=== PATIENT | female | born 1955 | race Caucasian/White ===

== ENCOUNTER 2017-12-06 11:08 | Emergency (ER) | payer MEDICARE, SELFPAY ==
[2017-12-06 11:08] VITALS: BP 138/78; PULSE 85; RESP 16; TEMP 36.6; O2SAT 99; BMI 25.0
--- NOTE | 2017-12-06 11:59 | CT_ITS ---
STUDY: CT ABDOMEN AND PELVIS WITH CONTRAST REASON FOR EXAM: Female, 62 years old. Abdominal pain RADIATION DOSAGE (If Supplied By Facility): CTDIvol = ( 15.60 ) mGy, DLP = ( 667.71 ) mGycm TECHNIQUE: Transaxial images were obtained from the dome of the diaphragm to the symphysis pubis without oral contrast. 100 ml of Isovue 300 contrast was administered. Sagittal and coronal images were reconstructed. Individualized dose optimization techniques were used for this CT. COMPARISON: None. FINDINGS: Body wall soft tissues: No acute process. Osseous structures: No acute process. Inferior chest: No acute process. Hepatobiliary: Cholecystectomy. Minimally ectatic intrahepatic biliary tree and common bile duct most consistent with chronic physiologic adaptation postcholecystectomy. Liver parenchyma normal. Pancreas: No acute process. Spleen: Normal. Adrenal glands: Normal. Urogenital: Normal kidneys, symmetric nephrograms. Normal collecting systems, ureters, urinary bladder. Uterus absent. No adnexal mass or cyst. Pelvic floor and sidewalls and retroperitoneum: No mass or adenopathy. Vasculature: No acute process. Stomach: No acute process. Small bowel and mesentery: There is small bowel stool within the distal ileum suggesting a component of mild stasis/dysmotility. Large bowel: The appendix is not visible. There are no acute inflammatory features in the region of the cecum. There is a moderately prominent distributed stool burden of large bowel from the cecum to the transverse colon. There is mild chronic-appearing circumferential thickening of the wall of the splenic flexure and descending colon with low-density fatty infiltration the wall suggesting sequela of prior colitis without evidence of acute colitis. There is minimal diverticulosis of the sigmoid without diverticulitis. Anastomotic sutures of the distal sigmoid. Normal rectum. Free fluid or free air: None. CT/Abdomen/Pelvis W IV Cont ONLY IMPRESSION: There is evidence of mild dysmotility in the distal ileum, small bowel stool present, with no evidence of small bowel obstruction or inflammation. No acute other malady of the large bowel or rectum. No other acute intra-abdominal process. Electronically Signed: Latrell Paez, at 13:41 EDT Tel , Service support ,
--- NOTE | 2017-12-06 11:59 | EKG12_ITS ---
Test Reason : SOB/CHEST TIGHTNESS Blood Pressure : / mmHG Vent. Rate : 071 BPM Atrial Rate : 071 BPM P-R Int : 162 ms QRS Dur : 072 ms QT Int : 416 ms P-R-T Axes : 003 041 051 degrees QTc Int : 452 ms Normal sinus rhythm Normal ECG Confirmed by CHRISTY CARDOZO, JENNY ([id number]), writer editor CHRISTIANO TITUS ([id number]) on 12/08/2017 1:30:30 PM Referred By: ANNIE Confirmed By:JENNY HARRISON MD
[2017-12-06 12:16] LABS: Bacteria 0 SEEN /hpf (None Seen); Mucous, Urine 0 SEEN /hpf (<or=2+); White Blood Cells 0 SEEN /hpf (0-5)
[2017-12-06 12:18] LABS: Absolute Neutrophil Count 3.5 X10^3/uL (2.0-7.7); Basophil# 0.04 X10^3/uL; Basophil% 0.6 % (0-1); Eosinophil# 0.05 X10^3/uL; Eosinophils% 0.8 % (0-5); Hematocrit 41.3 % (37-47); Hemoglobin 13.5 g/dl (12.0-15.0); Lymphocyte % 36.5 % (19-41); Mean Corp Hgb Conc 32.7 g/gl (32-36); Mean Corpuscular Hgb 29.8 pg (27.0-32.0); Mean Corpuscular Volume 91.2 fL (81-99); Mean Platelet Vol. 9.4 fl (6.2-12.0); Monocyte# 0.41 X10^3/uL; Monocyte% 6.5 % (0-10); Neutrophil # 3.49 X10^3/uL (2.7-7.7); Neutrophil % 55.4 % (47-70); POSITIVE COUNT NO; POSITIVE DIFFERENTIAL NO; POSITIVE MORPHOLOGY NO; Platelet Count 262 K/mm3 (150-450); RBC Distribution Width CV 13.2 % (11.6-14.6); RBC Distribution Width SD 43.6 fl (35.1-43.9); Red Blood Count 4.53 M/mm3 (4.2-5.4); White Blood Count 6.3 K/mm3 (4.4-11.0)
[2017-12-06 12:18] LABS: Color, Urine Yellow (Yellow); Glucose, Dipstick Normal (Normal); Ketone-Dipstick Negative (Negative); Leukocyte Esterase-Dipstick 25 /ul (Negative); Nitrite-Dipstick Negative (Negative); Occult Blood-Urine 150 /ul (Negative); Protein-Dipstick Negative (Negative); Specific Gravity, Urine 1.015 (1.002-1.030); Urine Bilirubin Dipstick Negative (Negative); Urine Clarity Clear (Clear); Urine Urobilinogen Normal (Normal)
[2017-12-06] MEDS: 0.9% Normal Saline 1,000 ML 1000 ML IV (12:18)
[2017-12-06] MEDS: Morphine 4 MG/ML Syringe IV (12:19)
[2017-12-06] MEDS: Ondansetron 4 MG/2 ML Vial IV (12:19)
[2017-12-06 12:23] LABS: Squamous Epithelial Cells - UA 0-5 SEEN /hpf (5-10)
[2017-12-06 12:24] LABS: Red Blood Cells-Urine 0-5 SEEN /hpf (0-5)
[2017-12-06 12:38] LABS: ALB/GLOB Ratio 0.9 RATIO (0.9-2.4); AST(SGOT) 28 U/L (15-37); Alanine Aminotransfer ALT/SGPT 29 U/L (13-56); Albumin, Serum 3.4 g/dL (3.2-5.0); Alkaline Phosphatase 105 U/L (45-117); Anion Gap 9 (5-15); BUN 12 mg/dL (7-18); BUN/Creat Ratio 18.6 RATIO (10-20); Calcium,Total 8.5 mg/dL (8.5-10.1); Chloride 107 mmol/L (98-107); Creatinine, Serum 0.65 mg/dL (0.55-1.02); EST Glomerular Filtration Rate 98 mL/min (>60); Est Glom Filt Rate - Afr Amer 119 mL/min (>60); Estimated Creatinine Clearance 73.28 ml/min; Globulin 3.7 g/dL (2.2-4.2); Glucose 93 mg/dL (74-106); Lipase 290 U/L (73-393); Potassium 3.4 mmol/L (3.5-5.1); Protein, Total 7.1 g/dL (6.4-8.2); Sodium Level 143 mmol/L (136-145)
[2017-12-06 13:12] VITALS: BP 137/87; PULSE 74; RESP 16; O2SAT 96
[2017-12-06 15:08] VITALS: BP 118/90; PULSE 65; RESP 16; O2SAT 97
--- NOTE | 2017-12-06 15:33 | ED.DCSUM_ITS ---
- ER Visit Summary Date of Service: 12/06/17 Chief Complaint: Abdominal pain History of Present Illness: The patient is a 62 F with a migratory abdominal pain over the past week and a half. Currently it is in her right upper quadrant and left lower quadrant. She also reports constipation, but she does pass gas. She is nauseated but denies vomiting. No fevers. No other related symptoms. She has a family history of colon cancer. She has a history of gastric ulcers, fibromyalgia, and a prior sigmoid operation. Physical Examination: Afebrile and vital signs unremarkable. Patient appears in no acute distress. Heart regular rate and rhythm. Lungs clear. Abdomen tender to palpation in the right upper quadrant and left lower quadrant. No guarding or rebound. Normal bowel sounds. Skin appears normal. Test Results: EKG shows sinus rhythm at a rate of 71. CBC normal. Potassium 3.4. Hepatic panel and lipase normal. Urinalysis unremarkable, shows contamination. Troponin normal. CT showed mild dysmotility at the distal ileum. Emergency Department Course and Treatment: Patient treated with morphine and Zofran while awaiting results. Labs are all fairly unremarkable. EKG and troponin normal. CT showed mild dysmotility. I discussed this with the radiologist. This is not an ileus or obstruction pattern. He said this is most likely seen with enteritis, constipation, or in elderly patients. Patient has no other findings to suggest enteritis or constipation. He said that her dysmotility pattern might cause constipation symptoms. Patient is appropriate for an outpatient workup. I discussed with the patient. She will follow-up with her PCP. Call tomorrow. I advised her that if her symptoms worsen, she should return for evaluation. She could become dehydrated or septic. This might require hospitalization. She will return for any new or worsening issues. She will use [id number] remedies for pain. Zofran as needed for nausea. Treatment Plan: As above Disposition: Discharged Impression: 1. Abdominal pain This note was generated with [employer] dictation software. It may contain incorrect words, spelling, and punctuation that were not noted in review of the chart prior to signing ED Disposition - Plan for ED Patient: Chief Complaint: Abd Pain Referrals: Margarito Spain DO [Primary Care Provider] -
--- NOTE | 2017-12-06 15:33 | ED.DEP ---
ED Disposition - Plan for ED Patient: Chief Complaint: Abd Pain Instructions: Abdominal Pain Prescriptions: Ondansetron [Zofran Odt] 4 mg PO Q8H PRN PRN #10 tab PRN Reason: Nausea Referrals: Margarito Spain DO [Primary Care Provider] -
[2017-12-06 15:50] VITALS: BP 118/90; PULSE 65; RESP 16; O2SAT 96
== END 2017-12-06 15:56 | disposition home or self-care (01) ==
PROVIDERS: Emergency Provider Emergency Medicine; Family Provider Student in an Organized Health Care Education/Training Program; PCP Student in an Organized Health Care Education/Training Program
DX: R10.11 Right upper quadrant pain (principal); R10.32 Left lower quadrant pain; K59.00 Constipation, unspecified; R11.0 Nausea; M79.7 Fibromyalgia; Z80.0 Family history of malignant neoplasm of digestive organs; Z87.19 Personal history of other diseases of the digestive system; Z79.899 Other long term (current) drug therapy
CPT/HCPCS: 74177; 80053; 81001; 83690; 84484; 85025; 93005; 96361; 96374; 96375; 99283; J7030; Q9967; A4216; J2405

== ENCOUNTER 2018-03-16 09:46 | Day surgery (SDC) | payer MEDICARE, SELFPAY ==
[2018-03-15 14:01] LABS: Hematocrit 43.5 % (37-47); Hemoglobin 14.3 g/dl (12.0-15.0); Mean Corp Hgb Conc 32.9 g/gl (32-36); Mean Corpuscular Hgb 30.6 pg (27.0-32.0); Mean Corpuscular Volume 92.9 fL (81-99); RBC Distribution Width CV 12.8 % (11.6-14.6); Red Blood Count 4.68 M/mm3 (4.2-5.4); White Blood Count 7.4 K/mm3 (4.4-11.0)
[2018-03-15 14:02] LABS: BUN 6 mg/dL (7-18); Glucose 97 mg/dL (74-106); International Normalized Ratio 0.9; Mean Platelet Vol. 9.9 fl (6.2-12.0); Partial Thromboplast Time 27.5 Seconds (24.1-36.2); Platelet Count 292 K/mm3 (150-450); Prothrombin Time (Protime)PT. 12.5 SECONDS (11.7-14.9); RBC Distribution Width SD 43.1 fl (35.1-43.9); Scan Indicated on CBC? Y/N NO
[2018-03-15 14:03] LABS: AST(SGOT) 28 U/L (15-37); Alanine Aminotransfer ALT/SGPT 52 U/L (13-56); Albumin, Serum 3.8 g/dL (3.2-5.0); Alkaline Phosphatase 139 U/L (45-117); Anion Gap 7 (5-15); BUN/Creat Ratio 8.8 RATIO (10-20); Bilirubin, Direct 0.13 mg/dL (0.00-0.30); Calcium,Total 8.9 mg/dL (8.5-10.1); Chloride 105 mmol/L (98-107); Creatinine, Serum 0.68 mg/dL (0.55-1.02); EST Glomerular Filtration Rate 92 mL/min (>60); Est Glom Filt Rate - Afr Amer 112 mL/min (>60); Globulin 4.2 g/dL (2.2-4.2); Potassium 3.5 mmol/L (3.5-5.1); Sodium Level 140 mmol/L (136-145)
[2018-03-16 10:18] VITALS: BP 133/94; PULSE 105; RESP 16; TEMP 36.9; O2SAT 98; BMI 24.8
--- NOTE | 2018-03-16 11:36 | DCINST_ITS ---
Discharge Diet: No Restrictions Discharge Activity: May not drive while taking narcotic pain medications., May Shower Allergies/Adverse Reactions: Allergies tramadol Allergy (Verified 03/09/18 09:59) Other SEIZURE Medications to take at Discharge Hydrochlorothiazide [Hctz] 12.5 mg PO DAILY 09/05/16 Simvastatin [Zocor] 40 mg PO QHS 09/05/16 Acetaminophen with Codeine [Acetaminophen-Cod #3 Tablet] 1 each PO PRN PRN 12/06/17 Cholecalciferol (VIT D3) [Vitamin D] 4,000 unit PO DAILY 12/06/17 Cyclobenzaprine [Flexeril] 10 mg PO TID PRN PRN 12/06/17 Ondansetron [Zofran Odt] 4 mg PO Q8H PRN PRN #10 tab 12/06/17 Ascorbic Acid [Vitamin C] 250 mg PO MOWEFRSA 03/09/18 B Infantis/B Ani/B Francois/B Bifid [Probiotic 4X Caplet] 1 each PO DAILY 03/09/18 Co Q10 200 [Co Q-10] 100 mg PO DAILY 03/09/18 Magnesium 250 mg PO MOWEFRSA 03/09/18 Omeprazole [Prilosec] 20 mg PO DAILY 03/09/18 Polyethylene Glycol 3350 [Miralax] 17 gm PO DAILY 03/09/18 Potassium Chloride [Klor-Con M20] 20 meq PO MOWE 03/09/18 Vitamin E 400 units PO MOWEFRSA 03/09/18 Primary Care Physician: Margarito Spain DO [Primary Care Provider] - Test Results: Test results from this visit will be discussed in further detail at your follow- up appointment, if applicable. Please Follow Up With: Tete Moctezuma MD When: in 2 weeks, call for appt. Proposed Discharge Date: 03/16/18
[2018-03-16] MEDS: Cefazolin 2 GM in 0.9% Normal Saline 100 ML IV (11:42)
--- NOTE | 2018-03-16 11:45 | BLA_PTH ---
PATIENT: SHRUTHI HILLS LOC: [facility] – [place] U#:[id number] AGE/SX: 63/F ROOM: RE03/16/[address]: Dr. Tete Moctezuma MD : [id number] BED: DIS: 03/16/2018 SPEC #: [id number] RECD: 03/16/18 15:05 STATUS: VELMA REQ #: [id number] FAVIO: 03/16/18 11:[address]: Tete Moctezuma DEPT: SURGICAL PATHOLOGY RECD BY: Mitchell Burnette ENTERED: 03/17/18 10:14 SP TYPE: BLADDER BX OTHR DR: MD Dr. Margarito Perez DO Tissues: Urinary bladder, NOS Procedures: Surgery Specimen Level IV HEADER OPERATION: Cysto, bladder biopsy, fulguration PRE-OP DIAGNOSIS: Bladder mucosal lesion unspecified TISSUE SUBMITTED: Posterior bladder wall biopsy MICROSCOPIC DIAGNOSIS Posterior bladder wall, biopsy: Fragments of urothelial mucosa with mild chronic inflammation and congestion. Negative for malignancy. See comment. MAYANK:christin 03/18/18 COMMENT Detrusor muscle is also present in the submitted specimen. MICROSCOPIC DESCRIPTION Slides are reviewed. GROSS DESCRIPTION Received in fixative is one container labeled with the patient's name and designated posterior bladder wall biopsy. The specimen consists of two irregular fragments of light white soft tissue that in aggregate measure 0.1 x 0.1 x <0.1 cm. The specimen is totally submitted in one cassette. / AM:christin 03/17/18 TC:3 CPT: 63977
--- NOTE | 2018-03-16 12:01 | PCM.OPRPT ---
Problem List (1) Erythematous bladder mucosa Status: Acute (2) Urgency of urination Status: Acute (3) Frequency of urination Status: Acute Report of Operation Date of Procedure: 03/16/18 Pre-Operative Diagnosis: bladder mucosal lesion unspecified Post-Operative Diagnosis: same Surgery/Procedure Performed:: cystoscopy, bladder biopsy posterior bladder wall. Description of Surgical Findings:: diffusely injected bladder mucosa with 1cm erythematous lesion posterior bladder wall. Likely small capacity as well, but not measured. Type of Anesthesia:: General Specimen's removed: posterior bladder wall biopsy, 2 pieces. Estimated Blood Loss (mL): 2cc Description of Procedure: The patient is a 63-year-old female who saw me in the office for help with urinary urgency and frequency. After performing a cystoscopy in the office, a posterior bladder wall erythematous site approximately 1 cm in diameter was identified. The risk benefits and alternatives were discussed and she agreed to proceed with biopsy under anesthesia. Patient was taken to the operating room and placed on the operating room table. Anesthesia monitored the head, neck, airway, IV access, vital signs throughout the case. Once anesthesia was appropriately administered the patient was placed into dorsal lithotomy and Trendelenburg. She was appropriately prepped and draped in usual sterile fashion. A cystourethroscopy was once again performed. The same lesion was identified in the posterior bladder wall. The bladder mucosa at this time was diffusely injected. There were no other mucosal abnormalities identified. This site was biopsied x2 with biopsy forceps. The area was cauterized for hemostatic control and tissue treatment. The patient's bladder was then emptied and the case was terminated. She was awakened and taken to the recovery room in good condition. There were no complications during this procedure. Grafts/Implants Used: none - Complications none - Admit VTE Documentation VTE Present on Admission: Yes VTE Mechan Device Prophylaxis: SCD's VTE Pharm Prophylaxis ordered?: No Reason prophylaxis not ordered:: Treatment Not Indicated
[2018-03-16 12:10] VITALS: BP 133/94; BP 142/75; PULSE 85; RESP 16; TEMP 36.3; O2SAT 94
[2018-03-16 12:15] VITALS: BP 133/94; BP 134/92; PULSE 76; RESP 18; O2SAT 99
[2018-03-16 12:31] VITALS: BP 132/90; BP 133/94; PULSE 81; RESP 16; TEMP 36.3; O2SAT 99
[2018-03-16 13:49] VITALS: BP 133/94; BP 143/77; PULSE 71; RESP 18; TEMP 36.7; O2SAT 99
--- OUTSIDE RECORDS SUMMARY | 2018-06-17 16:52 | XMS RPT_ITS ---
:1955 Author Organization OHIP Care Team Providers Name Role Phone MARGARITO SPAIN Attending Unavailable SPAIN, MARGARITO L Referring Unavailable SPAIN, MARGARITO L Referring Unavailable SPAIN, MARGARITO L Referring Unavailable SPAIN, MARGARITO L Attending Unavailable SPAIN, MARGARITO L Referring Unavailable SPAIN, MARGARITO L Attending Unavailable LYNETTE POLO (STICK WELDER) Attending Unavailable THORPENANNETTE (VP TRANSPORTATION) Attending Unavailable RUTLYNETTE MABRY (STICK WELDER) Referring Unavailable THORPENANNETTE (VP TRANSPORTATION) Referring Unavailable SPAIN, MARGARITO L Referring Unavailable SPAIN, MARGARITO L Attending Unavailable SPAIN, MARGARITO L Referring Unavailable SPAIN, MARGARITO L Referring Unavailable MARY BETH, NAIMA T Admitting Unavailable MARY BETH NAIMA T Attending Unavailable SPAIN, MARGARITO L Referring Unavailable THORPENANNETTE (VP TRANSPORTATION) Attending Unavailable NANNETTE BRADLEY (VP TRANSPORTATION) Referring Unavailable THORTRISTAN NANNETTE (VP TRANSPORTATION) Referring Unavailable CORNIELMARIE VAZQUEZ (STICK WELDER) Attending Unavailable CORNIELGEORGE, MARIE L (STICK WELDER) Referring Unavailable KAY JOHNSON (STICK WELDER) Attending Unavailable MARIE HSU (STICK WELDER) Referring Unavailable DOUG PRESCOTT Attending Unavailable KAY JOHNSON (STICK WELDER) Referring Unavailable KAY JOHNSON (STICK WELDER) Attending Unavailable SPAIN, MARGARITO L Attending Unavailable MARGARITO SPAIN Referring Unavailable MARGARITO SPAIN Attending Unavailable Leeanne Doss Attending Unavailable Margarito Spain Referring Unavailable Margarito Spain Primary Care Unavailable Kit Dewitt Attending Unavailable Tete Moctezuma Attending Unavailable Tete Moctezuma Referring Unavailable Margarito Spain Primary Care Unavailable Cristi Cole Consulting Unavailable PROBLEMS PROBLEMS DATE TYPE CONDITION / CODE ATTENDING STATUS SOURCE 03/31/2018 Active Unknown / SPAIN, Active [facility] UNK(Unknown) M[facility] 01/30/2017 Active Deficiency of other NA Active [facility] vitamins / [facility] E53.8(ICD-10) Repository 03/09/2013 Active Vitamin D deficiency, NA Active [place] unspecified / [facility] E55.9(ICD-10) [facility] 02/09/2015 Active Left lower quadrant NA Active [place] pain / R10.32(ICD-10) [facility] 01/04/2018 Active Pain in left hip / NA Active [place] M25.552(ICD-10) [facility] 01/04/2018 Active Other chronic pain / NA Active [place] G89.29(ICD-10) [facility] 12/25/2017 Active Noninfective MARY BETH, Active [place] gastroenteritis and NAIMA T [facility] Main colitis, unspecified [facility] / K52.9(ICD-10) Repository 12/25/2017 Active Functional intestinal MARY BETH, 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, unspecified [facility] / K59.9(ICD-10) [facility] 12/21/2017 Active Other general NA Active [place] symptoms and signs / [facility] R68.89(ICD-10) [facility] 12/21/2017 Active Other skin changes / NA Active [facility] R23.8(ICD-10) [facility] 12/21/2017 Active Pain in unspecified NA Active [place] joint / [facility] M25.50(ICD-10) [facility] 12/21/2017 Active Other iron deficiency NA Active [place] anemias / [facility] D50.8(ICD-10) [facility] 12/19/2017 Active Other hyperlipidemia NA Active [facility] / E78.4(ICD-10) [facility] 12/07/2017 Active Epigastric pain / NA Active [facility] R10.13(ICD-10) [facility] 12/07/2017 Active Nausea / NA Active [place] R11.0(ICD-10) [facility] 06/17/2017 Active Abnormal weight loss NA Active [place] / R63.4(ICD-10) [facility] Repository PROCEDURES PROCEDURES No Procedure Records FoundRESULTS RESULTS PROGRESS Observed: 03/31/2018 Status: COMPLETED Source: [place] 8:23 PM [facility] REPOSITORY HNO ID: [id number] Author: Margarito Spain Service: (none) Author Type: Physician Type: Progress Notes Filed: 04/03/2018 8:11 AM Note Text: CC: Brenden Giraldo is a 63 year old female who presents to the office for follow up HPI: Seen in office 3.5 months ago, at that time: She continues to feel that she is losing some of her short term memory, ?Memory eval was performed 11/[address] Parry and was found to be 27/30 on MMSE. ?Not getting lost, not forgetting how to use anything. Just loss of names or forgetting where set something in her home etc. 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 ??She is concerned due to a sister she thinks that has some type of undiagnosed dementia. ? She is also fearful of developing an autoimmune disease - has cold fingers and toes and nose often, even in the summer, turn a white color when cold. ?Also complains of diffuse joint pains especially in shoulders and fingers/hands. ? At last appt 2 months ago ? She has been having intermittent, varying in intensity, left lower abdominal pain that radiates to pelvic and groin region and lower back, varying consistencies to her stool, still bowel movement every other day but it varies from thin and stiff to loose. She is using prune juice warmed to help with bowel movements to be regular. She is also using IBS Levsin medication up to 2-3 times a day to help. Sometimes feeling better after bowel movement, feels better if able to keep stools consistent and not constipated. No new blood in stool ? Also symptoms of urethra discomfort and pain with urinating, found to have Vaginitis recently with BV per [facility] [facility] [employer], treated with Metronidazole, has changed her vaginal washing routine soaps to Dove sensitive, still struggles with burning/discomfort in urethral area. 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 Incidentally found small amount of blood without UTI on urine studies. Hasn't seen urologist in the past, symptoms x many weeks, no history of interstitial cystitis in the past Currently She has seen Urologist/uroGyn specialist Dr. Moctezuma at [facility]. She has performed bladder and urine testing and believes her symptoms to possibly be secondary to interstitial cystitis, she has given her Santura and uribel like medications. She is still concerned with the left lower abdominal discomfort which radiates to left upper abdomen, ? If related to scar tissue or IBS or other cause. Hasn't seen Gastroenterology physician yet but is now interested in this. Still struggling with recurrent nausea with eating many types of foods. Trying to now follow an IC diet a little to see if it helps the bladder symptoms as well. Getting very frustrated with these physical struggles at this time. PAST MEDICAL HISTORY Diagnosis Date - Abnormality of colon 2001 abnormal movment of colon, removed 9 in from sigmoid colon - Allergic rhinitis, cause unspecified - Arthritis of right shoulder region corticosteroid injection last 12/18/15 - Atherosclerosis of right carotid artery 07/2016 - DDD (degenerative disc disease), cervical - Depression - Fibromyalgia - Hypertension - Memory change MMSE 30/30 on 12/21/17 - Meniere's disease - Mild atherosclerosis of left carotid artery 07/2016 - Mixed hyperlipidemia - Osteoarthritis - Rotator cuff tear right sided - Seizures (HCC) with Tramadol only - TMJ disease chiropracter PAST SURGICAL HISTORY Procedure Laterality Date - ABDOMINOPLASTY 2006 - COLONOSCOP W/ OR W/O [facility] SPEC 12/25/2017 Colonoscopy - COLONOSCOPY 2008 - CYSTOSCOPY 03/16/2018 Dr. Moctezuma; W/ bladder bx posterior bladder wall - EGD W/O OR W/BRUSH/WASH 12/25/2017 EGD - PART REMOVAL COLON W ANASTOMOSIS 08/04/01 Laparotomy,Hemicolectomy, left ovarian cyst - PAST SURGICAL HISTORY OF 1987 Hemorrhoidectomy - PAST SURGICAL HISTORY OF 2014 right hand surgery, fingers - REDUCTION OF LARGE BREAST 2004 - VAGINAL HYSTERECTOMY 1996 Hysterectomy, vaginal- partial Current Outpatient Prescriptions: acetaminophen with codeine (TYLENOL-CODEINE #3 ORAL) Take 1 tablet by mouth as needed. Cholecalciferol, Vitamin D3, 1,000 unit cap Take 1 capsule by mouth once daily for 30 days. COMPOUNDED PRESCRIPTION Pt may use pool prn for muscle/joint pain Dx: M79.7 COMPOUNDED PRESCRIPTION Massage therapy eval and treat Dx: M79.7 cyclobenzaprine (FLEXERIL) 10 mg tablet Take 1 tablet by mouth three times daily as needed for Muscle Spasm. estrogens conjugated (PREMARIN) 0.625 mg tablet Take 0.625 mg by mouth once daily. Hydrochlorothiazide 12.5 mg capsule Take 1 capsule by mouth once daily. hyoscyamine (LEVSIN) 0.125 mg tablet Take 1 tablet by mouth every 4 hours as needed. IBS symptoms Max 12 per day. hyoscyamine sublingual (LEVSIN SL) 0.125 mg subl dissolve 1 to 2 tablets under the tongue every 4 hours if needed for IBS SYMPTOMS - MAX 12 PER DAY KLOR-CON M10 10 mEq tablet TAKE 1 TABLET BY MOUTH DAILY WITH BREAKFAST. lansoprazole (PREVACID 24HR ORAL) Take 1 tablet by mouth once daily. methen-sod phos-meth blue-hyos (UROGESIC-BLUE) 81.6-40.8-0.12 mg tab Take by mouth. MULTI-VITAMIN ORAL Take by mouth. [place]-3 Fatty Acids-Vitamin E (FISH OIL) 1,000 mg cap Take 1 capsule by mouth. ondansetron orally disintegrating (ZOFRAN ODT) 4 mg disintegrating tablet simvastatin (ZOCOR) 40 mg tablet TAKE 1 TABLET EVERY DAY AT BEDTIME Trospium (SANCTURA SR) 60 mg cp24 Take by mouth. UBIDECARENONE (CO Q-10 ORAL) Take by mouth. VITAMIN D-3 2,000 unit cap take 1 capsule by mouth once daily promethazine (PHENERGAN) 12.5 mg tablet Take 1 tablet by mouth every 8 hours as needed for Nausea/Vomiting. No current facility-administered medications for this visit. ALLERGIES Allergen Reactions - Tramadol Other: See Comments Seizure disorder. 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 Uvula midline. Neck: No LAD, no thyromegaly, no meningismus. CV: RRR, no murmur Lungs: CTA b/l, no wheezing Skin: No rashes, lesions, or wounds on exposed skin. Abd: soft, mildly distended, left sided discomfort, no organomegaly No edema ASSESSMENT/PLAN: 1. Abdominal pain, generalized - ICD9: 789.07, ICD10: R10.84 (primary diagnosis) - referral to [facility] for opinion, rx for levsin to use instead of bentyl, unsure the cause - CONSULT TO GASTROENTEROLOGY - HYOSCYAMINE SULFATE 0.125 MG TABLET - PROMETHAZINE 12.5 MG TABLET 2. Bloating - ICD9: 787.3, ICD10: R14.0 - see above - CONSULT TO GASTROENTEROLOGY - HYOSCYAMINE SULFATE 0.125 MG TABLET - PROMETHAZINE 12.5 MG TABLET 3. Bowel habit changes - ICD9: 787.99, ICD10: R19.4 - see above - CONSULT TO GASTROENTEROLOGY - HYOSCYAMINE SULFATE 0.125 MG TABLET - PROMETHAZINE 12.5 MG TABLET 4. Interstitial cystitis - ICD9: 595.1, ICD10: N30.10 chronic - Follow up with Urologist 5. Multiple joint pain - ICD9: 719.49, ICD10: M25.50 - okay for avoidance of NSAIDs at this time due to abdominal pain, okay for tylenol#3 instead Margarito Spain DO Return if no improvement. Follow up with Margarito Spain DO. Discussed risks, benefits, alternatives, and potential side effects of medications. Patient/Guardian expressed understanding and agreed with the plan. See patient instructions. Margarito Spain DO [address] [place] [address] CNOV Observed: 03/31/2018 Status: COMPLETED Source: [place] 2:40 PM [facility] REPOSITORY Office Visit (FAMPWS) REDSELENAHUNTERBRENDEN Page ([id number]) 1955 F Date Time Provider Department 03/31/18 2:40 PM [facility]O [facility] During your visit today, we recorded the following information about you: Temperature Pulse Respiration Blood pressure 98.4 degrees 80/minute 16/minute 138/80 Weight 61.2 kg Margarito Spain DO 04/03/2018 8:11 AM Signed CC: Brenden Giraldo is a 63 year old female who presents to the office for follow up HPI: Seen in office 3.5 months ago, at that time: She continues to feel that she is losing some of her short term memory, ?Memory eval was performed 11/[address] Parry and was found to be 27/30 on MMSE. ?Not getting lost, not forgetting how to use anything. Just loss of names or forgetting where set something in her home etc. 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 ??She is concerned due to a sister she thinks that has some type of undiagnosed dementia. ? She is also fearful of developing an autoimmune disease - has cold fingers and toes and nose often, even in the summer, turn a white color when cold. ?Also complains of diffuse joint pains especially in shoulders and fingers/hands. ? At last appt 2 months ago ? She has been having intermittent, varying in intensity, left lower abdominal pain that radiates to pelvic and groin region and lower back, varying consistencies to her stool, still bowel movement every other day but it varies from thin and stiff to loose. She is using prune juice warmed to help with bowel movements to be regular. She is also using IBS Levsin medication up to 2-3 times a day to help. Sometimes feeling better after bowel movement, feels better if able to keep stools consistent and not constipated. No new blood in stool ? Also symptoms of urethra discomfort and pain with urinating, found to have Vaginitis recently with BV per [facility], treated with Metronidazole, has changed her vaginal washing routine soaps to Dove sensitive, still struggles with burning/discomfort in urethral area. 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 Incidentally found small amount of blood without UTI on urine studies. Hasn't seen urologist in the past, symptoms x many weeks, no history of interstitial cystitis in the past Currently She has seen Urologist/uroGyn specialist Dr. Moctezuma at [facility]. She has performed bladder and urine testing and believes her symptoms to possibly be secondary to interstitial cystitis, she has given her Santura and uribel like medications. She is still concerned with the left lower abdominal discomfort which radiates to left upper abdomen, ? If related to scar tissue or IBS or other cause. Hasn't seen Gastroenterology physician yet but is now interested in this. Still struggling with recurrent nausea with eating many types of foods. Trying to now follow an IC diet a little to see if it helps the bladder symptoms as well. Getting very frustrated with these physical struggles at this time. PAST MEDICAL HISTORY Diagnosis Date - Abnormality of colon 2001 abnormal movment of colon, removed 9 in from sigmoid colon - Allergic rhinitis, cause unspecified - Arthritis of right shoulder region corticosteroid injection last 12/18/15 - Atherosclerosis of right carotid artery 07/2016 - DDD (degenerative disc disease), cervical - Depression - Fibromyalgia - Hypertension - Memory change MMSE 30/30 on 12/21/17 - Meniere's disease - Mild atherosclerosis of left carotid artery 07/2016 - Mixed hyperlipidemia - Osteoarthritis - Rotator cuff tear right sided - Seizures (HCC) with Tramadol only - TMJ disease chiropracter PAST SURGICAL HISTORY Procedure Laterality Date - ABDOMINOPLASTY 2006 - COLONOSCOP W/ OR W/O [facility] SPEC 12/25/2017 Colonoscopy - COLONOSCOPY 2008 - CYSTOSCOPY 03/16/2018 Dr. Moctezuma; W/ bladder bx posterior bladder wall - EGD W/O OR W/BRUSH/WASH 12/25/2017 EGD - PART REMOVAL COLON W ANASTOMOSIS 08/04/01 Laparotomy,Hemicolectomy, left ovarian cyst - PAST SURGICAL HISTORY OF 1987 Hemorrhoidectomy - PAST SURGICAL HISTORY OF 2014 right hand surgery, fingers - REDUCTION OF LARGE BREAST 2004 - VAGINAL HYSTERECTOMY 1996 Hysterectomy, vaginal- partial Current Outpatient Prescriptions: acetaminophen with codeine (TYLENOL-CODEINE #3 ORAL) Take 1 tablet by mouth as needed. Cholecalciferol, Vitamin D3, 1,000 unit cap Take 1 capsule by mouth once daily for 30 days. COMPOUNDED PRESCRIPTION Pt may use pool prn for muscle/joint pain Dx: M79.7 COMPOUNDED PRESCRIPTION Massage therapy eval and treat Dx: M79.7 cyclobenzaprine (FLEXERIL) 10 mg tablet Take 1 tablet by mouth three times daily as needed for Muscle Spasm. estrogens conjugated (PREMARIN) 0.625 mg tablet Take 0.625 mg by mouth once daily. Hydrochlorothiazide 12.5 mg capsule Take 1 capsule by mouth once daily. hyoscyamine (LEVSIN) 0.125 mg tablet Take 1 tablet by mouth every 4 hours as needed. IBS symptoms Max 12 per day. hyoscyamine sublingual (LEVSIN SL) 0.125 mg subl dissolve 1 to 2 tablets under the tongue every 4 hours if needed for IBS SYMPTOMS - MAX 12 PER DAY KLOR-CON M10 10 mEq tablet TAKE 1 TABLET BY MOUTH DAILY WITH BREAKFAST. lansoprazole (PREVACID 24HR ORAL) Take 1 tablet by mouth once daily. methen-sod phos-meth blue-hyos (UROGESIC-BLUE) 81.6-40.8-0.12 mg tab Take by mouth. MULTI-VITAMIN ORAL Take by mouth. [place]-3 Fatty Acids-Vitamin E (FISH OIL) 1,000 mg cap Take 1 capsule by mouth. ondansetron orally disintegrating (ZOFRAN ODT) 4 mg disintegrating tablet simvastatin (ZOCOR) 40 mg tablet TAKE 1 TABLET EVERY DAY AT BEDTIME Trospium (SANCTURA SR) 60 mg cp24 Take by mouth. UBIDECARENONE (CO Q-10 ORAL) Take by mouth. VITAMIN D-3 2,000 unit cap take 1 capsule by mouth once daily promethazine (PHENERGAN) 12.5 mg tablet Take 1 tablet by mouth every 8 hours as needed for Nausea/Vomiting. No current facility-administered medications for this visit. ALLERGIES Allergen Reactions - Tramadol Other: See Comments Seizure disorder. 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 Uvula midline. Neck: No LAD, no thyromegaly, no meningismus. CV: RRR, no murmur Lungs: CTA b/l, no wheezing Skin: No rashes, lesions, or wounds on exposed skin. Abd: soft, mildly distended, left sided discomfort, no organomegaly No edema ASSESSMENT/PLAN: 1. Abdominal pain, generalized - ICD9: 789.07, ICD10: R10.84 (primary diagnosis) - referral to [facility] for opinion, rx for levsin to use instead of bentyl, unsure the cause - CONSULT TO GASTROENTEROLOGY - HYOSCYAMINE SULFATE 0.125 MG TABLET - PROMETHAZINE 12.5 MG TABLET 2. Bloating - ICD9: 787.3, ICD10: R14.0 - see above - CONSULT TO GASTROENTEROLOGY - HYOSCYAMINE SULFATE 0.125 MG TABLET - PROMETHAZINE 12.5 MG TABLET 3. Bowel habit changes - ICD9: 787.99, ICD10: R19.4 - see above - CONSULT TO GASTROENTEROLOGY - HYOSCYAMINE SULFATE 0.125 MG TABLET - PROMETHAZINE 12.5 MG TABLET 4. Interstitial cystitis - ICD9: 595.1, ICD10: N30.10 chronic - Follow up with Urologist 5. Multiple joint pain - ICD9: 719.49, ICD10: M25.50 - okay for avoidance of NSAIDs at this time due to abdominal pain, okay for tylenol#3 instead Margarito Spain DO Return if no improvement. Follow up with Margarito Spain DO. Discussed risks, benefits, alternatives, and potential side effects of medications. Patient/Guardian expressed understanding and agreed with the plan. See patient instructions. Margarito Spain DO [address] [facility] [place] [address] Referring Provider: SELF [[id number]] Allergies As of Date: 03/31/2018 Noted Allergy Reaction TRAMADOL 12/16/2011 14 - Other: See Comments Comments: Seizure disorder. RAGWEED 10/16/2010 14 - Other: See Comments Comments: itchy watery eyes, sneezing, runny nose Date Reviewed: 03/31/2018 Reviewed by: Lilian Valenzuela LPN - Fully Assessed Reason for Visit: Follow Up [171] Primary Visit Diagnosis:Abdominal pain, generalized [R10.84] Other Visit Diagnoses:Bloating [R14.0] Bowel habit changes [R19.4] Interstitial cystitis [N30.10] Multiple joint pain [M25.50] Order(s):CONSULT TO GASTROENTEROLOGY [9083] Order #: [id number]: 1 hyoscyamine (LEVSIN) 0.125 mg tabletTake 1 tablet by mouth every 4 hours as needed. IBS symptoms Max 12 per day.Disp: 60 tabletRfl: 5 promethazine (PHENERGAN) 12.5 mg tabletTake 1 tablet by mouth every 8 hours as needed for Nausea/Vomiting.Disp: 30 tabletRfl: 1 Prescriptions as of 03/31/2018 Sig: TROSPIUM ER 60 MG CAPSULE,EXT* Take by mouth. METHENAMINE 81.6 MG-SOD PHOS * Take by mouth. CONJUGATED ESTROGENS 0.625 MG* Take 0.625 mg by mouth once d* HYOSCYAMINE SULFATE 0.125 MG * Take 1 tablet by mouth every * HYOSCYAMINE 0.125 MG SUBLINGU* dissolve 1 to 2 tablets under* VITAMIN D3 2,000 UNIT CAPSULE take 1 capsule by mouth once * TYLENOL-CODEINE #3 ORAL Take 1 tablet by mouth as nee* ONDANSETRON 4 MG DISINTEGRATI* PREVACID 24HR ORAL Take 1 tablet by mouth once d* CYCLOBENZAPRINE 10 MG TABLET Take 1 tablet by mouth three * SIMVASTATIN 40 MG TABLET TAKE 1 TABLET EVERY DAY AT BE* KLOR-CON M10 MEQ TABLET,EXTEN* TAKE 1 TABLET BY MOUTH DAILY * HYDROCHLOROTHIAZIDE 12.5 MG C* Take 1 capsule by mouth once * COMPOUNDED PRESCRIPTION Pt may use pool prn for muscl* COMPOUNDED PRESCRIPTION Massage therapy eval and rosanne* CO Q-10 ORAL Take by mouth. [place]ME[place]-3 FATTY ACIDS-VITAMIN E* Take 1 capsule by mouth. MULTI-VITAMIN ORAL Take by mouth. CHOLECALCIFEROL (VITAMIN D3) * Take 1 capsule by mouth once * PROMETHAZINE 12.5 MG TABLET Take 1 tablet by mouth every * Problem List As Of Date 03/31/2018 Noted Resolved Hyperlipidemia [E78.5] INVALID FOR* Fibromyalgia [M79.7] INVALID FOR* Hypertension [I10] INVALID FOR* Rectocele [N81.6] INVALID FOR* Hemorrhoids [K64.9] INVALID FOR* Abdominal pain [R10.9] INVALID FOR* LGI bleed [K92.2] INVALID FOR* Pancreatitis [K85.90] INVALID FOR* Leukocytosis [D72.829] INVALID FOR* Vitamin B12 deficiency [E53.8] INVALID FOR* Temporomandibular joint disorders, unspecified *INVALID FOR* Cervicalgia [M54.2] INVALID FOR* Depression [F32.9] INVALID FOR* Vitamin D deficiency [E55.9] INVALID FOR* DDD (degenerative disc disease), lumbar [M51.36]INVALID FOR* Lumbar spondylosis [M47.816] INVALID FOR* Arthritis of right shoulder region [M19.011] INVALID FOR* Cervical strain [S16.1XXA] INVALID FOR* Myofascial pain [M79.18] INVALID FOR* Thoracic myofascial strain [S29.019A] INVALID FOR* Family history of colon cancer [Z80.0] INVALID FOR* Unspecified gastritis and gastroduodenitis with*INVALID FOR* Spondylosis of lumbar region without myelopathy*INVALID FOR* Left groin pain [R10.32] INVALID FOR* Atherosclerosis of right carotid artery [I65.21]INVALID FOR* Mild atherosclerosis of left carotid artery [I6*INVALID FOR* Mixed hyperlipidemia [E78.2] Osteoarthritis [M19.90] 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 Rotator cuff tear [M75.100] More... Meniere's disease [H81.09] DDD (degenerative disc disease), cervical [M50.* Allergic rhinitis [J30.9] Abnormality of colon [K63.9] INVALID FOR* More... Tenosynovitis, de Quervain [M65.4] INVALID FOR* DJD (degenerative joint disease), cervical [M47*INVALID FOR* Unintentional weight loss [R63.4] INVALID FOR* Elevated blood pressure reading without diagnos*INVALID FOR* Memory deficit [R41.3] INVALID FOR* Memory change [R41.3] INVALID FOR* Absolute anemia [D64.9] INVALID FOR* Multiple joint pain [M25.50] INVALID FOR* Abnormal foot color [R23.8] INVALID FOR* Cold intolerance of hand [R68.89] INVALID FOR* Prescriptions ordered this encounter Disp Refills Start End HYOSCYAMINE SULFATE 0.125 MG TABLET 60 t* 5 03/31/2018 Route: ORAL Sig: Take 1 tablet by mouth every 4 hours as needed. IBS symptoms Max 12 per day. PROMETHAZINE 12.5 MG TABLET 30 t* 1 03/31/2018 Route: ORAL Sig: Take 1 tablet by mouth every 8 hours as needed for Nausea/Vomiting. Medications Discontinued During This Encounter hyoscyamine (LEVSIN) 0.125 mg tablet 60 t* 1 12/16/2017 03/31/2018 Route: ORAL Sig: Take 1 tablet by mouth every 4 hours as needed. IBS symptoms Max 12 per day. Disc: Reason for discontinue is not on file. Encounter Status:Closed by MARGARITO SPAIN DO on 04/03/18 OPERATIVE REPORT Observed: 03/16/2018 Status: F Source: [place] 12:06 PM [facility] REPOSITORY [facility] Medical Records Department [address] [place] [address] Operative Report 03/16/18 1201 MR#: [id number] Acct: [id number] Name: BRENDEN GIRALDO Rep #: [id number] : 1955 63 From: Tete Moctezuma MD PCP: Margarito Bay DO Status: REG SDC Y Location: [place] [address]-1 Problem List (1) Erythematous bladder mucosa Status: Acute (2) Urgency of urination Status: Acute (3) Frequency of urination Status: Acute Report of Operation Date of Procedure: 03/16/18 Pre-Operative Diagnosis: bladder mucosal lesion unspecified Post-Operative Diagnosis: same Surgery/Procedure Performed:: cystoscopy, bladder biopsy posterior bladder wall. Description of Surgical Findings:: diffusely injected bladder mucosa with 1cm erythematous lesion posterior bladder wall. Likely small capacity as well, but not measured. Type of Anesthesia:: General Specimen's removed: posterior bladder wall biopsy, 2 pieces. Estimated Blood Loss (mL): 2cc Description of Procedure: The patient is a 63-year-old female who saw me in the office for help with urinary urgency and frequency. After performing a cystoscopy in the office, a posterior bladder wall erythematous site approximately 1 cm in diameter was identified. The risk benefits and alternatives were discussed and she agreed to proceed with biopsy under anesthesia. Patient was taken to the operating room and placed on the operating room table. Anesthesia monitored the head, neck, airway, IV access, vital signs throughout the case. Once anesthesia was appropriately administered the patient was placed into dorsal lithotomy and Trendelenburg. She was appropriately prepped and draped in usual sterile fashion. A cystourethroscopy was once again performed. The same lesion was identified in the posterior bladder wall. The bladder mucosa at this time was diffusely injected. There were no other mucosal abnormalities identified. This site was biopsied x2 with biopsy forceps. The area was cauterized for hemostatic control and tissue treatment. The patient's bladder was then emptied and the case was terminated. She was awakened and taken to the recovery room in good condition. There were no complications during this procedure. Grafts/Implants Used: none - Complications none - Admit VTE Documentation VTE Present on Admission: Yes VTE Mechan Device Prophylaxis: SCD's VTE Pharm Prophylaxis ordered?: No Reason prophylaxis not ordered:: Treatment Not Indicated 03/16/18 1206 <Electronically signed by Tete Moctezuma MD> Date Tete Moctezuma MD CC: Cristi Cole MD; Tete Moctezuma MD; Margarito Bay DO Signed BLADDER BX/FULGURATION Observed: 03/16/2018 Status: F Source: [place] 11:45 AM [facility] REPOSITORY Patient: BRENDEN GIRALDO : 1955 (63/F) Acct Num: [id number] Phys: Tete Moctezuma MD Unit Num: [id number] Loc: [facility] Specimen: [id number] Received: 03/16/18 - 1505 Spec Type: BLADDER BX TISSUES 1 TISSUES: Urinary bladder, NOS COMMENT Detrusor muscle is also present in the submitted specimen. GROSS DESCRIPTION Received in fixative is one container labeled with the patient's name and designated posterior bladder wall biopsy. The specimen consists of two irregular fragments of light white soft tissue that in aggregate measure 0.1 x 0.1 x <0.1 cm. The specimen is totally submitted in one cassette. / AM:christin TC:3 CPT: 77519 HEADER OPERATION: Cysto, bladder biopsy, fulguration PRE-OP DIAGNOSIS: Bladder mucosal lesion unspecified TISSUE SUBMITTED: Posterior bladder wall biopsy MICROSCOPIC DESCRIPTION Slides are reviewed. MICROSCOPIC DIAGNOSIS Posterior bladder wall, biopsy: Fragments of urothelial mucosa with mild chronic inflammation and congestion. Negative for malignancy. See comment. SJ:christin 03/18/[address] Jose MD 03/18/18 <signature on file> Performed By: #### PBLA #### [facility] [address] [place], [address] DISCHARGE INSTRUCTION Observed: 03/16/2018 Status: F Source: [place] 11:36 AM [facility] REPOSITORY [facility] Medical Records Department [address] [place] [address] Instructions for Home/Discharge Instructions 03/16/18 1135 MR#: [id number] Acct: [id number] Name: BRENDEN GIRALDO Rep #: [id number] : 1955 63 From: Tete Moctezuma MD PCP: Margarito Bay DO Status: REG [facility] Discharge Diet: No Restrictions Discharge Activity: May not drive while taking narcotic pain medications., May Shower Allergies/Adverse Reactions: Allergies tramadol Allergy (Verified 03/09/18 09:59) Other SEIZURE Medications to take at Discharge Hydrochlorothiazide [Hctz] 12.5 mg PO DAILY 09/05/16 Simvastatin [Zocor] 40 mg PO QHS 09/05/16 Acetaminophen with Codeine [Acetaminophen-Cod #3 Tablet] 1 each PO PRN PRN 12/06/17 Cholecalciferol (VIT D3) [Vitamin D] 4,000 unit PO DAILY 12/06/17 Cyclobenzaprine [Flexeril] 10 mg PO TID PRN PRN 12/06/17 Ondansetron [Zofran Odt] 4 mg PO Q8H PRN PRN #10 tab 12/06/17 Ascorbic Acid [Vitamin C] 250 mg PO MOWEFRSA 03/09/18 B Infantis/B Ani/B Francois/B Bifid [Probiotic 4X Caplet] 1 each PO DAILY 03/09/18 Co Q10 200 [Co Q-10] 100 mg PO DAILY 03/09/18 Magnesium 250 mg PO MOWEFRSA 03/09/18 Omeprazole [Prilosec] 20 mg PO DAILY 03/09/18 Polyethylene Glycol 3350 [Miralax] 17 gm PO DAILY 03/09/18 Potassium Chloride [Klor-Con M20] 20 meq PO MOWE 03/09/18 Vitamin E 400 units PO MOWEFRSA 03/09/18 Primary Care Physician: Margarito Spain DO [Primary Care Provider] - Test Results: Test results from this visit will be discussed in further detail at your follow-up appointment, if applicable. Please Follow Up With: Tete Moctezuma MD When: in 2 weeks, call for appt. Proposed Discharge Date: 03/16/18 03/16/18 1136 <Electronically signed by Tete Moctezuma MD> Date Tete Moctezuma MD CC: Cristi Cole MD; Margarito Bay DO CBC-COMPLETE BLOOD CNT Collected: 03/16/2018 Status: F Source: [place] NO DIFF 11:35 AM [facility] REPOSITORY Order Comment: Reason for Laboratory Test PREOP TYPE CODE TESTS RESULT OUT OF RANGE REFERENCE UNITS LAB L100.1000 4.4-11.0 K/mm3 Normal WBC 7.4 LAB L100.1200 4.2-5.4 M/mm3 Normal RBC 4.68 LAB L100.1300 12.0-15.0 g/dl Normal HGB 14.3 LAB L100.1400 37-47 % Normal HCT 43.5 LAB L100.1500 81-99 fL Normal MCV 92.9 LAB L100.1600 27.0-32.0 pg Normal MCH 30.6 LAB L100.1700 32-36 g/gl Normal MCHC 32.9 LAB L100.1810 11.6-14.6 % Normal RDW CV 12.8 LAB L100.1820 35.1-43.9 fl Normal RDW SD 43.1 LAB L100.1900 150-450 K/mm3 Normal PLT 292 LAB L100.2000 6.2-12.0 fl Normal MPV 9.9 Performed By: #### L100.0500 #### [facility] [address] [facility] [id number] PROTHROMBIN TIME W/INR Collected: 03/16/2018 Status: F Source: [place] 11:35 AM [facility] REPOSITORY Order Comment: Reason for Laboratory Test PREOP TYPE CODE TESTS RESULT OUT OF RANGE REFERENCE UNITS LAB L300.4150 11.7-14.9 SECONDS Normal PROTIME 12.5 LAB L300.4200 Normal INR 0.9 Performed By: #### L300.3900, L300.4310 #### [facility] [address] [facility] [id number] PARTIAL THROMBOPLAST Collected: 03/16/2018 Status: F Source: [place] TIME 11:35 AM [facility] REPOSITORY Order Comment: Reason for Laboratory Test PREOP TYPE CODE TESTS RESULT OUT OF RANGE REFERENCE UNITS LAB L300.4310 24.1-36.2 Seconds Normal PTT 27.5 Performed By: #### L300.3900, L300.4310 #### [facility] [address] [facility] [id number] BASIC METABOLIC Collected: 03/16/2018 Status: F Source: [place] PROFILE (BMP) 11:35 AM [facility] REPOSITORY Order Comment: Reason for Laboratory Test PREOP TYPE CODE TESTS RESULT OUT OF RANGE REFERENCE UNITS LAB L501.0100 74-106 mg/dL Normal GLU 97 Result Comment: Please note revised GLUCOSE reference range effective 2017. LAB L501.1000 7-18 mg/dL Low BUN 6 LAB L501.1100 0.55-1.02 mg/dL Normal CREAT,SERUM 0.68 Result Comment: The validity of the calculated GFR AND GFRAA in patients over 70 years has not been determined. Clinical correlation is essential. LAB L501.1110 >60 mL/min Normal EST GFR 92 Result Comment: Non- GFR Calc LAB L501.1115 >60 mL/min Normal EST GFR - AA 112 Result Comment: GFR Calc LAB L501.1300 10-20 RATIO Low BUN/CRE 8.8 LAB L501.2200 8.5-10.1 mg/dL Normal CA 8.9 LAB L501.5300 136-145 mmol/L Normal NA 140 LAB L501.5600 3.5-5.1 mmol/L Normal K 3.5 LAB L501.5900 98-107 mmol/L Normal CL 105 LAB L501.6100 21.0-32.0 mmol/L Normal CO2 28.0 LAB L501.6200 5-15 Normal GAP 7 Performed By: #### L500.2500, L500.3400 #### [facility] [address] [place], [address] LIVER PROFILE Collected: 03/16/2018 Status: F Source: [place] 11:35 AM [facility] REPOSITORY Order Comment: Reason for Laboratory Test PREOP TYPE CODE TESTS RESULT OUT OF RANGE REFERENCE UNITS LAB L501.1500 6.4-8.2 g/dL Normal T PROT 8.0 LAB L501.1800 3.2-5.0 g/dL Normal ALB 3.8 LAB L501.1950 2.2-4.2 g/dL Normal GLOB 4.2 LAB L501.4100 15-37 U/L Normal AST 28 LAB L501.4305 45-117 U/L High ALK P 139 LAB L501.4405 13-56 U/L Normal ALT 52 LAB L501.4600 0.20-1.00 mg/dL Normal T BILI 0.60 LAB L501.4700 0.00-0.30 mg/dL Normal D BILI 0.13 Performed By: #### L500.2500, L500.3400 #### [facility] [address] [place], [place], [id number] CBC-COMPLETE BLOOD CNT Collected: 03/15/2018 Status: F Source: [place] NO DIFF 9:53 AM [facility] REPOSITORY TYPE CODE TESTS RESULT OUT OF RANGE REFERENCE UNITS LAB L100.1000 4.4-11.0 K/mm3 Normal WBC 7.4 LAB L100.1200 4.2-5.4 M/mm3 Normal RBC 4.68 LAB L100.1300 12.0-15.0 g/dl Normal HGB 14.3 LAB L100.1400 37-47 % Normal HCT 43.5 LAB L100.1500 81-99 fL Normal MCV 92.9 LAB L100.1600 27.0-32.0 pg Normal MCH 30.6 LAB L100.1700 32-36 g/gl Normal MCHC 32.9 LAB L100.1810 11.6-14.6 % Normal RDW CV 12.8 LAB L100.1820 35.1-43.9 fl Normal RDW SD 43.1 LAB L100.1900 150-450 K/mm3 Normal PLT 292 LAB L100.2000 6.2-12.0 fl Normal MPV 9.9 Performed By: #### L100.0500 #### [facility] [address] [place], [place], [id number] PROTHROMBIN TIME W/INR Collected: 03/15/2018 Status: F Source: [place] 9:53 AM [facility] REPOSITORY TYPE CODE TESTS RESULT OUT OF RANGE REFERENCE UNITS LAB L300.4150 11.7-14.9 SECONDS Normal PROTIME 12.5 LAB L300.4200 Normal INR 0.9 Performed By: #### L300.3900, L300.4310 #### [facility] [address] [place], [address] PARTIAL THROMBOPLAST Collected: 03/15/2018 Status: F Source: [place] TIME 9:53 AM [facility] REPOSITORY TYPE CODE TESTS RESULT OUT OF RANGE REFERENCE UNITS LAB L300.4310 24.1-36.2 Seconds Normal PTT 27.5 Performed By: #### L300.3900, L300.4310 #### [facility] [address] [place], [address] BASIC METABOLIC Collected: 03/15/2018 Status: F Source: [place] PROFILE (BMP) 9:53 AM [facility] REPOSITORY TYPE CODE TESTS RESULT OUT OF RANGE REFERENCE UNITS LAB L501.0100 74-106 mg/dL Normal GLU 97 Result Comment: Please note revised GLUCOSE reference range effective 2017. LAB L501.1000 7-18 mg/dL Low BUN 6 LAB L501.1100 0.55-1.02 mg/dL Normal CREAT,SERUM 0.68 Result Comment: The validity of the calculated GFR AND GFRAA in patients over 70 years has not been determined. Clinical correlation is essential. LAB L501.1110 >60 mL/min Normal EST GFR 92 LAB L501.1115 >60 mL/min Normal EST GFR - AA 112 LAB L501.1300 10-20 RATIO Low BUN/CRE 8.8 LAB L501.2200 8.5-10.1 mg/dL Normal CA 8.9 LAB L501.5300 136-145 mmol/L Normal NA 140 LAB L501.5600 3.5-5.1 mmol/L Normal K 3.5 LAB L501.5900 98-107 mmol/L Normal CL 105 LAB L501.6100 21.0-32.0 mmol/L Normal CO2 28.0 LAB L501.6200 5-15 Normal GAP 7 Performed By: #### L500.2500, L500.3400 #### [facility] [address] [place], [address] LIVER PROFILE Collected: 03/15/2018 Status: F Source: [place] 9:53 AM [facility] REPOSITORY TYPE CODE TESTS RESULT OUT OF RANGE REFERENCE UNITS LAB L501.1500 6.4-8.2 g/dL Normal T PROT 8.0 LAB L501.1800 3.2-5.0 g/dL Normal ALB 3.8 LAB L501.1950 2.2-4.2 g/dL Normal GLOB 4.2 LAB L501.4100 15-37 U/L Normal AST 28 LAB L501.4305 45-117 U/L High ALK P 139 LAB L501.4405 13-56 U/L Normal ALT 52 LAB L501.4600 0.20-1.00 mg/dL Normal T BILI 0.60 LAB L501.4700 0.00-0.30 mg/dL Normal D BILI 0.13 Performed By: #### L500.2500, L500.3400 #### [facility] [address] [place], [place], [id number] PROGRESS Observed: 02/03/2018 Status: COMPLETED Source: [place] 7:12 AM [facility] REPOSITORY HNO ID: [id number] Author: Margarito Spain Service: (none) Author Type: Physician Type: Progress Notes Filed: 02/03/2018 7:20 AM Note Text: CC Brenden Giraldo is a 62 year old female who presents to the office for follow up HPI: Seen in office 6 weeks ago, at that time: She continues to feel that she is losing some of her short term memory, ?Memory eval was performed 11/[address] Parry and was found to be 27/30 on MMSE. ?Not getting lost, not forgetting how to use anything. Just loss of names or forgetting where set something in her home etc. 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 She is concerned due to a sister she thinks that has some type of undiagnosed dementia. ? She is also fearful of developing an autoimmune disease - has cold fingers and toes and nose often, even in the summer, turn a white color when cold. Also complains of diffuse joint pains especially in shoulders and fingers/hands. Currently She has been having intermittent, varying in intensity, left lower abdominal pain that radiates to pelvic and groin region and lower back, varying consistencies to her stool, still bowel movement every other day but it varies from thin and stiff to loose. She is using prune juice warmed to help with bowel movements to be regular. She is also using IBS Levsin medication up to 2-3 times a day to help. Sometimes feeling better after bowel movement, feels better if able to keep stools consistent and not constipated. No new blood in stool Also symptoms of urethra discomfort and pain with urinating, found to have Vaginitis recently with BV per INTERNATIONAL EDITORIAL [employer]ODUCER, treated with Metronidazole, has changed her vaginal washing routine soaps to Dove sensitive, still struggles with burning/discomfort in urethral area. 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 Incidentally found small amount of blood without UTI on urine studies. Hasn't seen urologist in the past, symptoms x many weeks, no history of interstitial cystitis in the past PAST MEDICAL HISTORY Diagnosis Date - Abnormality of colon 2001 abnormal movment of colon, removed 9 in from sigmoid colon - Allergic rhinitis, cause unspecified - Arthritis of right shoulder region corticosteroid injection last 12/18/15 - Atherosclerosis of right carotid artery 07/2016 - DDD (degenerative disc disease), cervical - Depression - Fibromyalgia - Hypertension - Memory change MMSE 30/30 on 12/21/17 - Meniere's disease - Mild atherosclerosis of left carotid artery 07/2016 - Mixed hyperlipidemia - Osteoarthritis - Rotator cuff tear right sided - Seizures (HCC) with Tramadol only - TMJ disease chiropracter PAST SURGICAL HISTORY Procedure Laterality Date - ABDOMINOPLASTY 2006 - COLONOSCOP W/ OR W/O BRSH SPEC 12/25/2017 Colonoscopy - COLONOSCOPY 2008 - EGD W/O OR W/BRUSH/WASH 12/25/2017 EGD - PART REMOVAL COLON W ANASTOMOSIS 08/04/01 Laparotomy,Hemicolectomy, left ovarian cyst - PAST SURGICAL HISTORY OF 1987 Hemorrhoidectomy - PAST SURGICAL HISTORY OF 2014 right hand surgery, fingers - REDUCTION OF LARGE BREAST 2004 - VAGINAL HYSTERECTOMY 1996 Hysterectomy, vaginal- partial Current Outpatient Prescriptions: VITAMIN D-3 2,000 unit cap take 1 capsule by mouth once daily hyoscyamine sublingual (LEVSIN SL) 0.125 mg subl DISSOLVE 1-2 TABLETS UNDER THE TONGUE EVERY 4 HOURS NEEDED FOR IBS SYMPTOMS, MAX 12 PER DAY hyoscyamine (LEVSIN) 0.125 mg tablet Take 1 tablet by mouth every 4 hours as needed. IBS symptoms Max 12 per day. ondansetron orally disintegrating (ZOFRAN ODT) 4 mg disintegrating tablet lansoprazole (PREVACID 24HR ORAL) Take 1 tablet by mouth once daily. cyclobenzaprine (FLEXERIL) 10 mg tablet Take 1 tablet by mouth three times daily as needed for Muscle Spasm. Hydrochlorothiazide 12.5 mg capsule Take 1 capsule by mouth once daily. COMPOUNDED PRESCRIPTION Pt may use pool prn for muscle/joint pain Dx: M79.7 COMPOUNDED PRESCRIPTION Massage therapy eval and treat Dx: M79.7 UBIDECARENONE (CO Q-10 ORAL) Take by mouth. [place]-3 Fatty Acids-Vitamin E (FISH OIL) 1,000 mg cap Take 1 capsule by mouth. MULTI-VITAMIN ORAL Take by mouth. Cholecalciferol, Vitamin D3, 1,000 unit cap Take 1 capsule by mouth once daily for 30 days. acetaminophen with codeine (TYLENOL-CODEINE #3 ORAL) Take 1 tablet by mouth as needed. simvastatin (ZOCOR) 40 mg tablet TAKE 1 TABLET EVERY DAY AT BEDTIME KLOR-CON M10 10 mEq tablet TAKE 1 TABLET BY MOUTH DAILY WITH BREAKFAST. No current facility-administered medications for this visit. ALLERGIES Allergen Reactions - Tramadol Other: See Comments Seizure disorder. 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 Uvula midline. Neck: No LAD, no thyromegaly, no meningismus. CV: RRR, no murmur Lungs: CTA b/l, no wheezing Skin: No rashes, lesions, or wounds on exposed skin. No edema, normal pulses ASSESSMENT/PLAN: 1. Dysuria - ICD9: 788.1, ICD10: R30.0 (primary diagnosis) chronic Unsure of cause, irritant vs. Interstitial cystitis vs. Other cause, f/u with Urologist - CONSULT TO UROLOGY 2. Urinary frequency - ICD9: 788.41, ICD10: R35.0 UA/culture negative for UTI, Unsure of cause, irritant vs. Interstitial cystitis vs. Other cause, f/u with Urologist - CONSULT TO UROLOGY 3. Need for pneumococcal vaccination - ICD9: V03.82, ICD10: Z23 - PNEUMOCOCCAL-13 VACCINE PCV-13 4. Vitamin B12 deficiency - ICD9: 266.2, ICD10: E53.8 - recheck labs as ordered. - VITAMIN B12 BLOOD - CBC - COMP METABOLIC PANEL 5. Vitamin D deficiency - ICD9: 268.9, ICD10: E55.9 - recheck labs as ordered - VITAMIN D 25 HYDROXY Margarito Spain DO Return if no improvement. Follow up with Margarito Spain DO. Discussed risks, benefits, alternatives, and potential side effects of medications. Patient/Guardian expressed understanding and agreed with the plan. See patient instructions. Margarito Spain DO [address] [place] [address] CBC Collected: 02/02/2018 Status: F Source: [place] 2:50 PM [facility] TYPE CODE TESTS RESULT OUT OF REFERENCE UNITS RANGE LAB WBC 3.70-11.00 k/uL WBC 8.73 LAB RBC 3.90-5.20 m/uL RBC 4.77 LAB HGB 11.5-15.5 g/dL Hemoglobin 15.0 LAB HCT 36.0-46.0 % Hematocrit 44.4 LAB MCV 80.0-100.0 fL MCV 93.1 LAB MCH 26.0-34.0 pG MCH 31.4 LAB MCHC 30.5-36.0 g/dL MCHC 33.8 LAB RDWCV 11.5-15.0 % RDW-CV 12.7 LAB PLTCT 150-400 k/uL Platelet Count 312 LAB MPV 9.0-12.7 fL MPV 10.9 LAB ABSNUC <0.01 k/uL Absolute nRBC <0.01 Performed By: #### CBC, CMP, B12, VITD #### [facility] [address] [place], [place] [address] COMP METABOLIC PANEL Collected: 02/02/2018 Status: F Source: [place] 2:50 PM [facility] REPOSITORY TYPE CODE TESTS RESULT OUT OF REFERENCE UNITS RANGE LAB TP 6.3-8.0 g/dL Protein, Total 7.6 LAB ALB 3.9-4.9 g/dL Albumin 4.5 LAB CA 8.5-10.2 mg/dL Calcium, Total 9.8 LAB TBIL 0.2-1.3 mg/dL Bilirubin, Total 0.3 LAB ALKP 34-123 U/L Alkaline Phosphatase 105 LAB AST 13-35 U/L AST 28 LAB GLU 74-99 mg/dL Glucose 77 Result Comment: The [place] [employer] (ADA) provides guidance for cutoff values for fasting glucose and random glucose. The ADA defines fasting as no caloric intake for at least 8 hours. Fas ting plasma glucose results between 100 to 125 mg/dL indicate increased risk for diabetes (prediabetes). Fasting plasma glucose results greater than or equal to 126 mg/dL meet the criteria for diagnosis of diabetes. In the absence of unequivocal hyperglycemia, results should be confirmed by repeat testing. In a patient with classic symptoms of hyperglycemia or hyperglycemic crisis, random plasma glucose results greater than or equal to 200 mg/dL meet the criteria for diagnosis of diabetes. Reference: Standards of Medical Care in Diabetes 2016, [place] [employer]. Diabetes Care. 2016.39(Suppl 1). LAB BUN 7-21 mg/dL BUN 9 LAB CRET 0.58-0.96 mg/dL Creatinine 0.86 LAB NA 136-144 mmol/L Sodium 139 LAB K 3.7-5.1 mmol/L Potassium Low 3.5 LAB CL 97-105 mmol/L Chloride 100 LAB CO2 22-30 mmol/L CO2 26 LAB AGAP 9-18 mmol/L Anion Gap 13 LAB ALT 7-38 U/L ALT 21 LAB GFRAA eGFR- Amer. >60 LAB GFRNAA . eGFR-All Other Races >60 Result Comment: eGFR (Estimated GFR) Units of measure: mL/min/1.73 meters squared eGFR is derived from the reexpressed MDRD Study equation using the following parameters: serum creatinine, age, gender and race. The creatinine assay has been calibrated to be traceable to IDMS. An eGFR <60 mL/min/1.73m2 for >3 months is consistent with chronic kidney disease. Refer to KDOQI guidelines for clinical interpretation. In patients with unstable renal function, e.g. those with acute kidney injury, the eGFR may not accurately reflect actual GFR. Performed By: #### CBC, CMP, B12, VITD #### [facility] [address] [place], [place] [address] VITAMIN B12 Collected: 02/02/2018 Status: F Source: [place] 2:50 PM [facility] REPOSITORY TYPE CODE TESTS RESULT OUT OF REFERENCE UNITS RANGE LAB B12 232-1245 pg/mL Vitamin B12 440 Performed By: #### CBC, CMP, B12, VITD #### [facility] [address] [place], [place] [address] VITAMIN D 25 HYDROXY Collected: 02/02/2018 Status: F Source: [place] 2:50 PM [facility] REPOSITORY TYPE CODE TESTS RESULT OUT OF REFERENCE UNITS RANGE LAB VITD 31.0-80.0 ng/mL Vitamin D 25 36.0 Hydroxy Result Comment: Classification of 25 [place] Vitamin D status: Insufficiency/Moderate Deficiency: < or = 30 ng/mL Sufficiency/Optimal Levels: 31 to 80 ng/mL Toxicity: > 100 ng/mL Test performed by chemiluminescent immunoassay. Performed By: #### CBC, CMP, B12, VITD #### [facility] [address] [place], [place] [address] CNOV Observed: 02/02/2018 Status: COMPLETED Source: [place] 1:40 PM [facility] REPOSITORY Office Visit (FAMPWS) BRENDEN GIRALDO ([id number]) 1955 F Date Time Provider Department 02/02/18 1:40 PM MARGARITO SPAIN FAMPWS During your visit today, we recorded the following information about you: Temperature Pulse Respiration Blood pressure 97.4 degrees 80/minute 16/minute 110/80 Weight 60.8 kg Margarito Spain, DO 02/02/2018 2:10 PM Signed Basis or Cerave or Cetaphil soaps [facility] Pharmacist Interstitial cystitis? Risk for this? Margarito Spain, DO 02/03/2018 7:20 AM Signed CC Brenden Giraldo is a 62 year old female who presents to the office for follow up HPI: Seen in office 6 weeks ago, at that time: She continues to feel that she is losing some of her short term memory, ?Memory eval was performed 11/[address] Parry and was found to be 27/30 on MMSE. ?Not getting lost, not forgetting how to use anything. Just loss of names or forgetting where set something in her home etc. 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 She is concerned due to a sister she thinks that has some type of undiagnosed dementia. ? She is also fearful of developing an autoimmune disease - has cold fingers and toes and nose often, even in the summer, turn a white color when cold. Also complains of diffuse joint pains especially in shoulders and fingers/hands. Currently She has been having intermittent, varying in intensity, left lower abdominal pain that radiates to pelvic and groin region and lower back, varying consistencies to her stool, still bowel movement every other day but it varies from thin and stiff to loose. She is using prune juice warmed to help with bowel movements to be regular. She is also using IBS Levsin medication up to 2-3 times a day to help. Sometimes feeling better after bowel movement, feels better if able to keep stools consistent and not constipated. No new blood in stool Also symptoms of urethra discomfort and pain with urinating, found to have Vaginitis recently with BV per INTERNATIONAL EDITORIAL PRODUCER, treated with Metronidazole, has changed her vaginal washing routine soaps to Dove sensitive, still struggles with burning/discomfort in urethral area. 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 Incidentally found small amount of blood without UTI on urine studies. Hasn't seen urologist in the past, symptoms x many weeks, no history of interstitial cystitis in the past PAST MEDICAL HISTORY Diagnosis Date - Abnormality of colon 2001 abnormal movment of colon, removed 9 in from sigmoid colon - Allergic rhinitis, cause unspecified - Arthritis of right shoulder region corticosteroid injection last 12/18/15 - Atherosclerosis of right carotid artery 07/2016 - DDD (degenerative disc disease), cervical - Depression - Fibromyalgia - Hypertension - Memory change MMSE 30/30 on 12/21/17 - Meniere's disease - Mild atherosclerosis of left carotid artery 07/2016 - Mixed hyperlipidemia - Osteoarthritis - Rotator cuff tear right sided - Seizures (HCC) with Tramadol only - TMJ disease chiropracter PAST SURGICAL HISTORY Procedure Laterality Date - ABDOMINOPLASTY 2006 - COLONOSCOP W/ OR W/O BRSH SPEC 12/25/2017 Colonoscopy - COLONOSCOPY 2008 - EGD W/O OR W/BRUSH/WASH 12/25/2017 EGD - PART REMOVAL COLON W ANASTOMOSIS 08/04/01 Laparotomy,Hemicolectomy, left ovarian cyst - PAST SURGICAL HISTORY OF 1987 Hemorrhoidectomy - PAST SURGICAL HISTORY OF 2014 right hand surgery, fingers - REDUCTION OF LARGE BREAST 2004 - VAGINAL HYSTERECTOMY 1996 Hysterectomy, vaginal- partial Current Outpatient Prescriptions: VITAMIN D-3 2,000 unit cap take 1 capsule by mouth once daily hyoscyamine sublingual (LEVSIN SL) 0.125 mg subl DISSOLVE 1-2 TABLETS UNDER THE TONGUE EVERY 4 HOURS NEEDED FOR IBS SYMPTOMS, MAX 12 PER DAY hyoscyamine (LEVSIN) 0.125 mg tablet Take 1 tablet by mouth every 4 hours as needed. IBS symptoms Max 12 per day. ondansetron orally disintegrating (ZOFRAN ODT) 4 mg disintegrating tablet lansoprazole (PREVACID 24HR ORAL) Take 1 tablet by mouth once daily. cyclobenzaprine (FLEXERIL) 10 mg tablet Take 1 tablet by mouth three times daily as needed for Muscle Spasm. Hydrochlorothiazide 12.5 mg capsule Take 1 capsule by mouth once daily. COMPOUNDED PRESCRIPTION Pt may use pool prn for muscle/joint pain Dx: M79.7 COMPOUNDED PRESCRIPTION Massage therapy eval and treat Dx: M79.7 UBIDECARENONE (CO Q-10 ORAL) Take by mouth. [place]-3 Fatty Acids-Vitamin E (FISH OIL) 1,000 mg cap Take 1 capsule by mouth. MULTI-VITAMIN ORAL Take by mouth. Cholecalciferol, Vitamin D3, 1,000 unit cap Take 1 capsule by mouth once daily for 30 days. acetaminophen with codeine (TYLENOL-CODEINE #3 ORAL) Take 1 tablet by mouth as needed. simvastatin (ZOCOR) 40 mg tablet TAKE 1 TABLET EVERY DAY AT BEDTIME KLOR-CON M10 10 mEq tablet TAKE 1 TABLET BY MOUTH DAILY WITH BREAKFAST. No current facility-administered medications for this visit. ALLERGIES Allergen Reactions - Tramadol Other: See Comments Seizure disorder. 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 Uvula midline. Neck: No LAD, no thyromegaly, no meningismus. CV: RRR, no murmur Lungs: CTA b/l, no wheezing Skin: No rashes, lesions, or wounds on exposed skin. No edema, normal pulses ASSESSMENT/PLAN: 1. Dysuria - ICD9: 788.1, ICD10: R30.0 (primary diagnosis) chronic Unsure of cause, irritant vs. Interstitial cystitis vs. Other cause, f/u with Urologist - CONSULT TO UROLOGY 2. Urinary frequency - ICD9: 788.41, ICD10: R35.0 UA/culture negative for UTI, Unsure of cause, irritant vs. Interstitial cystitis vs. Other cause, f/u with Urologist - CONSULT TO UROLOGY 3. Need for pneumococcal vaccination - ICD9: V03.82, ICD10: Z23 - PNEUMOCOCCAL-13 VACCINE PCV-13 4. Vitamin B12 deficiency - ICD9: 266.2, ICD10: E53.8 - recheck labs as ordered. - VITAMIN B12 BLOOD - CBC - COMP METABOLIC PANEL 5. Vitamin D deficiency - ICD9: 268.9, ICD10: E55.9 - recheck labs as ordered - VITAMIN D 25 HYDROXY Margarito Spain DO Return if no improvement. Follow up with Margarito Spain DO. Discussed risks, benefits, alternatives, and potential side effects of medications. Patient/Guardian expressed understanding and agreed with the plan. See patient instructions. Margarito Spain DO [address] [place] [address] Referring Provider: SELF [[id number]] Allergies As of Date: 02/02/2018 Noted Allergy Reaction TRAMADOL 12/16/2011 14 - Other: See Comments Comments: Seizure disorder. RAGWEED 10/16/2010 14 - Other: See Comments Comments: itchy watery eyes, sneezing, runny nose Date Reviewed: 02/02/2018 Reviewed by: Lilian Valenzuela LPN - Fully Assessed Reason for Visit: Follow Up [171] Cmt: right wrist pain Primary Visit Diagnosis:Dysuria [R30.0] Other Visit Diagnoses:Urinary frequency [R35.0] Need for pneumococcal vaccination [Z23] Vitamin B12 deficiency [E53.8] Vitamin D deficiency [E55.9] Order(s):CONSULT TO UROLOGY [9041] Order #: [id number]: 1 PNEUMOCOCCAL-13 VACCINE PCV-13 [[id number]] Order #: [id number] VITAMIN B12 BLOOD [SQB12] Order #: [id number] FUTURE CBC [SQCBC] Order #: [id number] FUTURE VITAMIN D 25 HYDROXY [SQVITD] Order #: [id number] FUTURE COMP METABOLIC PANEL [SQCMP] Order #: [id number] FUTURE Prescriptions as of 02/02/2018 Sig: VITAMIN D3 2,000 UNIT CAPSULE take 1 capsule by mouth once * HYOSCYAMINE 0.125 MG SUBLINGU* DISSOLVE 1-2 TABLETS UNDER TH* HYOSCYAMINE SULFATE 0.125 MG * Take 1 tablet by mouth every * ONDANSETRON 4 MG DISINTEGRATI* PREVACID 24HR ORAL Take 1 tablet by mouth once d* CYCLOBENZAPRINE 10 MG TABLET Take 1 tablet by mouth three * HYDROCHLOROTHIAZIDE 12.5 MG C* Take 1 capsule by mouth once * COMPOUNDED PRESCRIPTION Pt may use pool prn for muscl* COMPOUNDED PRESCRIPTION Massage therapy eval and rosanne* CO Q-10 ORAL Take by mouth. OMEGA-3 FATTY ACIDS-VITAMIN E* Take 1 capsule by mouth. MULTI-VITAMIN ORAL Take by mouth. CHOLECALCIFEROL (VITAMIN D3) * Take 1 capsule by mouth once * TYLENOL-CODEINE #3 ORAL Take 1 tablet by mouth as nee* SIMVASTATIN 40 MG TABLET TAKE 1 TABLET EVERY DAY AT BE* KLOR-CON M10 MEQ TABLET,EXTEN* TAKE 1 TABLET BY MOUTH DAILY * Problem List As Of Date 02/02/2018 Noted Resolved Hyperlipidemia [E78.5] INVALID FOR* Fibromyalgia [M79.7] INVALID FOR* Hypertension [I10] INVALID FOR* Rectocele [N81.6] INVALID FOR* Hemorrhoids [K64.9] INVALID FOR* Abdominal pain [R10.9] INVALID FOR* LGI bleed [K92.2] INVALID FOR* Pancreatitis [K85.90] INVALID FOR* Leukocytosis [D72.829] INVALID FOR* Vitamin B12 deficiency [E53.8] INVALID FOR* Temporomandibular joint disorders, unspecified *INVALID FOR* Cervicalgia [M54.2] INVALID FOR* Depression [F32.9] INVALID FOR* Vitamin D deficiency [E55.9] INVALID FOR* DDD (degenerative disc disease), lumbar [M51.36]INVALID FOR* Lumbar spondylosis [M47.816] INVALID FOR* Arthritis of right shoulder region [M19.011] INVALID FOR* Cervical strain [S16.1XXA] INVALID FOR* Myofascial pain [M79.18] INVALID FOR* Thoracic myofascial strain [S29.019A] INVALID FOR* Family history of colon cancer [Z80.0] INVALID FOR* Unspecified gastritis and gastroduodenitis with*INVALID FOR* Spondylosis of lumbar region without myelopathy*INVALID FOR* Left groin pain [R10.32] INVALID FOR* Atherosclerosis of right carotid artery [I65.21]INVALID FOR* Mild atherosclerosis of left carotid artery [I6*INVALID FOR* Mixed hyperlipidemia [E78.2] Osteoarthritis [M19.90] 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 Rotator cuff tear [M75.100] More... Meniere's disease [H81.09] DDD (degenerative disc disease), cervical [M50.* Allergic rhinitis [J30.9] Abnormality of colon [K63.9] INVALID FOR* More... Tenosynovitis, de Quervain [M65.4] INVALID FOR* DJD (degenerative joint disease), cervical [M47*INVALID FOR* Unintentional weight loss [R63.4] INVALID FOR* Elevated blood pressure reading without diagnos*INVALID FOR* Memory deficit [R41.3] INVALID FOR* Memory change [R41.3] INVALID FOR* Absolute anemia [D64.9] INVALID FOR* Multiple joint pain [M25.50] INVALID FOR* Abnormal foot color [R23.8] INVALID FOR* Cold intolerance of hand [R68.89] INVALID FOR* Other instructions from your clinician: Basis or Cerave or Cetaphil soaps [facility] Pharmacist Interstitial cystitis? Risk for this? Encounter Status:Closed by MARGARITO SPAIN DO on 02/03/18 PROGRESS Observed: 01/22/2018 Status: COMPLETED Source: [place] 10:41 AM [facility] REPOSITORY HNO ID: [id number] Author: Mica Hernandez Ma Service: (none) Author Type: (none) Type: Progress Notes Filed: 01/22/2018 11:38 AM Note Text: patient declined completions manager Mica Hernandez Ma PROGRESS Observed: 01/22/2018 Status: COMPLETED Source: [place] 10:32 AM [facility] REPOSITORY HNO ID: [id number] Author: Kay Johnson Service: (none) Author Type: Nurse Practitioner Type: Progress Notes Filed: 01/22/2018 11:38 AM Note Text: Brenden Giraldo is a 62 year old female who presents for problem visit Vaginal irritation which is improving and dysuria. HPI: Treated for BV with metronidazole beginning 01/08/18. Aching in LLQ improved since being treated with antibiotic but is still present. Continues to have diagnostic testing with PCP. A couple of weeks ago noticed urine bubbling and would like urine checked. Burning more when urine strikes the skin. Is drinking large amount of fluid so she is voiding frequently. PAST MEDICAL HISTORY Diagnosis Date - Abnormality of colon 2001 abnormal movment of colon, removed 9 in from sigmoid colon - Allergic rhinitis, cause unspecified - Arthritis of right shoulder region corticosteroid injection last 12/18/15 - Atherosclerosis of right carotid artery 07/2016 - DDD (degenerative disc disease), cervical - Depression - Fibromyalgia - Hypertension - Memory change MMSE 30/30 on 12/21/17 - Meniere's disease - Mild atherosclerosis of left carotid artery 07/2016 - Mixed hyperlipidemia - Osteoarthritis - Rotator cuff tear right sided - Seizures (HCC) with Tramadol only - TMJ disease chiropracter PAST SURGICAL HISTORY Procedure Laterality Date - ABDOMINOPLASTY 2006 - COLONOSCOP W/ OR W/O BRSH SPEC 12/25/2017 Colonoscopy - COLONOSCOPY 2008 - EGD W/O OR W/BRUSH/WASH 12/25/2017 EGD - PART REMOVAL COLON W ANASTOMOSIS 08/04/01 Laparotomy,Hemicolectomy, left ovarian cyst - PAST SURGICAL HISTORY OF 1987 Hemorrhoidectomy - PAST SURGICAL HISTORY OF 2014 right hand surgery, fingers - REDUCTION OF LARGE BREAST 2004 - VAGINAL HYSTERECTOMY 1996 Hysterectomy, vaginal- partial FAMILY HISTORY Problem Relation Age of Onset - Coronary Artery Disease Father - other (CHF) Father - Colon Cancer Mother - Hypertension Sister - other (heart disease) Brother with pacemaker - Hypertension Brother Social History Marital status: Single Spouse name: Years of education: Number of children: 2 Occupational History 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 hyoscyamine (LEVSIN) 0.125 mg tablet Take 1 tablet by mouth every 4 hours as needed. IBS symptoms Max 12 per day. (Patient not taking: Reported on 01/06/2018 ) ondansetron orally disintegrating (ZOFRAN ODT) 4 mg disintegrating tablet lansoprazole (PREVACID 24HR ORAL) Take 1 tablet by mouth once daily. cyclobenzaprine (FLEXERIL) 10 mg tablet Take 1 tablet by mouth three times daily as needed for Muscle Spasm. simvastatin (ZOCOR) 40 mg tablet TAKE 1 TABLET EVERY DAY AT BEDTIME KLOR-CON M10 10 mEq tablet TAKE 1 TABLET BY MOUTH DAILY WITH BREAKFAST. Hydrochlorothiazide 12.5 mg capsule Take 1 capsule by mouth once daily. COMPOUNDED PRESCRIPTION Pt may use pool prn for muscle/joint pain Dx: M79.7 COMPOUNDED PRESCRIPTION Massage therapy eval and treat Dx: M79.7 UBIDECARENONE (CO Q-10 ORAL) Take by mouth. [place]-3 Fatty Acids-Vitamin E (FISH OIL) 1,000 mg cap Take 1 capsule by mouth. MULTI-VITAMIN ORAL Take by mouth. Cholecalciferol, Vitamin D3, 1,000 unit cap Take 1 capsule by mouth once daily for 30 days. No current facility-administered medications for this visit. Allergies As of Date: 01/22/2018 Allergen Noted Reaction TRAMADOL 12/16/2011 Other: See Comments RAGWEED 10/16/2010 Other: See Comments Fully Assessed 01/07/2018 REVIEW OF SYSTEMS Abdomen: No bloating, early satiety, indigestion, or increased flatulence. No abdominal pain, nausea, vomiting, diarrhea, or constipation. Bladder: see HPI. Allergies and current medication updated:Yes EXAM: BP 100/62 Wt 136 lb (61.7kg) GENERAL: pleasant, female in no apparent distress CHEST: Normal inspiratory effort ABDOMEN: soft, no masses and Mild tenderness in LLQ PELVIC: external genitalia normal, normal Bartholin's glands, urethra, [place]'s glands, no vulvar lesions, physiologic discharge present, normal appearing perineal body and perianal region, cervix surgically absent BIMANUAL: uterus normal size, shape and consistency, no adnexal masses and Mild tenderness LLQ ASSESSMENT/PLAN: 1. Vaginal irritation - ICD9: 623.9, ICD10: N89.8 (primary diagnosis) - negative pelvic exam, normal discharge - Improving symptoms, reassured - Normal pelvic US 01/11/18 2. Dysuria - ICD9: 788.1, ICD10: R30.0 - UA DIP, URINE (POC) - small blood only. Pt would like to discuss it with PCP at scheduled appointment. Follow-up as needed. Kay Johnson APRN.STICK WELDER CNOV Observed: 01/22/2018 Status: COMPLETED Source: [place] 10:30 AM [facility] Office Visit (WOOB) REDBRENDEN BECERRA ([id number]) 1955 F Date Time Provider Department 01/22/18 10:30 AM KAY JOHNSON (STICK WELDER) WOOB During your visit today, we recorded the following information about you: Blood pressure Weight 100/62 61.7 kg Kay Johnson APRN.STICK WELDER 01/22/2018 11:38 AM Signed Brenden Giraldo is a 62 year old female who presents for problem visit Vaginal irritation which is improving and dysuria. HPI: Treated for BV with metronidazole beginning 01/08/18. Aching in LLQ improved since being treated with antibiotic but is still present. Continues to have diagnostic testing with PCP. A couple of weeks ago noticed urine bubbling and would like urine checked. Burning more when urine strikes the skin. Is drinking large amount of fluid so she is voiding frequently. PAST MEDICAL HISTORY Diagnosis Date - Abnormality of colon 2001 abnormal movment of colon, removed 9 in from sigmoid colon - Allergic rhinitis, cause unspecified - Arthritis of right shoulder region corticosteroid injection last 12/18/15 - Atherosclerosis of right carotid artery 07/2016 - DDD (degenerative disc disease), cervical - Depression - Fibromyalgia - Hypertension - Memory change MMSE 30/30 on 12/21/17 - Meniere's disease - Mild atherosclerosis of left carotid artery 07/2016 - Mixed hyperlipidemia - Osteoarthritis - Rotator cuff tear right sided - Seizures (HCC) with Tramadol only - TMJ disease chiropracter PAST SURGICAL HISTORY Procedure Laterality Date - ABDOMINOPLASTY 2006 - COLONOSCOP W/ OR W/O BRSH SPEC 12/25/2017 Colonoscopy - COLONOSCOPY 2008 - EGD W/O OR W/BRUSH/WASH 12/25/2017 EGD - PART REMOVAL COLON W ANASTOMOSIS 08/04/01 Laparotomy,Hemicolectomy, left ovarian cyst - PAST SURGICAL HISTORY OF 1987 Hemorrhoidectomy - PAST SURGICAL HISTORY OF 2014 right hand surgery, fingers - REDUCTION OF LARGE BREAST 2004 - VAGINAL HYSTERECTOMY 1996 Hysterectomy, vaginal- partial FAMILY HISTORY Problem Relation Age of Onset - Coronary Artery Disease Father - other (CHF) Father - Colon Cancer Mother - Hypertension Sister - other (heart disease) Brother with pacemaker - Hypertension Brother Social History Marital status: Single Spouse name: Years of education: Number of children: 2 Occupational History 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 hyoscyamine (LEVSIN) 0.125 mg tablet Take 1 tablet by mouth every 4 hours as needed. IBS symptoms Max 12 per day. (Patient not taking: Reported on 01/06/2018 ) ondansetron orally disintegrating (ZOFRAN ODT) 4 mg disintegrating tablet lansoprazole (PREVACID 24HR ORAL) Take 1 tablet by mouth once daily. cyclobenzaprine (FLEXERIL) 10 mg tablet Take 1 tablet by mouth three times daily as needed for Muscle Spasm. simvastatin (ZOCOR) 40 mg tablet TAKE 1 TABLET EVERY DAY AT BEDTIME KLOR-CON M10 10 mEq tablet TAKE 1 TABLET BY MOUTH DAILY WITH BREAKFAST. Hydrochlorothiazide 12.5 mg capsule Take 1 capsule by mouth once daily. COMPOUNDED PRESCRIPTION Pt may use pool prn for muscle/joint pain Dx: M79.7 COMPOUNDED PRESCRIPTION Massage therapy eval and treat Dx: M79.7 UBIDECARENONE (CO Q-10 ORAL) Take by mouth. [place]-3 Fatty Acids-Vitamin E (FISH OIL) 1,000 mg cap Take 1 capsule by mouth. MULTI-VITAMIN ORAL Take by mouth. Cholecalciferol, Vitamin D3, 1,000 unit cap Take 1 capsule by mouth once daily for 30 days. No current facility-administered medications for this visit. Allergies As of Date: 01/22/2018 Allergen Noted Reaction TRAMADOL 12/16/2011 Other: See Comments RAGWEED 10/16/2010 Other: See Comments Fully Assessed 01/07/2018 REVIEW OF SYSTEMS Abdomen: No bloating, early satiety, indigestion, or increased flatulence. No abdominal pain, nausea, vomiting, diarrhea, or constipation. Bladder: see HPI. Allergies and current medication updated:Yes EXAM: BP 100/62 Wt 136 lb (61.7kg) GENERAL: pleasant, female in no apparent distress CHEST: Normal inspiratory effort ABDOMEN: soft, no masses and Mild tenderness in LLQ PELVIC: external genitalia normal, normal Bartholin's glands, urethra, [place]'s glands, no vulvar lesions, physiologic discharge present, normal appearing perineal body and perianal region, cervix surgically absent BIMANUAL: uterus normal size, shape and consistency, no adnexal masses and Mild tenderness LLQ ASSESSMENT/PLAN: 1. Vaginal irritation - ICD9: 623.9, ICD10: N89.8 (primary diagnosis) - negative pelvic exam, normal discharge - Improving symptoms, reassured - Normal pelvic US 01/11/18 2. Dysuria - ICD9: 788.1, ICD10: R30.0 - UA DIP, URINE (POC) - small blood only. Pt would like to discuss it with PCP at scheduled appointment. Follow-up as needed. Kay Johnson APRN.MATTY Hernandez Ma 01/22/2018 11:38 AM Signed patient declined completions manager Mica Hernandez Ma Referring Provider: SELF [[id number]] Allergies As of Date: 01/22/2018 Noted Allergy Reaction TRAMADOL 12/16/2011 14 - Other: See Comments Comments: Seizure disorder. RAGWEED 10/16/2010 14 - Other: See Comments Comments: itchy watery eyes, sneezing, runny nose Date Reviewed: 01/22/2018 Reviewed by: Kay Johnson - Fully Assessed Primary Visit Diagnosis:Vaginal irritation [N89.8] Other Visit Diagnosis:Dysuria [R30.0] Order(s):UA DIP, URINE (POC) [[id number]] Order #: [id number]. #:[id number] Prescriptions as of 01/22/2018 Sig: VITAMIN D3 2,000 UNIT CAPSULE take 1 capsule by mouth once * HYOSCYAMINE 0.125 MG SUBLINGU* DISSOLVE 1-2 TABLETS UNDER TH* TYLENOL-CODEINE #3 ORAL Take 1 tablet by mouth as nee* ONDANSETRON 4 MG DISINTEGRATI* CYCLOBENZAPRINE 10 MG TABLET Take 1 tablet by mouth three * SIMVASTATIN 40 MG TABLET TAKE 1 TABLET EVERY DAY AT BE* HYDROCHLOROTHIAZIDE 12.5 MG C* Take 1 capsule by mouth once * COMPOUNDED PRESCRIPTION Pt may use pool prn for muscl* COMPOUNDED PRESCRIPTION Massage therapy eval and rosanne* CO Q-10 ORAL Take by mouth. OMEGA-3 FATTY ACIDS-VITAMIN E* Take 1 capsule by mouth. MULTI-VITAMIN ORAL Take by mouth. CHOLECALCIFEROL (VITAMIN D3) * Take 1 capsule by mouth once * HYOSCYAMINE SULFATE 0.125 MG * Take 1 tablet by mouth every * Patient not taking: Reported on 01/06/2018 PREVACID 24HR ORAL Take 1 tablet by mouth once d* KLOR-CON M10 MEQ TABLET,EXTEN* TAKE 1 TABLET BY MOUTH DAILY * Problem List As Of Date 01/22/2018 Noted Resolved Hyperlipidemia [E78.5] INVALID FOR* Fibromyalgia [M79.7] INVALID FOR* Hypertension [I10] INVALID FOR* Rectocele [N81.6] INVALID FOR* Hemorrhoids [K64.9] INVALID FOR* Abdominal pain [R10.9] INVALID FOR* LGI bleed [K92.2] INVALID FOR* Pancreatitis [K85.90] INVALID FOR* Leukocytosis [D72.829] INVALID FOR* Vitamin B12 deficiency [E53.8] INVALID FOR* Temporomandibular joint disorders, unspecified *INVALID FOR* Cervicalgia [M54.2] INVALID FOR* Depression [F32.9] INVALID FOR* Vitamin D deficiency [E55.9] INVALID FOR* DDD (degenerative disc disease), lumbar [M51.36]INVALID FOR* Lumbar spondylosis [M47.816] INVALID FOR* Arthritis of right shoulder region [M19.011] INVALID FOR* Cervical strain [S16.1XXA] INVALID FOR* Myofascial pain [M79.18] INVALID FOR* Thoracic myofascial strain [S29.019A] INVALID FOR* Family history of colon cancer [Z80.0] INVALID FOR* Unspecified gastritis and gastroduodenitis with*INVALID FOR* Spondylosis of lumbar region without myelopathy*INVALID FOR* Left groin pain [R10.32] INVALID FOR* Atherosclerosis of right carotid artery [I65.21]INVALID FOR* Mild atherosclerosis of left carotid artery [I6*INVALID FOR* Mixed hyperlipidemia [E78.2] Osteoarthritis [M19.90] 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 Rotator cuff tear [M75.100] More... Meniere's disease [H81.09] DDD (degenerative disc disease), cervical [M50.* Allergic rhinitis [J30.9] Abnormality of colon [K63.9] INVALID FOR* More... Tenosynovitis, de Quervain [M65.4] INVALID FOR* DJD (degenerative joint disease), cervical [M47*INVALID FOR* Unintentional weight loss [R63.4] INVALID FOR* Elevated blood pressure reading without diagnos*INVALID FOR* Memory deficit [R41.3] INVALID FOR* Memory change [R41.3] INVALID FOR* Absolute anemia [D64.9] INVALID FOR* Multiple joint pain [M25.50] INVALID FOR* Abnormal foot color [R23.8] INVALID FOR* Cold intolerance of hand [R68.89] INVALID FOR* Encounter Status:Closed by KAY JOHNSON on 01/22/18 Observed: 01/07/2018 Status: F Source: [place] BACT/CAND VAG GRM [facility] 11:00 AM [facility] REPOSITORY Sp. Request/Comment: - Swab Smear Result - BACTERIAL VAGINOSIS RESULT: Stain results consistent with bacterial vaginosis. --> ABNORMAL ALERT No Yeast observed Moderate Polymorphonuclear leukocytes Moderate Epithelial cells Performed By: #### BVCNSM #### [facility] [address] [place], [place] [address] PROGRESS Observed: 01/07/2018 Status: COMPLETED Source: [place] 10:50 AM [facility] REPOSITORY HNO ID: [id number] Author: Kay Johnson Service: (none) Author Type: Nurse Practitioner Type: Progress Notes Filed: 01/07/2018 11:51 AM Note Text: Would you like a completions manager present for your visit today? No Brenden Giraldo is a 62 year old who presents for her annual gynecologic exam - concerned with LLQ and flank pain x 1 month. Pain to soft tissue and bone in hip/pelvis but has history of fibromyalgia and arthritis so admits to having pain any place that she is touched. Pain increased after emptying bladder in the morning, laying flat and when she needs to have a bowel movement. Pain less after passing BM. Had 9 inches of sigmoid colon removed due to abnormal colon contraction in 2001. Pain improved with rest and heat. Has had to take Tylenol #3 for pain. Has been evaluated by family practice, GI for pain and constipation - negative colonoscopy. UA and culture and hip x-ray done in PCP office yesterday - awaiting results. Has lost 10 pounds in past 2 months and has no appetite. Is concerned about cancer because her ovaries remain intact and father had colon cancer. Postmenopausal: TVH 1996 for fibroids, ovaries remain HRT use: No. History of abnormal pap: No Last mammogram: 2017 normal History of abnormal mammogram: Yes has needed additional imaging. Breast reduction with implants 2004 Sexually active: No Exercise: active with work Diet: drinks Boost and chicken broth to increase nutrition. Obstetric History T0 L2 SAB0 TAB0 Ectopic0 Multiple0 Live Births0 PAST MEDICAL HISTORY Diagnosis Date - Abnormality of colon 2001 abnormal movment of colon, removed 9 in from sigmoid colon - Allergic rhinitis, cause unspecified - Arthritis of right shoulder region corticosteroid injection last 12/18/15 - Atherosclerosis of right carotid artery 07/2016 - DDD (degenerative disc disease), cervical - Depression - Fibromyalgia - Hypertension - Memory change MMSE 30/30 on 12/21/17 - Meniere's disease - Mild atherosclerosis of left carotid artery 07/2016 - Mixed hyperlipidemia - Osteoarthritis - Rotator cuff tear right sided - Seizures (HCC) with Tramadol only - TMJ disease chiropracter PAST SURGICAL HISTORY Procedure Laterality Date - ABDOMINOPLASTY 2006 - COLONOSCOP W/ OR W/O BRSH SPEC 12/25/2017 Colonoscopy - COLONOSCOPY 2008 - EGD W/O OR W/BRUSH/WASH 12/25/2017 EGD - PART REMOVAL COLON W ANASTOMOSIS 08/04/01 Laparotomy,Hemicolectomy, left ovarian cyst - PAST SURGICAL HISTORY OF 1987 Hemorrhoidectomy - PAST SURGICAL HISTORY OF 2014 right hand surgery, fingers - REDUCTION OF LARGE BREAST 2004 - VAGINAL HYSTERECTOMY 1996 Hysterectomy, vaginal- partial FAMILY HISTORY Problem Relation Age of Onset - Coronary Artery Disease Father - other (CHF) Father - Colon Cancer Mother - Hypertension Sister - other (heart disease) Brother with pacemaker - Hypertension Brother SOCIAL HISTORY Social History Substance Use Topics - Smoking status: Former Smoker Packs/day: 0.50 Types: Cigarettes Quit date: 11/16/1992 - Smokeless tobacco: Never Used Comment: quit in late - Alcohol use Yes Comment: rare REVIEW OF SYSTEMS Abdomen: See HPI. Bladder: See HPI. Urine culture pending with PCP. Breast: No breast lumps, nipple d/c, overlying skin changes, redness or skin retraction. Allergies and current medication updated:Yes EXAM: BP 112/64 Ht 5' 1.811 (1.57m) Wt 137 lb (62.1kg) BMI 25.21 kg/(m2). GENERAL: pleasant, female in no apparent distress HEENT: Normocephalic, atraumatic, mucus membranes moist and no lesions NECK: Supple, full range of motion, no adenopathy and thyroid normal DERMATOLOGY: Normal, without lesions, non-icteric and non-hirsute BREAST: soft, symmetric, no dominant mass, normal nipple-areolar complex, no lymphadenopathy and no nipple discharge, mild tenderness bilaterally CHEST: Normal inspiratory effort ABDOMEN: soft, and no masses. Positive generalized and epigastric tenderness. PELVIC: external genitalia normal, normal Bartholin's glands, urethra, [place]'s glands, no vulvar lesions, good vaginal support, normal appearing perineal body and perianal region, cervix surgically absent, discharge dark yellow BIMANUAL: no adnexal masses, uterus surgically absent and generalized tenderness RECTOVAGINAL: deferred. NEURO: alert and oriented x3,exam grossly non-focal EXTREMITIES: normal ASSESSMENT/PLAN: 1) Health maintenance: Pap/HPV screening no longer needed Mammogram up to date Nutrition, exercise and routine health maintenance exams reviewed. Colon cancer screening: up to date with screening 2. Pelvic pain in female - ICD9: 625.9, ICD10: R10.2 - Hx TVH ovary sparing, multiple abdominal surgeries - PELVIC US WHI 3. Vaginal discharge - ICD9: 623.5, ICD10: N89.8 - BACT/ARTURO VAG GRAM STAIN 4) Follow up one year or sooner as needed. Will notify of results. Kay Johnson APRN.[facility] CNOV Observed: 01/07/2018 Status: COMPLETED Source: [place] 10:45 AM [facility] REPOSITORY Office Visit (WOOB) BRENDEN GIRALDO ([id number]) 1955 F Date Time Provider Department 01/07/18 10:45 AM KAY JOHNSON (STICK WELDER) WOOB During your visit today, we recorded the following information about you: Blood pressure Weight Height 112/64 62.1 kg 1.57 m Kay Johnson APRN.CNP 01/07/2018 11:51 AM Signed Would you like a completions manager present for your visit today? No Brendenguerrero Giraldo is a 62 year old who presents for her annual gynecologic exam - concerned with LLQ and flank pain x 1 month. Pain to soft tissue and bone in hip/pelvis but has history of fibromyalgia and arthritis so admits to having pain any place that she is touched. Pain increased after emptying bladder in the morning, laying flat and when she needs to have a bowel movement. Pain less after passing BM. Had 9 inches of sigmoid colon removed due to abnormal colon contraction in 2001. Pain improved with rest and heat. Has had to take Tylenol #3 for pain. Has been evaluated by family practice, GI for pain and constipation - negative colonoscopy. UA and culture and hip x-ray done in PCP office yesterday - awaiting results. Has lost 10 pounds in past 2 months and has no appetite. Is concerned about cancer because her ovaries remain intact and father had colon cancer. Postmenopausal: TVH 1996 for fibroids, ovaries remain HRT use: No. History of abnormal pap: No Last mammogram: 2018 normal History of abnormal mammogram: Yes has needed additional imaging. Breast reduction with implants 2004 Sexually active: No Exercise: active with work Diet: drinks Boost and chicken broth to increase nutrition. Obstetric History T0 L2 SAB0 TAB0 Ectopic0 Multiple0 Live Births0 PAST MEDICAL HISTORY Diagnosis Date - Abnormality of colon 2001 abnormal movment of colon, removed 9 in from sigmoid colon - Allergic rhinitis, cause unspecified - Arthritis of right shoulder region corticosteroid injection last 12/18/15 - Atherosclerosis of right carotid artery 07/2016 - DDD (degenerative disc disease), cervical - Depression - Fibromyalgia - Hypertension - Memory change MMSE 30/30 on 12/21/17 - Meniere's disease - Mild atherosclerosis of left carotid artery 07/2016 - Mixed hyperlipidemia - Osteoarthritis - Rotator cuff tear right sided - Seizures (HCC) with Tramadol only - TMJ disease chiropracter PAST SURGICAL HISTORY Procedure Laterality Date - ABDOMINOPLASTY 2006 - COLONOSCOP W/ OR W/O BRSH SPEC 12/25/2017 Colonoscopy - COLONOSCOPY 2008 - EGD W/O OR W/BRUSH/WASH 12/25/2017 EGD - PART REMOVAL COLON W ANASTOMOSIS 08/04/01 Laparotomy,Hemicolectomy, left ovarian cyst - PAST SURGICAL HISTORY OF 1987 Hemorrhoidectomy - PAST SURGICAL HISTORY OF 2014 right hand surgery, fingers - REDUCTION OF LARGE BREAST 2004 - VAGINAL HYSTERECTOMY 1996 Hysterectomy, vaginal- partial FAMILY HISTORY Problem Relation Age of Onset - Coronary Artery Disease Father - other (CHF) Father - Colon Cancer Mother - Hypertension Sister - other (heart disease) Brother with pacemaker - Hypertension Brother SOCIAL HISTORY Social History Substance Use Topics - Smoking status: Former Smoker Packs/day: 0.50 Types: Cigarettes Quit date: 11/16/1992 - Smokeless tobacco: Never Used Comment: quit in late - Alcohol use Yes Comment: rare REVIEW OF SYSTEMS Abdomen: See HPI. Bladder: See HPI. Urine culture pending with PCP. Breast: No breast lumps, nipple d/c, overlying skin changes, redness or skin retraction. Allergies and current medication updated:Yes EXAM: BP 112/64 Ht 5' 1.811 (1.57m) Wt 137 lb (62.1kg) BMI 25.21 kg/(m2). GENERAL: pleasant, female in no apparent distress HEENT: Normocephalic, atraumatic, mucus membranes moist and no lesions NECK: Supple, full range of motion, no adenopathy and thyroid normal DERMATOLOGY: Normal, without lesions, non-icteric and non-hirsute BREAST: soft, symmetric, no dominant mass, normal nipple-areolar complex, no lymphadenopathy and no nipple discharge, mild tenderness bilaterally CHEST: Normal inspiratory effort ABDOMEN: soft, and no masses. Positive generalized and epigastric tenderness. PELVIC: external genitalia normal, normal Bartholin's glands, urethra, [place]'s glands, no vulvar lesions, good vaginal support, normal appearing perineal body and perianal region, cervix surgically absent, discharge dark yellow BIMANUAL: no adnexal masses, uterus surgically absent and generalized tenderness RECTOVAGINAL: deferred. NEURO: alert and oriented x3,exam grossly non-focal EXTREMITIES: normal ASSESSMENT/PLAN: 1) Health maintenance: Pap/HPV screening no longer needed Mammogram up to date Nutrition, exercise and routine health maintenance exams reviewed. Colon cancer screening: up to date with screening 2. Pelvic pain in female - ICD9: 625.9, ICD10: R10.2 - Hx TVH ovary sparing, multiple abdominal surgeries - PELVIC US WHI 3. Vaginal discharge - ICD9: 623.5, ICD10: N89.8 - BACT/ARTURO VAG GRAM STAIN 4) Follow up one year or sooner as needed. Will notify of results. Kay Johnson APRN.[facility] Referring Provider: MARIE HSU ([facility]) [[id number]] Allergies As of Date: 01/07/2018 Noted Allergy Reaction TRAMADOL 12/16/2011 14 - Other: See Comments Comments: Seizure disorder. RAGWEED 10/16/2010 14 - Other: See Comments Comments: itchy watery eyes, sneezing, runny nose Date Reviewed: 01/07/2018 Reviewed by: Kay ([facility]) Tutu - Fully Assessed Primary Visit Diagnosis:Encounter for gynecological examination (general) (routine) without abnormal findings [Z01.419] Other Visit Diagnoses:Encounter for screening mammogram for breast cancer [Z12.31] Pelvic pain in female [R10.2] Vaginal discharge [N89.8] Order(s):YAMILKA SCREENING [[id number]] Order #: [id number] FUTURE PELVIC US WHI [[id number]] Order #: [id number]: 1 BACT/ARTURO VAG GRAM STAIN [SQBVCNSM] Order #: [id number] FUTURE Prescriptions as of 01/07/2018 Sig: TYLENOL-CODEINE #3 ORAL Take 1 tablet by mouth as nee* HYOSCYAMINE 0.125 MG SUBLINGU* DISSOLVE 1-2 TABLETS UNDER TH* ONDANSETRON 4 MG DISINTEGRATI* PREVACID 24HR ORAL Take 1 tablet by mouth once d* CYCLOBENZAPRINE 10 MG TABLET Take 1 tablet by mouth three * SIMVASTATIN 40 MG TABLET TAKE 1 TABLET EVERY DAY AT BE* CHOLECALCIFEROL (VITAMIN D3) * Take 1 tablet by mouth once d* HYDROCHLOROTHIAZIDE 12.5 MG C* Take 1 capsule by mouth once * COMPOUNDED PRESCRIPTION Pt may use pool prn for muscl* COMPOUNDED PRESCRIPTION Massage therapy eval and rosanne* CO Q-10 ORAL Take by mouth. OMEGA-3 FATTY ACIDS-VITAMIN E* Take 1 capsule by mouth. MULTI-VITAMIN ORAL Take by mouth. HYOSCYAMINE SULFATE 0.125 MG * Take 1 tablet by mouth every * Patient not taking: Reported on 01/06/2018 KLOR-CON M10 MEQ TABLET,EXTEN* TAKE 1 TABLET BY MOUTH DAILY * Problem List As Of Date 01/07/2018 Noted Resolved Hyperlipidemia [E78.5] INVALID FOR* Fibromyalgia [M79.7] INVALID FOR* Hypertension [I10] INVALID FOR* Rectocele [N81.6] INVALID FOR* Hemorrhoids [K64.9] INVALID FOR* Abdominal pain [R10.9] INVALID FOR* LGI bleed [K92.2] INVALID FOR* Pancreatitis [K85.90] INVALID FOR* Leukocytosis [D72.829] INVALID FOR* Vitamin B12 deficiency [E53.8] INVALID FOR* Temporomandibular joint disorders, unspecified *INVALID FOR* Cervicalgia [M54.2] INVALID FOR* Depression [F32.9] INVALID FOR* Vitamin D deficiency [E55.9] INVALID FOR* DDD (degenerative disc disease), lumbar [M51.36]INVALID FOR* Lumbar spondylosis [M47.816] INVALID FOR* Arthritis of right shoulder region [M19.011] INVALID FOR* Cervical strain [S16.1XXA] INVALID FOR* Myofascial pain [M79.18] INVALID FOR* Thoracic myofascial strain [S29.019A] INVALID FOR* Family history of colon cancer [Z80.0] INVALID FOR* Unspecified gastritis and gastroduodenitis with*INVALID FOR* Spondylosis of lumbar region without myelopathy*INVALID FOR* Left groin pain [R10.32] INVALID FOR* Atherosclerosis of right carotid artery [I65.21]INVALID FOR* Mild atherosclerosis of left carotid artery [I6*INVALID FOR* Mixed hyperlipidemia [E78.2] Osteoarthritis [M19.90] 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 Rotator cuff tear [M75.100] More... Meniere's disease [H81.09] DDD (degenerative disc disease), cervical [M50.* Allergic rhinitis [J30.9] Abnormality of colon [K63.9] INVALID FOR* More... Tenosynovitis, de Quervain [M65.4] INVALID FOR* DJD (degenerative joint disease), cervical [M47*INVALID FOR* Unintentional weight loss [R63.4] INVALID FOR* Elevated blood pressure reading without diagnos*INVALID FOR* Memory deficit [R41.3] INVALID FOR* Memory change [R41.3] INVALID FOR* Absolute anemia [D64.9] INVALID FOR* Multiple joint pain [M25.50] INVALID FOR* Abnormal foot color [R23.8] INVALID FOR* Cold intolerance of hand [R68.89] INVALID FOR* Disposition: Return in 1 year (on 01/07/2019) for Annual Exam. Follow-up and Disposition History Recorded Encounter Status:Closed by KAY JOHNSON on 01/07/18 Observed: 01/06/2018 Status: F Source: [place] URINE CULTURE 3:51 PM [facility] REPOSITORY Sp. Request/Comment: - Best Practice Alert: To ensure optimal transport conditions and accurate culture results transfer urine specimens to prieto top C and S preservative tube. Culture Result - <10,000 CFU/ml Normal urogenital mode Performed By: #### URCUL #### [facility] [address] [place], [place] [address] XR HIP 3V PELV+ Observed: 01/06/2018 Status: F Source: [place] AP/LAT LT 3:25 PM [facility] REPOSITORY * * *Final Report* * * DATE OF EXAM: Jan 06 2018 3:25PM WOX [id number] - XR HIP 3V PELV+ AP/LAT LT / PROCEDURE REASON: Pain of left hip joint * * * * Physician Interpretation * * * * Pelvis and left hip HISTORY: Indication: Pain of left hip joint TECHNIQUE: Images: XR HIP 3V PELV+ AP/LAT LT Comparison: 02/09/2015. RESULT: Findings: Pelvis: No fractures or dislocations are seen. There is again noted be mild narrowing of the hip joints bilaterally. Left hip: No fractures or dislocations are seen. IMPRESSION: Degenerative changes. Fur Trapper: RAJ Transcribe Date/Time: Jan 06 2018 4:38P Dictated by : TRANG HARDY DO This examination was interpreted and the report reviewed and electronically signed by: TRANG HARDY DO on Jan 06 2018 4:39PM EST [id number] Observed: 01/06/2018 Status: COMPLETED Source: [place] 3:12 PM [facility] REPOSITORY HNO ID: [id number] Author: Richar Ji (Rt) Service: (none) Author Type: Tank Processor Type: Progress Notes Filed: 01/06/2018 3:25 PM Note Text: Radiology Service Progress Note PATIENT NAME: Brenden Giraldo DATE OF SERVICE: January 06, 2018 TIME: 3:12 PM PATIENT IDENTITY VERIFICATION COMPLETED USING TWO (2) METHODS: Patient confirmed name verbally and Date of . PATIENT GENDER DATA: Female. status: : No status: NO. PATIENT RELEVANT IMPLANT DATA REVIEWED: Not Applicable RADIOLOGY DEPARTMENT: General X-ray: Exam(s) Completed: Pelvis X-Ray: Pelvis with Hip Left PERIPHERAL IV DATA: Not applicable SIGNED BY: RT Margy January 06, 2018 3:12 PM PROGRESS Observed: 01/06/2018 Status: COMPLETED Source: [place] 2:36 PM [facility] REPOSITORY HNO ID: [id number] Author: Marie Hsu Service: (none) Author Type: Nurse Practitioner Type: Progress Notes Filed: 01/06/2018 3:29 PM Note Text: HPI/CC: Brenden Giraldo is a 62 year old female who presents for Left Hip Pain x 2 months. Worsening. Has seen GI for work up. Recent colonoscopy reviewed. Recent CT of abd/pelvis from [facility] reviewed. Left groin/hip and back pain is worse with laying flat. Patient is sharp and constant. Also reports + dysuria. ROS as above, otherwise non-contributory. Reviewed PMHx, PSHx, social Hx, medications and allergies. PHYSICAL EXAMINATION: BP 124/78 (BP Site: Right Arm, BP Position: Sitting, BP Cuff Size: Regular Adult) Pulse 60 Temp 37 ?C (98.6 ?F) (Temporal Artery) Resp 16 Wt 61.7 kg (136 lb) BMI 24.09 kg/m? General appearance: Well appearing, alert, in no acute distress, well-hydrated, well nourished. Skin: Skin color, texture, turgor normal, no suspicious rashes or lesions Lungs: Lungs clear to auscultation. No wheezing, rhonchi, rales Heart: RRR without murmur, gallop, or rubs. No ectopy Abdomen: Normal abdominal exam, Abdomen soft. Bowel sounds normal. No masses, organomegaly, Positive findings: tenderness moderate LLQ and suprapubic LE: FROM with pain ROS as above, otherwise non-contributory. Reviewed PMHx, PSHx, social Hx, medications and allergies. ASSESSMENT/PLAN: 1. Pain of left hip joint - ICD9: 719.45, ICD10: M25.552 - UA DIP B/O, - XR HIP GENERAL 3V PELV/AP/LAT LT - CONSULT TO GYNECOLOGY - URINE CULTURE MING SerraOV Observed: 01/06/2018 Status: COMPLETED Source: [place] 2:20 PM [facility] REPOSITORY Office Visit (FAMPWS) BRENDEN GIRALDO ([id number]) 1955 F Date Time Provider Department 01/06/18 2:20 PM MARIE HSU (MATTY) FAMPWS During your visit today, we recorded the following information about you: Temperature Pulse Respiration Blood pressure 98.6 degrees 60/minute 16/minute 124/78 Weight 61.7 kg Marie Hsu APRN.CNP 01/06/2018 3:29 PM Signed HPI/CC: Brenden Giraldo is a 62 year old female who presents for Left Hip Pain x 2 months. Worsening. Has seen GI for work up. Recent colonoscopy reviewed. Recent CT of abd/pelvis from [facility] reviewed. Left groin/hip and back pain is worse with laying flat. Patient is sharp and constant. Also reports + dysuria. ROS as above, otherwise non-contributory. Reviewed PMHx, PSHx, social Hx, medications and allergies. PHYSICAL EXAMINATION: BP 124/78 (BP Site: Right Arm, BP Position: Sitting, BP Cuff Size: Regular Adult) Pulse 60 Temp 37 ?C (98.6 ?F) (Temporal Artery) Resp 16 Wt 61.7 kg (136 lb) BMI 24.09 kg/m? General appearance: Well appearing, alert, in no acute distress, well-hydrated, well nourished. Skin: Skin color, texture, turgor normal, no suspicious rashes or lesions Lungs: Lungs clear to auscultation. No wheezing, rhonchi, rales Heart: RRR without murmur, gallop, or rubs. No ectopy Abdomen: Normal abdominal exam, Abdomen soft. Bowel sounds normal. No masses, organomegaly, Positive findings: tenderness moderate LLQ and suprapubic LE: FROM with pain ROS as above, otherwise non-contributory. Reviewed PMHx, PSHx, social Hx, medications and allergies. ASSESSMENT/PLAN: 1. Pain of left hip joint - ICD9: 719.45, ICD10: M25.552 - UA DIP B/O, - XR HIP GENERAL 3V PELV/AP/LAT LT - CONSULT TO GYNECOLOGY - URINE CULTURE Marie Hsu APRN.[facility] Referring Provider: SELF [[id number]] Allergies As of Date: 01/06/2018 Noted Allergy Reaction TRAMADOL 12/16/2011 14 - Other: See Comments Comments: Seizure disorder. RAGWEED 10/16/2010 14 - Other: See Comments Comments: itchy watery eyes, sneezing, runny nose Date Reviewed: 01/06/2018 Reviewed by: Tamera Greenfield LPN - Fully Assessed Reason for Visit: Left Hip Pain [1555] Primary Visit Diagnosis:Pain of left hip joint [M25.552] Order(s):XR HIP GENERAL 3V PELV/AP/LAT LT [[id number]] Order #: [id number] FUTURE CONSULT TO GYNECOLOGY [4771] Order #: [id number]: 1 URINE CULTURE [SQURCUL] Order #: [id number] UA DIP OB, URINE (POC) [[id number]] Order #: [id number] Prescriptions as of 01/06/2018 Sig: TYLENOL-CODEINE #3 ORAL Take 1 tablet by mouth as nee* HYOSCYAMINE 0.125 MG SUBLINGU* DISSOLVE 1-2 TABLETS UNDER TH* ONDANSETRON 4 MG DISINTEGRATI* PREVACID 24HR ORAL Take 1 tablet by mouth once d* CYCLOBENZAPRINE 10 MG TABLET Take 1 tablet by mouth three * SIMVASTATIN 40 MG TABLET TAKE 1 TABLET EVERY DAY AT BE* KLOR-CON M10 MEQ TABLET,EXTEN* TAKE 1 TABLET BY MOUTH DAILY * CHOLECALCIFEROL (VITAMIN D3) * Take 1 tablet by mouth once d* HYDROCHLOROTHIAZIDE 12.5 MG C* Take 1 capsule by mouth once * COMPOUNDED PRESCRIPTION Pt may use pool prn for muscl* COMPOUNDED PRESCRIPTION Massage therapy eval and rosanne* HYOSCYAMINE SULFATE 0.125 MG * Take 1 tablet by mouth every * Patient not taking: Reported on 01/06/2018 CO Q-10 ORAL Take by mouth. OMEGA-3 FATTY ACIDS-VITAMIN E* Take 1 capsule by mouth. MULTI-VITAMIN ORAL Take by mouth. Medication notes this encounter KLOR-CON M10 MEQ TABLET,EXTENDED RELEASE >> Tamera Greenfield LPN 01/06/2018 2:27 PM >> TAMERA GREENFIELD LPN ThuJan 06, 2018 2:27 PM Patient taking PRN Problem List As Of Date 01/06/2018 Noted Resolved Hyperlipidemia [E78.5] INVALID FOR* Fibromyalgia [M79.7] INVALID FOR* Hypertension [I10] INVALID FOR* Rectocele [N81.6] INVALID FOR* Hemorrhoids [K64.9] INVALID FOR* Abdominal pain [R10.9] INVALID FOR* LGI bleed [K92.2] INVALID FOR* Pancreatitis [K85.90] INVALID FOR* Leukocytosis [D72.829] INVALID FOR* Vitamin B12 deficiency [E53.8] INVALID FOR* Temporomandibular joint disorders, unspecified *INVALID FOR* Cervicalgia [M54.2] INVALID FOR* Depression [F32.9] INVALID FOR* Vitamin D deficiency [E55.9] INVALID FOR* DDD (degenerative disc disease), lumbar [M51.36]INVALID FOR* Lumbar spondylosis [M47.816] INVALID FOR* Arthritis of right shoulder region [M19.011] INVALID FOR* Cervical strain [S16.1XXA] INVALID FOR* Myofascial pain [M79.18] INVALID FOR* Thoracic myofascial strain [S29.019A] INVALID FOR* Family history of colon cancer [Z80.0] INVALID FOR* Unspecified gastritis and gastroduodenitis with*INVALID FOR* Spondylosis of lumbar region without myelopathy*INVALID FOR* Left groin pain [R10.32] INVALID FOR* Atherosclerosis of right carotid artery [I65.21]INVALID FOR* Mild atherosclerosis of left carotid artery [I6*INVALID FOR* Mixed hyperlipidemia [E78.2] Osteoarthritis [M19.90] 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 Rotator cuff tear [M75.100] More... Meniere's disease [H81.09] DDD (degenerative disc disease), cervical [M50.* Allergic rhinitis [J30.9] Abnormality of colon [K63.9] INVALID FOR* More... Tenosynovitis, de Quervain [M65.4] INVALID FOR* DJD (degenerative joint disease), cervical [M47*INVALID FOR* Unintentional weight loss [R63.4] INVALID FOR* Elevated blood pressure reading without diagnos*INVALID FOR* Memory deficit [R41.3] INVALID FOR* Memory change [R41.3] INVALID FOR* Absolute anemia [D64.9] INVALID FOR* Multiple joint pain [M25.50] INVALID FOR* Abnormal foot color [R23.8] INVALID FOR* Cold intolerance of hand [R68.89] INVALID FOR* Encounter Status:Closed by MARIE HSU CNP on 01/06/18 PROGRESS Observed: 01/04/2018 Status: COMPLETED Source: [place] 3:54 PM [facility] [place] REPOSITORY HNO ID: [id number] Author: Nannette Bradley Service: (none) Author Type: Nurse Practitioner Type: Progress Notes Filed: 01/04/2018 9:21 PM Note Text: Brenden Giraldo a 62 year old female who is returning for follow up regarding abdominal pain and nausea. I saw the patient in consultation on 12/07/17. That note has been reviewed. The patient was seen by Dr. Arevalo for upper endoscopy and colonoscopy 12/25/17. The procedure report has been reviewed and findings as follows: EGD Impression: - Normal examined jejunum. Biopsied. ? - Normal examined duodenum. ? - Gastritis. Biopsied. ? - Small hiatal hernia. ? - Normal esophagus. ? - A single gastric polyp. Biopsied. Colonoscopy Impression: - The examined portion of the ileum was normal. ? Biopsied. ? - Diverticulosis in the sigmoid colon. ? - The entire examined colon is normal. Biopsied. ? - The distal rectum and anal verge are normal on ? retroflexion view. FINAL DIAGNOSIS 1. Jejunum, biopsy (A) - Small intestinal mucosa with no significant pathologic change. 2. Stomach, antrum, biopsy (B) - Chronic inactive gastritis, see comment. - Detached strips of benign intestinal-type epithelium, most likely representing a tissue contaminant from the patient's jejunal biopsy (part A). - Negative for Helicobacter pylori organisms. 3. Stomach, fundus polyp, biopsy (C) - Fundic gland polyp. 4. Terminal ileum, biopsy (D) - Superficial fragment of small intestinal mucosa with no significant pathologic change. 5. Colon, random, biopsy (E) - Colonic mucosa with no significant pathologic change. I have reviewed the procedure and pathology reports, as well as the images, with the patient. Presenting complaint: The patient presents today reporting that her stools are hard to move. Stool varies from hard little stools, like tootsie rolls to start with , but can end up as diarrhea. Color varies, but no blood or black stool. The patient tells me that the LLQ pain is present continuously, from the moment she wakes, but increases after she empties her bladder. She tells me I also have the pain in the hip bone, into the pelvis and into my back. She goes on to say it's ten times worse than it has been in the past. The patient admits that she never tried the Levsin since she read it might cause constipation. I have explained that she needs to try it, as it might decrease her discomfort and that the dose is quite small. We have reviewed the procedure and images. We have discussed the possibility of the anastomosis area not stretching well when gas or firm stool pass that area. I have recommended that she continue with the fiber supplement, to assist with perhaps getting a happy medium with the bowel routine. We also discussed prune juice instead of prunes. Consider a little miralax, if need be. However, it is interesting that the sensation feels worse after she empties her bladder in the morning. I have recommended that I send her chart to Dr. Spain, to see how she would like to the patient to proceed. I have suggested an x-ray of her hips. She agrees. Will have Dr. Spain take over from there. REVIEW OF SYSTEMS: GENERAL: Weight loss - she tells me that she isn't eating much since it will might make her feel sick and might cause her to have to have a bowel movement and that could be uncomfortable. Last 10 Encounter Wt Readings: Date: Wt: 01/04/2018 61.2 kg (135 lb) 12/21/2017 61.7 kg (136 lb) 12/07/2017 65.8 kg (145 lb) 12/07/2017 65.3 kg (144 lb) 10/28/2017 64.9 kg (143 lb) 09/18/2017 64.4 kg (142 lb) 06/17/2017 64 kg (141 lb) 03/12/2017 68.1 kg (150 lb 3.2 oz) 01/30/2017 67.1 kg (148 lb) 12/08/2016 67.5 kg (148 lb 12.8 oz) GI: The patient states that her appetite has been adequate. She does get hungry. There has been no nausea, no vomiting. She denies dysphagia and denies odynophagia. There has been indigestion or heartburn. There has not been regurgitation. Bowel habits have been regular. There has partially been diarrhea. There has partially been constipation. The patient denies rectal bleeding. There has not been melena. Daily abdominal pain that is located in the left lower quadrant. All other reviewed and negative other than HPI. PAST MEDICAL HISTORY Diagnosis Date - Abnormality of colon 2001 abnormal movment of colon, removed 9 in from sigmoid colon - Allergic rhinitis, cause unspecified - Arthritis of right shoulder region corticosteroid injection last 12/18/15 - Atherosclerosis of right carotid artery 07/2016 - DDD (degenerative disc disease), cervical - Depression - Fibromyalgia - Hypertension - Memory change MMSE 30/30 on 12/21/17 - Meniere's disease - Mild atherosclerosis of left carotid artery 07/2016 - Mixed hyperlipidemia - Osteoarthritis - Rotator cuff tear right sided - Seizures (HCC) with Tramadol only - TMJ disease chiropracter PAST SURGICAL HISTORY Procedure Laterality Date - ABDOMINOPLASTY 2006 - COLONOSCOP W/ OR W/O BRSH SPEC 12/25/2017 Colonoscopy - COLONOSCOPY 2008 - EGD W/O OR W/BRUSH/WASH 12/25/2017 EGD - PART REMOVAL COLON W ANASTOMOSIS 08/04/01 Laparotomy,Hemicolectomy, left ovarian cyst - PAST SURGICAL HISTORY OF 1987 Hemorrhoidectomy - PAST SURGICAL HISTORY OF 2014 right hand surgery, fingers - REDUCTION OF LARGE BREAST 2004 - VAGINAL HYSTERECTOMY 1996 Hysterectomy, vaginal- partial FAMILY HISTORY Problem Relation Age of Onset - Coronary Artery Disease Father - other (CHF) Father - Colon Cancer Mother - Hypertension Sister - other (heart disease) Brother with pacemaker - Hypertension Brother Current Outpatient Prescriptions: acetaminophen with codeine (TYLENOL-CODEINE #3 ORAL) Take 1 tablet by mouth as needed. Disp: Rfl: hyoscyamine (LEVSIN) 0.125 mg tablet Take 1 tablet by mouth every 4 hours as needed. IBS symptoms Max 12 per day. Disp: 60 tablet Rfl: 1 hyoscyamine sublingual (LEVSIN SL) 0.125 mg subl DISSOLVE 1-2 TABLETS UNDER THE TONGUE EVERY 4 HOURS NEEDED FOR IBS SYMPTOMS, MAX 12 PER DAY Disp: 30 tablet Rfl: 0 ondansetron orally disintegrating (ZOFRAN ODT) 4 mg disintegrating tablet Disp: Rfl: lansoprazole (PREVACID 24HR ORAL) Take by mouth. Disp: Rfl: cyclobenzaprine (FLEXERIL) 10 mg tablet Take 1 tablet by mouth three times daily as needed for Muscle Spasm. Disp: 90 tablet Rfl: 3 simvastatin (ZOCOR) 40 mg tablet TAKE 1 TABLET EVERY DAY AT BEDTIME Disp: 90 tablet Rfl: 3 KLOR-CON M10 10 mEq tablet TAKE 1 TABLET BY MOUTH DAILY WITH BREAKFAST. Disp: 90 tablet Rfl: 1 Cholecalciferol, Vitamin D3, 2,000 unit cap Take 1 tablet by mouth once daily. Disp: 90 capsule Rfl: 3 Hydrochlorothiazide 12.5 mg capsule Take 1 capsule by mouth once daily. Disp: 90 capsule Rfl: 3 COMPOUNDED PRESCRIPTION Pt may use pool prn for muscle/joint pain Dx: M79.7 Disp: 1 Each Rfl: 12 COMPOUNDED PRESCRIPTION Massage therapy eval and treat Dx: M79.7 Disp: 1 Each Rfl: 12 UBIDECARENONE (CO Q-10 ORAL) Take by mouth. Disp: Rfl: [place]-3 Fatty Acids-Vitamin E (FISH OIL) 1,000 mg cap Take 1 capsule by mouth. Disp: Rfl: MULTI-VITAMIN ORAL Take by mouth. Disp: Rfl: No current facility-administered medications for this visit. SOCIAL HISTORY: Reviewed and unchanged. PHYSICAL EXAMINATION: Blood pressure 125/86, pulse 89, height 160 cm (5' 3), weight 61.2 kg (135 lb). General Appearance: Well appearing, alert, in no acute distress, well-hydrated, well nourished. Skin: Skin color, texture, turgor normal, no suspicious rashes or lesions. Neck: Supple, no adenopathy; thyroid symmetric, normal size. Lungs: Lungs clear to auscultation. No wheezing, rhonchi, rales. Heart: RRR without murmur. Abdomen: Abdomen soft, minimal tenderness LLQ, non-tender otherwise. Bowel sounds normal. No masses, organomegaly. Extremities: No deformities, edema, skin discoloration, clubbing or cyanosis. Lower extremity ROM appears intact. Impression: gastritis on EGD 2)the patient points to a spot she can localize with 1 finger in the low abdomen- actually close to pubic crest. Plan: The patient is to continue PPI. I have recommended continuing fiber and slight increase. Also recommended a small glass of prune juice before bed, as needed. Ordered hip films - but was reported to be a pediatric order, so radiology didn't do- I had already left the building. I instructed radiology to let the patient go home and I would forward the chart to Dr. Spain for her input on further testing of the right hip/pelvis. I have personally interviewed and examined this patient. I have reviewed the information that the MA entered for this encounter. I spent 30 minutes in the visit, with greater than 50% of the total qska-ws-rxwt time of the visit in counseling and coordination of care. Nannette Bradley RN APRN.STICK WELDER CNOV Observed: 01/04/2018 Status: COMPLETED Source: [place] 3:30 PM [facility] REPOSITORY [facility] BRENDEN GIRALDO ([id number]) 1955 F Date Time Provider Department 01/04/18 3:30 PM NANNETTE BRADLEY (VP TRANSPORTATION) [facility] During your visit today, we recorded the following information about you: Pulse Blood pressure Weight Height 89/minute 125/86 61.2 kg 1.6 m Nannette Bradley RN APRN.STICK WELDER 01/04/2018 9:21 PM Signed Brenden Giraldo a 62 year old female who is returning for follow up regarding abdominal pain and nausea. I saw the patient in consultation on 12/07/17. That note has been reviewed. The patient was seen by Dr. Arevalo for upper endoscopy and colonoscopy 12/25/17. The procedure report has been reviewed and findings as follows: EGD Impression: - Normal examined jejunum. Biopsied. ? - Normal examined duodenum. ? - Gastritis. Biopsied. ? - Small hiatal hernia. ? - Normal esophagus. ? - A single gastric polyp. Biopsied. Colonoscopy Impression: - The examined portion of the ileum was normal. ? Biopsied. ? - Diverticulosis in the sigmoid colon. ? - The entire examined colon is normal. Biopsied. ? - The distal rectum and anal verge are normal on ? retroflexion view. FINAL DIAGNOSIS 1. Jejunum, biopsy (A) - Small intestinal mucosa with no significant pathologic change. 2. Stomach, antrum, biopsy (B) - Chronic inactive gastritis, see comment. - Detached strips of benign intestinal-type epithelium, most likely representing a tissue contaminant from the patient's jejunal biopsy (part A). - Negative for Helicobacter pylori organisms. 3. Stomach, fundus polyp, biopsy (C) - Fundic gland polyp. 4. Terminal ileum, biopsy (D) - Superficial fragment of small intestinal mucosa with no significant pathologic change. 5. Colon, random, biopsy (E) - Colonic mucosa with no significant pathologic change. I have reviewed the procedure and pathology reports, as well as the images, with the patient. Presenting complaint: The patient presents today reporting that her stools are hard to move. Stool varies from hard little stools, like tootsie rolls to start with , but can end up as diarrhea. Color varies, but no blood or black stool. The patient tells me that the LLQ pain is present continuously, from the moment she wakes, but increases after she empties her bladder. She tells me I also have the pain in the hip bone, into the pelvis and into my back. She goes on to say it's ten times worse than it has been in the past. The patient admits that she never tried the Levsin since she read it might cause constipation. I have explained that she needs to try it, as it might decrease her discomfort and that the dose is quite small. We have reviewed the procedure and images. We have discussed the possibility of the anastomosis area not stretching well when gas or firm stool pass that area. I have recommended that she continue with the fiber supplement, to assist with perhaps getting a happy medium with the bowel routine. We also discussed prune juice instead of prunes. Consider a little miralax, if need be. However, it is interesting that the sensation feels worse after she empties her bladder in the morning. I have recommended that I send her chart to Dr. Spain, to see how she would like to the patient to proceed. I have suggested an x-ray of her hips. She agrees. Will have Dr. Spain take over from there. REVIEW OF SYSTEMS: GENERAL: Weight loss - she tells me that she isn't eating much since it will might make her feel sick and might cause her to have to have a bowel movement and that could be uncomfortable. Last 10 Encounter Wt Readings: Date: Wt: 01/04/2018 61.2 kg (135 lb) 12/21/2017 61.7 kg (136 lb) 12/07/2017 65.8 kg (145 lb) 12/07/2017 65.3 kg (144 lb) 10/28/2017 64.9 kg (143 lb) 09/18/2017 64.4 kg (142 lb) 06/17/2017 64 kg (141 lb) 03/12/2017 68.1 kg (150 lb 3.2 oz) 01/30/2017 67.1 kg (148 lb) 12/08/2016 67.5 kg (148 lb 12.8 oz) GI: The patient states that her appetite has been adequate. She does get hungry. There has been no nausea, no vomiting. She denies dysphagia and denies odynophagia. There has been indigestion or heartburn. There has not been regurgitation. Bowel habits have been regular. There has partially been diarrhea. There has partially been constipation. The patient denies rectal bleeding. There has not been melena. Daily abdominal pain that is located in the left lower quadrant. All other reviewed and negative other than HPI. PAST MEDICAL HISTORY Diagnosis Date - Abnormality of colon 2001 abnormal movment of colon, removed 9 in from sigmoid colon - Allergic rhinitis, cause unspecified - Arthritis of right shoulder region corticosteroid injection last 12/18/15 - Atherosclerosis of right carotid artery 07/2016 - DDD (degenerative disc disease), cervical - Depression - Fibromyalgia - Hypertension - Memory change MMSE 30/30 on 12/21/17 - Meniere's disease - Mild atherosclerosis of left carotid artery 07/2016 - Mixed hyperlipidemia - Osteoarthritis - Rotator cuff tear right sided - Seizures (HCC) with Tramadol only - TMJ disease chiropracter PAST SURGICAL HISTORY Procedure Laterality Date - ABDOMINOPLASTY 2006 - COLONOSCOP W/ OR W/O BRSH SPEC 12/25/2017 Colonoscopy - COLONOSCOPY 2008 - EGD W/O OR W/BRUSH/WASH 12/25/2017 EGD - PART REMOVAL COLON W ANASTOMOSIS 08/04/01 Laparotomy,Hemicolectomy, left ovarian cyst - PAST SURGICAL HISTORY OF 1987 Hemorrhoidectomy - PAST SURGICAL HISTORY OF 2014 right hand surgery, fingers - REDUCTION OF LARGE BREAST 2004 - VAGINAL HYSTERECTOMY 1996 Hysterectomy, vaginal- partial FAMILY HISTORY Problem Relation Age of Onset - Coronary Artery Disease Father - other (CHF) Father - Colon Cancer Mother - Hypertension Sister - other (heart disease) Brother with pacemaker - Hypertension Brother Current Outpatient Prescriptions: acetaminophen with codeine (TYLENOL-CODEINE #3 ORAL) Take 1 tablet by mouth as needed. Disp: Rfl: hyoscyamine (LEVSIN) 0.125 mg tablet Take 1 tablet by mouth every 4 hours as needed. IBS symptoms Max 12 per day. Disp: 60 tablet Rfl: 1 hyoscyamine sublingual (LEVSIN SL) 0.125 mg subl DISSOLVE 1-2 TABLETS UNDER THE TONGUE EVERY 4 HOURS NEEDED FOR IBS SYMPTOMS, MAX 12 PER DAY Disp: 30 tablet Rfl: 0 ondansetron orally disintegrating (ZOFRAN ODT) 4 mg disintegrating tablet Disp: Rfl: lansoprazole (PREVACID 24HR ORAL) Take by mouth. Disp: Rfl: cyclobenzaprine (FLEXERIL) 10 mg tablet Take 1 tablet by mouth three times daily as needed for Muscle Spasm. Disp: 90 tablet Rfl: 3 simvastatin (ZOCOR) 40 mg tablet TAKE 1 TABLET EVERY DAY AT BEDTIME Disp: 90 tablet Rfl: 3 KLOR-CON M10 10 mEq tablet TAKE 1 TABLET BY MOUTH DAILY WITH BREAKFAST. Disp: 90 tablet Rfl: 1 Cholecalciferol, Vitamin D3, 2,000 unit cap Take 1 tablet by mouth once daily. Disp: 90 capsule Rfl: 3 Hydrochlorothiazide 12.5 mg capsule Take 1 capsule by mouth once daily. Disp: 90 capsule Rfl: 3 COMPOUNDED PRESCRIPTION Pt may use pool prn for muscle/joint pain Dx: M79.7 Disp: 1 Each Rfl: 12 COMPOUNDED PRESCRIPTION Massage therapy eval and treat Dx: M79.7 Disp: 1 Each Rfl: 12 UBIDECARENONE (CO Q-10 ORAL) Take by mouth. Disp: Rfl: [place]-3 Fatty Acids-Vitamin E (FISH OIL) 1,000 mg cap Take 1 capsule by mouth. Disp: Rfl: MULTI-VITAMIN ORAL Take by mouth. Disp: Rfl: No current facility-administered medications for this visit. SOCIAL HISTORY: Reviewed and unchanged. PHYSICAL EXAMINATION: Blood pressure 125/86, pulse 89, height 160 cm (5' 3), weight 61.2 kg (135 lb). General Appearance: Well appearing, alert, in no acute distress, well-hydrated, well nourished. Skin: Skin color, texture, turgor normal, no suspicious rashes or lesions. Neck: Supple, no adenopathy; thyroid symmetric, normal size. Lungs: Lungs clear to auscultation. No wheezing, rhonchi, rales. Heart: RRR without murmur. Abdomen: Abdomen soft, minimal tenderness LLQ, non-tender otherwise. Bowel sounds normal. No masses, organomegaly. Extremities: No deformities, edema, skin discoloration, clubbing or cyanosis. Lower extremity ROM appears intact. Impression: gastritis on EGD 2)the patient points to a spot she can localize with 1 finger in the low abdomen- actually close to pubic crest. Plan: The patient is to continue PPI. I have recommended continuing fiber and slight increase. Also recommended a small glass of prune juice before bed, as needed. Ordered hip films - but was reported to be a pediatric order, so radiology didn't do- I had already left the building. I instructed radiology to let the patient go home and I would forward the chart to Dr. Spain for her input on further testing of the right hip/pelvis. I have personally interviewed and examined this patient. I have reviewed the information that the MA entered for this encounter. I spent 30 minutes in the visit, with greater than 50% of the total nake-km-jned time of the visit in counseling and coordination of care. Nannette Bradley RN DERMATOLOGY SPECIALIST.MATTY Bradley RN DERMATOLOGY SPECIALIST.MATTY 01/04/2018 4:28 PM Signed Prune juice instead of prunes - drink about 4 oz or less, before bed. Continue the Prilosec. Increase fiber to a tablespoon. Try the Levsin while I touch base with Dr. Spain. Referring Provider: NANNETTE BRADLEY (VP TRANSPORTATION) [[id number]] Allergies As of Date: 01/04/2018 Noted Allergy Reaction TRAMADOL 12/16/2011 14 - Other: See Comments Comments: Seizure disorder. RAGWEED 10/16/2010 14 - Other: See Comments Comments: itchy watery eyes, sneezing, runny nose Date Reviewed: 01/04/2018 Reviewed by: Margarita Alexis Ma - Fully Assessed Reason for Visit: Surgical Followup [104] Primary Visit Diagnosis:Chronic left hip pain [M25.552, G89.29] Other Visit Diagnoses:Left groin pain [R10.32] Functional bowel disorder [K59.9] Prescriptions as of 01/04/2018 Sig: TYLENOL-CODEINE #3 ORAL Take 1 tablet by mouth as nee* HYOSCYAMINE SULFATE 0.125 MG * Take 1 tablet by mouth every * HYOSCYAMINE 0.125 MG SUBLINGU* DISSOLVE 1-2 TABLETS UNDER TH* ONDANSETRON 4 MG DISINTEGRATI* PREVACID 24HR ORAL Take by mouth. CYCLOBENZAPRINE 10 MG TABLET Take 1 tablet by mouth three * SIMVASTATIN 40 MG TABLET TAKE 1 TABLET EVERY DAY AT BE* KLOR-CON M10 MEQ TABLET,EXTEN* TAKE 1 TABLET BY MOUTH DAILY * CHOLECALCIFEROL (VITAMIN D3) * Take 1 tablet by mouth once d* HYDROCHLOROTHIAZIDE 12.5 MG C* Take 1 capsule by mouth once * COMPOUNDED PRESCRIPTION Pt may use pool prn for muscl* COMPOUNDED PRESCRIPTION Massage therapy eval and rosanne* CO Q-10 ORAL Take by mouth. [place]-3 FATTY ACIDS-VITAMIN E* Take 1 capsule by mouth. MULTI-VITAMIN ORAL Take by mouth. Problem List As Of Date 01/04/2018 Noted Resolved Hyperlipidemia [E78.5] INVALID FOR* Fibromyalgia [M79.7] INVALID FOR* Hypertension [I10] INVALID FOR* Rectocele [N81.6] INVALID FOR* Hemorrhoids [K64.9] INVALID FOR* Abdominal pain [R10.9] INVALID FOR* LGI bleed [K92.2] INVALID FOR* Pancreatitis [K85.90] INVALID FOR* Leukocytosis [D72.829] INVALID FOR* Vitamin B12 deficiency [E53.8] INVALID FOR* Temporomandibular joint disorders, unspecified *INVALID FOR* Cervicalgia [M54.2] INVALID FOR* Depression [F32.9] INVALID FOR* Vitamin D deficiency [E55.9] INVALID FOR* DDD (degenerative disc disease), lumbar [M51.36]INVALID FOR* Lumbar spondylosis [M47.816] INVALID FOR* Arthritis of right shoulder region [M19.011] INVALID FOR* Cervical strain [S16.1XXA] INVALID FOR* Myofascial pain [M79.18] INVALID FOR* Thoracic myofascial strain [S29.019A] INVALID FOR* Family history of colon cancer [Z80.0] INVALID FOR* Unspecified gastritis and gastroduodenitis with*INVALID FOR* Spondylosis of lumbar region without myelopathy*INVALID FOR* Left groin pain [R10.32] INVALID FOR* Atherosclerosis of right carotid artery [I65.21]INVALID FOR* Mild atherosclerosis of left carotid artery [I6*INVALID FOR* Mixed hyperlipidemia [E78.2] Osteoarthritis [M19.90] 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 Rotator cuff tear [M75.100] More... Meniere's disease [H81.09] DDD (degenerative disc disease), cervical [M50.* Allergic rhinitis [J30.9] Abnormality of colon [K63.9] INVALID FOR* More... Tenosynovitis, de Quervain [M65.4] INVALID FOR* DJD (degenerative joint disease), cervical [M47*INVALID FOR* Unintentional weight loss [R63.4] INVALID FOR* Elevated blood pressure reading without diagnos*INVALID FOR* Memory deficit [R41.3] INVALID FOR* Memory change [R41.3] INVALID FOR* Absolute anemia [D64.9] INVALID FOR* Multiple joint pain [M25.50] INVALID FOR* Abnormal foot color [R23.8] INVALID FOR* Cold intolerance of hand [R68.89] INVALID FOR* Other instructions from your clinician: Prune juice instead of prunes - drink about 4 oz or less, before bed. Continue the Prilosec. Increase fiber to a tablespoon. Try the Levsin while I touch base with Dr. Spain. Follow-up and Disposition History Recorded Encounter Status:Closed by NANNETTE BRADLEY CNP on 01/04/18 NURSING PROG Observed: 12/25/2017 Status: COMPLETED Source: [place] 10:00 AM [facility] [place] REPOSITORY HNO ID: [id number] Author: Ana (Rn) SOPHIA Carpio Service: Nursing Author Type: Registered Nurse Type: Nursing Progress Note Filed: 12/25/2017 10:05 AM Note Text: Patient did not experience a fall prior to discharge. Patient did not experience a burn prior to discharge. Ana Carpio RN NURSING PROG Observed: 12/25/2017 Status: COMPLETED Source: [place] 9:57 AM [facility] REPOSITORY HNO ID: [id number] Author: Ana CollinsRn) SOPHIA Carpio Service: Nursing Author Type: Registered Nurse Type: Nursing Progress Note Filed: 12/25/2017 9:57 AM Note Text: Dressing to go home, via wheelchair in the care of her cousin, Byran. NURSING PROG Observed: 12/25/2017 Status: COMPLETED Source: [place] 9:33 AM [facility] REPOSITORY HNO ID: [id number] Author: Ana CollinsRn) SOPHIA Carpio Service: Nursing Author Type: Registered Nurse Type: Nursing Progress Note Filed: 12/25/2017 9:33 AM Note Text: Awakening to tolerated snack, cousin at her side, no complaints, all safety maintained. PT ED Observed: 12/25/2017 Status: COMPLETED Source: [place] 9:32 AM [facility] REPOSITORY HNO ID: [id number] Author: Ana CollinsRn) SOPHIA Carpio Service: Nursing Author Type: Registered Nurse Type: Patient Education Filed: 12/25/2017 9:32 AM Note Text: POST OP LEARNING RESPONSE INSTRUCTION PROVIDED TO: Patient and family member METHOD OF INSTRUCTION: Individual instruction Written instruction - handouts Verbal instruction PATIENT / FAMILY RESPONSE: Information received as demonstrated by interest and questions FOLLOW-UP PLAN: Follow-up with Primary Care SUPPLEMENTAL MATERIAL: None REFERRAL (RECOMMENDATION): None Electronically Signed By: Ana Carpio RN In Department: AMBULATORY SURGERY NURSING PROG Observed: 12/25/2017 Status: COMPLETED Source: [place] 9:23 AM [facility] REPOSITORY HNO ID: [id number] Author: Ana CollinsRn) SOPHIA Carpio Service: Nursing Author Type: Registered Nurse Type: Nursing Progress Note Filed: 12/25/2017 9:24 AM Note Text: Cousin to her side, Dr Arevalo to talk to patient and cousin. NURSING PROG Observed: 12/25/2017 Status: COMPLETED Source: [place] 9:11 AM [facility] REPOSITORY HNO ID: [id number] Author: Patti Durham RN Service: Nursing Author Type: Registered Nurse Type: Nursing Progress Note Filed: 12/25/2017 9:11 AM Note Text: Patient did not experience a fall within the Intraoperative area. Patient did not experience a burn within the Intraoperative area. Patti Durham RN NURSING PROG Observed: 12/25/2017 Status: COMPLETED Source: [place] 8:36 AM [facility] REPOSITORY HNO ID: [id number] Author: Prema Oconnor RN Service: (none) Author Type: Registered Nurse Type: Nursing Progress Note Filed: 12/25/2017 8:47 AM Note Text: [facility] PRE-OP NURSING HAND OFF NOTE SBAR Hand off given to Patti Durham RN. Hand off was communicated verbally and at the patient's bedside and all questions were answered. FALLS/NOBLE Patient did not experience a fall within the Preoperative area. Patient did not experience a burn within the Preoperative area. Prema Oconnor RN PT ED Observed: 12/25/2017 Status: COMPLETED Source: [place] 8:19 AM [facility] REPOSITORY HNO ID: [id number] Author: Prema Oconnor RN Service: (none) Author Type: Registered Nurse Type: Patient Education Filed: 12/25/2017 8:20 AM Note Text: PRE OP LEARNING ASSESSMENT PROCEDURE/SURGERY: GI PROCEDURES: Colonoscopy and EGD READINESS TO LEARN COGNITIVE ABILITY: Alert and oriented MOTIVATION TO LEARN: Eager FAMILY SUPPORT: High - Very involved in pt care PATIENT LEARNS BEST BY: Multiple Methods FACTORS AFFECTING LEARNING: None PHYSICAL LIMITATIONS AFFECTING LEARNING: None Electronically Signed By: Prema Oconnor RN In Department: AMBULATORY SURGERY NURSING PROG Observed: 12/25/2017 Status: COMPLETED Source: [place] 7:53 AM [facility] REPOSITORY HNO ID: [id number] Author: Prema Oconnor RN Service: (none) Author Type: Registered Nurse Type: Nursing Progress Note Filed: 12/25/2017 8:19 AM Note Text: Dr. Arevalo at bedside and spoke with patient. Discussed anesthesia vs. moderate sedation with pt. Gave pt some options. Pt agreeable to proceed here with moderate sedation. Prema Oconnor RN NURSING PROG Observed: 12/25/2017 Status: COMPLETED Source: [place] 7:45 AM [facility] REPOSITORY HNO ID: [id number] Author: Prema (Rn) SOPHIA Oconnor Service: (none) Author Type: Registered Nurse Type: Nursing Progress Note Filed: 12/25/2017 7:53 AM Note Text: Dr. Arevalo notified that pt was expecting MAC anesthesia today and is very concerned about having moderate sedation. Prema Oconnor RN SURGICAL PATHOLOGY Observed: 12/25/2017 Status: F Source: [place] 12:00 AM [facility] REPOSITORY Specimen originated from [facility] Specimen #: [id number] Submitting Physician: NAIMA AREVALO ([id number]) FINAL DIAGNOSIS 1. Jejunum, biopsy (A) - Small intestinal mucosa with no significant pathologic change. 2. Stomach, antrum, biopsy (B) - Chronic inactive gastritis, see comment. - Detached strips of benign intestinal-type epithelium, most likely representing a tissue contaminant from the patient's jejunal biopsy (part A). - Negative for Helicobacter pylori organisms. 3. Stomach, fundus polyp, biopsy (C) - Fundic gland polyp. 4. Terminal ileum, biopsy (D) - Superficial fragment of small intestinal mucosa with no significant pathologic change. 5. Colon, random, biopsy (E) - Colonic mucosa with no significant pathologic change. ES/plj 12/29/2017 COMMENT 2. Given the presence of chronic inactive gastritis, a Helicobacter pylori immunohistochemical stain was performed on block B1 and is negative for Helicobacter pylori organisms. Laboratory Developed Test (LDT) Disclaimer: Positive and negative controls stain appropriately. Performance characteristics of immunohistochemical, immunofluorescent and chromogenic in-situ hybridization tests have been determined by [facility]'s [facility] Pathology and Laboratory Medicine [place] ([facility]) in a manner consistent with CLIA requirements. One or more of these tests have not been cleared or approved by the FDA. [facility] is regulated under CLIA as qualified to perform high-complexity testing.These tests are used for clinical purposes. They should not be regarded as investigational or for research. Eri Garner M.D. (Electronic Signature) SPECIMEN SUBMITTED A: JEJUNUM, BIOPSY B: ANTRUM, BIOPSY C: FUNDIC GLAND POLYP, BIOPSY D: TERMINAL ILEUM, BIOPSY E: RANDOM COLON, BIOPSIES CLINICAL DATA K52.9, K59.9 GROSS DESCRIPTION A. Received in formalin is one piece of white, soft tissue measuring 0.8 x 0.2 x 0.2 cm. Totally submitted in one cassette. B. Received in formalin is one piece of white, soft tissue measuring 0.3 x 0.2 x 0.1 cm. Totally submitted in one cassette. C. Received in formalin are two pieces of white, soft tissue aggregating to 0.9 x 0.2 x 0.1 cm. Totally submitted in one cassette. D. Received in formalin is one piece of white, soft tissue measuring 0.5 x 0.3 x 0.1 cm. Totally submitted in one cassette. E. Received in formalin are two pieces of white, soft tissue aggregating to 1.6 x 0.3 x 0.1 cm. Totally submitted in one cassette. Gross examination performed at [address] 12/25/2017 11:54:49 PM Date of Report: 12/29/2017 Date of Procedure: 12/25/2017 Date of Receipt: 12/25/2017 Submitted by: NAIMA AREVALO ([id number]) Location: W010 Diagnostic interpretation performed at [place] [address]. TPO ANTIBODY Collected: 12/21/2017 Status: F Source: [place] 3:27 PM [facility] REPOSITORY TYPE CODE TESTS RESULT OUT OF REFERENCE UNITS RANGE LAB MICRO <5.6 IU/mL TPO Antibody <1.0 Performed By: #### MICRO, CRP, IRON, FT4, T3, TSH, ANAIFS #### [place] [address] C-REACTIVE PROTEIN Collected: 12/21/2017 Status: F Source: [place] 3:27 PM [facility] REPOSITORY TYPE CODE TESTS RESULT OUT OF REFERENCE UNITS RANGE LAB CRP <0.9 mg/dL C-Reactive 0.1 Protein Performed By: #### MICRO, CRP, IRON, FT4, T3, TSH, ANAIFS #### [place] [phone] IRON AND TIBC Collected: 12/21/2017 Status: F Source: [place] 3:27 PM [facility] REPOSITORY TYPE CODE TESTS RESULT OUT OF REFERENCE UNITS RANGE LAB IRN 41-186 ug/dL Iron 68 LAB TIBC 232-386 ug/dL TIBC 323 LAB SAT 15-57 % Transferrin Saturatn 21 Performed By: #### MICRO, CRP, IRON, FT4, T3, TSH, ANAIFS #### [place] [phone] FREE T4 Collected: 12/21/2017 Status: F Source: [place] 3:27 PM [facility] REPOSITORY TYPE CODE TESTS RESULT OUT OF RANGE REFERENCE UNITS LAB FT4 0.9-1.7 ng/dL Free T4 1.4 Performed By: #### MICRO, CRP, IRON, FT4, T3, TSH, ANAIFS #### [place] [address] T3 Collected: 12/21/2017 Status: F Source: [facility] 3:27 PM [facility] REPOSITORY TYPE CODE TESTS RESULT OUT OF RANGE REFERENCE UNITS LAB T3 79-165 ng/dL T3 103 Performed By: #### MICRO, CRP, IRON, FT4, T3, TSH, ANAIFS #### [place] [address] TSH Collected: 12/21/2017 Status: F Source: [place] 3:27 PM [facility] REPOSITORY TYPE CODE TESTS RESULT OUT OF RANGE REFERENCE UNITS LAB TSH 0.400-5.500 uU/mL TSH 0.605 Performed By: #### MICRO, CRP, IRON, FT4, T3, TSH, ANAIFS #### [facility] [address] [place], [place] [address] SUSHMA BY IFA Collected: 12/21/2017 Status: F Source: [place] 3:27 PM [facility] REPOSITORY TYPE CODE TESTS RESULT OUT OF REFERENCE UNITS RANGE LAB ANASC Negative SUSHMA Negative Result Comment: Normal range : negative at <1:80 serum dilution. Approximately 6% of patients with connective tissue diseases with low positive EIA values are negative by IFA. Recommend follow-up with specific antinuclear antibodies if clinically indicated. LAB JOSEPH Negative Negative SUSHMA Titer Result Comment: Normal range : negative at <1:80 serum dilution. LAB ANAP SUSHMA Not applicable Pattern for negative result. Performed By: #### MICRO, CRP, IRON, FT4, T3, TSH, ANAIFS #### [facility] [address] [place], [place] [address] PROGRESS Observed: 12/21/2017 Status: COMPLETED Source: [place] 3:01 PM [facility] REPOSITORY HNO ID: [id number] Author: Margarito Spain Service: (none) Author Type: Physician Type: Progress Notes Filed: 12/22/2017 7:25 AM Note Text: CC: Brenden Giraldo is a 62 year old female who presents to the office for memory follow up HPI: She continues to feel that she is losing some of her short term memory, ?Memory eval was performed 11/[address] Parry and was found to be 27/30 on MMSE. ?Not getting lost, not forgetting how to use anything. Just loss of names or forgetting where set something in her home etc. 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 She is concerned due to a sister she thinks that has some type of undiagnosed dementia. She is also fearful of developing an autoimmune disease - has cold fingers and toes and nose often, even in the summer, turn a white color when cold. Also complains of diffuse joint pains especially in shoulders and fingers/hands. PAST MEDICAL HISTORY Diagnosis Date - Abnormality of colon 2001 abnormal movment of colon, removed 9 in from sigmoid colon - Allergic rhinitis, cause unspecified - Arthritis of right shoulder region corticosteroid injection last 12/18/15 - Atherosclerosis of right carotid artery 07/2016 - DDD (degenerative disc disease), cervical - Depression - Fibromyalgia - Hypertension - Memory change MMSE 30/30 on 12/21/17 - Meniere's disease - Mild atherosclerosis of left carotid artery 07/2016 - Mixed hyperlipidemia - Osteoarthritis - Rotator cuff tear right sided - TMJ disease chiropracter PAST SURGICAL HISTORY Procedure Laterality Date - ABDOMINOPLASTY 2006 - COLONOSCOPY 2008 - PART REMOVAL COLON W ANASTOMOSIS 08/04/01 Laparotomy,Hemicolectomy, left ovarian cyst - PAST SURGICAL HISTORY OF 1987 Hemorrhoidectomy - PAST SURGICAL HISTORY OF 2014 right hand surgery, fingers - REDUCTION OF LARGE BREAST 2004 - VAGINAL HYSTERECTOMY 1996 Hysterectomy, vaginal- partial Current Outpatient Prescriptions: hyoscyamine (LEVSIN) 0.125 mg tablet Take 1 tablet by mouth every 4 hours as needed. IBS symptoms Max 12 per day. hyoscyamine sublingual (LEVSIN SL) 0.125 mg subl DISSOLVE 1-2 TABLETS UNDER THE TONGUE EVERY 4 HOURS NEEDED FOR IBS SYMPTOMS, MAX 12 PER DAY ondansetron orally disintegrating (ZOFRAN ODT) 4 mg disintegrating tablet lansoprazole (PREVACID 24HR ORAL) Take by mouth. cyclobenzaprine (FLEXERIL) 10 mg tablet Take 1 tablet by mouth three times daily as needed for Muscle Spasm. simvastatin (ZOCOR) 40 mg tablet TAKE 1 TABLET EVERY DAY AT BEDTIME KLOR-CON M10 10 mEq tablet TAKE 1 TABLET BY MOUTH DAILY WITH BREAKFAST. Cholecalciferol, Vitamin D3, 2,000 unit cap Take 1 tablet by mouth once daily. Hydrochlorothiazide 12.5 mg capsule Take 1 capsule by mouth once daily. UBIDECARENONE (CO Q-10 ORAL) Take by mouth. [place]-3 Fatty Acids-Vitamin E (FISH OIL) 1,000 mg cap Take 1 capsule by mouth. COMPOUNDED PRESCRIPTION Pt may use pool prn for muscle/joint pain Dx: M79.7 COMPOUNDED PRESCRIPTION Massage therapy eval and treat Dx: M79.7 MULTI-VITAMIN ORAL Take by mouth. No current facility-administered medications for this visit. ALLERGIES Allergen Reactions - Tramadol Other: See Comments Seizure disorder. - Ragweed Other: See Comments itchy watery eyes, sneezing, runny nose Social History Marital status: Single Spouse name: Years of education: Number of children: 2 Social History Main Topics Smoking status: Former Smoker Packs/day: 0.50 Years: 0.00 Types: Cigarettes Quit date: 11/16/1992 Smokeless tobacco: Never Used Comment: quit in late Alcohol use: Yes Comment: rare Drug use: No ROS: See HPI PE: BP 117/80 Pulse 80 Temp (Src) 97.5 (Left Tympanic) Resp 16 Wt 136 lb (61.7kg) Gen: AANDOX3, NAD, non-toxic appearing HEENT: PERRLA, EOMs intact b/l, nares without drainage, pharynx without erythema, exudate, lesions, or drainage. Uvula midline. Neck: No LAD, no thyromegaly, no meningismus. CV: RRR, no murmur Lungs: CTA b/l, no wheezing Skin: No rashes, lesions, or wounds on exposed skin. Normal neuro exam MINI-MENTAL STATE EXAMINATION (MMSE) Make the patient comfortable and establish rapport. Ask questions in the order listed. Total possible score is 30. ORIENTATION 1. What is the (year) (season) (date) (day) (month)? Max score=5 Patient's score=5 2. Where are we? (state) (county) (town or city) (hospital) (floor)? Max score=5 Patient's score=5 REGISTRATION Ask the patient if you may test his/her memory. Then say the names of 3 unrelated objects, clearly and slowly, about one second for each (eg, apple, table, amena). After you have said all 3, ask him/her to repeat them. This first repetition determines the score(0-3), but keep saying them until he/she can repeat all 3, up to 6 trials. Max score=3 Patient's score=3 ATTENTION AND CALCULATION Ask the patient to begin with 100 and count backwards by 7. Stop after 5 subtractions (93, 86, 79, 72, 65). Score the total number of correct answers. If the patient cannot or will not perform the serial 7s task, ask him/her to spell the word WORLD backwards. The score is the number of letters in the correct order (eg, DLROW=5; DLRW=4; DLORW, DLW=3; OW=2; DRLWO=1). Max score=5 Patient's score=5 RECALL Ask the patient to recall the 3 items repeated above (eg, apple, table, amena). Max score=3 Patient's score=3 LANGUAGE Naming: Show the patient a wristwatch and ask him/her what it is. Repeat for pencil. Max score=2 Patient's score=2 Repetition: Ask the patient to repeat the phrase No ifs, ands, or buts: after you. Max score=1 Patient's score=1 3-Stage Command: Give the patient a piece of blank paper and ask him/her to take a piece of paper in your right hand, fold it in half, put it on the floor. Score 1 point for each part correctly executed. Max score=3 Patient's score=3 Reading: On a blank piece of paper, print the sentence CLOSE YOUR EYES in letters large enough for the patient to see clearly. Ask him/her to read it and do what it says. Score 1 point only if he/she actually closes his/her eyes. Max score=1 Patient's score=1 Writing: Give the patient a blank piece of paper and ask him/her to write a sentence. Do not dictate a sentence; it is to be written spontaneously. It must contain a subject and verb and be sensible. Correct grammar and punctuation are not necessary. Max score=1 Patient's score=1 Copying: Ask the patient to copy the figure of intersecting pentagons exactly as it is. All 10 angles must be present and 2 must intersect to form a 4-sided figure to score 1 point. Tremor and rotation are ignored. Max score=1 Patient's score=1 MAXIMUM TOTAL SCORE = 30 TOTAL SCORE = 30/30 Suggested guideline for determining the severity of cognitive impairment: Mild: MMSE>21 Moderate: MMSE 10-20 Severe: MMSE<9 Expected decline in MMSE scores in untreated mild to moderate Alzheimer's patient is 2 to 4 points per year. *Adapted from Folstein et al.1 and Salvador and Efrain2. (c) 1974, 1997 [employer] Used with permission. References: 1. Efrain VICTORIA, Efrain SE, Rupa MI. Mini- Mental State: a practical method for grading the cognitive state of patients for the clinician. J Psychiatr Res. 1975; 12:189-198. 2. JR Salvador, Folstein MF, Mini-Mental State Examination (MMSE). Psychopharm Bull. 1988;24:689-692. 3. Jaquan JT, Jimmy FJ, Liz RD, Erik A, Cathy F. Neuropsychological function in Alzheimer's disease: pattern of impairment and rates of progression. Arch Neurol. 1988;45:263-268. 4. Joe BAUM, Puma B, Bg PereaP, Harika CARDOZO. Predictors of cognitive and functional progression in patients with probable Alzheimer's disease. Neurology. 1992;42:7720-4770. ASSESSMENT/PLAN: 1. Memory change - ICD9: 780.93, ICD10: R41.3 (primary diagnosis) - normal MMSE today in office at 30, likely normal memory changes due to stressors. 2. Cold intolerance of hand - ICD9: 780.99, ICD10: R68.89 - recheck labs as ordered, unsure of cause - C-REACTIVE PROTEIN (CRP) - SUSHMA BY IFA SCREEN - TSH BLD - T4 FREE/FREE THYROX - T3 BLD - THYROID PEROXIDASE ANTIBODY BLOOD 3. Abnormal foot color - ICD9: 782.9, ICD10: R23.8 - see above - C-REACTIVE PROTEIN (CRP) - SUSHMA BY IFA SCREEN - TSH BLD - T4 FREE/FREE THYROX - T3 BLD - THYROID PEROXIDASE ANTIBODY BLOOD 4. Multiple joint pain - ICD9: 719.49, ICD10: M25.50 - see above - C-REACTIVE PROTEIN (CRP) - SUSHMA BY IFA SCREEN - TSH BLD - T4 FREE/FREE THYROX - T3 BLD - THYROID PEROXIDASE ANTIBODY BLOOD 5. Other iron deficiency anemia - ICD9: 280.8, ICD10: D50.8 - see above - IRON + TIBC Margarito Spain DO Return if no improvement. Follow up with Margarito Spain DO. Discussed risks, benefits, alternatives, and potential side effects of medications. Patient/Guardian expressed understanding and agreed with the plan. See patient instructions. Margarito Spain DO [address] [place] [address] CNOV Observed: 12/21/2017 Status: COMPLETED Source: [place] 2:40 PM [facility] REPOSITORY Office Visit (FAMPWS) BRENDEN GIRALDO ([id number]) 1955 F Date Time Provider Department 12/21/17 2:40 PM MARGARITO SPAIN During your visit today, we recorded the following information about you: Temperature Pulse Respiration Blood pressure 97.5 degrees 80/minute 16/minute 117/80 Weight 61.7 kg Margarito Spain DO 12/22/2017 7:25 AM Signed CC: Brenden Giraldo is a 62 year old female who presents to the office for memory follow up HPI: She continues to feel that she is losing some of her short term memory, ?Memory eval was performed 11/[address] Parry and was found to be 27/30 on MMSE. ?Not getting lost, not forgetting how to use anything. Just loss of names or forgetting where set something in her home etc. 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 She is concerned due to a sister she thinks that has some type of undiagnosed dementia. She is also fearful of developing an autoimmune disease - has cold fingers and toes and nose often, even in the summer, turn a white color when cold. Also complains of diffuse joint pains especially in shoulders and fingers/hands. PAST MEDICAL HISTORY Diagnosis Date - Abnormality of colon 2001 abnormal movment of colon, removed 9 in from sigmoid colon - Allergic rhinitis, cause unspecified - Arthritis of right shoulder region corticosteroid injection last 12/18/15 - Atherosclerosis of right carotid artery 07/2016 - DDD (degenerative disc disease), cervical - Depression - Fibromyalgia - Hypertension - Memory change MMSE 30/30 on 12/21/17 - Meniere's disease - Mild atherosclerosis of left carotid artery 07/2016 - Mixed hyperlipidemia - Osteoarthritis - Rotator cuff tear right sided - TMJ disease chiropracter PAST SURGICAL HISTORY Procedure Laterality Date - ABDOMINOPLASTY 2006 - COLONOSCOPY 2008 - PART REMOVAL COLON W ANASTOMOSIS 08/04/01 Laparotomy,Hemicolectomy, left ovarian cyst - PAST SURGICAL HISTORY OF 1987 Hemorrhoidectomy - PAST SURGICAL HISTORY OF 2014 right hand surgery, fingers - REDUCTION OF LARGE BREAST 2004 - VAGINAL HYSTERECTOMY 1996 Hysterectomy, vaginal- partial Current Outpatient Prescriptions: hyoscyamine (LEVSIN) 0.125 mg tablet Take 1 tablet by mouth every 4 hours as needed. IBS symptoms Max 12 per day. hyoscyamine sublingual (LEVSIN SL) 0.125 mg subl DISSOLVE 1-2 TABLETS UNDER THE TONGUE EVERY 4 HOURS NEEDED FOR IBS SYMPTOMS, MAX 12 PER DAY ondansetron orally disintegrating (ZOFRAN ODT) 4 mg disintegrating tablet lansoprazole (PREVACID 24HR ORAL) Take by mouth. cyclobenzaprine (FLEXERIL) 10 mg tablet Take 1 tablet by mouth three times daily as needed for Muscle Spasm. simvastatin (ZOCOR) 40 mg tablet TAKE 1 TABLET EVERY DAY AT BEDTIME KLOR-CON M10 10 mEq tablet TAKE 1 TABLET BY MOUTH DAILY WITH BREAKFAST. Cholecalciferol, Vitamin D3, 2,000 unit cap Take 1 tablet by mouth once daily. Hydrochlorothiazide 12.5 mg capsule Take 1 capsule by mouth once daily. UBIDECARENONE (CO Q-10 ORAL) Take by mouth. [place]-3 Fatty Acids-Vitamin E (FISH OIL) 1,000 mg cap Take 1 capsule by mouth. COMPOUNDED PRESCRIPTION Pt may use pool prn for muscle/joint pain Dx: M79.7 COMPOUNDED PRESCRIPTION Massage therapy eval and treat Dx: M79.7 MULTI-VITAMIN ORAL Take by mouth. No current facility-administered medications for this visit. ALLERGIES Allergen Reactions - Tramadol Other: See Comments Seizure disorder. - Ragweed Other: See Comments itchy watery eyes, sneezing, runny nose Social History Marital status: Single Spouse name: Years of education: Number of children: 2 Social History Main Topics Smoking status: Former Smoker Packs/day: 0.50 Years: 0.00 Types: Cigarettes Quit date: 11/16/1992 Smokeless tobacco: Never Used Comment: quit in late Alcohol use: Yes Comment: rare Drug use: No ROS: See HPI PE: BP 117/80 Pulse 80 Temp (Src) 97.5 (Left Tympanic) Resp 16 Wt 136 lb (61.7kg) Gen: AANDOX3, NAD, non-toxic appearing HEENT: PERRLA, EOMs intact b/l, nares without drainage, pharynx without erythema, exudate, lesions, or drainage. Uvula midline. Neck: No LAD, no thyromegaly, no meningismus. CV: RRR, no murmur Lungs: CTA b/l, no wheezing Skin: No rashes, lesions, or wounds on exposed skin. Normal neuro exam MINI-MENTAL STATE EXAMINATION (MMSE) Make the patient comfortable and establish rapport. Ask questions in the order listed. Total possible score is 30. ORIENTATION 1. What is the (year) (season) (date) (day) (month)? Max score=5 Patient's score=5 2. Where are we? (state) (county) (town or city) (hospital) (floor)? Max score=5 Patient's score=5 REGISTRATION Ask the patient if you may test his/her memory. Then say the names of 3 unrelated objects, clearly and slowly, about one second for each (eg, apple, table, amena). After you have said all 3, ask him/her to repeat them. This first repetition determines the score(0-3), but keep saying them until he/she can repeat all 3, up to 6 trials. Max score=3 Patient's score=3 ATTENTION AND CALCULATION Ask the patient to begin with 100 and count backwards by 7. Stop after 5 subtractions (93, 86, 79, 72, 65). Score the total number of correct answers. If the patient cannot or will not perform the serial 7s task, ask him/her to spell the word WORLD backwards. The score is the number of letters in the correct order (eg, DLROW=5; DLRW=4; DLORW, DLW=3; OW=2; DRLWO=1). Max score=5 Patient's score=5 RECALL Ask the patient to recall the 3 items repeated above (eg, apple, table, amena). Max score=3 Patient's score=3 LANGUAGE Naming: Show the patient a wristwatch and ask him/her what it is. Repeat for pencil. Max score=2 Patient's score=2 Repetition: Ask the patient to repeat the phrase No ifs, ands, or buts: after you. Max score=1 Patient's score=1 3-Stage Command: Give the patient a piece of blank paper and ask him/her to take a piece of paper in your right hand, fold it in half, put it on the floor. Score 1 point for each part correctly executed. Max score=3 Patient's score=3 Reading: On a blank piece of paper, print the sentence CLOSE YOUR EYES in letters large enough for the patient to see clearly. Ask him/her to read it and do what it says. Score 1 point only if he/she actually closes his/her eyes. Max score=1 Patient's score=1 Writing: Give the patient a blank piece of paper and ask him/her to write a sentence. Do not dictate a sentence; it is to be written spontaneously. It must contain a subject and verb and be sensible. Correct grammar and punctuation are not necessary. Max score=1 Patient's score=1 Copying: Ask the patient to copy the figure of intersecting pentagons exactly as it is. All 10 angles must be present and 2 must intersect to form a 4-sided figure to score 1 point. Tremor and rotation are ignored. Max score=1 Patient's score=1 MAXIMUM TOTAL SCORE = 30 TOTAL SCORE = 30/30 Suggested guideline for determining the severity of cognitive impairment: Mild: MMSE>21 Moderate: MMSE 10-20 Severe: MMSE<9 Expected decline in MMSE scores in untreated mild to moderate Alzheimer's patient is 2 to 4 points per year. *Adapted from Folstein et al.1 and Salvador and Folstein2. (c) 1974, 1997 [employer] Used with permission. References: 1. Folstein MF, Folstein SE, Rupa MI. Mini- Mental State: a practical method for grading the cognitive state of patients for the clinician. J Psychiatr Res. 1975; 12:189-198. 2. JR Salvador, Efrain MF, Mini-Mental State Examination (MMSE). Psychopharm Bull. 1988;24:689-692. 3. Jaquan HagerT, Jimmy FJ, Liz RD, Erik A, Cathy F. Neuropsychological function in Alzheimer's disease: pattern of impairment and rates of progression. Arch Neurol. 1988;45:263-268. 4. Joe JA, Puma B, Bg S- P, Harika CARDOZO. Predictors of cognitive and functional progression in patients with probable Alzheimer's disease. Neurology. 1992;42:2120-8783. ASSESSMENT/PLAN: 1. Memory change - ICD9: 780.93, ICD10: R41.3 (primary diagnosis) - normal MMSE today in office at 30/30, likely normal memory changes due to stressors. 2. Cold intolerance of hand - ICD9: 780.99, ICD10: R68.89 - recheck labs as ordered, unsure of cause - C-REACTIVE PROTEIN (CRP) - SUSHMA BY IFA SCREEN - TSH BLD - T4 FREE/FREE THYROX - T3 BLD - THYROID PEROXIDASE ANTIBODY BLOOD 3. Abnormal foot color - ICD9: 782.9, ICD10: R23.8 - see above - C-REACTIVE PROTEIN (CRP) - SUSHMA BY IFA SCREEN - TSH BLD - T4 FREE/FREE THYROX - T3 BLD - THYROID PEROXIDASE ANTIBODY BLOOD 4. Multiple joint pain - ICD9: 719.49, ICD10: M25.50 - see above - C-REACTIVE PROTEIN (CRP) - SUSHMA BY IFA SCREEN - TSH BLD - T4 FREE/FREE THYROX - T3 BLD - THYROID PEROXIDASE ANTIBODY BLOOD 5. Other iron deficiency anemia - ICD9: 280.8, ICD10: D50.8 - see above - IRON + TIBC Margarito Spain DO Return if no improvement. Follow up with Margarito Spain DO. Discussed risks, benefits, alternatives, and potential side effects of medications. Patient/Guardian expressed understanding and agreed with the plan. See patient instructions. Margarito Spain DO [address] [place] [address] Referring Provider: MARGARITO SPAIN [[id number]] Allergies As of Date: 12/21/2017 Noted Allergy Reaction TRAMADOL 12/16/2011 14 - Other: See Comments Comments: Seizure disorder. RAGWEED 10/16/2010 14 - Other: See Comments Comments: itchy watery eyes, sneezing, runny nose Date Reviewed: 12/07/2017 Reviewed by: Margarita Alexis Ma - Fully Assessed Reason for Visit: Follow Up [171] Cmt: 3 months Primary Visit Diagnosis:Memory change [R41.3] Other Visit Diagnoses:Cold intolerance of hand [R68.89] Abnormal foot color [R23.8] Multiple joint pain [M25.50] Other iron deficiency anemia [D50.8] Order(s):C-REACTIVE PROTEIN (CRP) [SQCRP] Order #: [id number] FUTURE SUSHMA BY IFA SCREEN [SQANAIFS] Order #: [id number] FUTURE TSH BLD [SQTSH] Order #: [id number] FUTURE T4 FREE/FREE THYROX [SQFT4] Order #: [id number] FUTURE T3 BLD [SQT3] Order #: [id number] FUTURE THYROID PEROXIDASE ANTIBODY BLOOD [SQMICRO] Order #: [id number] FUTURE IRON + TIBC [SQIRON] Order #: [id number] FUTURE Prescriptions as of 12/21/2017 Sig: HYOSCYAMINE SULFATE 0.125 MG * Take 1 tablet by mouth every * HYOSCYAMINE 0.125 MG SUBLINGU* DISSOLVE 1-2 TABLETS UNDER TH* ONDANSETRON 4 MG DISINTEGRATI* PREVACID 24HR ORAL Take by mouth. CYCLOBENZAPRINE 10 MG TABLET Take 1 tablet by mouth three * SIMVASTATIN 40 MG TABLET TAKE 1 TABLET EVERY DAY AT BE* KLOR-CON M10 MEQ TABLET,EXTEN* TAKE 1 TABLET BY MOUTH DAILY * CHOLECALCIFEROL (VITAMIN D3) * Take 1 tablet by mouth once d* HYDROCHLOROTHIAZIDE 12.5 MG C* Take 1 capsule by mouth once * CO Q-10 ORAL Take by mouth. OMEGA-3 FATTY ACIDS-VITAMIN E* Take 1 capsule by mouth. COMPOUNDED PRESCRIPTION Pt may use pool prn for muscl* COMPOUNDED PRESCRIPTION Massage therapy eval and rosanne* MULTI-VITAMIN ORAL Take by mouth. Problem List As Of Date 12/21/2017 Noted Resolved Hyperlipidemia [E78.5] INVALID FOR* Fibromyalgia [M79.7] INVALID FOR* Hypertension [I10] INVALID FOR* Rectocele [N81.6] INVALID FOR* Hemorrhoids [K64.9] INVALID FOR* Abdominal pain [R10.9] INVALID FOR* LGI bleed [K92.2] INVALID FOR* Pancreatitis [K85.90] INVALID FOR* Leukocytosis [D72.829] INVALID FOR* Vitamin B12 deficiency [E53.8] INVALID FOR* Temporomandibular joint disorders, unspecified *INVALID FOR* Cervicalgia [M54.2] INVALID FOR* Depression [F32.9] INVALID FOR* Vitamin D deficiency [E55.9] INVALID FOR* DDD (degenerative disc disease), lumbar [M51.36]INVALID FOR* Lumbar spondylosis [M47.816] INVALID FOR* Arthritis of right shoulder region [M19.011] INVALID FOR* Cervical strain [S16.1XXA] INVALID FOR* Myofascial pain [M79.1] INVALID FOR* Thoracic myofascial strain [S29.019A] INVALID FOR* Family history of colon cancer [Z80.0] INVALID FOR* Unspecified gastritis and gastroduodenitis with*INVALID FOR* Spondylosis of lumbar region without myelopathy*INVALID FOR* Left groin pain [R10.32] INVALID FOR* Atherosclerosis of right carotid artery [I65.21]INVALID FOR* Mild atherosclerosis of left carotid artery [I6*INVALID FOR* Mixed hyperlipidemia [E78.2] Osteoarthritis [M19.90] 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 Rotator cuff tear [M75.100] More... Meniere's disease [H81.09] DDD (degenerative disc disease), cervical [M50.* Allergic rhinitis [J30.9] Abnormality of colon [K63.9] INVALID FOR* More... Tenosynovitis, de Quervain [M65.4] INVALID FOR* DJD (degenerative joint disease), cervical [M47*INVALID FOR* Unintentional weight loss [R63.4] INVALID FOR* Elevated blood pressure reading without diagnos*INVALID FOR* Memory deficit [R41.3] INVALID FOR* Encounter Status:Closed by MARGARITO SPAIN DO on 12/22/17 NETO Observed: 12/21/2017 Status: COMPLETED Source: [place] 12:00 AM [facility] RE[facility]IT[facility] BRENDEN GIRALDO ([id number]) 1955 F Date Time Provider Department 12/21/17 KAIMARGARITO FAMPWS During your visit today, we recorded the following information about you: Margarito Spain DO 12/21/2017 9:17 AM Signed Please inform patient that her recent labs look great, no concerns. DO Rupal Maradiaga MA, MA 12/21/2017 11:04 AM Signed Left detailed message for patient and to call back if any questions. KELSIE Aguirre RN, RN 12/21/2017 11:08 AM Signed Patient notified of results and provider's instructions. Patient verbalizes understanding. Nohemy Gonzalez RN Allergies As of Date: 12/21/2017 Noted Allergy Reaction TRAMADOL 12/16/2011 14 - Other: See Comments Comments: Seizure disorder. RAGWEED 10/16/2010 14 - Other: See Comments Comments: itchy watery eyes, sneezing, runny nose Date Reviewed: 12/07/2017 Reviewed by: Margarita Alexis Ma - Fully Assessed Reason for Visit: Results [95] Prescriptions as of 12/21/2017 Sig: HYOSCYAMINE SULFATE 0.125 MG * Take 1 tablet by mouth every * HYOSCYAMINE 0.125 MG SUBLINGU* DISSOLVE 1-2 TABLETS UNDER TH* ONDANSETRON 4 MG DISINTEGRATI* PREVACID 24HR ORAL Take by mouth. CYCLOBENZAPRINE 10 MG TABLET Take 1 tablet by mouth three * SIMVASTATIN 40 MG TABLET TAKE 1 TABLET EVERY DAY AT BE* KLOR-CON M10 MEQ TABLET,EXTEN* TAKE 1 TABLET BY MOUTH DAILY * CHOLECALCIFEROL (VITAMIN D3) * Take 1 tablet by mouth once d* HYDROCHLOROTHIAZIDE 12.5 MG C* Take 1 capsule by mouth once * COMPOUNDED PRESCRIPTION Pt may use pool prn for muscl* COMPOUNDED PRESCRIPTION Massage therapy eval and rosanne* CO Q-10 ORAL Take by mouth. OMEGA-3 FATTY ACIDS-VITAMIN E* Take 1 capsule by mouth. MULTI-VITAMIN ORAL Take by mouth. Problem List As Of Date 12/21/2017 Noted Resolved Hyperlipidemia [E78.5] INVALID FOR* Fibromyalgia [M79.7] INVALID FOR* Hypertension [I10] INVALID FOR* Rectocele [N81.6] INVALID FOR* Hemorrhoids [K64.9] INVALID FOR* Abdominal pain [R10.9] INVALID FOR* LGI bleed [K92.2] INVALID FOR* Pancreatitis [K85.90] INVALID FOR* Leukocytosis [D72.829] INVALID FOR* Vitamin B12 deficiency [E53.8] INVALID FOR* Temporomandibular joint disorders, unspecified *INVALID FOR* Cervicalgia [M54.2] INVALID FOR* Depression [F32.9] INVALID FOR* Vitamin D deficiency [E55.9] INVALID FOR* DDD (degenerative disc disease), lumbar [M51.36]INVALID FOR* Lumbar spondylosis [M47.816] INVALID FOR* Arthritis of right shoulder region [M19.011] INVALID FOR* Cervical strain [S16.1XXA] INVALID FOR* Myofascial pain [M79.1] INVALID FOR* Thoracic myofascial strain [S29.019A] INVALID FOR* Family history of colon cancer [Z80.0] INVALID FOR* Unspecified gastritis and gastroduodenitis with*INVALID FOR* Spondylosis of lumbar region without myelopathy*INVALID FOR* Left groin pain [R10.32] INVALID FOR* Atherosclerosis of right carotid artery [I65.21]INVALID FOR* Mild atherosclerosis of left carotid artery [I6*INVALID FOR* Mixed hyperlipidemia [E78.2] Osteoarthritis [M19.90] 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 Rotator cuff tear [M75.100] More... Meniere's disease [H81.09] DDD (degenerative disc disease), cervical [M50.* Allergic rhinitis [J30.9] Abnormality of colon [K63.9] INVALID FOR* More... Tenosynovitis, de Quervain [M65.4] INVALID FOR* DJD (degenerative joint disease), cervical [M47*INVALID FOR* Unintentional weight loss [R63.4] INVALID FOR* Elevated blood pressure reading without diagnos*INVALID FOR* Memory deficit [R41.3] INVALID FOR* Encounter Status:Closed by RUPAL DEXTER on 12/21/17 COMP METABOLIC PANEL Collected: 12/19/2017 Status: F Source: [place] 10:52 AM [facility] RE[facility] TYPE CODE TESTS RESULT OUT OF REFERENCE UNITS RANGE LAB TP 6.3-8.0 g/dL Protein, Total 7.3 LAB ALB 3.9-4.9 g/dL Albumin 4.2 LAB CA 8.5-10.2 mg/dL Calcium, Total 9.5 LAB TBIL 0.2-1.3 mg/dL Bilirubin, Total 0.4 LAB ALKP 32-117 U/L Alkaline Phosphatase 101 LAB AST 13-35 U/L AST 27 LAB GLU 74-99 mg/dL Glucose 88 Result Comment: The [place] Diabetes [employer] (ADA) provides guidance for cutoff values for fasting glucose and random glucose. The ADA defines fasting as no caloric intake for at least 8 hours. Fas ting plasma glucose results between 100 to 125 mg/dL indicate increased risk for diabetes (prediabetes). Fasting plasma glucose results greater than or equal to 126 mg/dL meet the criteria for diagnosis of diabetes. In the absence of unequivocal hyperglycemia, results should be confirmed by repeat testing. In a patient with classic symptoms of hyperglycemia or hyperglycemic crisis, random plasma glucose results greater than or equal to 200 mg/dL meet the criteria for diagnosis of diabetes. Reference: Standards of Medical Care in Diabetes 2016, [place] [employer] Association. Diabetes Care. 2016.39(Suppl 1). LAB BUN 7-21 mg/dL BUN Low 6 LAB CRET 0.58-0.96 mg/dL Creatinine 0.64 LAB NA 136-144 mmol/L Sodium 144 LAB K 3.7-5.1 mmol/L Potassium 3.8 LAB CL 97-105 mmol/L Chloride 105 LAB CO2 22-30 mmol/L CO2 26 LAB AGAP 9-18 mmol/L Anion Gap 13 LAB ALT 7-38 U/L ALT 19 LAB GFRAA eGFR- Amer. >60 LAB GFRNAA . eGFR-All Other Races >60 Result Comment: eGFR (Estimated GFR) Units of measure: mL/min/1.73 meters squared eGFR is derived from the reexpressed MDRD Study equation using the following parameters: serum creatinine, age, gender and race. The creatinine assay has been calibrated to be traceable to IDMS. An eGFR <60 mL/min/1.73m2 for >3 months is consistent with chronic kidney disease. Refer to KDOQI guidelines for clinical interpretation. In patients with unstable renal function, e.g. those with acute kidney injury, the eGFR may not accurately reflect actual GFR. Performed By: #### CMP, LIPB #### [facility] [address] [phone] LIPID PANEL, BASIC Collected: 12/19/2017 Status: F Source: [place] 10:52 AM [facility] REPOSITORY TYPE CODE TESTS RESULT OUT OF REFERENCE UNITS RANGE LAB CHOL <200 mg/dL Cholesterol 196 Result Comment: <200 mg/dL, Desirable 200-239 mg/dL, Borderline high >239 mg/dL, High LAB TRIGLY <150 mg/dL Triglyceride 103 Result Comment: <150 mg/dL, Normal 150-199 mg/dL, Borderline high 200-499 mg/dL, High >499 mg/dL, Very high LAB HDL >39 mg/dL HDL-Cholesterol 78 Result Comment: 40-59 mg/dL, Acceptable >59 mg/dL, High: Negative risk factor for coronary heart disease <40 mg/dL, Low: Positive risk factor for coronary heart disease LAB LDL <100 mg/dL LDL-Cholesterol 97 Result Comment: <100 mg/dL, Optimal 100-129 mg/dL, Near optimal/above optimal 130-159 mg/dL, Borderline high 160-189 mg/dL, High >189 mg/dL, Very high Secondary prevention optimal LDL Cholesterol levels are recommended to be < 70 mg/dL LAB NONHDL <130 mg/dL Non HDL Cholesterol 118 Result Comment: <130 mg/dL, Optimal 130-159 mg/dL, Near optimal/above optimal 160-189 mg/dL, Borderline high 190-219 mg/dL, High >219 mg/dL, Very high Secondary prevention optimal non HDL Cholesterol levels are recommended to be < 100 mg/dL LAB FT hrs Fasting Time 12 LAB VLDL <30 mg/dL VLDL Cholesterol 21 LAB TCHDL <5.10 TC:HDL Ratio 2.51 LAB LDLHDL <2.54 LDL:HDL Ratio 1.24 Result Comment: Reference: 1. National Cholesterol Education Program ATP III Guideline At-A-Glance Quick Desk Reference: National Heart, Lung, and Blood [place]. National Institutes of Health. 2001: NIH Publication No. 01-3305. 2. An International Atherosclerosis Society position paper: global recommendations for the management of dyslipidemia: executive summary, Atherosclerosis. 2014: 232(2):410-413. Performed By: #### CMP, LIPB #### [facility] [address] [place] [id number] HISTORY PHYSICAL Observed: 12/11/2017 Status: COMPLETED Source: [place] 11:53 AM [facility] RE[facility] HNO ID: [id number] Author: Shun Titus Service: (none) Author Type: (none) Type: HANDP Filed: 12/11/2017 11:54 AM Note Text: 12-25-2017 [facility] Observed: 12/11/2017 Status: COMPLETED Source: [place] 12:00 AM [facility] REPOSITORY Patient:Brenden Giraldo MRN: <[id number]> Height:5' 3(1.6 m) Weight:136 lb (61.689 kg) Outpatient Medications as of 12/25/17: acetaminophen with codeine (TYLENOL-CODEINE #3 ORAL) hyoscyamine (LEVSIN) 0.125 mg tablet hyoscyamine sublingual (LEVSIN SL) 0.125 mg subl ondansetron orally disintegrating (ZOFRAN ODT) 4 mg disintegrating tablet lansoprazole (PREVACID 24HR ORAL) cyclobenzaprine (FLEXERIL) 10 mg tablet simvastatin (ZOCOR) 40 mg tablet KLOR-CON M10 10 mEq tablet Cholecalciferol, Vitamin D3, 2,000 unit cap Hydrochlorothiazide 12.5 mg capsule COMPOUNDED PRESCRIPTION COMPOUNDED PRESCRIPTION UBIDECARENONE (CO Q-10 ORAL) [place]-3 Fatty Acids-Vitamin E (FISH OIL) 1,000 mg cap MULTI-VITAMIN ORAL Admission/Clinic Administered Medications as of 12/25/17: lactated ringers infusion Problem List: Hyperlipidemia [E78.5] Fibromyalgia [M79.7] Hypertension [I10] Rectocele [N81.6] Hemorrhoids [K64.9] Abdominal pain [R10.9] LGI bleed [K92.2] Pancreatitis [K85.90] Leukocytosis [D72.829] Vitamin B12 deficiency [E53.8] Temporomandibular joint disorders, unspecified [M26.609] Cervicalgia [M54.2] Depression [F32.9] Vitamin D deficiency [E55.9] DDD (degenerative disc disease), lumbar [M51.36] Lumbar spondylosis [M47.816] Arthritis of right shoulder region [M19.011] Cervical strain [S16.1XXA] Myofascial pain [M79.1] Thoracic myofascial strain [S29.019A] Family history of colon cancer [Z80.0] Unspecified gastritis and gastroduodenitis without mention of hemorrhage [K29.70, K29.90] Spondylosis of lumbar region without myelopathy or radiculopathy [M47.816] Left groin pain [R10.32] Atherosclerosis of right carotid artery [I65.21] Mild atherosclerosis of left carotid artery [I65.22] Mixed hyperlipidemia [E78.2] Osteoarthritis [M19.90] TMJ disease [M26.609] Rotator cuff tear [M75.100] Meniere's disease [H81.09] DDD (degenerative disc disease), cervical [M50.30] Allergic rhinitis [J30.9] Abnormality of colon [K63.9] Tenosynovitis, de Quervain [M65.4] DJD (degenerative joint disease), cervical [M47.812] Unintentional weight loss [R63.4] Elevated blood pressure reading without diagnosis of hypertension [R03.0] Memory deficit [R41.3] Memory change [R41.3] Absolute anemia [D64.9] Multiple joint pain [M25.50] Abnormal foot color [R23.8] Cold intolerance of hand [R68.89] Allergies: Tramadol Ragweed Date Verified: 12/25/17 Lab Values Lab Value Units Date High Low POTA* 3.8 mmol/L 12/19/2017 5.1 3.7 Progress Notes ([facility]): Margarito Spain DO 12/23/2017 7:35 AM Signed Please inform patient that her labs are all normal, including her thyroid and autoimmune labs and inflammation markers DO Katheryn Maradiaga LPN 12/23/2017 9:16 AM Signed Pt notified. Progress Notes ([facility]): Margarito Spain DO 12/21/2017 9:17 AM Signed Please inform patient that her recent labs look great, no concerns. DO Rupal Maradiaga MA, MA 12/21/2017 11:04 AM Signed Left detailed message for patient and to call back if any questions. KELSIE Aguirre, RN, RN 12/21/2017 11:08 AM Signed Patient notified of results and provider's instructions. Patient verbalizes understanding. Nohemy Gonzalez RN 12 LEAD ELECTROCARDIOGRAM Observed: 12/08/2017 Status: F Source: [place] 1:30 PM [facility] REPOSITORY [facility] Cardiovascular Services [address] [place] [address] 12 Lead EKG 12/06/17 1216 MR#: [id number] Acct: [id number] Name: BRENDEN GIRALDO Rep #: [id number] : 1955 62 From: Ranjan Hernandez MD Attending Dr: Status: DEP ER Ordering Dr: Kit Dewitt MD Date: 12/06/17 Location: ED Sex: F C Admitted: Test Reason : SOB/CHEST TIGHTNESS Blood Pressure : / mmHG Vent. Rate : 071 BPM Atrial Rate : 071 BPM P-R Int : 162 ms QRS Dur : 072 ms QT Int : 416 ms P-R-T Axes : 003 041 051 degrees QTc Int : 452 ms Normal sinus rhythm Normal ECG Confirmed by RANJAN HERNANDEZ MD ([id number]), editorial clerk CHRISTIANO TITUS ([id number]) on 12/08/2017 1:30:30 PM Referred By: ANNIE Confirmed By:RANJAN HERNANDEZ MD 12/08/17 1330 Date Ranjan Hernandez MD CC: Kit Dewitt MD; Margarito Bay DO Signed AMYLASE Collected: 12/07/2017 Status: F Source: [place] 4:53 PM [facility] [place] REPOSITORY TYPE CODE TESTS RESULT OUT OF REFERENCE UNITS RANGE LAB AMYL 30-104 U/L High Amylase 106 Performed By: #### AMYL, LIPA #### [facility] [address] [place], [place] [address] LIPASE Collected: 12/07/2017 Status: F Source: [place] 4:53 PM [facility] REPOSITORY TYPE CODE TESTS RESULT OUT OF REFERENCE UNITS RANGE LAB LIPA 16-61 U/L Lipase 55 Performed By: #### AMYL, LIPA #### [facility] [address] [place], [place] [address] HISTORY PHYSICAL Observed: 12/07/2017 Status: COMPLETED Source: [place] 3:48 PM [facility] [place] REPOSITORY HNO ID: [id number] Author: Nannette Patten) Kirk Service: (none) Author Type: Nurse Practitioner Type: HANDP Filed: 12/07/2017 5:39 PM Note Text: Brenden Giraldo a 62 year old female who is a consultation requested by Lynette Polo NP, for an opinion regarding abdominal pain. My final recommendations will be communicated back to the requesting provider by way of a shared medical record. I haven't seen this patient before. Her PCP is Dr. Spain. The patient was seen by Dr. Arevalo for upper endoscopy 05/03/14. The procedure report has been reviewed and findings as follows: Findings: ?? ? The examined jejunum was normal. ?? ? The examined duodenum was normal. ?? ? Scattered moderate inflammation characterized by erosions, erythema, ?? ? granularity and shallow ulcerations was found in the gastric antrum. ?? ? Biopsies were taken with a cold forceps for histology. ?? ? Few non-bleeding superficial gastric ulcers with no stigmata of bleeding ?? ? were found in the gastric fundus. ?? ? The examined esophagus was normal. FINAL DIAGNOSIS Stomach, antrum, biopsy (A) - Antral mucosa with reactive gastropathy; no morphologic evidence of H. pylori infection. The patient was seen by Dr. Delacruz for colonoscopy the same day (05/03/14). The procedure report has been reviewed and findings as follows: Findings: ?? ? Many small and large-mouthed diverticula were found in the entire colon. ?? ? No additional abnormalities were found on retroflexion. The patient was seen by Lynette earlier this afternoon, leading to this consultation. That note has been reviewed, as well as the ED record from yesterday. ED report: History of Present Illness: The patient is a 62 F with a migratory abdominal pain over the past week and a half. Currently it is in her right upper quadrant and left lower quadrant. She also reports constipation, but she does pass gas. She is nauseated but denies vomiting. No fevers. No other related symptoms. She has a family history of colon cancer. She has a history of gastric ulcers, fibromyalgia, and a prior sigmoid operation. Physical Examination: Afebrile and vital signs unremarkable. Patient appears in no acute distress. Heart regular rate and rhythm. Lungs clear. Abdomen tender to palpation in the right upper quadrant and left lower quadrant. No guarding or rebound. Normal bowel sounds. Skin appears normal. Test Results: EKG shows sinus rhythm at a rate of 71. CBC normal. Potassium 3.4. Hepatic panel and lipase normal. Urinalysis unremarkable, shows contamination. Troponin normal. CT showed mild dysmotility at the distal ileum. Emergency Department Course and Treatment: Patient treated with morphine and Zofran while awaiting results. Labs are all fairly unremarkable. EKG and troponin normal. CT showed mild dysmotility. I discussed this with the radiologist. This is not an ileus or obstruction pattern. He said this is most likely seen with enteritis, constipation, or in elderly patients. Patient has no other findings to suggest enteritis or constipation. He said that her dysmotility pattern might cause constipation symptoms. Patient is appropriate for an outpatient workup. CT: CT/Abdomen/Pelvis W IV Cont ONLY FINDINGS: Body wall soft tissues: No acute process. Osseous structures: No acute process. Inferior chest: No acute process. Hepatobiliary: Cholecystectomy. Minimally ectatic intrahepatic biliary tree and common bile duct most consistent with chronic physiologic adaptation postcholecystectomy. Liver parenchyma normal. Pancreas: No acute process. Spleen: Normal. Adrenal glands: Normal. Urogenital: Normal kidneys, symmetric nephrograms. Normal collecting systems, ureters, urinary bladder. Uterus absent. No adnexal mass or cyst. Pelvic floor and sidewalls and retroperitoneum: No mass or adenopathy. Vasculature: No acute process. Stomach: No acute process. Small bowel and mesentery: There is small bowel stool within the distal ileum suggesting a component of mild stasis/dysmotility. Large bowel: The appendix is not visible. There are no acute inflammatory features in the region of the cecum. There is a moderately prominent distributed stool burden of large bowel from the cecum to the transverse colon. There is mild chronic-appearing circumferential thickening of the wall of the splenic flexure and descending colon with low- density fatty infiltration the wall suggesting sequela of prior colitis without evidence of acute colitis. There is minimal diverticulosis of the sigmoid without diverticulitis. Anastomotic sutures of the distal sigmoid. Normal rectum. Free fluid or free air: None. CT/Abdomen/Pelvis W IV Cont ONLY IMPRESSION: There is evidence of mild dysmotility in the distal ileum, small bowel stool present, with no evidence of small bowel obstruction or inflammation. No acute other malady of the large bowel or rectum. No other acute intra-abdominal process. ADDENDUM by Naima Paez MD on 12/06/17 at 1509 ADDENDUM ADDENDUM: Correction voice recognition municipal court magistrate error. The 2nd sentence of the impression should read, no other acute abnormality of the large bowel or rectum.) I discussed the case with the attending physician, Dr. Stevens who requested a consultation to discuss the patient's small bowel stool in the distal ileum. This can be a nonspecific sign. Sometimes seen with enteritis, constipation, colitis, or large bowel obstruction. In this case there is no convincing evidence of acute inflammatory colitis or enteritis. There is no constipation. It is possible that the patient may have chronic hypomotility of the ileum, or may have low-grade inflammation without clearly visible maya enteritis on the CT scan. In the segment of chronic-appearing large bowel wall thickening and fatty infiltration of the bowel wall, of the splenic flexure and descending colon, there are no convincing acute inflammatory features in the surrounding fat as stated in the original dictation. Consider the possibility of low-grade occult inflammation in that segment, given that the patient is experiencing symptoms of perceived constipation, gassiness. Presenting complaint: The patient presents today reporting I have fluctuated between diarrhea and constipation since I was 17. Had part of the colon removed in 2001 - Dr. Rodriguez at [facility]. She tells me that she has a history of a tortuous colon. She reports being under considerable stress lately. She recalls that a week ago she was ill. Back and forth to the bathroom with diarrhea. Nausea, but no vomiting. Cold, sweaty. [place] like she was going to pass out. Along with the diarrhea she passed two clots and some stringy mucus. She is concerned since her bowels weren't moving much since then, but she hasn't been eating much. She tells me that she started eating again on Monday 12/04. She had two small stools today - some mucus and a hint of pink tinge on the paper with wiping. The patient explains that her pain was greater than usual and stool was smaller in diameter. She took one Levsin and acknowledges that it did help with the pain, but she doesn's like to take medication if she doesn't have to. I have encouraged her to take the Levsin at least twice a day. The patient tells me that she started taking a fiber supplement. She has take two doses already today. I have stressed that she cut back to only one teaspoon - up to one tablespoon DAILY for the next 3-4 weeks. Slow gradual increase since hse has bowel issues, or she will be more uncomfortable and bloated. The patient is concerned about possible cancer. Her mother had colon cancer. The patient continues with LLQ pain and mild RUQ pain. Her last colonoscopy (and EGD) was three years ago. REVIEW OF SYSTEMS: GENERAL: No weight loss, malaise or fevers RESPIRATORY: Negative for cough, hemoptysis, wheezing, COPD, dyspnea or shortness of breath CARDIOVASCULAR:Positive for hypertension and atherosclerosis left carotid. GI: The patient states that her appetite has been adequate. She does get hungry. There has been some nausea, no vomiting. She denies dysphagia and denies odynophagia. There has partially been indigestion without heartburn. There has not been regurgitation. Bowel habits have been irregular. There has been diarrhea. There has been constipation. The patient admits to rectal bleeding. There has not been melena. Daily abdominal pain that is located in the left lower and right upper quadrant. INTERNATIONAL EDITORIAL PRODUCER: Negative for abnormal vaginal bleeding, abnormal vaginal discharge. MUSCULOSKELETAL: Positive for back pain, shoulder pain, arthritis and fibromyalgia. PSYCH: Positive for severe psychosocial stressors. HEMATOLOGY/LYMPHOLOGY Negative for prolonged bleeding, bruising easily or swollen nodes ENDOCRINE: Negative for cold or heat intolerance, polyuria, polydipsia and goiter NEURO: No history of headaches, syncope, paralysis, seizures or tremors All other reviewed and negative other than HPI. PAST MEDICAL HISTORY Diagnosis Date - Abnormality of colon 2001 abnormal movment of colon, removed 9 in from sigmoid colon - Allergic rhinitis, cause unspecified - Arthritis of right shoulder region corticosteroid injection last 12/18/15 - Atherosclerosis of right carotid artery 07/2016 - DDD (degenerative disc disease), cervical - Depression - Fibromyalgia - Hypertension - Meniere's disease - Mild atherosclerosis of left carotid artery 07/2016 - Mixed hyperlipidemia - Osteoarthritis - Rotator cuff tear right sided - TMJ disease chiropracter PAST SURGICAL HISTORY Procedure Laterality Date - ABDOMINOPLASTY 2006 - COLONOSCOPY 2008 - PART REMOVAL COLON W ANASTOMOSIS 08/04/01 Laparotomy,Hemicolectomy, left ovarian cyst - PAST SURGICAL HISTORY OF 1987 Hemorrhoidectomy - PAST SURGICAL HISTORY OF 2014 right hand surgery, fingers - REDUCTION OF LARGE BREAST 2004 - VAGINAL HYSTERECTOMY 1996 Hysterectomy, vaginal- partial FAMILY HISTORY Problem Relation Age of Onset - Coronary Artery Disease Father - other (CHF [Other]) Father - Colon Cancer Mother - Hypertension Sister - other (heart disease [Other]) Brother with pacemaker - Hypertension Brother Current Outpatient Prescriptions: ondansetron orally disintegrating (ZOFRAN ODT) 4 mg disintegrating tablet Disp: Rfl: hyoscyamine sublingual (LEVSIN SL) 0.125 mg subl For IBS symptoms, Take 1-2 tablets under tongue every 4hrs as needed. Max 12 tabs per day. Disp: 30 tablet Rfl: 1 cyclobenzaprine (FLEXERIL) 10 mg tablet Take 1 tablet by mouth three times daily as needed for Muscle Spasm. Disp: 90 tablet Rfl: 3 simvastatin (ZOCOR) 40 mg tablet TAKE 1 TABLET EVERY DAY AT BEDTIME Disp: 90 tablet Rfl: 3 KLOR-CON M10 10 mEq tablet TAKE 1 TABLET BY MOUTH DAILY WITH BREAKFAST. Disp: 90 tablet Rfl: 1 Cholecalciferol, Vitamin D3, 2,000 unit cap Take 1 tablet by mouth once daily. Disp: 90 capsule Rfl: 3 Hydrochlorothiazide 12.5 mg capsule Take 1 capsule by mouth once daily. Disp: 90 capsule Rfl: 3 COMPOUNDED PRESCRIPTION Pt may use pool prn for muscle/joint pain Dx: M79.7 Disp: 1 Each Rfl: 12 COMPOUNDED PRESCRIPTION Massage therapy eval and treat Dx: M79.7 Disp: 1 Each Rfl: 12 UBIDECARENONE (CO Q-10 ORAL) Take by mouth. Disp: Rfl: [place]-3 Fatty Acids-Vitamin E (FISH OIL) 1,000 mg cap Take 1 capsule by mouth. Disp: Rfl: MULTI-VITAMIN ORAL Take by mouth. Disp: Rfl: No current facility-administered medications for this visit. SOCIAL HISTORY: Patient is single. She quit smoking years ago and reports her alcohol use as occasionally. PHYSICAL EXAMINATION: Blood pressure 139/85, pulse 70, height 160 cm (5' 3), weight 65.8 kg (145 lb). General Appearance: Alert, in no acute distress, well-hydrated, well nourished. Skin: Skin color, texture, turgor normal, no suspicious rashes or lesions. Head: Normocephalic, no masses, lesions, tenderness or abnormalities. Eyes: Anicteric sclera. Pupils are equally round and reactive to light. Extraocular movements are intact. Oropharynx: Lips, mucosa, and tongue normal, teeth and gums normal, oropharynx normal. Neck: Supple, no adenopathy; thyroid symmetric. Lungs: Lungs clear to auscultation. No wheezing, rhonchi, rales. Heart: RRR without murmur. Abdomen: Bowel sounds normal. Abdomen soft, moderate tenderness to palpation LLQ. Slight generalized tenderness otherwise. No guarding or rebound. No masses, organomegaly. Extremities: No deformities, edema, skin discoloration, clubbing or cyanosis. Peripheral Pulses: Normal. Neurologic: Gait normal. Reflexes normal and symmetric. Sensation grossly intact. Impression: abnormal CT 2)recent possible enteritis 3)history of functional bowel disorder Plan: Take Levsin that was prescribed by Dr. Spain. Take Prevacid daily. Only one teaspoon to tablespoon of fiber daily - in the morning. Adequate fluids throughout the day. Advance diet. We discussed upper endoscopy as well as a colonoscopy. She had MAC sedation in the past. Preparation for the procedures, using GoLytely as the laxative, have been explained in detail. The risks, benefits, anticipated outcomes and possible complications were mentioned. I explained the procedure in understandable terms and the patient was given printed material concerning the planned procedure. The patient had the opportunity to ask questions concerning the planned procedure. The patient freely consents to the planned procedure. I will forward her chart to Dr. Arevalo regarding timing of the procedures and sedation. The patient is to call in with an update on 12/10. Sooner, with any questions. Backto the ED if sever pain or bleeding. She agrees. I have personally interviewed and examined this patient. I have read the information that the MA documented in this encounter. I spent 35 minutes in the visit, with more than 50% of the total [id number] time of the visit in counseling / coordination of care. Nannette Bradley RN APRN.MATTY CNOV Observed: 12/07/2017 Status: COMPLETED Source: [place] 3:20 PM [facility] REPOSITORY [facility] BRENDEN GIRALDO ([id number]) 1955 F Date Time Provider Department 12/07/17 3:20 PM NANNETTE BRADLEY (ARTI) [facility] During your visit today, we recorded the following information about you: Pulse Blood pressure Weight Height 70/minute 139/85 65.8 kg 1.6 m Nannette Bradley RN APRN.MATTY 12/07/2017 5:39 PM Signed Brenden Giraldo a 62 year old female who is a consultation requested by Lynette Polo NP, for an opinion regarding abdominal pain. My final recommendations will be communicated back to the requesting provider by way of a shared medical record. I haven't seen this patient before. Her PCP is Dr. Spain. The patient was seen by Dr. Arevalo for upper endoscopy 05/03/14. The procedure report has been reviewed and findings as follows: Findings: ?? ? The examined jejunum was normal. ?? ? The examined duodenum was normal. ?? ? Scattered moderate inflammation characterized by erosions, erythema, ?? ? granularity and shallow ulcerations was found in the gastric antrum. ?? ? Biopsies were taken with a cold forceps for histology. ?? ? Few non-bleeding superficial gastric ulcers with no stigmata of bleeding ?? ? were found in the gastric fundus. ?? ? The examined esophagus was normal. FINAL DIAGNOSIS Stomach, antrum, biopsy (A) - Antral mucosa with reactive gastropathy; no morphologic evidence of H. pylori infection. The patient was seen by Dr. Delacruz for colonoscopy the same day (05/03/14). The procedure report has been reviewed and findings as follows: Findings: ?? ? Many small and large-mouthed diverticula were found in the entire colon. ?? ? No additional abnormalities were found on retroflexion. The patient was seen by Lynette earlier this afternoon, leading to this consultation. That note has been reviewed, as well as the ED record from yesterday. ED report: History of Present Illness: The patient is a 62 F with a migratory abdominal pain over the past week and a half. Currently it is in her right upper quadrant and left lower quadrant. She also reports constipation, but she does pass gas. She is nauseated but denies vomiting. No fevers. No other related symptoms. She has a family history of colon cancer. She has a history of gastric ulcers, fibromyalgia, and a prior sigmoid operation. Physical Examination: Afebrile and vital signs unremarkable. Patient appears in no acute distress. Heart regular rate and rhythm. Lungs clear. Abdomen tender to palpation in the right upper quadrant and left lower quadrant. No guarding or rebound. Normal bowel sounds. Skin appears normal. Test Results: EKG shows sinus rhythm at a rate of 71. CBC normal. Potassium 3.4. Hepatic panel and lipase normal. Urinalysis unremarkable, shows contamination. Troponin normal. CT showed mild dysmotility at the distal ileum. Emergency Department Course and Treatment: Patient treated with morphine and Zofran while awaiting results. Labs are all fairly unremarkable. EKG and troponin normal. CT showed mild dysmotility. I discussed this with the radiologist. This is not an ileus or obstruction pattern. He said this is most likely seen with enteritis, constipation, or in elderly patients. Patient has no other findings to suggest enteritis or constipation. He said that her dysmotility pattern might cause constipation symptoms. Patient is appropriate for an outpatient workup. CT: CT/Abdomen/Pelvis W IV Cont ONLY FINDINGS: Body wall soft tissues: No acute process. Osseous structures: No acute process. Inferior chest: No acute process. Hepatobiliary: Cholecystectomy. Minimally ectatic intrahepatic biliary tree and common bile duct most consistent with chronic physiologic adaptation postcholecystectomy. Liver parenchyma normal. Pancreas: No acute process. Spleen: Normal. Adrenal glands: Normal. Urogenital: Normal kidneys, symmetric nephrograms. Normal collecting systems, ureters, urinary bladder. Uterus absent. No adnexal mass or cyst. Pelvic floor and sidewalls and retroperitoneum: No mass or adenopathy. Vasculature: No acute process. Stomach: No acute process. Small bowel and mesentery: There is small bowel stool within the distal ileum suggesting a component of mild stasis/dysmotility. Large bowel: The appendix is not visible. There are no acute inflammatory features in the region of the cecum. There is a moderately prominent distributed stool burden of large bowel from the cecum to the transverse colon. There is mild chronic-appearing circumferential thickening of the wall of the splenic flexure and descending colon with low- density fatty infiltration the wall suggesting sequela of prior colitis without evidence of acute colitis. There is minimal diverticulosis of the sigmoid without diverticulitis. Anastomotic sutures of the distal sigmoid. Normal rectum. Free fluid or free air: None. CT/Abdomen/Pelvis W IV Cont ONLY IMPRESSION: There is evidence of mild dysmotility in the distal ileum, small bowel stool present, with no evidence of small bowel obstruction or inflammation. No acute other malady of the large bowel or rectum. No other acute intra-abdominal process. ADDENDUM by Naima Paez MD on 12/06/17 at 1509 ADDENDUM ADDENDUM: Correction voice recognition municipal court magistrate error. The 2nd sentence of the impression should read, no other acute abnormality of the large bowel or rectum.) I discussed the case with the attending physician, Dr. Stevens who requested a consultation to discuss the patient's small bowel stool in the distal ileum. This can be a nonspecific sign. Sometimes seen with enteritis, constipation, colitis, or large bowel obstruction. In this case there is no convincing evidence of acute inflammatory colitis or enteritis. There is no constipation. It is possible that the patient may have chronic hypomotility of the ileum, or may have low-grade inflammation without clearly visible maya enteritis on the CT scan. In the segment of chronic-appearing large bowel wall thickening and fatty infiltration of the bowel wall, of the splenic flexure and descending colon, there are no convincing acute inflammatory features in the surrounding fat as stated in the original dictation. Consider the possibility of low-grade occult inflammation in that segment, given that the patient is experiencing symptoms of perceived constipation, gassiness. Presenting complaint: The patient presents today reporting I have fluctuated between diarrhea and constipation since I was 17. Had part of the colon removed in 2001 - Dr. Rodriguez at [facility]. She tells me that she has a history of a tortuous colon. She reports being under considerable stress lately. She recalls that a week ago she was ill. Back and forth to the bathroom with diarrhea. Nausea, but no vomiting. Cold, sweaty. [place] like she was going to pass out. Along with the diarrhea she passed two clots and some stringy mucus. She is concerned since her bowels weren't moving much since then, but she hasn't been eating much. She tells me that she started eating again on Monday 12/04. She had two small stools today - some mucus and a hint of pink tinge on the paper with wiping. The patient explains that her pain was greater than usual and stool was smaller in diameter. She took one Levsin and acknowledges that it did help with the pain, but she doesn's like to take medication if she doesn't have to. I have encouraged her to take the Levsin at least twice a day. The patient tells me that she started taking a fiber supplement. She has take two doses already today. I have stressed that she cut back to only one teaspoon - up to one tablespoon DAILY for the next 3-4 weeks. Slow gradual increase since hse has bowel issues, or she will be more uncomfortable and bloated. The patient is concerned about possible cancer. Her mother had colon cancer. The patient continues with LLQ pain and mild RUQ pain. Her last colonoscopy (and EGD) was three years ago. REVIEW OF SYSTEMS: GENERAL: No weight loss, malaise or fevers RESPIRATORY: Negative for cough, hemoptysis, wheezing, COPD, dyspnea or shortness of breath CARDIOVASCULAR:Positive for hypertension and atherosclerosis left carotid. GI: The patient states that her appetite has been adequate. She does get hungry. There has been some nausea, no vomiting. She denies dysphagia and denies odynophagia. There has partially been indigestion without heartburn. There has not been regurgitation. Bowel habits have been irregular. There has been diarrhea. There has been constipation. The patient admits to rectal bleeding. There has not been melena. Daily abdominal pain that is located in the left lower and right upper quadrant. INTERNATIONAL EDITORIAL PRODUCER: Negative for abnormal vaginal bleeding, abnormal vaginal discharge. MUSCULOSKELETAL: Positive for back pain, shoulder pain, arthritis and fibromyalgia. PSYCH: Positive for severe psychosocial stressors. HEMATOLOGY/LYMPHOLOGY Negative for prolonged bleeding, bruising easily or swollen nodes ENDOCRINE: Negative for cold or heat intolerance, polyuria, polydipsia and goiter NEURO: No history of headaches, syncope, paralysis, seizures or tremors All other reviewed and negative other than HPI. PAST MEDICAL HISTORY Diagnosis Date - Abnormality of colon 2001 abnormal movment of colon, removed 9 in from sigmoid colon - Allergic rhinitis, cause unspecified - Arthritis of right shoulder region corticosteroid injection last 12/18/15 - Atherosclerosis of right carotid artery 07/2016 - DDD (degenerative disc disease), cervical - Depression - Fibromyalgia - Hypertension - Meniere's disease - Mild atherosclerosis of left carotid artery 07/2016 - Mixed hyperlipidemia - Osteoarthritis - Rotator cuff tear right sided - TMJ disease chiropracter PAST SURGICAL HISTORY Procedure Laterality Date - ABDOMINOPLASTY 2006 - COLONOSCOPY 2008 - PART REMOVAL COLON W ANASTOMOSIS 08/04/01 Laparotomy,Hemicolectomy, left ovarian cyst - PAST SURGICAL HISTORY OF 1987 Hemorrhoidectomy - PAST SURGICAL HISTORY OF 2014 right hand surgery, fingers - REDUCTION OF LARGE BREAST 2004 - VAGINAL HYSTERECTOMY 1996 Hysterectomy, vaginal- partial FAMILY HISTORY Problem Relation Age of Onset - Coronary Artery Disease Father - other (CHF [Other]) Father - Colon Cancer Mother - Hypertension Sister - other (heart disease [Other]) Brother with pacemaker - Hypertension Brother Current Outpatient Prescriptions: ondansetron orally disintegrating (ZOFRAN ODT) 4 mg disintegrating tablet Disp: Rfl: hyoscyamine sublingual (LEVSIN SL) 0.125 mg subl For IBS symptoms, Take 1-2 tablets under tongue every 4hrs as needed. Max 12 tabs per day. Disp: 30 tablet Rfl: 1 cyclobenzaprine (FLEXERIL) 10 mg tablet Take 1 tablet by mouth three times daily as needed for Muscle Spasm. Disp: 90 tablet Rfl: 3 simvastatin (ZOCOR) 40 mg tablet TAKE 1 TABLET EVERY DAY AT BEDTIME Disp: 90 tablet Rfl: 3 KLOR-CON M10 10 mEq tablet TAKE 1 TABLET BY MOUTH DAILY WITH BREAKFAST. Disp: 90 tablet Rfl: 1 Cholecalciferol, Vitamin D3, 2,000 unit cap Take 1 tablet by mouth once daily. Disp: 90 capsule Rfl: 3 Hydrochlorothiazide 12.5 mg capsule Take 1 capsule by mouth once daily. Disp: 90 capsule Rfl: 3 COMPOUNDED PRESCRIPTION Pt may use pool prn for muscle/joint pain Dx: M79.7 Disp: 1 Each Rfl: 12 COMPOUNDED PRESCRIPTION Massage therapy eval and treat Dx: M79.7 Disp: 1 Each Rfl: 12 UBIDECARENONE (CO Q-10 ORAL) Take by mouth. Disp: Rfl: [place]-3 Fatty Acids-Vitamin E (FISH OIL) 1,000 mg cap Take 1 capsule by mouth. Disp: Rfl: MULTI-VITAMIN ORAL Take by mouth. Disp: Rfl: No current facility-administered medications for this visit. SOCIAL HISTORY: Patient is single. She quit smoking years ago and reports her alcohol use as occasionally. PHYSICAL EXAMINATION: Blood pressure 139/85, pulse 70, height 160 cm (5' 3), weight 65.8 kg (145 lb). General Appearance: Alert, in no acute distress, well-hydrated, well nourished. Skin: Skin color, texture, turgor normal, no suspicious rashes or lesions. Head: Normocephalic, no masses, lesions, tenderness or abnormalities. Eyes: Anicteric sclera. Pupils are equally round and reactive to light. Extraocular movements are intact. Oropharynx: Lips, mucosa, and tongue normal, teeth and gums normal, oropharynx normal. Neck: Supple, no adenopathy; thyroid symmetric. Lungs: Lungs clear to auscultation. No wheezing, rhonchi, rales. Heart: RRR without murmur. Abdomen: Bowel sounds normal. Abdomen soft, moderate tenderness to palpation LLQ. Slight generalized tenderness otherwise. No guarding or rebound. No masses, organomegaly. Extremities: No deformities, edema, skin discoloration, clubbing or cyanosis. Peripheral Pulses: Normal. Neurologic: Gait normal. Reflexes normal and symmetric. Sensation grossly intact. Impression: abnormal CT 2)recent possible enteritis 3)history of functional bowel disorder Plan: Take Levsin that was prescribed by Dr. Spain. Take Prevacid daily. Only one teaspoon to tablespoon of fiber daily - in the morning. Adequate fluids throughout the day. Advance diet. We discussed upper endoscopy as well as a colonoscopy. She had MAC sedation in the past. Preparation for the procedures, using GoLytely as the laxative, have been explained in detail. The risks, benefits, anticipated outcomes and possible complications were mentioned. I explained the procedure in understandable terms and the patient was given printed material concerning the planned procedure. The patient had the opportunity to ask questions concerning the planned procedure. The patient freely consents to the planned procedure. I will forward her chart to Dr. Arevalo regarding timing of the procedures and sedation. The patient is to call in with an update on 12/10. Sooner, with any questions. Backto the ED if sever pain or bleeding. She agrees. I have personally interviewed and examined this patient. I have read the information that the MA documented in this encounter. I spent 35 minutes in the visit, with more than 50% of the total [id number]-vk-rroe time of the visit in counseling / coordination of care. Nannette Bradley RN APRN.MATTY Bradley RN APRN.MATTY 12/07/2017 4:40 PM Addendum Use a nondairy creamer and continue the lactose free milk. Begin Benefiber. Start by taking one teaspoon to a tablespoon AT THE MOST in 8 oz of liquid daily for 3-4 weeks. Increase to two tablespoons daily for 3-4 weeks. Finally take three tablespoons daily. At that point you may divide the dose and take twice a day, if you'd like. Do not stop using this. Sips of fluids through the day. Use the Levsin - try twice a day and see how you feel - Continue the Prevacid/Prilosec. Call in with an update on morning (before 9:15) . [phone] and ask for the GI nurse. To the ED, if any blood, increased pain, fever.... We can set you up for Dr. Arevalo to look at your stomach and colon. Shun Titus 12/11/2017 11:54 AM Signed 12-25-2017 Colon Shun Titus Referring Provider: LYNETTE POLO ([facility]) [[id number]] Allergies As of Date: 12/07/2017 Noted Allergy Reaction TRAMADOL 12/16/2011 14 - Other: See Comments Comments: Seizure disorder. RAGWEED 10/16/2010 14 - Other: See Comments Comments: itchy watery eyes, sneezing, runny nose Date Reviewed: 12/07/2017 Reviewed by: Margarita Alexis Ma - Fully Assessed Reason for Visit: Abdominal Pain [1] Rectal Bleeding [202] Diarrhea [35] Nausea [70] Primary Visit Diagnosis:LLQ pain [R10.32] Other Visit Diagnoses:Abnormal CT scan, colon [R93.3] Epigastric pain [R10.13] Nausea [R11.0] Order(s):COLONOSCOPY GEN ANES [[id number]] Order #: [id number] FUTURE [] peg 3350-electrolytes (COLYTE) 240-22.72-6.72 -5.84 gram solutionTake 4,000 mL by mouth one time only for 1 dose.Disp: 1 BottleRfl: 0 EGD GEN ANES [[id number]] Order #: [id number] FUTURE AMYLASE BLD [SQAMYL] Order #: [id number] FUTURE LIPASE BLD [SQLIPA] Order #: [id number] FUTURE Prescriptions as of 12/07/2017 Sig: PREVACID 24HR ORAL Take by mouth. ONDANSETRON 4 MG DISINTEGRATI* PEG 3350 240 GRAM-ELECTROLYTE* Take 4,000 mL by mouth one ti* HYOSCYAMINE 0.125 MG SUBLINGU* For IBS symptoms, Take 1-2 ta* CYCLOBENZAPRINE 10 MG TABLET Take 1 tablet by mouth three * SIMVASTATIN 40 MG TABLET TAKE 1 TABLET EVERY DAY AT BE* KLOR-CON M10 MEQ TABLET,EXTEN* TAKE 1 TABLET BY MOUTH DAILY * CHOLECALCIFEROL (VITAMIN D3) * Take 1 tablet by mouth once d* HYDROCHLOROTHIAZIDE 12.5 MG C* Take 1 capsule by mouth once * COMPOUNDED PRESCRIPTION Pt may use pool prn for muscl* COMPOUNDED PRESCRIPTION Massage therapy eval and rosanne* CO Q-10 ORAL Take by mouth. OMEGA-3 FATTY ACIDS-VITAMIN E* Take 1 capsule by mouth. MULTI-VITAMIN ORAL Take by mouth. Problem List As Of Date 12/07/2017 Noted Resolved Hyperlipidemia [E78.5] INVALID FOR* Fibromyalgia [M79.7] INVALID FOR* Hypertension [I10] INVALID FOR* Rectocele [N81.6] INVALID FOR* Hemorrhoids [K64.9] INVALID FOR* Abdominal pain [R10.9] INVALID FOR* LGI bleed [K92.2] INVALID FOR* Pancreatitis [K85.90] INVALID FOR* Leukocytosis [D72.829] INVALID FOR* Vitamin B12 deficiency [E53.8] INVALID FOR* Temporomandibular joint disorders, unspecified *INVALID FOR* Cervicalgia [M54.2] INVALID FOR* Depression [F32.9] INVALID FOR* Vitamin D deficiency [E55.9] INVALID FOR* DDD (degenerative disc disease), lumbar [M51.36]INVALID FOR* Lumbar spondylosis [M47.816] INVALID FOR* Arthritis of right shoulder region [M19.011] INVALID FOR* Cervical strain [S16.1XXA] INVALID FOR* Myofascial pain [M79.1] INVALID FOR* Thoracic myofascial strain [S29.019A] INVALID FOR* Family history of colon cancer [Z80.0] INVALID FOR* Unspecified gastritis and gastroduodenitis with*INVALID FOR* Spondylosis of lumbar region without myelopathy*INVALID FOR* Left groin pain [R10.32] INVALID FOR* Atherosclerosis of right carotid artery [I65.21]INVALID FOR* Mild atherosclerosis of left carotid artery [I6*INVALID FOR* Mixed hyperlipidemia [E78.2] Osteoarthritis [M19.90] 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 Rotator cuff tear [M75.100] More... Meniere's disease [H81.09] DDD (degenerative disc disease), cervical [M50.* Allergic rhinitis [J30.9] Abnormality of colon [K63.9] INVALID FOR* More... Tenosynovitis, de Quervain [M65.4] INVALID FOR* DJD (degenerative joint disease), cervical [M47*INVALID FOR* Unintentional weight loss [R63.4] INVALID FOR* Elevated blood pressure reading without diagnos*INVALID FOR* Memory deficit [R41.3] INVALID FOR* Other instructions from your clinician: Use a nondairy creamer and continue the lactose free milk. Begin Benefiber. Start by taking one teaspoon to a tablespoon AT THE MOST in 8 oz of liquid daily for 3-4 weeks. Increase to two tablespoons daily for 3-4 weeks. Finally take three tablespoons daily. At that point you may divide the dose and take twice a day, if you'd like. Do not stop using this. Sips of fluids through the day. Use the Levsin - try twice a day and see how you feel - Continue the Prevacid/Prilosec. Call in with an update on morning (before 9:15) . [phone] and ask for the GI nurse. To the ED, if any blood, increased pain, fever.... We can set you up for Dr. Arevalo to look at your stomach and colon. Prescriptions ordered this encounter Disp Refills Start End PEG 3350 240 GRAM-ELECTROLYTES 22.72* 1 Hugo* 0 12/07/2017 12/07/2017 Route: ORAL Sig: Take 4,000 mL by mouth one time only for 1 dose. Follow-up and Disposition History Recorded Encounter Status:Closed by NANNETTE BRADLEY CNP on 12/07/17 PROGRESS Observed: 12/07/2017 Status: COMPLETED Source: [place] 1:37 PM [facility] REPOSITORY HNO ID: [id number] Author: Lynette Polo Service: (none) Author Type: Nurse Practitioner Type: Progress Notes Filed: 12/07/2017 3:44 PM Note Text: 12/07/2017 Patient presents with: ER F/U: stomach pain SUBJECTIVE: This is a 62 year old that is here today for Above Complaints. She was seen in the ER yesterday for migratory abdominal pain for a week and a half- more RUQ and LLQ and constipation. + nausea, no vomiting. H/o gastric ulcers, fibromyalgia, and sigmoid operation. Abdomin was found to be tender to palpation, no guarding or rebound. EKG SR 71, CBC normal. Potassium 3.4. LFT and lipase normal. No concern with UA. Troponin normal. CT showed mild dysmotility at the distal ileum that is not an ileus or obstruction, most likely seen with enteritis, constipation, or in the elderly. She was given zofran and told to follow up with PCP or be seen in ER is symptoms worsen. Today she reports that she had diarrhea and skinny stools last week with nausea and sweaty/tingling sensation. She had a lot of blood with BM- wine red. Was able to pass some stool and felt better. Decreased appetite. No BM since this one- one week. Usually has 2-3 BMs/day. She states that a lot has been changing in the last 6-8 months with stress affecting her in this was, so she has slowly gotten to this point with BMs. She states that she was able to eat some toast today. She is drinking water and Gatorade. She did eat a little over the weekend. Prior to this she was not eating at all and could not really tolerate fluids d/t nausea. She has been avoiding taking her tylenol 3. Yesterday she felt like she could not take care of it on her own, so she went to the ER. Today she did have some small marble stool it was hard and blood on toilet paper. She has a history of hemorrhoids , but has always been able to feel them externally and she does not have any right now. She has a significant family history of colon concerns, so she is getting colonoscopies every 5 years, last one was 2014. She has not been taking the levsin for abdominal spasms because she did not feel that it worked. She started benefiber 3 times a day yesterday. She admits that she is still not drinking enough. She is not following with GI. She would like to. PAST MEDICAL HISTORY Diagnosis Date - Abnormality of colon 2001 abnormal movment of colon, removed 9 in from sigmoid colon - Allergic rhinitis, cause unspecified - Arthritis of right shoulder region corticosteroid injection last 12/18/15 - Atherosclerosis of right carotid artery 07/2016 - DDD (degenerative disc disease), cervical - Depression - Fibromyalgia - Hypertension - Meniere's disease - Mild atherosclerosis of left carotid artery 07/2016 - Mixed hyperlipidemia - Osteoarthritis - Rotator cuff tear right sided - TMJ disease chiropracter ALLERGIES Tramadol; Ragweed MEDICATIONS Current Outpatient Prescriptions: hyoscyamine sublingual (LEVSIN SL) 0.125 mg subl For IBS symptoms, Take 1-2 tablets under tongue every 4hrs as needed. Max 12 tabs per day. cyclobenzaprine (FLEXERIL) 10 mg tablet Take 1 tablet by mouth three times daily as needed for Muscle Spasm. simvastatin (ZOCOR) 40 mg tablet TAKE 1 TABLET EVERY DAY AT BEDTIME KLOR-CON M10 10 mEq tablet TAKE 1 TABLET BY MOUTH DAILY WITH BREAKFAST. Cholecalciferol, Vitamin D3, 2,000 unit cap Take 1 tablet by mouth once daily. Hydrochlorothiazide 12.5 mg capsule Take 1 capsule by mouth once daily. COMPOUNDED PRESCRIPTION Pt may use pool prn for muscle/joint pain Dx: M79.7 COMPOUNDED PRESCRIPTION Massage therapy eval and treat Dx: M79.7 UBIDECARENONE (CO Q-10 ORAL) Take by mouth. [place]-3 Fatty Acids-Vitamin E (FISH OIL) 1,000 mg cap Take 1 capsule by mouth. MULTI-VITAMIN ORAL Take by mouth. ondansetron orally disintegrating (ZOFRAN ODT) 4 mg disintegrating tablet No current facility-administered medications for this visit. Medications and allergies reviewed by this provider. SOCIAL HISTORY Social History Marital status: Single Spouse name: Years of education: Number of children: 2 Social History Main Topics Smoking status: Former Smoker Packs/day: 0.50 Years: 0.00 Types: Cigarettes Quit date: 11/16/1992 Smokeless tobacco: Never Used Comment: quit in late Alcohol use: Yes Comment: rare Drug use: No REVIEW OF SYSTEMS see HPI OBJECTIVE: BP 118/74 Pulse 82 Temp 37 ?C (98.6 ?F) Resp 20 Wt 65.3 kg (144 lb) SpO2 97% BMI 26.16 kg/m? . Vital signs reviewed by this provider. PHYSICAL EXAMINATION: General appearance: Well appearing, alert, in no acute distress, well-hydrated, well nourished. Skin: Skin color, texture, turgor normal, no suspicious rashes or lesions Lungs: Lungs clear to auscultation. No wheezing, rhonchi, rales Heart: RRR without murmur, gallop, or rubs. No ectopy Abdomen: Positive findings: tenderness mild generalized. No guarding, rebound or rigidity. Extremities: No deformities, edema, skin discoloration, clubbing or cyanosis. Good capillary refill. , Pulses: 2+ ASSESSMENT/PLAN: 1. Abdominal discomfort - ICD9: 789.00, ICD10: R10.9 (primary diagnosis) - Increase fiber in diet - [place] low residue diet - Treatment for constipation discussed - Referral to Gastroenterology - Referral to gen surg for possible scope - ER if blood in stool as she described she had last week, especially if she is also weak, dizzy, or overall not feeling well - CONSULT TO GASTROENTEROLOGY - CONSULT TO GENERAL SURGERY 2. Rectal bleeding - ICD9: 569.3, ICD10: K62.5 - see above - CONSULT TO GASTROENTEROLOGY - CONSULT TO GENERAL SURGERY 3. Nausea - ICD9: 787.02, ICD10: R11.0 - see above - zofran as needed as previously prescribed - CONSULT TO GASTROENTEROLOGY - CONSULT TO GENERAL SURGERY 4. Recurrent low back pain - ICD9: 724.2, ICD10: M54.5 - unclear if it is her chronic pain or related to GI symptoms. She states that this is similar pain from when she had issues with her sigmoid. - CONSULT TO GASTROENTEROLOGY - CONSULT TO GENERAL SURGERY 5. Family history of colon cancer - ICD9: V16.0, ICD10: Z80.0 - CONSULT TO GASTROENTEROLOGY - CONSULT TO GENERAL SURGERY 6. Abnormality of colon - ICD9: 569.9, ICD10: K63.9 - CONSULT TO GASTROENTEROLOGY - CONSULT TO GENERAL SURGERY 7. Rectocele - ICD9: 618.04, ICD10: N81.6 - CONSULT TO GASTROENTEROLOGY - CONSULT TO GENERAL SURGERY 8. Hemorrhoids, unspecified hemorrhoid type - ICD9: 455.6, ICD10: K64.9 - CONSULT TO GASTROENTEROLOGY - CONSULT TO GENERAL SURGERY 9. Gastroesophageal reflux disease, esophagitis presence not specified - ICD9: 530.81, ICD10: K21.9 - Discussed lifestyle modifications including losing weight, limiting caffeine, no meals three hours before sleep and head of bed elevation - CONSULT TO GASTROENTEROLOGY - CONSULT TO GENERAL SURGERY 10. Abdominal spasms - ICD9: 789.00, ICD10: R10.9 - see above - CONSULT TO GASTROENTEROLOGY - CONSULT TO GENERAL SURGERY Lynette Polo APRN.CNP CNOV Observed: 12/07/2017 Status: COMPLETED Source: [place] 1:20 PM [facility] REPOSITORY Office Visit (FAMPWS) BRENDEN GIRALDO ([id number]) 1955 F Date Time Provider Department 12/07/17 1:20 PM LYNETTE POLO (MATTY) FAMPWS During your visit today, we recorded the following information about you: Temperature Pulse Respiration Blood pressure 98.6 degrees 82/minute 20/minute 118/74 Weight 65.3 kg Lynette Polo APRN.CNP 12/07/2017 3:44 PM Signed 12/07/2017 Patient presents with: ER F/U: stomach pain SUBJECTIVE: This is a 62 year old that is here today for Above Complaints. She was seen in the ER yesterday for migratory abdominal pain for a week and a half- more RUQ and LLQ and constipation. + nausea, no vomiting. H/o gastric ulcers, fibromyalgia, and sigmoid operation. Abdomin was found to be tender to palpation, no guarding or rebound. EKG SR 71, CBC normal. Potassium 3.4. LFT and lipase normal. No concern with UA. Troponin normal. CT showed mild dysmotility at the distal ileum that is not an ileus or obstruction, most likely seen with enteritis, constipation, or in the elderly. She was given zofran and told to follow up with PCP or be seen in ER is symptoms worsen. Today she reports that she had diarrhea and skinny stools last week with nausea and sweaty/tingling sensation. She had a lot of blood with BM- wine red. Was able to pass some stool and felt better. Decreased appetite. No BM since this one- one week. Usually has 2-3 BMs/day. She states that a lot has been changing in the last 6-8 months with stress affecting her in this was, so she has slowly gotten to this point with BMs. She states that she was able to eat some toast today. She is drinking water and Gatorade. She did eat a little over the weekend. Prior to this she was not eating at all and could not really tolerate fluids d/t nausea. She has been avoiding taking her tylenol 3. Yesterday she felt like she could not take care of it on her own, so she went to the ER. Today she did have some small marble stool it was hard and blood on toilet paper. She has a history of hemorrhoids , but has always been able to feel them externally and she does not have any right now. She has a significant family history of colon concerns, so she is getting colonoscopies every 5 years, last one was 2014. She has not been taking the levsin for abdominal spasms because she did not feel that it worked. She started benefiber 3 times a day yesterday. She admits that she is still not drinking enough. She is not following with GI. She would like to. PAST MEDICAL HISTORY Diagnosis Date - Abnormality of colon 2001 abnormal movment of colon, removed 9 in from sigmoid colon - Allergic rhinitis, cause unspecified - Arthritis of right shoulder region corticosteroid injection last 12/18/15 - Atherosclerosis of right carotid artery 07/2016 - DDD (degenerative disc disease), cervical - Depression - Fibromyalgia - Hypertension - Meniere's disease - Mild atherosclerosis of left carotid artery 07/2016 - Mixed hyperlipidemia - Osteoarthritis - Rotator cuff tear right sided - TMJ disease chiropracter ALLERGIES Tramadol; Ragweed MEDICATIONS Current Outpatient Prescriptions: hyoscyamine sublingual (LEVSIN SL) 0.125 mg subl For IBS symptoms, Take 1-2 tablets under tongue every 4hrs as needed. Max 12 tabs per day. cyclobenzaprine (FLEXERIL) 10 mg tablet Take 1 tablet by mouth three times daily as needed for Muscle Spasm. simvastatin (ZOCOR) 40 mg tablet TAKE 1 TABLET EVERY DAY AT BEDTIME KLOR-CON M10 10 mEq tablet TAKE 1 TABLET BY MOUTH DAILY WITH BREAKFAST. Cholecalciferol, Vitamin D3, 2,000 unit cap Take 1 tablet by mouth once daily. Hydrochlorothiazide 12.5 mg capsule Take 1 capsule by mouth once daily. COMPOUNDED PRESCRIPTION Pt may use pool prn for muscle/joint pain Dx: M79.7 COMPOUNDED PRESCRIPTION Massage therapy eval and treat Dx: M79.7 UBIDECARENONE (CO Q-10 ORAL) Take by mouth. [place]-3 Fatty Acids-Vitamin E (FISH OIL) 1,000 mg cap Take 1 capsule by mouth. MULTI-VITAMIN ORAL Take by mouth. ondansetron orally disintegrating (ZOFRAN ODT) 4 mg disintegrating tablet No current facility-administered medications for this visit. Medications and allergies reviewed by this provider. SOCIAL HISTORY Social History Marital status: Single Spouse name: Years of education: Number of children: 2 Social History Main Topics Smoking status: Former Smoker Packs/day: 0.50 Years: 0.00 Types: Cigarettes Quit date: 11/16/1992 Smokeless tobacco: Never Used Comment: quit in late Alcohol use: Yes Comment: rare Drug use: No REVIEW OF SYSTEMS see HPI OBJECTIVE: BP 118/74 Pulse 82 Temp 37 ?C (98.6 ?F) Resp 20 Wt 65.3 kg (144 lb) SpO2 97% BMI 26.16 kg/m? . Vital signs reviewed by this provider. PHYSICAL EXAMINATION: General appearance: Well appearing, alert, in no acute distress, well-hydrated, well nourished. Skin: Skin color, texture, turgor normal, no suspicious rashes or lesions Lungs: Lungs clear to auscultation. No wheezing, rhonchi, rales Heart: RRR without murmur, gallop, or rubs. No ectopy Abdomen: Positive findings: tenderness mild generalized. No guarding, rebound or rigidity. Extremities: No deformities, edema, skin discoloration, clubbing or cyanosis. Good capillary refill. , Pulses: 2+ ASSESSMENT/PLAN: 1. Abdominal discomfort - ICD9: 789.00, ICD10: R10.9 (primary diagnosis) - Increase fiber in diet - [place] low residue diet - Treatment for constipation discussed - Referral to Gastroenterology - Referral to gen surg for possible scope - ER if blood in stool as she described she had last week, especially if she is also weak, dizzy, or overall not feeling well - CONSULT TO GASTROENTEROLOGY - CONSULT TO GENERAL SURGERY 2. Rectal bleeding - ICD9: 569.3, ICD10: K62.5 - see above - CONSULT TO GASTROENTEROLOGY - CONSULT TO GENERAL SURGERY 3. Nausea - ICD9: 787.02, ICD10: R11.0 - see above - zofran as needed as previously prescribed - CONSULT TO GASTROENTEROLOGY - CONSULT TO GENERAL SURGERY 4. Recurrent low back pain - ICD9: 724.2, ICD10: M54.5 - unclear if it is her chronic pain or related to GI symptoms. She states that this is similar pain from when she had issues with her sigmoid. - CONSULT TO GASTROENTEROLOGY - CONSULT TO GENERAL SURGERY 5. Family history of colon cancer - ICD9: V16.0, ICD10: Z80.0 - CONSULT TO GASTROENTEROLOGY - CONSULT TO GENERAL SURGERY 6. Abnormality of colon - ICD9: 569.9, ICD10: K63.9 - CONSULT TO GASTROENTEROLOGY - CONSULT TO GENERAL SURGERY 7. Rectocele - ICD9: 618.04, ICD10: N81.6 - CONSULT TO GASTROENTEROLOGY - CONSULT TO GENERAL SURGERY 8. Hemorrhoids, unspecified hemorrhoid type - ICD9: 455.6, ICD10: K64.9 - CONSULT TO GASTROENTEROLOGY - CONSULT TO GENERAL SURGERY 9. Gastroesophageal reflux disease, esophagitis presence not specified - ICD9: 530.81, ICD10: K21.9 - Discussed lifestyle modifications including losing weight, limiting caffeine, no meals three hours before sleep and head of bed elevation - CONSULT TO GASTROENTEROLOGY - CONSULT TO GENERAL SURGERY 10. Abdominal spasms - ICD9: 789.00, ICD10: R10.9 - see above - CONSULT TO GASTROENTEROLOGY - CONSULT TO GENERAL SURGERY Lynette Polo APRN.STICK WELDER Referring Provider: SELF [[id number]] Allergies As of Date: 12/07/2017 Noted Allergy Reaction TRAMADOL 12/16/2011 14 - Other: See Comments Comments: Seizure disorder. RAGWEED 10/16/2010 14 - Other: See Comments Comments: itchy watery eyes, sneezing, runny nose Date Reviewed: 12/07/2017 Reviewed by: Margarita Alexis Ma - Fully Assessed Reason for Visit: ER F/U [41] Cmt: stomach pain Reason For Visit History Recorded Primary Visit Diagnosis:Abdominal discomfort [R10.9] Other Visit Diagnoses:Rectal bleeding [K62.5] Nausea [R11.0] Recurrent low back pain [M54.5] Family history of colon cancer [Z80.0] Abnormality of colon [K63.9] Rectocele [N81.6] Hemorrhoids, unspecified hemorrhoid type [K64.9] Gastroesophageal reflux disease, esophagitis presence not specified [K21.9] Abdominal spasms [R10.9] Order(s):CONSULT TO GASTROENTEROLOGY [9010] Order #: [id number]: 1 CONSULT TO GENERAL SURGERY [9011] Order #: [id number]: 1 Prescriptions as of 12/07/2017 Sig: HYOSCYAMINE 0.125 MG SUBLINGU* For IBS symptoms, Take 1-2 ta* CYCLOBENZAPRINE 10 MG TABLET Take 1 tablet by mouth three * SIMVASTATIN 40 MG TABLET TAKE 1 TABLET EVERY DAY AT BE* KLOR-CON M10 MEQ TABLET,EXTEN* TAKE 1 TABLET BY MOUTH DAILY * CHOLECALCIFEROL (VITAMIN D3) * Take 1 tablet by mouth once d* HYDROCHLOROTHIAZIDE 12.5 MG C* Take 1 capsule by mouth once * COMPOUNDED PRESCRIPTION Pt may use pool prn for muscl* COMPOUNDED PRESCRIPTION Massage therapy eval and rosanne* CO Q-10 ORAL Take by mouth. OMEGA-3 FATTY ACIDS-VITAMIN E* Take 1 capsule by mouth. MULTI-VITAMIN ORAL Take by mouth. ONDANSETRON 4 MG DISINTEGRATI* Problem List As Of Date 12/07/2017 Noted Resolved Hyperlipidemia [E78.5] INVALID FOR* Fibromyalgia [M79.7] INVALID FOR* Hypertension [I10] INVALID FOR* Rectocele [N81.6] INVALID FOR* Hemorrhoids [K64.9] INVALID FOR* Abdominal pain [R10.9] INVALID FOR* LGI bleed [K92.2] INVALID FOR* Pancreatitis [K85.90] INVALID FOR* Leukocytosis [D72.829] INVALID FOR* Vitamin B12 deficiency [E53.8] INVALID FOR* Temporomandibular joint disorders, unspecified *INVALID FOR* Cervicalgia [M54.2] INVALID FOR* Depression [F32.9] INVALID FOR* Vitamin D deficiency [E55.9] INVALID FOR* DDD (degenerative disc disease), lumbar [M51.36]INVALID FOR* Lumbar spondylosis [M47.816] INVALID FOR* Arthritis of right shoulder region [M19.011] INVALID FOR* Cervical strain [S16.1XXA] INVALID FOR* Myofascial pain [M79.1] INVALID FOR* Thoracic myofascial strain [S29.019A] INVALID FOR* Family history of colon cancer [Z80.0] INVALID FOR* Unspecified gastritis and gastroduodenitis with*INVALID FOR* Spondylosis of lumbar region without myelopathy*INVALID FOR* Left groin pain [R10.32] INVALID FOR* Atherosclerosis of right carotid artery [I65.21]INVALID FOR* Mild atherosclerosis of left carotid artery [I6*INVALID FOR* Mixed hyperlipidemia [E78.2] Osteoarthritis [M19.90] 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 Rotator cuff tear [M75.100] More... Meniere's disease [H81.09] DDD (degenerative disc disease), cervical [M50.* Allergic rhinitis [J30.9] Abnormality of colon [K63.9] INVALID FOR* More... Tenosynovitis, de Quervain [M65.4] INVALID FOR* DJD (degenerative joint disease), cervical [M47*INVALID FOR* Unintentional weight loss [R63.4] INVALID FOR* Elevated blood pressure reading without diagnos*INVALID FOR* Memory deficit [R41.3] INVALID FOR* Disposition: Return if symptoms worsen or fail to improve. Follow-up and Disposition History Recorded Encounter Status:Closed by LYNETTE POLO on 12/07/17 EMERGENCY DEPARTMENT Observed: 12/06/2017 Status: F Source: [place] SUMMARY 4:04 PM [facility] REPOSITORY [facility] Medical Records Department [address] [place] [id number] Emergency Department Summary 12/06/17 1530 MR#: [id number] Acct: [id number] Name: BRENDEN GIRALDO Rep #: [id number] : 1955 62 From: Kit Dewitt MD PCP: Margarito Bay DO Status: DEP ER - ER Visit Summary Date of Service: 12/06/17 Chief Complaint: Abdominal pain History of Present Illness: The patient is a 62 F with a migratory abdominal pain over the past week and a half. Currently it is in her right upper quadrant and left lower quadrant. She also reports constipation, but she does pass gas. She is nauseated but denies vomiting. No fevers. No other related symptoms. She has a family history of colon cancer. She has a history of gastric ulcers, fibromyalgia, and a prior sigmoid operation. Physical Examination: Afebrile and vital signs unremarkable. Patient appears in no acute distress. Heart regular rate and rhythm. Lungs clear. Abdomen tender to palpation in the right upper quadrant and left lower quadrant. No guarding or rebound. Normal bowel sounds. Skin appears normal. Test Results: EKG shows sinus rhythm at a rate of 71. CBC normal. Potassium 3.4. Hepatic panel and lipase normal. Urinalysis unremarkable, shows contamination. Troponin normal. CT showed mild dysmotility at the distal ileum. Emergency Department Course and Treatment: Patient treated with morphine and Zofran while awaiting results. Labs are all fairly unremarkable. EKG and troponin normal. CT showed mild dysmotility. I discussed this with the radiologist. This is not an ileus or obstruction pattern. He said this is most likely seen with enteritis, constipation, or in elderly patients. Patient has no other findings to suggest enteritis or constipation. He said that her dysmotility pattern might cause constipation symptoms. Patient is appropriate for an outpatient workup. I discussed with the patient. She will follow-up with her PCP. Call tomorrow. I advised her that if her symptoms worsen, she should return for evaluation. She could become dehydrated or septic. This might require hospitalization. She will return for any new or worsening issues. She will use [id number] remedies for pain. Zofran as needed for nausea. Treatment Plan: As above Disposition: Discharged Impression: 1. Abdominal pain This note was generated with [employer] dictation software. It may contain incorrect words, spelling, and punctuation that were not noted in review of the chart prior to signing ED Disposition - Plan for ED Patient: Chief Complaint: Abd Pain Referrals: Margarito Spain, DO [Primary Care Provider] - What to do if you have Problems For any increased pain, shortness of breath, bleeding, nausea or vomiting, chest pain, or any unexpected problems, contact your Primary Care Provider. Call [email or web address] ([phone]) or report to the closest Emergency Room. Call 911 if necessary. 12/06/17 7920 <Electronically signed by Kit Dewitt MD> Date Kit Dewitt MD [place] Signature (If Indicated): Date CC: Margarito Bay DO DISCHARGE INSTRUCTION Observed: 12/06/2017 Status: F Source: [place] 4:04 PM [facility] REPOSITORY [facility] Medical Records Department [address] [place] [address] Discharge Instruction 12/06/17 1533 MR#: [id number] Acct: [id number] Name: BRENDEN GIRALDO Rep #: [id number] : 1955 62 From: Kit Dewitt MD PCP: Margarito Bay DO Status: DEP ER ED Disposition - Plan for ED Patient: Chief Complaint: Abd Pain Instructions: Abdominal Pain Prescriptions: Ondansetron [Zofran Odt] 4 mg PO Q8H PRN PRN #10 tab PRN Reason: Nausea Referrals: Margarito Spain DO [Primary Care Provider] - What to do if you have Problems For any increased pain, shortness of breath, bleeding, nausea or vomiting, chest pain, or any unexpected problems, contact your Primary Care Provider. Call [facility] ([phone]) or report to the closest Emergency Room. Call 911 if necessary. 12/06/17 1604 <Electronically signed by Kit Dewitt MD> Date Kit Shaw Signature (If Indicated): Date CC: Margarito Bay DO URINALYSIS, COMPLETE Collected: 12/06/2017 Status: F Source: [place] 12:11 PM [facility] REPOSITORY Order Comment: Order Date: 12/06/17 How was Urine Obtained? CLEAN CATCH TYPE CODE TESTS RESULT OUT OF RANGE REFERENCE UNITS LAB L400.3000 Yellow COLOR Normal Yellow LAB L400.3050 Clear Normal CLARITY Clear LAB L400.3200 Normal mg/dl Normal GLUCOSE, UR Normal LAB L400.3300 Negative mg/dL Normal BILIRUBIN URINE Negative LAB L400.3400 Negative mg/dl Normal KETONE UR Negative LAB L400.3465 1.002-1.030 Normal SP.GR. DIPSTX 1.015 LAB L400.3550 5.0 - 8.0 pH UR Normal 8.0 LAB L400.3600 Negative mg/dl PROT Normal DIPSTX Negative LAB L400.3700 Normal mg/dl Normal UROBILI Normal LAB L400.3750 Negative Normal NITRITE UR Negative LAB L400.3780 Negative /ul High OCCULT BLOOD-UR 150 LAB L400.3800 Negative /ul High LEUK 25 ESTERASE LAB L400.4050 0-5 /hpf WBC 0 Normal SEEN LAB L400.4100 0-5 /hpf Normal RBC-UA 0-5 SEEN LAB L400.4150 5-10 /hpf SQUAM Normal EPI 0-5 SEEN LAB L400.4300 None Seen /hpf 0 Normal BACTERIA SEEN LAB L400.4350 <or=2+ /hpf 0 Normal MUCUS, URINE SEEN Performed By: #### L400.0001 #### [facility] [address] [place], [address] CBC W/DIFF, AUTOMATED Collected: 12/06/2017 Status: F Source: [place] 12:06 PM [facility] REPOSITORY TYPE CODE TESTS RESULT OUT OF RANGE REFERENCE UNITS LAB L100.1000 4.4-11.0 K/mm3 Normal WBC 6.3 LAB L100.1200 4.2-5.4 M/mm3 Normal RBC 4.53 LAB L100.1300 12.0-15.0 g/dl Normal HGB 13.5 LAB L100.1400 37-47 % Normal HCT 41.3 LAB L100.1500 81-99 fL Normal MCV 91.2 LAB L100.1600 27.0-32.0 pg Normal MCH 29.8 LAB L100.1700 32-36 g/gl Normal MCHC 32.7 LAB L100.1810 11.6-14.6 % Normal RDW CV 13.2 LAB L100.1820 35.1-43.9 fl Normal RDW SD 43.6 LAB L100.1900 150-450 K/mm3 Normal PLT 262 LAB L100.2000 6.2-12.0 fl Normal MPV 9.4 LAB L100.2100 47-70 % Normal NEUT% 55.4 LAB L100.2200 19-41 % Normal LY% 36.5 LAB L100.2300 0-10 % Normal MONO% 6.5 LAB L100.2400 0-5 % Normal EO% 0.8 LAB L100.2500 0-1 % Normal BASO% 0.6 LAB L100.2550 0.0-0.9 % Normal IM GRAN % 0.200 Result Comment: IG% - Immature Granulocytes (promyelocytes, myelocytes and metamyelocytes) > 1% indicates that a LEFT SHIFT is Present. LAB L100.2620 2.0-7.7 X10 3/uL Normal Absolute Neut 3.5 LAB L100.2720 0.83-4.51 X10 3/ul Normal Absolute Lymph 2.30 Performed By: #### L100.0100 #### [facility] [address] [place], [address] COMPREHENSIVE METABOLIC Collected: 12/06/2017 Status: F [facility] REPOSITORY TYPE CODE TESTS RESULT OUT OF RANGE REFERENCE UNITS LAB L501.0100 74-106 mg/dL Normal GLU 93 Result Comment: Please note revised GLUCOSE reference range effective 2017. LAB L501.1000 7-18 mg/dL Normal BUN 12 LAB L501.1100 0.55-1.02 mg/dL Normal CREAT,SERUM 0.65 Result Comment: The validity of the calculated GFR AND GFRAA in patients over 70 years has not been determined. Clinical correlation is essential. LAB L501.1110 >60 mL/min Normal EST GFR 98 Result Comment: Non- GFR Calc LAB L501.1115 >60 mL/min Normal EST GFR - AA 119 Result Comment: GFR Calc LAB L501.1255 ml/min Normal Estimated CRCL 73.28 LAB L501.1300 10-20 RATIO Normal BUN/CRE 18.6 LAB L501.1500 6.4-8. g/dL Normal 2 T PROT 7.1 LAB L501.1800 3.2-5. g/dL Normal 0 ALB 3.4 LAB L501.1950 2.2-4. g/dL Normal 2 GLOB 3.7 LAB L501.2000 0.9-2. RATIO Normal 4 A/G 0.9 LAB L501.2200 8.5-10 mg/dL Normal .1 CA 8.5 LAB L501.4100 15-37 U/L Normal AST 28 LAB L501.4305 45-117 U/L Normal ALK P 105 LAB L501.4405 13-56 U/L Normal ALT 29 LAB L501.4600 0.20-1 mg/dL Normal .00 T BILI 0.40 LAB L501.5300 136-14 mmol/L Normal 5 NA 143 LAB L501.5600 3.5-5. mmol/L Low 1 K 3.4 LAB L501.5900 98-107 mmol/L Normal CL 107 LAB L501.6100 21.0-3 mmol/L Normal 2.0 CO2 27.0 LAB L501.6200 5-15 Normal GAP 9 Performed By: #### L500.4050, L501.2450, L501.4010 #### [facility] [address], [place], [id number] LIPASE Collected: 12/06/2017 Status: F Source: [place] 12:06 [facility] REPOSITORY TYPE CODE TESTS RESULT OUT OF RANGE REFERENCE UNITS LAB L501.2450 73-393 U/L Normal LIPASE 290 Performed By: #### L500.4050, L501.2450, L501.4010 #### [facility] [address], [place], [id number] TROPONIN-I Collected: 12/06/2017 Status: F Source: [place] 12:06 PM [facility] REPOSITORY TYPE CODE TESTS RESULT OUT OF RANGE REFERENCE UNITS LAB L501.4010 <0.045 ng/mL Normal < 0.015 TROPONIN-I Result Comment: TROPONIN-I EXPECTED VALUES <0.045 Negative 0.045 - 0.590 Consistent with Cardiac Damage > OR = 0.600 Critical Value Not every elevated troponin is indicative of WA. These values should be used with clinical judgement in examining the patient's clinical picture for diagnosis. To establish a diagnosis of WA versus myocardial injury, there must be a demonstrated rise and/or fall in the troponin values, in addition to ischemic symptoms, EKG changes, new regional wall motion abnormality, and/or angiographical evidence. PLEASE NOTE: REFERENCE RANGES EDITED 17 Performed By: #### L500.4050, L501.2450, L501.4010 #### [facility] [address] [place], [address] ABDOMEN/PELVIS W IV CONT Observed: 12/06/2017 Status: F Source: [place] ONLY 12:00 PM [facility] REPOSITORY [facility] Imaging Services [address] [place] [address] Abdomen/Pelvis W IV Cont ONLY MR#: [id number] Acct: [id number] Name: CHERYLEMACIBRENDEN Ra Rep #: [id number] : 1955 F 62 From: Naima Paez MD PCP: Margarito Bay DO Status: REG ER Study: Abdomen/Pelvis W IV Cont ONLY Date of Exam: 12/06/17 Exam# [id number] Ordering Dr: Kit Dewitt MD ADDENDUM by Naima Paez MD on 12/06/[address]/Abdomen/Pelvis W IV Cont ONLY 12/06/17 1516 Date cc: Kit Dewitt MD; Margarito Bay DO * Signed ADDENDUM by Naima Paez MD on 12/06/17 at 1509 ADDENDUM ADDENDUM: Correction voice recognition municipal court magistrate error. The 2nd sentence of the impression should read, no other acute abnormality of the large bowel or rectum.) I discussed the case with the attending physician, Dr. Stevens who requested a consultation to discuss the patient's small bowel stool in the distal ileum. This can be a nonspecific sign. Sometimes seen with enteritis, constipation, colitis, or large bowel obstruction. In this case there is no convincing evidence of acute inflammatory colitis or enteritis. There is no constipation. It is possible that the patient may have chronic hypomotility of the ileum, or may have low-grade inflammation without clearly visible maay enteritis on the CT scan. In the segment of chronic-appearing large bowel wall thickening and fatty infiltration of the bowel wall, of the splenic flexure and descending colon, there are no convincing acute inflammatory features in the surrounding fat as stated in the original dictation. Consider the possibility of low-grade occult inflammation in that segment, given that the patient is experiencing symptoms of perceived constipation, gassiness. Electronically Signed: Naima Paez, at 15:09 EDT Tel , Service support , 12/06/17 1509 Date cc: Kit Dewitt MD; Margarito Bay DO * Signed STUDY: CT ABDOMEN AND PELVIS WITH CONTRAST REASON FOR EXAM: Female, 62 years old. Abdominal pain RADIATION DOSAGE (If Supplied By Facility): CTDIvol = ( 15.60 ) mGy, DLP = ( 667.71 ) mGycm TECHNIQUE: Transaxial images were obtained from the dome of the diaphragm to the symphysis pubis without oral contrast. 100 ml of Isovue 300 contrast was administered. Sagittal and coronal images were reconstructed. Individualized dose optimization techniques were used for this CT. COMPARISON: None. FINDINGS: Body wall soft tissues: No acute process. Osseous structures: No acute process. Inferior chest: No acute process. Hepatobiliary: Cholecystectomy. Minimally ectatic intrahepatic biliary tree and common bile duct most consistent with chronic physiologic adaptation postcholecystectomy. Liver parenchyma normal. Pancreas: No acute process. Spleen: Normal. Adrenal glands: Normal. Urogenital: Normal kidneys, symmetric nephrograms. Normal collecting systems, ureters, urinary bladder. Uterus absent. No adnexal mass or cyst. Pelvic floor and sidewalls and retroperitoneum: No mass or adenopathy. Vasculature: No acute process. Stomach: No acute process. Small bowel and mesentery: There is small bowel stool within the distal ileum suggesting a component of mild stasis/dysmotility. Large bowel: The appendix is not visible. There are no acute inflammatory features in the region of the cecum. There is a moderately prominent distributed stool burden of large bowel from the cecum to the transverse colon. There is mild chronic-appearing circumferential thickening of the wall of the splenic flexure and descending colon with low- density fatty infiltration the wall suggesting sequela of prior colitis without evidence of acute colitis. There is minimal diverticulosis of the sigmoid without diverticulitis. Anastomotic sutures of the distal sigmoid. Normal rectum. Free fluid or free air: None. CT/Abdomen/Pelvis W IV Cont ONLY IMPRESSION: There is evidence of mild dysmotility in the distal ileum, small bowel stool present, with no evidence of small bowel obstruction or inflammation. No acute other malady of the large bowel or rectum. No other acute intra-abdominal process. Electronically Signed: Naima Jeannine, at 13:41 EDT Tel , Service support , CC: Kit Dewitt MD; Margarito Bay DO Fur Trapper: Signed PROGRESS Observed: 10/28/2017 Status: COMPLETED Source: [place] 12:22 PM [facility] REPOSITORY HNO ID: [id number] Author: Margarito Spain Service: (none) Author Type: Physician Type: Progress Notes Filed: 10/28/2017 1:14 PM Note Text: CC: Brenden Giraldo is a 62 year old female who presents' to the office for follow up HPI: In office 8 months ago, Right shoulder rotator cuff disease/ osteoarthritis, has been seeing Orthopedic surgeon, had rotator cuff repair about [address] Redding, overall did well with surgery, completed outpatient PHYSICAL THERAPY ? Struggling with low back pain, sciatica left sided, intermittent, also with neck and thoracic spine, has diffuse OA changes, no weakness or falls, ?Also with b/l hand pain from her OA- has had several surgeries on right hand as well. ??Took tylenol with codeine with some pain relief without feeling wousy and without mental status changes. ? ? Also increased fibromyalgia pain recently due to weather changes as well. ? At OFFICE VISIT 4 months ago She has been more stressed recently, had a situation with a renter in her basement apartment that was hoarding and not taking care of the property, he has been evicted, so she has been stressed with trying to afford getting more carpet, painting and replacement areas that needed fixed. ?She is stressed with trying to get it rented out again. ?No SI or HI. ?Thinks this may be contributing to her increased neck tension. ? Also admits to not regularly going to chiropractor or massage therapy recently due to financial constraints. ?She knows this would also help her tension headaches. ? Elevated BLOOD PRESSURE, has been overall very well controlled recently, thinks possibly related to recent stressors, no dizziness/LH or chest pains or palpitations or dyspnea ? Right thumb pain, diagnosed with dequervain's tenosynovitis. ?Trying to rest her thumb - triggered by all her painting recently. ? ? Neck and low back pain, improved with prn tylenol with codeine for flare ups, needing rx refilled. ? 1 month ago at last OV ? She seems to be feeling a lot better. ? HTN, has been well controlled, she states that she doesn't feel the headaches or pressure changes ? 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 ? Low back pain, prn tylenol with codeine and flexeril, increased use of flexeril on days that she is helping others when her back and fibromyalgia symptoms flare up. ? She continues to feel that she is losing some of her short term memory, Memory eval was performed 11/[address] Parry and was found to be 27/30 on MMSE. Not getting lost, not forgetting how to use anything. Just loss of names or forgetting where set something in her home etc. ? Currently Right base of thumb pain and tenderness, mild swelling, radiating to upper forearm, Also with right shoulder pain, hx of bursitis and rotator cuff tendinitis, a lot of overuse/use lately with organizing and cleaning/working for others. No other known direct injury. Has benefited from corticosteroid injection into right shoulde rjoint in the past , asking to have this again today Use of tylenol- codeine for severe pain as well as flexeril which helps for arthritis and fibromyalgia flare ups HTN, well controlled. PAST MEDICAL HISTORY Diagnosis Date - Abnormality of colon 2001 abnormal movment of colon, removed 9 in from sigmoid colon - Allergic rhinitis, cause unspecified - Arthritis of right shoulder region corticosteroid injection last 12/18/15 - Atherosclerosis of right carotid artery 07/2016 - DDD (degenerative disc disease), cervical - Depression - Fibromyalgia - Hypertension - Meniere's disease - Mild atherosclerosis of left carotid artery 07/2016 - Mixed hyperlipidemia - Osteoarthritis - Rotator cuff tear right sided - TMJ disease chiropracter PAST SURGICAL HISTORY Procedure Laterality Date - ABDOMINOPLASTY 2006 - COLONOSCOPY 2008 - PART REMOVAL COLON W ANASTOMOSIS 08/04/01 Laparotomy,Hemicolectomy, left ovarian cyst - PAST SURGICAL HISTORY OF 1987 Hemorrhoidectomy - PAST SURGICAL HISTORY OF 2014 right hand surgery, fingers - REDUCTION OF LARGE BREAST 2004 - VAGINAL HYSTERECTOMY 1996 Hysterectomy, vaginal- partial Current Outpatient Prescriptions: cyclobenzaprine (FLEXERIL) 10 mg tablet Take 1 tablet by mouth three times daily as needed for Muscle Spasm. simvastatin (ZOCOR) 40 mg tablet TAKE 1 TABLET EVERY DAY AT BEDTIME hyoscyamine sublingual (LEVSIN SL) 0.125 mg subl For IBS symptoms, Take 1-2 tablets under tongue every 4hrs as needed. Max 12 tabs per day. KLOR-CON M10 10 mEq tablet TAKE 1 TABLET BY MOUTH DAILY WITH BREAKFAST. Cholecalciferol, Vitamin D3, 2,000 unit cap Take 1 tablet by mouth once daily. Hydrochlorothiazide 12.5 mg capsule Take 1 capsule by mouth once daily. [place]-3 Fatty Acids-Vitamin E (FISH OIL) 1,000 mg cap Take 1 capsule by mouth. MULTI-VITAMIN ORAL Take by mouth. COMPOUNDED PRESCRIPTION Pt may use pool prn for muscle/joint pain Dx: M79.7 COMPOUNDED PRESCRIPTION Massage therapy eval and treat Dx: M79.7 UBIDECARENONE (CO Q-10 ORAL) Take by mouth. No current facility-administered medications for this visit. ALLERGIES Allergen Reactions - Tramadol Other: See Comments Seizure disorder. - Ragweed Other: See Comments itchy watery eyes, sneezing, runny nose Social History Marital status: Single Spouse name: Years of education: Number of children: 2 Social History Main Topics Smoking status: Former Smoker Packs/day: 0.50 Years: 0.00 Types: Cigarettes Quit date: 11/16/1992 Smokeless tobacco: Never Used Comment: quit in late Alcohol use: Yes Comment: rare Drug use: No ROS: See HPI PE: BP 100/80 Pulse 80 Temp (Src) 97.8 (Left Tympanic) Resp 16 Wt 143 lb (64.9kg) Gen: AANDOX3, NAD, non-toxic appearing HEENT: PERRLA, EOMs intact b/l, nares without drainage, pharynx without erythema, exudate, lesions, or drainage. Uvula midline. Neck: No LAD, no thyromegaly, no meningismus. CV: RRR, no murmur Lungs: CTA b/l, no wheezing Skin: No rashes, lesions, or wounds on exposed skin. Right base of thumb TTP with arthritis deformity and + Louisa's testing Right shoulder with anterior TTP and impingement signs, no deformity otherwise UNIVERSAL PROTOCOL / SAFETY CHECKLIST Procedure to be performed: right shoudler corticosteroid injection Sign in Communication: Completed Time Out: Team Confirms the Correct Patient, Correct Procedure, Correct Site and Site Marking, Correct Position (if applicable), Prep and Dry Time (if applicable). Time: 1240 Affirmation of Time Out: YES Sign Out Discussion: Completed Margarito Spain DO INFORMED CONSENT Brenden Giraldo Medical Record: [id number] Date: 10/28/2017 Procedure: right shoulder corticosteroid injection The risks, benefits and anticipated outcomes of the procedure, the risks and benefits of the alternatives to the procedure and the roles and tasks of the personnel to be involved were discussed with the patient and the patient consents to the procedure and agrees to proceed. I verify that I personally obtained Brenden Giraldo's consent. Margarito Spain DO Dept of [facility] [place] Injection of 2 cc of 2% lidocaine plain, 1 cc of Kenalog (40 mg) was given to the right shoulder joint by posterior lateral approach after area was cleaned and sterilized with 3 povidine-iodine washes. Patient advised to ice 10 minutes every two hours after the injection for the next 24 hours and prn NSAIDS. Tolerated procedure well without complications. ASSESSMENT/PLAN: 1. Chronic pain of right thumb - ICD9: 729.5, 338.29, ICD10: M79.644, G89.29 (primary diagnosis) - rx as below, f/u with orthopedics if not improved, rest and ice and splint use - WRIST SPLINT - THUMB SPICA 2. Degenerative arthritis of thumb, right - ICD9: 715.34, ICD10: M18.11 - see above - WRIST SPLINT - THUMB SPICA 3. De Quervain's disease (tenosynovitis) - ICD9: 727.04, ICD10: M65.4 - see above - WRIST SPLINT - THUMB SPICA 4. Arthritis of right shoulder region - ICD9: 716.91, ICD10: M19.011 - see above, corticosteroid injection into shoulder joint given today, f/u in office if worsening. - ACETAMINOPHEN 300 MG-CODEINE 30 MG TABLET 5. DDD (degenerative disc disease), lumbar - ICD9: 722.52, ICD10: M51.36 - ACETAMINOPHEN 300 MG-CODEINE 30 MG TABLET 6. Osteoarthritis of lumbar spine, unspecified spinal osteoarthritis complication status - ICD9: 721.3, ICD10: M47.816 - ACETAMINOPHEN 300 MG-CODEINE 30 MG TABLET 7. DDD (degenerative disc disease), cervical - ICD9: 722.4, ICD10: M50.30 - ACETAMINOPHEN 300 MG-CODEINE 30 MG TABLET 8. DJD (degenerative joint disease), cervical - ICD9: 722.4, ICD10: M50.30 - ACETAMINOPHEN 300 MG-CODEINE 30 MG TABLET Margarito Spain DO PDMP website checked and validated. All prescriptions have been APPROPRIATELY filled. No suspicious activity was identified. 10/28/2017 by Margarito Spain DO Return if no improvement. Follow up with Margarito Spain DO. Discussed risks, benefits, alternatives, and potential side effects of medications. Patient/Guardian expressed understanding and agreed with the plan. See patient instructions. Margarito Spain DO [address] [place] [address] GHAZAL Observed: 10/28/2017 Status: COMPLETED Source: [place] 12:00 PM [facility] REPOSITORY Office Visit (FAMPWS) BRENDEN GIRALDO ([id number]) 1955 F Date Time Provider Department 10/28/17 12:00 PM [facility] During your visit today, we recorded the following information about you: Temperature Pulse Respiration Blood pressure 97.8 degrees 80/minute 16/minute 100/80 Weight 64.9 kg Margarito Spain DO 10/28/2017 1:14 PM Signed CC: Brenden Giraldo is a 62 year old female who presents' to the office for follow up HPI: In office 8 months ago, Right shoulder rotator cuff disease/ osteoarthritis, has been seeing Orthopedic surgeon, had rotator cuff repair about [address] Redding, overall did well with surgery, completed outpatient PHYSICAL THERAPY ? Struggling with low back pain, sciatica left sided, intermittent, also with neck and thoracic spine, has diffuse OA changes, no weakness or falls, ?Also with b/l hand pain from her OA- has had several surgeries on right hand as well. ??Took tylenol with codeine with some pain relief without feeling wousy and without mental status changes. ? ? Also increased fibromyalgia pain recently due to weather changes as well. ? At OFFICE VISIT 4 months ago She has been more stressed recently, had a situation with a renter in her basement apartment that was hoarding and not taking care of the property, he has been evicted, so she has been stressed with trying to afford getting more carpet, painting and replacement areas that needed fixed. ?She is stressed with trying to get it rented out again. ?No SI or HI. ?Thinks this may be contributing to her increased neck tension. ? Also admits to not regularly going to chiropractor or massage therapy recently due to financial constraints. ?She knows this would also help her tension headaches. ? Elevated BLOOD PRESSURE, has been overall very well controlled recently, thinks possibly related to recent stressors, no dizziness/LH or chest pains or palpitations or dyspnea ? Right thumb pain, diagnosed with dequervain's tenosynovitis. ?Trying to rest her thumb - triggered by all her painting recently. ? ? Neck and low back pain, improved with prn tylenol with codeine for flare ups, needing rx refilled. ? 1 month ago at last OV ? She seems to be feeling a lot better. ? HTN, has been well controlled, she states that she doesn't feel the headaches or pressure changes ? 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 ? Low back pain, prn tylenol with codeine and flexeril, increased use of flexeril on days that she is helping others when her back and fibromyalgia symptoms flare up. ? She continues to feel that she is losing some of her short term memory, Memory eval was performed 11/[address] Parry and was found to be 27/30 on MMSE. Not getting lost, not forgetting how to use anything. Just loss of names or forgetting where set something in her home etc. ? Currently Right base of thumb pain and tenderness, mild swelling, radiating to upper forearm, Also with right shoulder pain, hx of bursitis and rotator cuff tendinitis, a lot of overuse/use lately with organizing and cleaning/working for others. No other known direct injury. Has benefited from corticosteroid injection into right shoulde rjoint in the past , asking to have this again today Use of tylenol- codeine for severe pain as well as flexeril which helps for arthritis and fibromyalgia flare ups HTN, well controlled. PAST MEDICAL HISTORY Diagnosis Date - Abnormality of colon 2001 abnormal movment of colon, removed 9 in from sigmoid colon - Allergic rhinitis, cause unspecified - Arthritis of right shoulder region corticosteroid injection last 12/18/15 - Atherosclerosis of right carotid artery 07/2016 - DDD (degenerative disc disease), cervical - Depression - Fibromyalgia - Hypertension - Meniere's disease - Mild atherosclerosis of left carotid artery 07/2016 - Mixed hyperlipidemia - Osteoarthritis - Rotator cuff tear right sided - TMJ disease chiropracter PAST SURGICAL HISTORY Procedure Laterality Date - ABDOMINOPLASTY 2006 - COLONOSCOPY 2008 - PART REMOVAL COLON W ANASTOMOSIS 08/04/01 Laparotomy,Hemicolectomy, left ovarian cyst - PAST SURGICAL HISTORY OF 1987 Hemorrhoidectomy - PAST SURGICAL HISTORY OF 2014 right hand surgery, fingers - REDUCTION OF LARGE BREAST 2004 - VAGINAL HYSTERECTOMY 1996 Hysterectomy, vaginal- partial Current Outpatient Prescriptions: cyclobenzaprine (FLEXERIL) 10 mg tablet Take 1 tablet by mouth three times daily as needed for Muscle Spasm. simvastatin (ZOCOR) 40 mg tablet TAKE 1 TABLET EVERY DAY AT BEDTIME hyoscyamine sublingual (LEVSIN SL) 0.125 mg subl For IBS symptoms, Take 1-2 tablets under tongue every 4hrs as needed. Max 12 tabs per day. KLOR-CON M10 10 mEq tablet TAKE 1 TABLET BY MOUTH DAILY WITH BREAKFAST. Cholecalciferol, Vitamin D3, 2,000 unit cap Take 1 tablet by mouth once daily. Hydrochlorothiazide 12.5 mg capsule Take 1 capsule by mouth once daily. [place]-3 Fatty Acids-Vitamin E (FISH OIL) 1,000 mg cap Take 1 capsule by mouth. MULTI-VITAMIN ORAL Take by mouth. COMPOUNDED PRESCRIPTION Pt may use pool prn for muscle/joint pain Dx: M79.7 COMPOUNDED PRESCRIPTION Massage therapy eval and treat Dx: M79.7 UBIDECARENONE (CO Q-10 ORAL) Take by mouth. No current facility-administered medications for this visit. ALLERGIES Allergen Reactions - Tramadol Other: See Comments Seizure disorder. - Ragweed Other: See Comments itchy watery eyes, sneezing, runny nose Social History Marital status: Single Spouse name: Years of education: Number of children: 2 Social History Main Topics Smoking status: Former Smoker Packs/day: 0.50 Years: 0.00 Types: Cigarettes Quit date: 11/16/1992 Smokeless tobacco: Never Used Comment: quit in late Alcohol use: Yes Comment: rare Drug use: No ROS: See HPI PE: BP 100/80 Pulse 80 Temp (Src) 97.8 (Left Tympanic) Resp 16 Wt 143 lb (64.9kg) Gen: AANDOX3, NAD, non-toxic appearing HEENT: PERRLA, EOMs intact b/l, nares without drainage, pharynx without erythema, exudate, lesions, or drainage. Uvula midline. Neck: No LAD, no thyromegaly, no meningismus. CV: RRR, no murmur Lungs: CTA b/l, no wheezing Skin: No rashes, lesions, or wounds on exposed skin. Right base of thumb TTP with arthritis deformity and + Louisa's testing Right shoulder with anterior TTP and impingement signs, no deformity otherwise UNIVERSAL PROTOCOL / SAFETY CHECKLIST Procedure to be performed: right shoudler corticosteroid injection Sign in Communication: Completed Time Out: Team Confirms the Correct Patient, Correct Procedure, Correct Site and Site Marking, Correct Position (if applicable), Prep and Dry Time (if applicable). Time: 1240 Affirmation of Time Out: YES Sign Out Discussion: Completed Margarito Spain DO INFORMED CONSENT Brenden Giraldo Medical Record: [id number] Date: 10/28/2017 Procedure: right shoulder corticosteroid injection The risks, benefits and anticipated outcomes of the procedure, the risks and benefits of the alternatives to the procedure and the roles and tasks of the personnel to be involved were discussed with the patient and the patient consents to the procedure and agrees to proceed. I verify that I personally obtained Brenden Giraldo's consent. Margarito Spain DO [facility] Injection of 2 cc of 2% lidocaine plain, 1 cc of Kenalog (40 mg) was given to the right shoulder joint by posterior lateral approach after area was cleaned and sterilized with 3 povidine-iodine washes. Patient advised to ice 10 minutes every two hours after the injection for the next 24 hours and prn NSAIDS. Tolerated procedure well without complications. ASSESSMENT/PLAN: 1. Chronic pain of right thumb - ICD9: 729.5, 338.29, ICD10: M79.644, G89.29 (primary diagnosis) - rx as below, f/u with orthopedics if not improved, rest and ice and splint use - WRIST SPLINT - THUMB SPICA 2. Degenerative arthritis of thumb, right - ICD9: 715.34, ICD10: M18.11 - see above - WRIST SPLINT - THUMB SPICA 3. De Quervain's disease (tenosynovitis) - ICD9: 727.04, ICD10: M65.4 - see above - WRIST SPLINT - THUMB SPICA 4. Arthritis of right shoulder region - ICD9: 716.91, ICD10: M19.011 - see above, corticosteroid injection into shoulder joint given today, f/u in office if worsening. - ACETAMINOPHEN 300 MG-CODEINE 30 MG TABLET 5. DDD (degenerative disc disease), lumbar - ICD9: 722.52, ICD10: M51.36 - ACETAMINOPHEN 300 MG-CODEINE 30 MG TABLET 6. Osteoarthritis of lumbar spine, unspecified spinal osteoarthritis complication status - ICD9: 721.3, ICD10: M47.816 - ACETAMINOPHEN 300 MG-CODEINE 30 MG TABLET 7. DDD (degenerative disc disease), cervical - ICD9: 722.4, ICD10: M50.30 - ACETAMINOPHEN 300 MG-CODEINE 30 MG TABLET 8. DJD (degenerative joint disease), cervical - ICD9: 722.4, ICD10: M50.30 - ACETAMINOPHEN 300 MG-CODEINE 30 MG TABLET Margarito Spain DO PDMP website checked and validated. All prescriptions have been APPROPRIATELY filled. No suspicious activity was identified. 10/28/2017 by Margarito Spain DO Return if no improvement. Follow up with Margarito Spain DO. Discussed risks, benefits, alternatives, and potential side effects of medications. Patient/Guardian expressed understanding and agreed with the plan. See patient instructions. Margarito Spain DO [address] [place] [address] Referring Provider: SELF [[id number]] Allergies As of Date: 10/28/2017 Noted Allergy Reaction TRAMADOL 12/16/2011 14 - Other: See Comments Comments: Seizure disorder. RAGWEED 10/16/2010 14 - Other: See Comments Comments: itchy watery eyes, sneezing, runny nose Date Reviewed: 10/28/2017 Reviewed by: Lilian Valenzuela LPN - Fully Assessed Reason for Visit: Pain [78] Cmt: right wrist Primary Visit Diagnosis:Chronic pain of right thumb [M79.644, G89.29] Other Visit Diagnoses:Degenerative arthritis of thumb, right [M18.11] De Quervain's disease (tenosynovitis) [M65.4] Arthritis of right shoulder region [M19.011] DDD (degenerative disc disease), lumbar [M51.36] Osteoarthritis of lumbar spine, unspecified spinal osteoarthritis complication status [M47.816] DDD (degenerative disc disease), cervical [M50.30] DJD (degenerative joint disease), cervical [M50.30] Order(s):WRIST SPLINT - THUMB SPICA [[id number]] Order #: [id number] acetaminophen-codeine (TYLENOL-CODEINE #3) 300-30 mg per tabletTake 1 tablet by mouth twice daily as needed for Pain for up to 30 days.Disp: 60 tabletRfl: 2 hyoscyamine sublingual (LEVSIN SL) 0.125 mg sublFor IBS symptoms, Take 1-2 tablets under tongue every 4hrs as needed. Max 12 tabs per day.Disp: 30 tabletRfl: 1 Prescriptions as of 10/28/2017 Sig: CYCLOBENZAPRINE 10 MG TABLET Take 1 tablet by mouth three * SIMVASTATIN 40 MG TABLET TAKE 1 TABLET EVERY DAY AT BE* KLOR-CON M10 MEQ TABLET,EXTEN* TAKE 1 TABLET BY MOUTH DAILY * CHOLECALCIFEROL (VITAMIN D3) * Take 1 tablet by mouth once d* HYDROCHLOROTHIAZIDE 12.5 MG C* Take 1 capsule by mouth once * [place]-3 FATTY ACIDS-VITAMIN E* Take 1 capsule by mouth. MULTI-VITAMIN ORAL Take by mouth. ACETAMINOPHEN 300 MG-CODEINE * Take 1 tablet by mouth twice * HYOSCYAMINE 0.125 MG SUBLINGU* For IBS symptoms, Take 1-2 ta* COMPOUNDED PRESCRIPTION Pt may use pool prn for muscl* COMPOUNDED PRESCRIPTION Massage therapy eval and rosanne* CO Q-10 ORAL Take by mouth. Problem List As Of Date 10/28/2017 Noted Resolved Hyperlipidemia [E78.5] INVALID FOR* Fibromyalgia [M79.7] INVALID FOR* Hypertension [I10] INVALID FOR* Rectocele [N81.6] INVALID FOR* Hemorrhoids [K64.9] INVALID FOR* Abdominal pain [R10.9] INVALID FOR* LGI bleed [K92.2] INVALID FOR* Pancreatitis [K85.90] INVALID FOR* Leukocytosis [D72.829] INVALID FOR* Vitamin B12 deficiency [E53.8] INVALID FOR* Temporomandibular joint disorders, unspecified *INVALID FOR* Cervicalgia [M54.2] INVALID FOR* Depression [F32.9] INVALID FOR* Vitamin D deficiency [E55.9] INVALID FOR* DDD (degenerative disc disease), lumbar [M51.36]INVALID FOR* Lumbar spondylosis [M47.816] INVALID FOR* Arthritis of right shoulder region [M19.011] INVALID FOR* Cervical strain [S16.1XXA] INVALID FOR* Myofascial pain [M79.1] INVALID FOR* Thoracic myofascial strain [S29.019A] INVALID FOR* Family history of colon cancer [Z80.0] INVALID FOR* Unspecified gastritis and gastroduodenitis with*INVALID FOR* Spondylosis of lumbar region without myelopathy*INVALID FOR* Left groin pain [R10.32] INVALID FOR* Atherosclerosis of right carotid artery [I65.21]INVALID FOR* Mild atherosclerosis of left carotid artery [I6*INVALID FOR* Mixed hyperlipidemia [E78.2] Osteoarthritis [M19.90] 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 Rotator cuff tear [M75.100] More... Meniere's disease [H81.09] DDD (degenerative disc disease), cervical [M50.* Allergic rhinitis [J30.9] Abnormality of colon [K63.9] INVALID FOR* More... Tenosynovitis, de Quervain [M65.4] INVALID FOR* DJD (degenerative joint disease), cervical [M50*INVALID FOR* Unintentional weight loss [R63.4] INVALID FOR* Elevated blood pressure reading without diagnos*INVALID FOR* Memory deficit [R41.3] INVALID FOR* Prescriptions ordered this encounter Disp Refills Start End HYOSCYAMINE 0.125 MG SUBLINGUAL TABL* 30 t* 1 10/28/2017 10/28/2017 Sig: For IBS symptoms, Take 1-2 tablets under tongue every 4hrs as needed. Max 12 tabs per day. ACETAMINOPHEN 300 MG-CODEINE 30 MG T* 60 t* 2 10/28/2017 11/27/2017 Class: Print RX Route: ORAL Sig: Take 1 tablet by mouth twice daily as needed for Pain for up to 30 days. HYOSCYAMINE 0.125 MG SUBLINGUAL TABL* 30 t* 1 10/28/2017 Sig: For IBS symptoms, Take 1-2 tablets under tongue every 4hrs as needed. Max 12 tabs per day. Medications Discontinued During This Encounter hyoscyamine sublingual (LEVSIN SL) 0* 30 t* 1 06/24/2017 10/28/2017 Sig: For IBS symptoms, Take 1-2 tablets under tongue every 4hrs as needed. Max 12 tabs per day. Disc: Reason for discontinue is not on file. acetaminophen-codeine (TYLENOL-CODEI* 60 t* 2 06/17/2017 10/28/2017 Class: Print RX Route: ORAL Sig: Take 1 tablet by mouth twice daily as needed for Pain for up to 30 days. Disc: Reason for discontinue is not on file. hyoscyamine sublingual (LEVSIN SL) 0* 30 t* 1 10/28/2017 10/28/2017 Sig: For IBS symptoms, Take 1-2 tablets under tongue every 4hrs as needed. Max 12 tabs per day. Disc: Reason for discontinue is not on file. Encounter Status:Closed by MARGARITO SPAIN DO on 10/28/17 PROGRESS Observed: 09/21/2017 Status: COMPLETED Source: [place] 7:26 AM [facility] REPOSITORY [facility] ID: [id number] Author: Margarito Spain Service: (none) Author Type: Physician Type: Progress Notes Filed: 09/21/2017 7:31 AM Note Text: CC: Brenden Giraldo is a 62 year old female who presents to the office for 3 months follow up HPI: In office 7 months ago, Right shoulder rotator cuff disease/ osteoarthritis, has been seeing Orthopedic surgeon, had rotator cuff repair about [address] Redding, overall did well with surgery, completed outpatient PHYSICAL THERAPY ? Struggling with low back pain, sciatica left sided, intermittent, also with neck and thoracic spine, has diffuse OA changes, no weakness or falls, ?Also with b/l hand pain from her OA- has had several surgeries on right hand as well. ??Took tylenol with codeine with some pain relief without feeling wousy and without mental status changes. ? ? Also increased fibromyalgia pain recently due to weather changes as well. ? At last OFFICE VISIT 3 months ago She has been more stressed recently, had a situation with a renter in her basement apartment that was hoarding and not taking care of the property, he has been evicted, so she has been stressed with trying to afford getting more carpet, painting and replacement areas that needed fixed. She is stressed with trying to get it rented out again. No SI or HI. Thinks this may be contributing to her increased neck tension. ? Also admits to not regularly going to chiropractor or massage therapy recently due to financial constraints. She knows this would also help her tension headaches. ? Elevated BLOOD PRESSURE, has been overall very well controlled recently, thinks possibly related to recent stressors, no dizziness/LH or chest pains or palpitations or dyspnea ? Right thumb pain, diagnosed with dequervain's tenosynovitis. Trying to rest her thumb - triggered by all her painting recently. ? Neck and low back pain, improved with prn tylenol with codeine for flare ups, needing rx refilled. Currently She seems to be feeling a lot better. 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 Low back pain, prn tylenol with codeine and flexeril, increased use of flexeril on days that she is helping others when her back and fibromyalgia symptoms flare up. She continues to feel that she is losing some of her short term memory, Memory eval was performed 11/[address] Parry and was found to be 27/30 on MMSE. Not getting lost, not forgetting how to use anything. Just loss of names or forgetting where set something in her home etc. PAST MEDICAL HISTORY Diagnosis Date - Abnormality of colon 2001 abnormal movment of colon, removed 9 in from sigmoid colon - Allergic rhinitis, cause unspecified - Arthritis of right shoulder region corticosteroid injection last 12/18/15 - Atherosclerosis of right carotid artery 07/2016 - DDD (degenerative disc disease), cervical - Depression - Fibromyalgia - Hypertension - Meniere's disease - Mild atherosclerosis of left carotid artery 07/2016 - Mixed hyperlipidemia - Osteoarthritis - Rotator cuff tear right sided - TMJ disease chiropracter PAST SURGICAL HISTORY Procedure Laterality Date - ABDOMINOPLASTY 2006 - COLONOSCOPY 2008 - PART REMOVAL COLON W ANASTOMOSIS 08/04/01 Laparotomy,Hemicolectomy, left ovarian cyst - PAST SURGICAL HISTORY OF 1987 Hemorrhoidectomy - PAST SURGICAL HISTORY OF 2014 right hand surgery, fingers - REDUCTION OF LARGE BREAST 2004 - VAGINAL HYSTERECTOMY 1996 Hysterectomy, vaginal- partial Current Outpatient Prescriptions: cyclobenzaprine (FLEXERIL) 10 mg tablet Take 1 tablet by mouth three times daily as needed for Muscle Spasm. simvastatin (ZOCOR) 40 mg tablet TAKE 1 TABLET EVERY DAY AT BEDTIME hyoscyamine sublingual (LEVSIN SL) 0.125 mg subl For IBS symptoms, Take 1-2 tablets under tongue every 4hrs as needed. Max 12 tabs per day. KLOR-CON M10 10 mEq tablet TAKE 1 TABLET BY MOUTH DAILY WITH BREAKFAST. Cholecalciferol, Vitamin D3, 2,000 unit cap Take 1 tablet by mouth once daily. Hydrochlorothiazide 12.5 mg capsule Take 1 capsule by mouth once daily. COMPOUNDED PRESCRIPTION Pt may use pool prn for muscle/joint pain Dx: M79.7 COMPOUNDED PRESCRIPTION Massage therapy eval and treat Dx: M79.7 UBIDECARENONE (CO Q-10 ORAL) Take by mouth. [place]-3 Fatty Acids-Vitamin E (FISH OIL) 1,000 mg cap Take 1 capsule by mouth. MULTI-VITAMIN ORAL Take by mouth. No current facility-administered medications for this visit. ALLERGIES Allergen Reactions - Tramadol Other: See Comments Seizure disorder. - Ragweed Other: See Comments itchy watery eyes, sneezing, runny nose ROS: See HPI. PE: BP 134/88 Pulse 80 Temp (Src) 97.7 (Left Tympanic) Resp 16 Wt 142 lb (64.4kg) Gen: AANDOX3, NAD, non-toxic appearing HEENT: PERRLA, EOMs intact b/l, nares without drainage, pharynx without erythema, exudate, lesions, or drainage. Uvula midline. Neck: No LAD, no thyromegaly, no meningismus. CV: RRR, no murmur Lungs: CTA b/l, no wheezing Skin: No rashes, lesions, or wounds on exposed skin. No edema, normal pulses ASSESSMENT/PLAN: 1. Memory deficit - ICD9: 780.93, ICD10: R41.3 (primary diagnosis) - will f/u with MMSE in the office at next OV 2. DDD (degenerative disc disease), lumbar - ICD9: 722.52, ICD10: M51.36 Chronic low back pain - Warm moist heat for 20 min three times a day - NSAIDS- see orders - Muscle relaxant- see orders - CYCLOBENZAPRINE 10 MG TABLET 3. Arthritis of right shoulder region - ICD9: 716.91, ICD10: M19.011 - rx refilled, stable - CYCLOBENZAPRINE 10 MG TABLET 4. Osteoarthritis of lumbar spine, unspecified spinal osteoarthritis complication status - ICD9: 721.3, ICD10: M47.816 - rx refilled, stable - CYCLOBENZAPRINE 10 MG TABLET 5. Elevated blood pressure reading without diagnosis of hypertension - ICD9: 796.2, ICD10: R03.0 - Encouraged dietary sodium restriction/DASH diet - Recommended regular aerobic exercise. - Recommend home blood pressure monitoring, to bring results in on next visit - Goal of BP <130/80 6. Tenosynovitis, de Quervain - ICD9: 727.04, ICD10: M65.4 - stable Margarito Spain DO Return if no improvement. Follow up with Margarito Spain DO. Discussed risks, benefits, alternatives, and potential side effects of medications. Patient/Guardian expressed understanding and agreed with the plan. See patient instructions. Margarito Spain DO [address] [place] [address] CNOV Observed: 09/18/2017 Status: COMPLETED Source: [place] 2:00 PM [facility] REPOSITORY Office Visit (FAMPWS) BRENDEN GIRALDO ([id number]) 1955 F Date Time Provider Department 09/18/17 2:00 PM MARGARITO SPAIN During your visit today, we recorded the following information about you: Temperature Pulse Respiration Blood pressure 97.7 degrees 80/minute 16/minute 134/88 Weight 64.4 kg Margarito Spain, DO 09/21/2017 7:31 AM Signed CC: Brenden Giraldo is a 62 year old female who presents to the office for 3 months follow up HPI: In office 7 months ago, Right shoulder rotator cuff disease/ osteoarthritis, has been seeing Orthopedic surgeon, had rotator cuff repair about [address] Redding, overall did well with surgery, completed outpatient PHYSICAL THERAPY ? Struggling with low back pain, sciatica left sided, intermittent, also with neck and thoracic spine, has diffuse OA changes, no weakness or falls, ?Also with b/l hand pain from her OA- has had several surgeries on right hand as well. ??Took tylenol with codeine with some pain relief without feeling wousy and without mental status changes. ? ? Also increased fibromyalgia pain recently due to weather changes as well. ? At last OFFICE VISIT 3 months ago She has been more stressed recently, had a situation with a renter in her basement apartment that was hoarding and not taking care of the property, he has been evicted, so she has been stressed with trying to afford getting more carpet, painting and replacement areas that needed fixed. She is stressed with trying to get it rented out again. No SI or HI. Thinks this may be contributing to her increased neck tension. ? Also admits to not regularly going to chiropractor or massage therapy recently due to financial constraints. She knows this would also help her tension headaches. ? Elevated BLOOD PRESSURE, has been overall very well controlled recently, thinks possibly related to recent stressors, no dizziness/LH or chest pains or palpitations or dyspnea ? Right thumb pain, diagnosed with dequervain's tenosynovitis. Trying to rest her thumb - triggered by all her painting recently. ? Neck and low back pain, improved with prn tylenol with codeine for flare ups, needing rx refilled. Currently She seems to be feeling a lot better. 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 Low back pain, prn tylenol with codeine and flexeril, increased use of flexeril on days that she is helping others when her back and fibromyalgia symptoms flare up. She continues to feel that she is losing some of her short term memory, Memory eval was performed 11/[address] Parry and was found to be 27/30 on MMSE. Not getting lost, not forgetting how to use anything. Just loss of names or forgetting where set something in her home etc. PAST MEDICAL HISTORY Diagnosis Date - Abnormality of colon 2001 abnormal movment of colon, removed 9 in from sigmoid colon - Allergic rhinitis, cause unspecified - Arthritis of right shoulder region corticosteroid injection last 12/18/15 - Atherosclerosis of right carotid artery 07/2016 - DDD (degenerative disc disease), cervical - Depression - Fibromyalgia - Hypertension - Meniere's disease - Mild atherosclerosis of left carotid artery 07/2016 - Mixed hyperlipidemia - Osteoarthritis - Rotator cuff tear right sided - TMJ disease chiropracter PAST SURGICAL HISTORY Procedure Laterality Date - ABDOMINOPLASTY 2006 - COLONOSCOPY 2008 - PART REMOVAL COLON W ANASTOMOSIS 08/04/01 Laparotomy,Hemicolectomy, left ovarian cyst - PAST SURGICAL HISTORY OF 1987 Hemorrhoidectomy - PAST SURGICAL HISTORY OF 2014 right hand surgery, fingers - REDUCTION OF LARGE BREAST 2004 - VAGINAL HYSTERECTOMY 1996 Hysterectomy, vaginal- partial Current Outpatient Prescriptions: cyclobenzaprine (FLEXERIL) 10 mg tablet Take 1 tablet by mouth three times daily as needed for Muscle Spasm. simvastatin (ZOCOR) 40 mg tablet TAKE 1 TABLET EVERY DAY AT BEDTIME hyoscyamine sublingual (LEVSIN SL) 0.125 mg subl For IBS symptoms, Take 1-2 tablets under tongue every 4hrs as needed. Max 12 tabs per day. KLOR-CON M10 10 mEq tablet TAKE 1 TABLET BY MOUTH DAILY WITH BREAKFAST. Cholecalciferol, Vitamin D3, 2,000 unit cap Take 1 tablet by mouth once daily. Hydrochlorothiazide 12.5 mg capsule Take 1 capsule by mouth once daily. COMPOUNDED PRESCRIPTION Pt may use pool prn for muscle/joint pain Dx: M79.7 COMPOUNDED PRESCRIPTION Massage therapy eval and treat Dx: M79.7 UBIDECARENONE (CO Q-10 ORAL) Take by mouth. [place]-3 Fatty Acids-Vitamin E (FISH OIL) 1,000 mg cap Take 1 capsule by mouth. MULTI-VITAMIN ORAL Take by mouth. No current facility-administered medications for this visit. ALLERGIES Allergen Reactions - Tramadol Other: See Comments Seizure disorder. - Ragweed Other: See Comments itchy watery eyes, sneezing, runny nose ROS: See HPI. PE: BP 134/88 Pulse 80 Temp (Src) 97.7 (Left Tympanic) Resp 16 Wt 142 lb (64.4kg) Gen: AANDOX3, NAD, non-toxic appearing HEENT: PERRLA, EOMs intact b/l, nares without drainage, pharynx without erythema, exudate, lesions, or drainage. Uvula midline. Neck: No LAD, no thyromegaly, no meningismus. CV: RRR, no murmur Lungs: CTA b/l, no wheezing Skin: No rashes, lesions, or wounds on exposed skin. No edema, normal pulses ASSESSMENT/PLAN: 1. Memory deficit - ICD9: 780.93, ICD10: R41.3 (primary diagnosis) - will f/u with MMSE in the office at next OV 2. DDD (degenerative disc disease), lumbar - ICD9: 722.52, ICD10: M51.36 Chronic low back pain - Warm moist heat for 20 min three times a day - NSAIDS- see orders - Muscle relaxant- see orders - CYCLOBENZAPRINE 10 MG TABLET 3. Arthritis of right shoulder region - ICD9: 716.91, ICD10: M19.011 - rx refilled, stable - CYCLOBENZAPRINE 10 MG TABLET 4. Osteoarthritis of lumbar spine, unspecified spinal osteoarthritis complication status - ICD9: 721.3, ICD10: M47.816 - rx refilled, stable - CYCLOBENZAPRINE 10 MG TABLET 5. Elevated blood pressure reading without diagnosis of hypertension - ICD9: 796.2, ICD10: R03.0 - Encouraged dietary sodium restriction/DASH diet - Recommended regular aerobic exercise. - Recommend home blood pressure monitoring, to bring results in on next visit - Goal of BP <130/80 6. Tenosynovitis, de Quervain - ICD9: 727.04, ICD10: M65.4 - stable Margarito Spain DO Return if no improvement. Follow up with Margarito Spain DO. Discussed risks, benefits, alternatives, and potential side effects of medications. Patient/Guardian expressed understanding and agreed with the plan. See patient instructions. Margarito Spain DO [address] [place] [address] Referring Provider: MARGARITO SPAIN [[id number]] Allergies As of Date: 09/18/2017 Noted Allergy Reaction TRAMADOL 12/16/2011 14 - Other: See Comments Comments: Seizure disorder. RAGWEED 10/16/2010 14 - Other: See Comments Comments: itchy watery eyes, sneezing, runny nose Date Reviewed: 09/18/2017 Reviewed by: Lilian Valenzuela LPN - Fully Assessed Reason for Visit: Follow Up [171] Cmt: 3 months Primary Visit Diagnosis:Memory deficit [R41.3] Other Visit Diagnoses:DDD (degenerative disc disease), lumbar [M51.36] Arthritis of right shoulder region [M19.011] Osteoarthritis of lumbar spine, unspecified spinal osteoarthritis complication status [M47.816] Elevated blood pressure reading without diagnosis of hypertension [R03.0] Tenosynovitis, de Quervain [M65.4] Order(s):cyclobenzaprine (FLEXERIL) 10 mg tabletTake 1 tablet by mouth three times daily as needed for Muscle Spasm.Disp: 90 tabletRfl: 3 Prescriptions as of 09/18/2017 Sig: CYCLOBENZAPRINE 10 MG TABLET Take 1 tablet by mouth three * SIMVASTATIN 40 MG TABLET TAKE 1 TABLET EVERY DAY AT BE* HYOSCYAMINE 0.125 MG SUBLINGU* For IBS symptoms, Take 1-2 ta* KLOR-CON M10 MEQ TABLET,EXTEN* TAKE 1 TABLET BY MOUTH DAILY * CHOLECALCIFEROL (VITAMIN D3) * Take 1 tablet by mouth once d* HYDROCHLOROTHIAZIDE 12.5 MG C* Take 1 capsule by mouth once * COMPOUNDED PRESCRIPTION Pt may use pool prn for muscl* COMPOUNDED PRESCRIPTION Massage therapy eval and rosanne* CO Q-10 ORAL Take by mouth. OMEGA-3 FATTY ACIDS-VITAMIN E* Take 1 capsule by mouth. MULTI-VITAMIN ORAL Take by mouth. Problem List As Of Date 09/18/2017 Noted Resolved Hyperlipidemia [E78.5] INVALID FOR* Fibromyalgia [M79.7] INVALID FOR* Hypertension [I10] INVALID FOR* Rectocele [N81.6] INVALID FOR* Hemorrhoids [K64.9] INVALID FOR* Abdominal pain [R10.9] INVALID FOR* LGI bleed [K92.2] INVALID FOR* Pancreatitis [K85.90] INVALID FOR* Leukocytosis [D72.829] INVALID FOR* Vitamin B12 deficiency [E53.8] INVALID FOR* Temporomandibular joint disorders, unspecified *INVALID FOR* Cervicalgia [M54.2] INVALID FOR* Depression [F32.9] INVALID FOR* Vitamin D deficiency [E55.9] INVALID FOR* DDD (degenerative disc disease), lumbar [M51.36]INVALID FOR* Lumbar spondylosis [M47.816] INVALID FOR* Arthritis of right shoulder region [M19.011] INVALID FOR* Cervical strain [S16.1XXA] INVALID FOR* Myofascial pain [M79.1] INVALID FOR* Thoracic myofascial strain [S29.019A] INVALID FOR* Family history of colon cancer [Z80.0] INVALID FOR* Unspecified gastritis and gastroduodenitis with*INVALID FOR* Spondylosis of lumbar region without myelopathy*INVALID FOR* Left groin pain [R10.32] INVALID FOR* Atherosclerosis of right carotid artery [I65.21]INVALID FOR* Mild atherosclerosis of left carotid artery [I6*INVALID FOR* Mixed hyperlipidemia [E78.2] Osteoarthritis [M19.90] 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 Rotator cuff tear [M75.100] More... Meniere's disease [H81.09] DDD (degenerative disc disease), cervical [M50.* Allergic rhinitis [J30.9] Abnormality of colon [K63.9] INVALID FOR* More... Tenosynovitis, de Quervain [M65.4] INVALID FOR* DJD (degenerative joint disease), cervical [M50*INVALID FOR* Unintentional weight loss [R63.4] INVALID FOR* Prescriptions ordered this encounter Disp Refills Start End CYCLOBENZAPRINE 10 MG TABLET 90 t* 3 09/18/2017 Route: ORAL Sig: Take 1 tablet by mouth three times daily as needed for Muscle Spasm. Medications Discontinued During This Encounter cyclobenzaprine (FLEXERIL) 10 mg tab* 30 t* 1 12/12/2016 09/18/2017 Route: ORAL Sig: Take 1 tablet by mouth three times daily as needed. Disc: Reason for discontinue is not on file. cyclobenzaprine (FLEXERIL) 10 mg tab* 60 t* 2 06/22/2017 09/18/2017 Route: ORAL Sig: Take 1 tablet by mouth twice daily as needed for Muscle Spasm. Disc: Reason for discontinue is not on file. Encounter Status:Closed by MARGARITO SPAIN DO on 09/21/17 PROGRESS Observed: 07/10/2017 Status: COMPLETED Source: [place] 3:26 PM [facility] REPOSITORY HNO ID: [id number] Author: Avril Turcios LPN Service: (none) Author Type: (none) Type: Progress Notes Filed: 07/10/2017 3:49 PM Note Text: Manual Readin/96 Pulse: 88 BP Antonino average: 123/85 P: 91 Reason for blood pressure check - Last BP elevated Patient is: Taking medication as prescribed Yes Took medication today Yes If no, date medication last taken N/A Experiencing side effects No BP was elevated at last appt 06/17/17. No BP medication changes were made at that time. Denies any chest pain, shortness of breath, dizziness, or headaches. Daily caffeine use. Past personal history of tobacco use; no current exposure. Alert and oriented. Pt has been identified by name and birthdate: Yes Allergies reviewed: Yes Latex allergy: no. Medication - prescribed and OTC reviewed and updated: Yes Do you need any prescription refills prior to your next visit: No Health Maintenance: Reviewed and not up to date and provider notified Patient advised to continue with current medications and would be contacted with any further instructions after review by PCP. Avril Turcios LPN CNNURSE Observed: 07/10/2017 Status: COMPLETED Source: [place] 3:15 PM [facility] REPOSITORY Nurse Visit (FAMPWS) BRENDEN GIRALDO ([id number]) 1955 F Date Time Provider Department 07/10/17 3:15 PM [place] [facility] During your visit today, we recorded the following information about you: Pulse Blood pressure 91/minute 123/85 Avril Turcios LPN 07/10/2017 3:49 PM Signed Manual Readin/96 Pulse: 88 BP Antonino average: 123/85 P: 91 Reason for blood pressure check - Last BP elevated Patient is: Taking medication as prescribed Yes Took medication today Yes If no, date medication last taken N/A Experiencing side effects No BP was elevated at last appt 06/17/17. No BP medication changes were made at that time. Denies any chest pain, shortness of breath, dizziness, or headaches. Daily caffeine use. Past personal history of tobacco use; no current exposure. Alert and oriented. Pt has been identified by name and birthdate: Yes Allergies reviewed: Yes Latex allergy: no. Medication - prescribed and OTC reviewed and updated: Yes Do you need any prescription refills prior to your next visit: No Health Maintenance: Reviewed and not up to date and provider notified Patient advised to continue with current medications and would be contacted with any further instructions after review by PCP. Avril Turcios LPN Referring Provider: MARGARITO SPAIN [[id number]] Allergies As of Date: 07/10/2017 Noted Allergy Reaction TRAMADOL 12/16/2011 14 - Other: See Comments Comments: Seizure disorder. RAGWEED 10/16/2010 14 - Other: See Comments Comments: itchy watery eyes, sneezing, runny nose Date Reviewed: 06/17/2017 Reviewed by: Lilian Valenzuela LPN - Fully Assessed Reason for Visit: Blood Pressure Check [195] Primary Visit Diagnosis:Elevated blood pressure reading without diagnosis of hypertension [R03.0] Prescriptions as of 07/10/2017 Sig: HYOSCYAMINE 0.125 MG SUBLINGU* For IBS symptoms, Take 1-2 ta* CYCLOBENZAPRINE 10 MG TABLET Take 1 tablet by mouth twice * ACETAMINOPHEN 300 MG-CODEINE * Take 1 tablet by mouth twice * KLOR-CON M10 MEQ TABLET,EXTEN* TAKE 1 TABLET BY MOUTH DAILY * CHOLECALCIFEROL (VITAMIN D3) * Take 1 tablet by mouth once d* HYDROCHLOROTHIAZIDE 12.5 MG C* Take 1 capsule by mouth once * CYCLOBENZAPRINE 10 MG TABLET Take 1 tablet by mouth three * COMPOUNDED PRESCRIPTION Pt may use pool prn for muscl* COMPOUNDED PRESCRIPTION Massage therapy eval and rosanne* CO Q-10 ORAL Take by mouth. SIMVASTATIN 40 MG TABLET TAKE 1 TABLET EVERY DAY AT BE* OMEGA-3 FATTY ACIDS-VITAMIN E* Take 1 capsule by mouth. MULTI-VITAMIN ORAL Take by mouth. Problem List As Of Date 07/10/2017 Noted Resolved Hyperlipidemia [E78.5] INVALID FOR* Fibromyalgia [M79.7] INVALID FOR* Hypertension [I10] INVALID FOR* Rectocele [N81.6] INVALID FOR* Hemorrhoids [K64.9] INVALID FOR* Abdominal pain [R10.9] INVALID FOR* LGI bleed [K92.2] INVALID FOR* Pancreatitis [K85.90] INVALID FOR* Leukocytosis [D72.829] INVALID FOR* Vitamin B12 deficiency [E53.8] INVALID FOR* Temporomandibular joint disorders, unspecified *INVALID FOR* Cervicalgia [M54.2] INVALID FOR* Depression [F32.9] INVALID FOR* Vitamin D deficiency [E55.9] INVALID FOR* DDD (degenerative disc disease), lumbar [M51.36]INVALID FOR* Lumbar spondylosis [M47.816] INVALID FOR* Arthritis of right shoulder region [M19.011] INVALID FOR* Cervical strain [S16.1XXA] INVALID FOR* Myofascial pain [M79.1] INVALID FOR* Thoracic myofascial strain [S29.019A] INVALID FOR* Family history of colon cancer [Z80.0] INVALID FOR* Unspecified gastritis and gastroduodenitis with*INVALID FOR* Spondylosis of lumbar region without myelopathy*INVALID FOR* Left groin pain [R10.32] INVALID FOR* Atherosclerosis of right carotid artery [I65.21]INVALID FOR* Mild atherosclerosis of left carotid artery [I6*INVALID FOR* Mixed hyperlipidemia [E78.2] Osteoarthritis [M19.90] 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 Rotator cuff tear [M75.100] More... Meniere's disease [H81.09] DDD (degenerative disc disease), cervical [M50.* Allergic rhinitis [J30.9] Abnormality of colon [K63.9] INVALID FOR* More... Tenosynovitis, de Quervain [M65.4] INVALID FOR* DJD (degenerative joint disease), cervical [M50*INVALID FOR* Unintentional weight loss [R63.4] INVALID FOR* Classic SmartForms filed during this visit: Extended Vitals Encounter Status:Closed by AVRIL TURCIOS LPN on 07/10/17 MATTYOSCAR Observed: 06/23/2017 Status: COMPLETED Source: [place] 12:00 AM [facility] REPOSITORY Patient Outreach (INTMWH) BRENDEN GIRALDO ([id number]) 1955 F Date Time Provider Department 06/23/17 MARGARITO SPAIN [facility] During your visit today, we recorded the following information about you: Allergies As of Date: 06/23/2017 Noted Allergy Reaction TRAMADOL 12/16/2011 14 - Other: See Comments Comments: Seizure disorder. RAGWEED 10/16/2010 14 - Other: See Comments Comments: itchy watery eyes, sneezing, runny nose Date Reviewed: 06/17/2017 Reviewed by: Lilain Valenzuela LPN - Fully Assessed Visit Diagnosis:Medication management [Z79.899] Order(s):LIPID PANEL BASIC [SQLIPB] Order #: [id number] FUTURE Prescriptions as of 06/23/2017 Sig: X CYCLOBENZAPRINE 10 MG TABLET Take 1 tablet by mouth twice * X ACETAMINOPHEN 300 MG-CODEINE * Take 1 tablet by mouth twice * KLOR-CON M10 MEQ TABLET,EXTEN* TAKE 1 TABLET BY MOUTH DAILY * CHOLECALCIFEROL (VITAMIN D3) * Take 1 tablet by mouth once d* HYDROCHLOROTHIAZIDE 12.5 MG C* Take 1 capsule by mouth once * X CYCLOBENZAPRINE 10 MG TABLET Take 1 tablet by mouth three * COMPOUNDED PRESCRIPTION Pt may use pool prn for muscl* COMPOUNDED PRESCRIPTION Massage therapy eval and rosanne* CO Q-10 ORAL Take by mouth. X SIMVASTATIN 40 MG TABLET TAKE 1 TABLET EVERY DAY AT BE* OMEGA-3 FATTY ACIDS-VITAMIN E* Take 1 capsule by mouth. MULTI-VITAMIN ORAL Take by mouth. Problem List As Of Date 06/23/2017 Noted Resolved Hyperlipidemia [E78.5] INVALID FOR* Fibromyalgia [M79.7] INVALID FOR* Hypertension [I10] INVALID FOR* Rectocele [N81.6] INVALID FOR* Hemorrhoids [K64.9] INVALID FOR* Abdominal pain [R10.9] INVALID FOR* LGI bleed [K92.2] INVALID FOR* Pancreatitis [K85.90] INVALID FOR* Leukocytosis [D72.829] INVALID FOR* Vitamin B12 deficiency [E53.8] INVALID FOR* Temporomandibular joint disorders, unspecified *INVALID FOR* Cervicalgia [M54.2] INVALID FOR* Depression [F32.9] INVALID FOR* Vitamin D deficiency [E55.9] INVALID FOR* DDD (degenerative disc disease), lumbar [M51.36]INVALID FOR* Lumbar spondylosis [M47.816] INVALID FOR* Arthritis of right shoulder region [M19.011] INVALID FOR* Cervical strain [S16.1XXA] INVALID FOR* Myofascial pain [M79.18] INVALID FOR* Thoracic myofascial strain [S29.019A] INVALID FOR* Family history of colon cancer [Z80.0] INVALID FOR* Unspecified gastritis and gastroduodenitis with*INVALID FOR* Spondylosis of lumbar region without myelopathy*INVALID FOR* Left groin pain [R10.32] INVALID FOR* Atherosclerosis of right carotid artery [I65.21]INVALID FOR* Mild atherosclerosis of left carotid artery [I6*INVALID FOR* Mixed hyperlipidemia [E78.2] Osteoarthritis [M19.90] 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 Rotator cuff tear [M75.100] More... Meniere's disease [H81.09] DDD (degenerative disc disease), cervical [M50.* Allergic rhinitis [J30.9] Abnormality of colon [K63.9] INVALID FOR* More... Tenosynovitis, de Quervain [M65.4] INVALID FOR* DJD (degenerative joint disease), cervical [M47*INVALID FOR* Unintentional weight loss [R63.4] INVALID FOR* Encounter Status:Closed by GAVIN BUNDY on 01/08/18 CNCO Observed: 06/19/2017 Status: COMPLETED Source: [place] 12:00 AM [facility] REPOSITORY Letter Text Margarito Spain D.O. [address] [address] Brenden Giraldo [address] [address] Clinic #: [id number] 06/19/2017 Dear Ms. Giraldo, I have received the results of your recent tests. Please inform patient that overall her labs look great. No new concerns- only mildly elevate alkaline phosphatase, will recheck in upcoming months ? Margarito Spain, DO ? We can discuss this at your next visit. Please do not hesitate to contact me with any questions. Sincerely, Margarito Spain D.O. electronically signed to expedite mailing CBC Collected: 06/18/2017 Status: F Source: [place] 1:17 PM [facility] REPOSITORY TYPE CODE TESTS RESULT OUT OF REFERENCE UNITS RANGE LAB WBC 3.70-11.00 k/uL WBC 8.22 LAB RBC 3.90-5.20 m/uL RBC 4.68 LAB HGB 11.5-15.5 g/dL Hemoglobin 14.2 LAB HCT 36.0-46.0 % Hematocrit 44.1 LAB MCV 80.0-100.0 fL MCV 94.2 LAB MCH 26.0-34.0 pG MCH 30.3 LAB MCHC 30.5-36.0 g/dL MCHC 32.2 LAB RDWCV 11.5-15.0 % RDW-CV 13.7 LAB PLTCT 150-400 k/uL Platelet Count 274 LAB MPV 9.0-12.7 fL MPV 10.5 LAB ABSNUC <0.01 k/uL Absolute nRBC <0.01 Performed By: #### CBC, CMP, TSH, FT4, T3 #### [facility] [address] [place], [place] [address] COMP METABOLIC PANEL Collected: 06/18/2017 Status: F Source: [place] 1:17 PM [facility] REPOSITORY TYPE CODE TESTS RESULT OUT OF REFERENCE UNITS RANGE LAB TP 6.3-8.0 g/dL Protein, Total 7.3 LAB ALB 3.9-4.9 g/dL Albumin 4.1 LAB CA 8.5-10.2 mg/dL Calcium, Total 9.4 LAB TBIL 0.2-1.3 mg/dL Bilirubin, Total 0.4 LAB ALKP 32-117 U/L Alkaline High Phosphatase 127 LAB AST 13-35 U/L AST 21 LAB GLU 74-99 mg/dL Glucose 92 Result Comment: The [place] [employer] (ADA) provides guidance for cutoff values for fasting glucose and random glucose. The ADA defines fasting as no caloric intake for at least 8 hours. Fas ting plasma glucose results between 100 to 125 mg/dL indicate increased risk for diabetes (prediabetes). Fasting plasma glucose results greater than or equal to 126 mg/dL meet the criteria for diagnosis of diabetes. In the absence of unequivocal hyperglycemia, results should be confirmed by repeat testing. In a patient with classic symptoms of hyperglycemia or hyperglycemic crisis, random plasma glucose results greater than or equal to 200 mg/dL meet the criteria for diagnosis of diabetes. Reference: Standards of Medical Care in Diabetes 2016, [place] [employer]. Diabetes Care. 2016.39(Suppl 1). LAB BUN 7-21 mg/dL BUN 10 LAB CRET 0.58-0.96 mg/dL Creatinine 0.69 LAB NA 136-144 mmol/L Sodium 138 LAB K 3.7-5.1 mmol/L Potassium 4.0 LAB CL 97-105 mmol/L Chloride 101 LAB CO2 22-30 mmol/L CO2 22 LAB AGAP 9-18 mmol/L Anion Gap 15 LAB ALT 7-38 U/L ALT 11 LAB GFRAA eGFR- Amer. >60 LAB GFRNAA . eGFR-All Other Races >60 Result Comment: eGFR (Estimated GFR) Units of measure: mL/min/1.73 meters squared eGFR is derived from the reexpressed MDRD Study equation using the following parameters: serum creatinine, age, gender and race. The creatinine assay has been calibrated to be traceable to [employer]. An eGFR <60 mL/min/1.73m2 for >3 months is consistent with chronic kidney disease. Refer to KDOQI guidelines for clinical interpretation. In patients with unstable renal function, e.g. those with acute kidney injury, the eGFR may not accurately reflect actual GFR. Performed By: #### CBC, CMP, TSH, FT4, T3 #### [facility] [address] [address] TSH Collected: 06/18/2017 Status: F Source: [place] 1:17 PM [facility] REPOSITORY TYPE CODE TESTS RESULT OUT OF RANGE REFERENCE UNITS LAB TSH 0.400-5.500 uU/mL TSH 1.340 Performed By: #### CBC, CMP, TSH, FT4, T3 #### [address] [place] [address] FREE T4 Collected: 06/18/2017 Status: F Source: [place] 1:17 PM [facility] REPOSITORY TYPE CODE TESTS RESULT OUT OF RANGE REFERENCE UNITS LAB FT4 0.9-1.7 ng/dL Free T4 1.2 Performed By: #### CBC, CMP, TSH, FT4, T3 #### [address] [place] [address] T3 Collected: 06/18/2017 Status: F Source: [facility] 1:17 PM [facility] REPOSITORY TYPE CODE TESTS RESULT OUT OF RANGE REFERENCE UNITS LAB T3 79-165 ng/dL T3 125 Performed By: #### CBC, CMP, TSH, FT4, T3 #### [address] [place] [address] PROGRESS Observed: 06/17/2017 Status: COMPLETED Source: [place] 3:24 PM [facility] REPOSITORY HNO ID: [id number] Author: Margarito Spain Service: (none) Author Type: Physician Type: Progress Notes Filed: 06/17/2017 3:32 PM Note Text: CC: Brenden Giraldo is a 62 year old female who presents to the office for medication follow up HPI: In office 4 months ago, Right shoulder rotator cuff disease/ osteoarthritis, has been seeing Orthopedic surgeon, had rotator cuff repair about [address] Red[place], overall did well with surgery, completed outpatient PHYSICAL THERAPY ? Struggling with low back pain, sciatica left sided, intermittent, also with neck and thoracic spine, has diffuse OA changes, no weakness or falls, Also with b/l hand pain from her OA- has had several surgeries on right hand as well. Took tylenol with codeine with some pain relief without feeling wousy and without mental status changes. ? Also increased fibromyalgia pain recently due to weather changes as well. Currently She has been more stressed recently, had a situation with a renter in her basement apartment that was hoarding and not taking care of the property, he has been evicted, so she has been stressed with trying to afford getting more carpet, painting and replacement areas that needed fixed. She is stressed with trying to get it rented out again. No SI or HI. Thinks this may be contributing to her increased neck tension. Also admits to not regularly going to chiropractor or massage therapy recently due to financial constraints. She knows this would also help her tension headaches. Elevated BLOOD PRESSURE, has been overall very well controlled recently, thinks possibly related to recent stressors, no dizziness/LH or chest pains or palpitations or dyspnea Right thumb pain, diagnosed with dequervain's tenosynovitis. Trying to rest her thumb - triggered by all her painting recently. Neck and low back pain, improved with prn tylenol with codeine for flare ups, needing rx refilled. PAST MEDICAL HISTORY Diagnosis Date - Abnormality of colon 2001 abnormal movment of colon, removed 9 in from sigmoid colon - Allergic rhinitis, cause unspecified - Arthritis of right shoulder region corticosteroid injection last 12/18/15 - Atherosclerosis of right carotid artery 07/2016 - DDD (degenerative disc disease), cervical - Depression - Fibromyalgia - Hypertension - Meniere's disease - Mild atherosclerosis of left carotid artery 07/2016 - Mixed hyperlipidemia - Osteoarthritis - Rotator cuff tear right sided - TMJ disease chiropracter PAST SURGICAL HISTORY Procedure Laterality Date - ABDOMINOPLASTY 2006 - COLONOSCOPY 2008 - PART REMOVAL COLON W ANASTOMOSIS 08/04/01 Laparotomy,Hemicolectomy, left ovarian cyst - PAST SURGICAL HISTORY OF 1987 Hemorrhoidectomy - PAST SURGICAL HISTORY OF 2014 right hand surgery, fingers - REDUCTION OF LARGE BREAST 2004 - VAGINAL HYSTERECTOMY 1996 Hysterectomy, vaginal- partial Current Outpatient Prescriptions: acetaminophen-codeine (TYLENOL-CODEINE #3) 300-30 mg per tablet Take 1 tablet by mouth twice daily as needed for Pain for up to 30 days. cyclobenzaprine (FLEXERIL) 10 mg tablet Take 1 tablet by mouth twice daily as needed for Muscle Spasm. KLOR-CON M10 10 mEq tablet TAKE 1 TABLET BY MOUTH DAILY WITH BREAKFAST. Cholecalciferol, Vitamin D3, 2,000 unit cap Take 1 tablet by mouth once daily. Hydrochlorothiazide 12.5 mg capsule Take 1 capsule by mouth once daily. cyclobenzaprine (FLEXERIL) 10 mg tablet Take 1 tablet by mouth three times daily as needed. COMPOUNDED PRESCRIPTION Pt may use pool prn for muscle/joint pain Dx: M79.7 UBIDECARENONE (CO Q-10 ORAL) Take by mouth. simvastatin (ZOCOR) 40 mg tablet TAKE 1 TABLET EVERY DAY AT BEDTIME [place]-3 Fatty Acids-Vitamin E (FISH OIL) 1,000 mg cap Take 1 capsule by mouth. MULTI-VITAMIN ORAL Take by mouth. COMPOUNDED PRESCRIPTION Massage therapy eval and treat Dx: M79.7 No current facility-administered medications for this visit. ALLERGIES Allergen Reactions - Tramadol Other: See Comments Seizure disorder. - Ragweed Other: See Comments itchy watery eyes, sneezing, runny nose Social History Marital status: Single Spouse name: Years of education: Number of children: 2 Social History Main Topics Smoking status: Former Smoker Packs/day: 0.50 Years: 0.00 Types: Cigarettes Quit date: 11/16/1992 Smokeless status: Never Used Comment: quit in late Alcohol use: Yes Comment: rare Drug use: No ROS: See HPI PE: BP 144/100 Pulse 76 Temp (Src) 98.2 (Left Tympanic) Resp 16 Wt 141 lb (64.0kg) Gen: AANDOX3, NAD, non-toxic appearing HEENT: PERRLA, EOMs intact b/l, nares without drainage, pharynx without erythema, exudate, lesions, or drainage. Uvula midline. Neck: No LAD, no thyromegaly, no meningismus. + paraspinal muscle tension and poor ROM CV: RRR, no murmur Lungs: CTA b/l, no wheezing Skin: No rashes, lesions, or wounds on exposed skin. 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 Unintentional weight loss - ICD9: 783.21, ICD10: R63.4 (primary diagnosis) - labs as ordered, unknown cause - TSH BLD - T4 FREE/FREE THYROX - T3 BLD - CBC - COMP METABOLIC PANEL 2. DDD (degenerative disc disease), lumbar - ICD9: 722.52, ICD10: M51.36 Chronic low back pain - Warm moist heat for 20 min three times a day - NSAIDS- see orders - ACETAMINOPHEN 300 MG-CODEINE 30 MG TABLET 3. Arthritis of right shoulder region - ICD9: 716.91, ICD10: M19.011 - rx refilled, chronic - ACETAMINOPHEN 300 MG-CODEINE 30 MG TABLET OARRS website checked and validated. All prescriptions have been APPROPRIATELY filled. No suspicious activity was identified.- 06/17/2017 by Margarito Spain DO 4. Osteoarthritis of lumbar spine, unspecified spinal osteoarthritis complication status - ICD9: 721.3, ICD10: M47.816 - chronic, rx refilled, continue massage and chiropractic therapy as well - ACETAMINOPHEN 300 MG-CODEINE 30 MG TABLET 5. DDD (degenerative disc disease), cervical - ICD9: 722.4, ICD10: M50.30 - chronic, rx refilled, continue massage and chiropractic therapy as well - ACETAMINOPHEN 300 MG-CODEINE 30 MG TABLET 6. DJD (degenerative joint disease), cervical - ICD9: 722.4, ICD10: M50.30 - chronic, rx refilled, continue massage and chiropractic therapy as well - ACETAMINOPHEN 300 MG-CODEINE 30 MG TABLET 7. Tenosynovitis, de Quervain - ICD9: 727.04, ICD10: M65.4 - supportive care as d/w her today, use of thumb spica splint as needed, due to overuse Margarito Spain DO Return if no improvement. Follow up with Margarito Spain DO. Discussed risks, benefits, alternatives, and potential side effects of medications. Patient/Guardian expressed understanding and agreed with the plan. See patient instructions. Margarito Spain DO [address] [place] [address] CNOV Observed: 06/17/2017 Status: COMPLETED Source: [place] 2:00 PM [facility] REPOSITORY Office Visit (FAMPWS) BRENDEN GIRALDO ([id number]) 1955 F Date Time Provider Department 06/17/17 2:00 PM MARGARITO SPAIN During your visit today, we recorded the following information about you: Temperature Pulse Respiration Blood pressure 98.2 degrees 76/minute 16/minute 144/100 Weight 64 kg Margarito Spain DO 06/17/2017 3:32 PM Signed CC: Brenden Giraldo is a 62 year old female who presents to the office for medication follow up HPI: In office 4 months ago, Right shoulder rotator cuff disease/ osteoarthritis, has been seeing Orthopedic surgeon, had rotator cuff repair about [address] Redding, overall did well with surgery, completed outpatient PHYSICAL THERAPY ? Struggling with low back pain, sciatica left sided, intermittent, also with neck and thoracic spine, has diffuse OA changes, no weakness or falls, Also with b/l hand pain from her OA- has had several surgeries on right hand as well. Took tylenol with codeine with some pain relief without feeling wousy and without mental status changes. ? Also increased fibromyalgia pain recently due to weather changes as well. Currently She has been more stressed recently, had a situation with a renter in her basement apartment that was hoarding and not taking care of the property, he has been evicted, so she has been stressed with trying to afford getting more carpet, painting and replacement areas that needed fixed. She is stressed with trying to get it rented out again. No SI or HI. Thinks this may be contributing to her increased neck tension. Also admits to not regularly going to chiropractor or massage therapy recently due to financial constraints. She knows this would also help her tension headaches. Elevated BLOOD PRESSURE, has been overall very well controlled recently, thinks possibly related to recent stressors, no dizziness/LH or chest pains or palpitations or dyspnea Right thumb pain, diagnosed with dequervain's tenosynovitis. Trying to rest her thumb - triggered by all her painting recently. Neck and low back pain, improved with prn tylenol with codeine for flare ups, needing rx refilled. PAST MEDICAL HISTORY Diagnosis Date - Abnormality of colon 2001 abnormal movment of colon, removed 9 in from sigmoid colon - Allergic rhinitis, cause unspecified - Arthritis of right shoulder region corticosteroid injection last 12/18/15 - Atherosclerosis of right carotid artery 07/2016 - DDD (degenerative disc disease), cervical - Depression - Fibromyalgia - Hypertension - Meniere's disease - Mild atherosclerosis of left carotid artery 07/2016 - Mixed hyperlipidemia - Osteoarthritis - Rotator cuff tear right sided - TMJ disease chiropracter PAST SURGICAL HISTORY Procedure Laterality Date - ABDOMINOPLASTY 2006 - COLONOSCOPY 2008 - PART REMOVAL COLON W ANASTOMOSIS 08/04/01 Laparotomy,Hemicolectomy, left ovarian cyst - PAST SURGICAL HISTORY OF 1987 Hemorrhoidectomy - PAST SURGICAL HISTORY OF 2014 right hand surgery, fingers - REDUCTION OF LARGE BREAST 2004 - VAGINAL HYSTERECTOMY 1996 Hysterectomy, vaginal- partial Current Outpatient Prescriptions: acetaminophen-codeine (TYLENOL-CODEINE #3) 300-30 mg per tablet Take 1 tablet by mouth twice daily as needed for Pain for up to 30 days. cyclobenzaprine (FLEXERIL) 10 mg tablet Take 1 tablet by mouth twice daily as needed for Muscle Spasm. KLOR-CON M10 10 mEq tablet TAKE 1 TABLET BY MOUTH DAILY WITH BREAKFAST. Cholecalciferol, Vitamin D3, 2,000 unit cap Take 1 tablet by mouth once daily. Hydrochlorothiazide 12.5 mg capsule Take 1 capsule by mouth once daily. cyclobenzaprine (FLEXERIL) 10 mg tablet Take 1 tablet by mouth three times daily as needed. COMPOUNDED PRESCRIPTION Pt may use pool prn for muscle/joint pain Dx: M79.7 UBIDECARENONE (CO Q-10 ORAL) Take by mouth. simvastatin (ZOCOR) 40 mg tablet TAKE 1 TABLET EVERY DAY AT BEDTIME [place]-3 Fatty Acids-Vitamin E (FISH OIL) 1,000 mg cap Take 1 capsule by mouth. MULTI-VITAMIN ORAL Take by mouth. COMPOUNDED PRESCRIPTION Massage therapy eval and treat Dx: M79.7 No current facility-administered medications for this visit. ALLERGIES Allergen Reactions - Tramadol Other: See Comments Seizure disorder. - Ragweed Other: See Comments itchy watery eyes, sneezing, runny nose Social History Marital status: Single Spouse name: Years of education: Number of children: 2 Social History Main Topics Smoking status: Former Smoker Packs/day: 0.50 Years: 0.00 Types: Cigarettes Quit date: 11/16/1992 Smokeless status: Never Used Comment: quit in late Alcohol use: Yes Comment: rare Drug use: No ROS: See HPI PE: BP 144/100 Pulse 76 Temp (Src) 98.2 (Left Tympanic) Resp 16 Wt 141 lb (64.0kg) Gen: AANDamp;OX3, NAD, non-toxic appearing HEENT: PERRLA, EOMs intact b/l, nares without drainage, pharynx without erythema, exudate, lesions, or drainage. Uvula midline. Neck: No LAD, no thyromegaly, no meningismus. + paraspinal muscle tension and poor ROM CV: RRR, no murmur Lungs: CTA b/l, no wheezing Skin: No rashes, lesions, or wounds on exposed skin. Multiple deformities of hands including Duputreyns contractures right ANDgt;left and joint deformities b/l hands Restricted ROM of spine, antalgic gait No edema, normal pulses + Louisa's right thumb ASSESSMENT/PLAN: 1. Unintentional weight loss - ICD9: 783.21, ICD10: R63.4 (primary diagnosis) - labs as ordered, unknown cause - TSH BLD - T4 FREE/FREE THYROX - T3 BLD - CBC - COMP METABOLIC PANEL 2. DDD (degenerative disc disease), lumbar - ICD9: 722.52, ICD10: M51.36 Chronic low back pain - Warm moist heat for 20 min three times a day - NSAIDS- see orders - ACETAMINOPHEN 300 MG-CODEINE 30 MG TABLET 3. Arthritis of right shoulder region - ICD9: 716.91, ICD10: M19.011 - rx refilled, chronic - ACETAMINOPHEN 300 MG-CODEINE 30 MG TABLET OARRS website checked and validated. All prescriptions have been APPROPRIATELY filled. No suspicious activity was identified.- 06/17/2017 by Margarito Spain DO 4. Osteoarthritis of lumbar spine, unspecified spinal osteoarthritis complication status - ICD9: 721.3, ICD10: M47.816 - chronic, rx refilled, continue massage and chiropractic therapy as well - ACETAMINOPHEN 300 MG-CODEINE 30 MG TABLET 5. DDD (degenerative disc disease), cervical - ICD9: 722.4, ICD10: M50.30 - chronic, rx refilled, continue massage and chiropractic therapy as well - ACETAMINOPHEN 300 MG-CODEINE 30 MG TABLET 6. DJD (degenerative joint disease), cervical - ICD9: 722.4, ICD10: M50.30 - chronic, rx refilled, continue massage and chiropractic therapy as well - ACETAMINOPHEN 300 MG-CODEINE 30 MG TABLET 7. Tenosynovitis, de Quervain - ICD9: 727.04, ICD10: M65.4 - supportive care as d/w her today, use of thumb spica splint as needed, due to overuse Margarito Spain DO Return if no improvement. Follow up with Margarito Spain DO. Discussed risks, benefits, alternatives, and potential side effects of medications. Patient/Guardian expressed understanding and agreed with the plan. See patient instructions. Margarito Spain DO [address] [place] [address] Referring Provider: MARGARITO SPAIN [[id number]] Allergies As of Date: 06/17/2017 Noted Allergy Reaction TRAMADOL 12/16/2011 14 - Other: See Comments Comments: Seizure disorder. RAGWEED 10/16/2010 14 - Other: See Comments Comments: itchy watery eyes, sneezing, runny nose Date Reviewed: 06/17/2017 Reviewed by: Lilian Valenzuela LPN - Fully Assessed Reason for Visit: Follow Up [171] Cmt: 3 months Primary Visit Diagnosis:Unintentional weight loss [R63.4] Other Visit Diagnoses:DDD (degenerative disc disease), lumbar [M51.36] Arthritis of right shoulder region [M19.011] Osteoarthritis of lumbar spine, unspecified spinal osteoarthritis complication status [M47.816] DDD (degenerative disc disease), cervical [M50.30] DJD (degenerative joint disease), cervical [M50.30] Tenosynovitis, de Quervain [M65.4] Order(s):acetaminophen-codeine (TYLENOL-CODEINE #3) 300-30 mg per tabletTake 1 tablet by mouth twice daily as needed for Pain for up to 30 days.Disp: 60 tabletRfl: 2 TSH BLD [SQTSH] Order #: [id number] FUTURE T4 FREE/FREE THYROX [SQFT4] Order #: [id number] FUTURE T3 BLD [SQT3] Order #: [id number] FUTURE CBC [SQCBC] Order #: [id number] FUTURE COMP METABOLIC PANEL [SQCMP] Order #: [id number] FUTURE Prescriptions as of 06/17/2017 Sig: ACETAMINOPHEN 300 MG-CODEINE * Take 1 tablet by mouth twice * CYCLOBENZAPRINE 10 MG TABLET Take 1 tablet by mouth twice * KLOR-CON M10 MEQ TABLET,EXTEN* TAKE 1 TABLET BY MOUTH DAILY * CHOLECALCIFEROL (VITAMIN D3) * Take 1 tablet by mouth once d* HYDROCHLOROTHIAZIDE 12.5 MG C* Take 1 capsule by mouth once * CYCLOBENZAPRINE 10 MG TABLET Take 1 tablet by mouth three * COMPOUNDED PRESCRIPTION Pt may use pool prn for muscl* CO Q-10 ORAL Take by mouth. SIMVASTATIN 40 MG TABLET TAKE 1 TABLET EVERY DAY AT BE* [place]ME[place]-3 FATTY ACIDS-VITAMIN E* Take 1 capsule by mouth. MULTI-VITAMIN ORAL Take by mouth. COMPOUNDED PRESCRIPTION Massage therapy eval and rosanne* Problem List As Of Date 06/17/2017 Noted Resolved Hyperlipidemia [E78.5] INVALID FOR* Fibromyalgia [M79.7] INVALID FOR* Hypertension [I10] INVALID FOR* Rectocele [N81.6] INVALID FOR* Hemorrhoids [K64.9] INVALID FOR* Abdominal pain [R10.9] INVALID FOR* LGI bleed [K92.2] INVALID FOR* Pancreatitis [K85.90] INVALID FOR* Leukocytosis [D72.829] INVALID FOR* Vitamin B12 deficiency [E53.8] INVALID FOR* Temporomandibular joint disorders, unspecified *INVALID FOR* Cervicalgia [M54.2] INVALID FOR* Depression [F32.9] INVALID FOR* Vitamin D deficiency [E55.9] INVALID FOR* DDD (degenerative disc disease), lumbar [M51.36]INVALID FOR* Lumbar spondylosis [M47.816] INVALID FOR* Arthritis of right shoulder region [M19.011] INVALID FOR* Cervical strain [S16.1XXA] INVALID FOR* Myofascial pain [M79.1] INVALID FOR* Thoracic myofascial strain [S29.019A] INVALID FOR* Family history of colon cancer [Z80.0] INVALID FOR* Unspecified gastritis and gastroduodenitis with*INVALID FOR* Spondylosis of lumbar region without myelopathy*INVALID FOR* Left groin pain [R10.32] INVALID FOR* Atherosclerosis of right carotid artery [I65.21]INVALID FOR* Mild atherosclerosis of left carotid artery [I6*INVALID FOR* Mixed hyperlipidemia [E78.2] Osteoarthritis [M19.90] 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 Rotator cuff tear [M75.100] More... Meniere's disease [H81.09] DDD (degenerative disc disease), cervical [M50.* Allergic rhinitis [J30.9] Abnormality of colon [K63.9] INVALID FOR* More... Tenosynovitis, de Quervain [M65.4] INVALID FOR* DJD (degenerative joint disease), cervical [M50*INVALID FOR* Unintentional weight loss [R63.4] INVALID FOR* Prescriptions ordered this encounter Disp Refills Start End ACETAMINOPHEN 300 MG-CODEINE 30 MG T* 60 t* 2 06/17/2017 07/17/2017 Class: Print RX Route: ORAL Sig: Take 1 tablet by mouth twice daily as needed for Pain for up to 30 days. Medications Discontinued During This Encounter acetaminophen-codeine (TYLENOL-CODEI* 60 t* 2 01/30/2017 06/17/2017 Class: Print RX Route: ORAL Sig: Take 1 tablet by mouth twice daily as needed for Pain. Disc: Reason for discontinue is not on file. amitriptyline (ELAVIL) 50 mg tablet 04/18/2014 06/17/2017 Class: Historical Med Route: ORAL Sig: Take 12.5 mg by mouth daily at bedtime. 12.5 mg daily Disc: Reason for discontinue is not on file. Encounter Status:Closed by MARGARITO SPAIN DO on 06/17/17 ALLERGIES ALLERGIES DATE TYPE / CODE NAME / CODE REACTION SEVERITY SOURCE 03/09/2018 Drug tramadol/[id number] Other Unknown [facility] Allergy/416 4180(RXNORM) [facility] [id number]([facility] Repository ED CT) 12/16/2011 DRUG TRAMADOL OTHER: SEE C High [facility] INGREDI/[address] 190112(SNOM Repository ED CT) 10/16/2010 Environ/420 RAGWEED OTHER: SEE C [facility] [id number]([facility]) Repository ENCOUNTERS ENCOUNTERS ADMIT/DISCHARGE ACCOUNT ADMITTING ENCOUNTER LOCATION SOURCE NUMBER CLASS 03/31/2018/04/05/19 [id number] Ambulatory [place] [facility] Repository 03/16/2018/03/16/20 [id number] Ambulatory [place] [address] ing:SDCRoom: Repository AC03 02/02/2018/02/03/20 [id number] Ambulatory [address] [facility] Repository 02/02/2018/02/04/20 [id number] Ambulatory [address] [facility] Repository 01/22/2018/01/26/20 [id number] Ambulatory [address] [facility] Repository 01/11/2018/01/13/20 [id number] Ambulatory [address] [facility] 01/07/2018/01/09/20 [id number] Ambulatory [address] [facility] Rep[facility] 01/06/2018/01/07/20 [id number] Ambulatory [address] [facility] 01/06/2018/01/08/20 [id number] Ambulatory [address] [facility] 01/04/2018 [id number] Ambulatory [facility] Repository 01/04/2018/01/05/20 [id number] Ambulatory [address] [facility] Repository 12/25/2017/12/26/19 [id number] MARY BETH, Ambulatory [address] [facility] Repository 12/21/2017/12/22/19 [id number] Ambulatory [address] [facility] 12/21/2017/12/23/19 [id number] Ambulatory [address] [facility] Rep[facility] 12/19/2017/12/20/19 [id number] Ambulatory [address] [facility] 12/07/2017/12/08/19 [id number] Ambulatory [address] [facility] 12/07/2017/04/18/19 [id number] Ambulatory [address] [facility] Repository 12/07/2017/12/09/19 [id number] Ambulatory [place] [facility] Repository 12/06/2017/12/07/19 [id number] Emergency Ivetteoh Steele [address] [facility] ing:ED Repository 11/03/2017 [id number] Ambulatory BMSBuilding:Ari Steele MS[facility] Repository 10/28/2017/03/11/20 [id number] Ambulatory [address] Repository 09/18/2017/09/23/19 [id number] Ambulatory [address] Repository 07/10/2017/07/14/19 [id number] Ambulatory [address] Repository 06/18/2017/06/19/19 [id number] Ambulatory [address] Repository 06/17/2017/06/19/19 [id number] Ambulatory [address] Repository PAYERS PAYERS ENCOUNTER GUARANTOR PAYER SUBSCRIBER SOURCE 03/16/2018 BRENDEN [id number] Insurance:HUMANA CARAFELLIDOB: Community [employer] [id number] Repository [id number]: 330 [id number] [phone] () Date:[id number] [address]LC: 03/16/2018 Secondary NOT GIVENUNK [facility] Insurance:SELF PAY [facility] Number: Effective Repository Date:2018-02-26 12/06/2017 BRENDEN [id number] Insurance:HUMANA CARAFELLIDOB: Community [employer] PP[place]icy [id number] Number: Repository [id number]: 330 [id number] [phone] () Date:[id number] [address]GJ: 12/06/2017 Secondary NOT GIVENUNK [facility] Insurance:SELF PAY [facility] Number: Effective Repository Date:2017-12-06 11/03/2017 BRENDEN [id number] Insurance:HUMANA CARAFELLIDOB: Community [employer] PP[place]icy [id number] Number: Repository [id number]: [phone] [id number] [phone] () Date:[id number] [address], [place] [address]RE: 11/03/2017 Secondary NOT GIVENUNK Ivette Insurance:SELF PAY [facility] Effective Repository Date:2017-10-20
== END 2018-03-16 14:03 | disposition home or self-care (01) ==
LOC: SDC 09:50 → AC 09:55
PROVIDERS: Family Provider Student in an Organized Health Care Education/Training Program; PCP Student in an Organized Health Care Education/Training Program; Referring Provider Urology; Visit Provider Urology
PROC: 0TBB8ZX Excision of Bladder, Via Natural or Artificial Opening Endoscopic, Diagnostic (ICD-10-PCS; CPT 52204; principal; 2018-03-16 11:35)
DX: D41.4 Neoplasm of uncertain behavior of bladder (principal); R35.0 Frequency of micturition; E78.00 Pure hypercholesterolemia, unspecified; K21.9 Gastro-esophageal reflux disease without esophagitis; N39.41 Urge incontinence; R10.2 Pelvic and perineal pain; N90.5 Atrophy of vulva; K59.04 Chronic idiopathic constipation; N95.2 Postmenopausal atrophic vaginitis; Z87.891 Personal history of nicotine dependence
CPT/HCPCS: 00910; 52204; 36415; 80048; 80076; 85027; 85610; 85730; 88305; J7120; J2405

== ENCOUNTER → 2018-07-27 16:43 | Outpatient (CLI) | payer MEDICARE, SELFPAY ==
[2018-08-05 15:44] LABS: Immunoglobulin E 2 IU/mL (6-495)
[2018-08-06 03:06] LABS: Almond <0.10 kU/L (Class 0); Apple <0.10 kU/L (Class 0); Banana <0.10 kU/L (Class 0); Barley, Whole Grain <0.10 kU/L (Class 0); Beef <0.10 kU/L (Class 0); Brazil Nut <0.10 kU/L (Class 0); Carrot <0.10 kU/L (Class 0); Cashew <0.10 kU/L (Class 0); Chicken <0.10 kU/L (Class 0); Clam <0.10 kU/L (Class 0); Codfish <0.10 kU/L (Class 0); Crab <0.10 kU/L (Class 0); Egg, White <0.10 kU/L (Class 0); Egg, Whole <0.10 kU/L (Class 0); Egg, Yolk <0.10 kU/L (Class 0); Garlic <0.10 kU/L (Class 0); Gluten <0.10 kU/L (Class 0); Hazelnut/Filbert <0.10 kU/L (Class 0); Lobster <0.10 kU/L (Class 0); Milk (Cow) <0.10 kU/L (Class 0); Oat <0.10 kU/L (Class 0); Onion <0.10 kU/L (Class 0); Orange <0.10 kU/L (Class 0); Pea <0.10 kU/L (Class 0); Pecan <0.10 kU/L (Class 0); Pork <0.10 kU/L (Class 0); Potato, White <0.10 kU/L (Class 0); Rice <0.10 kU/L (Class 0); SESAME SEED <0.10 kU/L (Class 0); Salmon <0.10 kU/L (Class 0); Shrimp <0.10 kU/L (Class 0); Soybean <0.10 kU/L (Class 0); Strawberry <0.10 kU/L (Class 0); Tomato <0.10 kU/L (Class 0); Tuna <0.10 kU/L (Class 0); Walnut, (Food) <0.10 kU/L (Class 0); Wheat <0.10 kU/L (Class 0); Yeast <0.10 kU/L (Class 0)
[2018-08-06 11:39] LABS: Peanut <0.10 kU/L (Class 0); Turkey <0.10 kU/L (Class 0)
== END ==
PROVIDERS: Family Provider Student in an Organized Health Care Education/Training Program; PCP Student in an Organized Health Care Education/Training Program; Referring Provider Otolaryngology Otolaryngology/Facial Plastic Surgery; Visit Provider Otolaryngology Otolaryngology/Facial Plastic Surgery
DX: T78.40XA Allergy, unspecified, initial encounter (principal)
CPT/HCPCS: 36415; 82785; 86003

== ENCOUNTER 2018-08-16 22:42 | Emergency (ER) | payer MEDICARE, SELFPAY ==
[2018-08-16 22:43] VITALS: BP 160/117; PULSE 99; RESP 16; TEMP 37; O2SAT 96; BMI 24.8
[2018-08-16] MEDS: HYDROmorphone 1 MG/ML Syringe IV (23:09)
[2018-08-16] MEDS: Orphenadrine 60 MG/2 ML Ampul IM (23:09)
[2018-08-17] MEDS: Ketorolac 30 MG/ML Syringe IV (00:03)
[2018-08-17] MEDS: HYDROmorphone 1 MG/ML Syringe IV (00:04)
--- NOTE | 2018-08-17 01:12 | ED.RN ---
PATIENT WAS ASSISTED OUT OF BED AND WALKED TO THE BATHROOM WITH STAND BY ASSIST. PT TOLERATED WITH MILD PAIN. PT WAS THEN ASSISTED BACK TO BED FROM BATHROOM WITH OUTPATIENT PSYCHIATRIST. PT TOLERATED WELL. PT NOW REQUESTING TO BE ADMITTED TO HOSPITAL SHE DOESN'T HAVE A RIDE HOME AND SHE IS AFRAID THE PAIN WILL RETURN WHEN SHE GETS HOME. PT REQUESTING TO SPEAK TO PHYSICIAN. PHYSICIAN NOTIFIED
--- NOTE | 2018-08-17 01:31 | ED.VISSUMM ---
- ER Visit Summary Date of Service: 08/17/18 Chief Complaint: Back pain History of Present Illness: The patient is a 63 F with a history of back pain, degenerative disc disease, osteoarthritis, and fibromyalgia. She presents today with lower back pain. The pain is across her lower back but worse on the left side. Worse with movement. Nothing seemed to bring it on. It feels like back spasms that she had in the past. Denies any trauma. Denies any history of back surgery. Denies any fever or neurologic symptoms like weakness, numbness, or bowel or bladder changes. Denies any history of immunocompromise or current treatment for cancer. Physical Examination: Afebrile and vital signs unremarkable except for a blood pressure of 160/117. Patient has bilateral lumbar paraspinal muscle tenderness, worse on the left side. Straight leg raise negative. Neurovascular intact distally. Skin appears normal. Abdomen soft. The remainder of her exam is unremarkable. Test Results: None performed Emergency Department Course and Treatment: Patient presents with myofascial back pain. Nothing to suggest GI, , MARKETING AND OUTREACH COORDINATOR, or vascular cause. Nothing to suggest infection. Imaging or diagnostic testing was not indicated. Patient was treated with Dilaudid and Norflex. On reevaluation, she had minimal improvement. She received additional dose of Dilaudid as well as Toradol. On reevaluation, patient was able to ambulate without assistance. Patient began to complain of dehydration. She said she gave blood earlier today. Patient actually had blood testing performed. Her vital signs and exam are not consistent with dehydration. She continued to complain of dehydration and requested IV fluids to help her feel better. Patient received a bolus of normal saline. At this point, I do not believe that any further emergent evaluation is indicated. I believe the patient is appropriate for outpatient care. She is already on Tylenol 3 with codeine, and so further narcotics will not be prescribed. She was prescribed Flexeril. She will follow-up with her primary care doctor. Treatment Plan: As above Disposition: Discharge Impression: 1. Lumbar back pain This note was generated with Carsabi dictation software. It may contain incorrect words, spelling, and punctuation that were not noted in review of the chart prior to signing ED Disposition - Plan for ED Patient: Referrals: Margarito Spain DO [Primary Care Provider] -
--- NOTE | 2018-08-17 01:36 | ED.DCSUM_ITS ---
- ER Visit Summary Date of Service: 08/17/18 Chief Complaint: Back pain History of Present Illness: The patient is a 63 F with a history of back pain, degenerative disc disease, osteoarthritis, and fibromyalgia. She presents today with lower back pain. The pain is across her lower back but worse on the left side. Worse with movement. Nothing seemed to bring it on. It feels like back spasms that she had in the past. Denies any trauma. Denies any history of back surgery. Denies any fever or neurologic symptoms like weakness, numbness, or bowel or bladder changes. Denies any history of immunocompromise or current treatment for cancer. Physical Examination: Afebrile and vital signs unremarkable except for a blood pressure of 160/117. Patient has bilateral lumbar paraspinal muscle tenderness, worse on the left side. Straight leg raise negative. Neurovascular intact d istally. Skin appears normal. Abdomen soft. The remainder of her exam is unremarkable. Test Results: None performed Emergency Department Course and Treatment: Patient presents with myofascial back pain. Nothing to suggest GI, , FORENSIC COMPUTER EXAMINER, or vascular cause. Nothing to suggest infection. Imaging or diagnostic testing was not indicated. Patient was treated with Dilaudid and Norflex. On reevaluation, she had minimal improvement. She received additional dose of Dilaudid as well as Toradol. On reevaluation, patient was able to ambulate without assistance. Patient began to complain of dehydration. She said she gave blood earlier today. Patient actually had blood testing performed. Her vital signs and exam are not consiste nt with dehydration. She continued to complain of dehydration and requested IV fluids to help her feel better. Patient received a bolus of normal saline. At this point, I do not believe that any further emergent evaluation is indicated. I believe the patient is appropriate for outpatient care. She is already on Tylenol 3 with codeine, and so further narcotics will not be prescribed. She was prescribed Flexeril. She will follow-up with her primary care doctor. Treatment Plan: As above Disposition: Discharge Impression: 1. Lumbar back pain This note was generated with Hoppitation software. It may contain incorrect words, spelling, and punctuation that were not noted in review of the chart prior to signing ED Disposition - Plan for ED Patient: Referrals: Margarito Spain DO [Primary Care Provider] -
--- NOTE | 2018-08-17 01:36 | ED.DEP ---
ED Disposition - Plan for ED Patient: Instructions: ED Spasm Back No Trauma Prescriptions: Cyclobenzaprine [Flexeril] 10 mg PO TID PRN #20 tab PRN Reason: Muscle Spasm Referrals: Margarito Spain DO [Primary Care Provider] -
[2018-08-17 02:12] VITALS: BP 155/75; PULSE 85; RESP 12; O2SAT 99
--- NOTE | 2018-08-17 02:13 | ED.RN ---
PT D/C, RECEIVED D/C INSTRUCTIONS, IV D/C. PT RESTING IN ED BED WHILE SHE WAITS ON RIDE
== END 2018-08-17 02:13 | disposition home or self-care (01) ==
LOC: ED 23:11
PROVIDERS: Emergency Provider Emergency Medicine; Family Provider Student in an Organized Health Care Education/Training Program; PCP Student in an Organized Health Care Education/Training Program
DX: M54.5 Low back pain (principal); K59.00 Constipation, unspecified; K21.9 Gastro-esophageal reflux disease without esophagitis; E78.00 Pure hypercholesterolemia, unspecified; Z87.891 Personal history of nicotine dependence; M79.7 Fibromyalgia
CPT/HCPCS: 96372; 96374; 96375; 96376; 99284; J7040; A4216

== ENCOUNTER 2018-08-17 06:10 | Observation (INO) | payer MEDICARE, SELFPAY ==
[2018-08-16 22:43] VITALS: BMI 24.8
[2018-08-17 06:10] VITALS: BP 145/77; PULSE 81; RESP 17; TEMP 36.8; O2SAT 99; BMI 23.8
--- NOTE | 2018-08-17 06:18 | RAD_ITS ---
STUDY: X-RAY - LUMBAR SPINE REASON FOR EXAM: Female, 63 years old. Back pain. No known injury. TECHNIQUE: 3 view(s) of the lumbar spine were obtained. COMPARISON: CT scan abdomen and pelvis 12/06/2017. FINDINGS: Normal lumbar lordosis. There is no substantial scoliosis. There is grade 1 anterolisthesis at the L4-5 level, on a chronic degenerative basis. There is a very mild wedge-shaped deformity of the L3 vertebral body which is chronic. There is multilevel spondylosis. There is multi-level degenerative disc disease with multi-level disc space narrowing. The soft tissue structures are unremarkable. RAD/Lumbar Spine 2 or 3 Views IMPRESSION: Degenerative changes of the spine, as detailed above. Mild wedge-shaped deformity of the L3 vertebral body is chronic and stable in appearance. No evidence for acute fracture. Electronically Signed: Holden Leal MD at 7:14 EDT , Service support ,
[2018-08-17] MEDS: HYDROmorphone 1 MG/ML Syringe IV (06:29)
[2018-08-17 06:33] VITALS: RESP 16
[2018-08-17 06:48] LABS: Bacteria 0 SEEN /hpf (None Seen); Mucous, Urine 0 SEEN /hpf (<or=2+)
[2018-08-17 06:56] LABS: Color, Urine Yellow (Yellow); Glucose, Dipstick Normal (Normal); Ketone-Dipstick Negative (Negative); Leukocyte Esterase-Dipstick 100 /ul (Negative); Nitrite-Dipstick Negative (Negative); Occult Blood-Urine 150 /ul (Negative); Protein-Dipstick Negative (Negative); Urine Bilirubin Dipstick Negative (Negative); Urine Clarity Clear (Clear); Urine Urobilinogen Normal (Normal)
[2018-08-17 06:57] LABS: Red Blood Cells-Urine 5-10 SEEN /hpf (0-5); Squamous Epithelial Cells - UA 5-10 SEEN /hpf (5-10); White Blood Cells 5-10 SEEN /hpf (0-5)
[2018-08-17 06:58] LABS: Absolute Lymphocyte Count 3.67 X10^3/ul (0.83-4.51); Absolute Neutrophil Count 4.1 X10^3/uL (2.0-7.7); Basophil# 0.03 X10^3/uL; Basophil% 0.3 % (0-1); Eosinophil# 0.05 X10^3/uL; Eosinophils% 0.6 % (0-5); Hematocrit 42.2 % (37-47); Hemoglobin 14.4 g/dl (12.0-15.0); Lymphocyte # 3.67 X10^3/ul (4.0); Lymphocyte % 42.7 % (19-41); Mean Corp Hgb Conc 34.1 g/gl (32-36); Mean Corpuscular Hgb 30.5 pg (27.0-32.0); Mean Corpuscular Volume 89.4 fL (81-99); Monocyte# 0.77 X10^3/uL; Neutrophil # 4.06 X10^3/uL (2.7-7.7); Neutrophil % 47.2 % (47-70); POSITIVE COUNT NO; POSITIVE DIFFERENTIAL NO; POSITIVE MORPHOLOGY NO; Platelet Count 257 K/mm3 (150-450); RBC Distribution Width CV 12.3 % (11.6-14.6); RBC Distribution Width SD 40.3 fl (35.1-43.9); Red Blood Count 4.72 M/mm3 (4.2-5.4); White Blood Count 8.6 K/mm3 (4.4-11.0)
--- NOTE | 2018-08-17 07:02 | ED.VISSUMM ---
- ER Visit Summary Date of Service: 08/17/18 Chief Complaint: Back pain History of Present Illness: The patient is a 63 F with low back pain. Symptoms started yesterday around 3 PM. They came on gradually. They felt like a spasm. The pain was worse on the left more than the right. Patient has a history of back spasms, fibromyalgia, degenerative disc disease, and osteoarthritis. She denies any trauma or inciting events, but the pain is worse with movement. She normally takes Tylenol 3 with codeine, but nothing seems to help. She was seen in the ED overnight last night and had multiple rounds of medication. She was able to ambulate. She was discharged from the ED, but did not have a ride home. She rested in the ED overnight. This morning, she tried to get up, and she is unable to ambulate, stand, or bear weight. Patient denies any GI, symptoms. No weakness or numbness. No traumas. No history of back surgery. No fevers. Physical Examination: Afebrile and vital signs unremarkable. Alert and oriented. Appears uncomfortable. Head and neck atraumatic and unremarkable. Heart regular. Lungs clear. Abdomen soft. Patient has bilateral lumbar tenderness, worse on the left side. Straight leg raise negative. Good strength and sensation, symmetric. Neurovascularly intact distally. Skin appears normal in color. Test Results: Lumbar x-rays pending. CBC and BMP pending. Urinalysis shows 5-10 white cells, 5-10 red cells, and 5-10 epithelial cells. Emergency Department Course and Treatment: Patient returns for intractable back pain. She is unable to ambulate. IV was placed. She was treated with 1 mg of Dilaudid. She did have muscle relaxers and Toradol earlier in the evening. I checked some basic labs, urinalysis, and lumbar x-rays. I have low suspicion for fracture or other spinal pathology. I believe this is myofascial pain. Results are pending, but because of her inability to ambulate and her intractable pain, hospitalist was contacted for admission. Treatment Plan: As above Disposition: Admission Impression: 1. Intractable lumbar back pain This note was generated with InVivo Therapeuticsation software. It may contain incorrect words, spelling, and punctuation that were not noted in review of the chart prior to signing ED Disposition - Plan for ED Patient: Referrals: Margarito Spain DO [Primary Care Provider] -
[2018-08-17 07:03] LABS: Anion Gap 7 (5-15); BUN 14 mg/dL (7-18); Calcium,Total 8.8 mg/dL (8.5-10.1); Chloride 105 mmol/L (98-107); Creatinine, Serum 0.78 mg/dL (0.55-1.02); EST Glomerular Filtration Rate 79 mL/min (>60); Est Glom Filt Rate - Afr Amer 96 mL/min (>60); Estimated Creatinine Clearance 57.63 ml/min; Glucose 99 mg/dL (74-106); Potassium 3.4 mmol/L (3.5-5.1); Sodium Level 138 mmol/L (136-145)
--- NOTE | 2018-08-17 07:06 | ED.DCSUM_ITS ---
- ER Visit Summary Date of Service: 08/17/18 Chief Complaint: Back pain History of Present Illness: The patient is a 63 F with low back pain. Symptoms started yesterday around 3 PM. They came on gradually. They felt like a spasm. The pain was worse on the left more than the right. Patient has a history of back spasms, fibromyalgia, degenerative disc disease, and osteoarthritis. She denies any trauma or inciting events, but the pain is worse with movement. She normally takes Tylenol 3 with codeine, but nothing seems to help. She was seen in the ED overnight last night and had multiple rounds of medication. She was able to ambulate. She was discharged from the ED, but did not have a ride home. She rested in the ED overnight. This morning, she tried to get up, and she is unable to ambulate, stand, or bear weight. Patient denies any GI, symptoms. No weakness or numbness. No traumas. No history of back surgery. No fevers. Physical Examination: Afebrile and vital signs unremarkable. Alert and oriented. Appears uncomfortable. Head and neck atraumatic and unremarkable. Heart regular. Lungs clear. Abdomen soft. Patient has bilateral lumbar tenderness, worse on the left side. Straight leg raise negative. Good strength and sensation, symmetric. Neurovascularly intact distally. Skin appears normal in color. Test Results: Lumbar x-rays pending. CBC and BMP pending. Urinalysis shows 5- 10 white cells, 5-10 red cells, and 5-10 epithelial cells. Emergency Department Course and Treatment: Patient returns for intractable back pain. She is unable to ambulate. IV was placed. She was treated with 1 mg of Dilaudid. She did have muscle relaxers and Toradol earlier in the evening. I checked some basic labs, urinalysis, and lumbar x-rays. I have low suspicion for fracture or other spinal pathology. I believe this is myofascial pain. Results are pending, but because of her inability to ambulate and her intractable pain, hospitalist was contacted for admission. Treatment Plan: As above Disposition: Admission Impression: 1. Intractable lumbar back pain This note was generated with [employer] software. It may contain incorrect words, spelling, and punctuation that were not noted in review of the chart prior to signing ED Disposition - Plan for ED Patient: Referrals: Margarito Spain DO [Primary Care Provider] -
--- NOTE | 2018-08-17 07:57 | HP.PCM_ITS ---
History of Present Illness Date of Admission: 08/17/18 Chief Complaint: intractable back pain The patient is a 63 year old F with past medical history of degenerative disc disease, arthritis, Meniere's disease and fibromyalgia. She was admitted through the ED on 08/17/2018 with a complaint of low back pain and spasm. Symptoms are started on the day of admission. She initially responded to pain meds in the ED and felt better but she could not get it right home interested in the ED overnight. However in the morning of day of admission, patient's back pain had recurred and she was unable to weight-bear. She denied any tingling or numbness or bowel or urinary incontinence. Vitals were unremarkable and a CBC was also unremarkable. BMP was only significant for potassium of 3.4. Lumbar spine x-ray showed degenerative changes of the spine with mild wedge-shaped deformity of the L3 vertebral body which is chronic and stable in appearance and no evidence of acute fracture. She had no associated fever or chills as well. She was admitted to be managed for intractable back pain. [] Past Medical History Past Medical History (Chronic Problems): Chronic Problems Irritable colon (Chronic) Depression (Chronic) Arthritis (Chronic) Anxiety (Chronic) Allergies tramadol Allergy (Verified 08/17/18 06:15) Other SEIZURE Home Medications: Ambulatory Orders Medication Instructions Recorded Hydrochlorothiazide [Hctz] 12.5 mg PO DAILY PRN 09/05/16 Simvastatin [Zocor] 20 mg PO QHS 09/05/16 Acetaminophen with Codeine 1 each PO TID 12/06/17 [Acetaminophen-Cod #3 Tablet] Cholecalciferol (VIT D3) [Vitamin 2,000 unit PO DAILY 12/06/17 D3] Cyclobenzaprine [Flexeril] 10 mg PO TID PRN PRN 12/06/17 Ondansetron [Zofran Odt] 4 mg PO Q8H PRN PRN #10 tab 12/06/17 Ascorbic Acid [Vitamin C] 250 mg PO MOWEFRSA PRN 03/09/18 B Infantis/B Ani/B Francois/B Bifid 1 each PO DAILY 03/09/18 [Probiotic 4X Caplet] Co Q10 200 [Co Q-10] 100 mg PO PRN PRN 03/09/18 Magnesium 250 mg PO MOWEFRSA PRN 03/09/18 Potassium Chloride [Klor-Con M20] 20 meq PO DAILY 03/09/18 Famotidine [Pepcid] 20 mg PO BID 08/16/18 Hyoscyamine Sulfate 0.125 mg PO TID PRN 08/16/18 Buspirone HCl 1 tab PO TID PRN 08/17/18 Surgical History: colectomy Psychiatric History: No pertinent psych hx 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 Denies: Chills, Fever, Weight Change, Fatigue Eyes: Denies: Blurred vision HEENT: Denies: Head Aches, Sinus Congestion, Sinus Drainage Cardiovascular: Denies: Chest Pain, Palpitations Respiratory: Denies: Cough, Shortness of Breath, Shortness of breath at rest, Shortness of breath upon exertion, Sputum production Gastrointestinal: Denies: Abdominal Pain, Nausea, Vomiting Genitourinary: Denies: Dysuria Musculoskeletal: Reports: Back Pain. Denies: Foot Pain, Hand Pain, Joint Pain, Joint swelling, Joint Tenderness, Leg Pain, Muscle pain, Neck Pain, Shoulder Pain Skin: Denies: Rash, Wounds Neurological: Denies: Numbness, Tingling, Focal weakness Psychiatric: Denies: Anxiety, Depression, Homicidal Ideations, Suicidal Ideations Hematologic/ Lymphatic: Denies: Easy Bruising, Easy Bleeding VTE Information - Inpt Only VTE Present on Admission: No VTE Pharm Prophylaxis ordered?: Yes - Physical Exam General: Alert, Oriented x3, Cooperative, No apparent distress, Lethargic HEENT: Atraumatic, PERRLA, EOMI, Normocephalic Oral: Moist Mucosa Neck: Supple, No JVD, Negative Carotid Bruits Lungs: Clear to auscultation, Normal air movement, No rhonchi, No wheeze, No rales Cardiovascular: Regular rate, Regular Rhythm, Normal S1, Normal S2, No murmurs Abdomen: Bowel Sounds Present, Soft, Non Tender Extremities: No clubbing, No cyanosis, No edema, Capillary Refill Less than 3 Seconds Skin: No rashes, No breakdown Musculoskeletal: Tenderness - mild tenderness on palpation of lower back and paraspinal muscles Lymphatic: No Cervical, Supraclavicular, or Inguinal Adenopathy Neurological: Cranial nerves II-XII grossly intact Psych/Mental Status: Normal Affect, Alert and oriented to time, place, person, mood and affect Vital Signs Temp Pulse Resp BP Pulse Ox 98.3 F 81 16 145/77 H 99 08/17/18 06:10 08/17/18 06:10 08/17/18 06:33 08/17/18 06:10 08/17/18 06:10 Oxygen Delivery Method Room Air Weight: 130 lb Body Mass Index (BMI) 23.8 Laboratory Tests Past 24 Hrs 08/17/18 08/17/18 08/17/18 06:30 06:30 06:40 WBC 8.6 RBC 4.72 Hgb 14.4 Hct 42.2 MCV 89.4 MCH 30.5 MCHC 34.1 RDW 12.3 RDW Differential 40.3 Plt Count 257 MPV 10.0 Immature Gran % (Auto) 0.200 Neut % (Auto) 47.2 Lymph % (Auto) 42.7 H [place] % (Auto) 9.0 Eos % (Auto) 0.6 Baso % (Auto) 0.3 Absolute Neuts (auto) 4.1 Absolute Lymphs (auto) 3.67 Total Counted Not Reportable Sodium 138 Potassium 3.4 L Chloride 105 Carbon Dioxide 26.0 Anion Gap 7 BUN 14 Creatinine 0.78 Estim Creat Clear Calc 57.63 Est GFR (MDRD) Af Amer 96 Est GFR (MDRD) Non-Af 79 BUN/Creatinine Ratio 18.0 Glucose 99 Calcium 8.8 Urine Color Yellow Urine Clarity Clear Urine pH 5.0 Ur Specific [place] 1.020 Urine Protein Negative Urine Glucose (UA) Normal Urine Ketones Negative Urine Occult Blood 150 H Urine Nitrite Negative Urine Bilirubin Negative Urine Urobilinogen Normal Ur Leukocyte Esterase 100 H Urine RBC 5-10 SEEN Urine WBC 5-10 SEEN Ur Squamous Epith Cells 5-10 SEEN Urine Bacteria 0 SEEN Urine Mucus 0 SEEN Diagnostic Data Lumbar Spine X-Ray 08/17/18 06:18 IMPRESSION: Degenerative changes of the spine, as detailed above. Mild wedge-shaped deformity of the L3 vertebral body is chronic and stable in appearance. No evidence for acute fracture. Electronically Signed: Holden Leal MD at 7:14 EDT , Service support , Assessment/Plan All Active Problems Erythematous bladder mucosa (Acute) Urgency of urination (Acute) Frequency of urination (Acute) 63 y/o admitted with a complaint of back pain 1. Intractable back pain due to degenerative disk disease and arthritis * Pain had improved at time of review she had been given pain meds. * X-ray of the lumbar spine showed degenerative disc disease with grade 1 anterolisthesis of L4-L5 level and mild wedge-shaped deformity of the L3 vertebral body which is chronic and stable and no evidence of acute fracture. * Admit to MedSurg. * IV morphine 2 mg every 3 hours as needed as well as Tylenol to control pain. * Consult PT OT * 2. Hypokalemia: Potassium is 3.4. Will replace and monitor. 3. Debility due to intractable back pain * As under 1. * 4. M?ni?re's disease: Stable. On hydrochlorothiazide. 5. Hyperlipidemia: On statin. 6. Fibromyalgia: On Flexeril 7. Irritable bowel syndrome: Ascorbic acid DVT prophylaxis: Lovenox Code Visit OBSV E&M: 44667 Initial observation care L3
[2018-08-17 08:13] VITALS: BP 137/75; PULSE 70; RESP 16; O2SAT 98
[2018-08-17 08:33] VITALS: BP 115/78; PULSE 66; RESP 16; TEMP 36.6; O2SAT 96; BMI 23.6
[2018-08-17] MEDS: Morphine 2 MG/ML Syringe IV ×3 (10:17→16:20)
[2018-08-17] MEDS: Famotidine 20 MG Tablet PO ×2 (10:17→22:09)
[2018-08-17] MEDS: Enoxaparin 40 MG/0.4 ML Syringe SC (10:17)
[2018-08-17] MEDS: 0.9% Normal Saline 1,000 ML 75 ML IV (10:18)
[2018-08-17] MEDS: Acetaminophen/Codeine #3 Tablet 1 TABLET PO ×2 (13:10→22:10)
[2018-08-17 16:00] VITALS: BP 122/77; PULSE 68; RESP 16; TEMP 37.1; O2SAT 99
[2018-08-17] MEDS: Ketorolac 15 MG/ML Vial IV (20:33)
[2018-08-17] MEDS: 0.9% NaCl Peripheral Flush Adult/Peds IV (20:35)
[2018-08-17] MEDS: Atorvastatin Calcium 10 MG Tablet PO (22:09)
[2018-08-17] MEDS: Docusate Sodium 100 MG Capsule 200 MG PO (22:09)
[2018-08-17 22:14] VITALS: BP 105/63; PULSE 59; RESP 16; TEMP 36.3; O2SAT 96
[2018-08-18 04:00] VITALS: BP 133/65; PULSE 73; RESP 16; TEMP 36.6; O2SAT 96
[2018-08-18] MEDS: Acetaminophen/Codeine #3 Tablet 1 TABLET PO ×2 (06:06→15:19)
[2018-08-18 06:18] LABS: Absolute Lymphocyte Count 2.64 X10^3/ul (0.83-4.51); Absolute Neutrophil Count 3.2 X10^3/uL (2.0-7.7); Basophil# 0.04 X10^3/uL; Basophil% 0.6 % (0-1); Eosinophil# 0.08 X10^3/uL; Eosinophils% 1.2 % (0-5); Hematocrit 39.5 % (37-47); Hemoglobin 13.1 g/dl (12.0-15.0); Lymphocyte # 2.64 X10^3/ul (4.0); Lymphocyte % 40.4 % (19-41); Mean Corp Hgb Conc 33.2 g/gl (32-36); Mean Corpuscular Hgb 30.5 pg (27.0-32.0); Mean Corpuscular Volume 91.9 fL (81-99); Mean Platelet Vol. 10.2 fl (6.2-12.0); Monocyte# 0.56 X10^3/uL; Monocyte% 8.6 % (0-10); Neutrophil % 48.9 % (47-70); POSITIVE COUNT NO; POSITIVE DIFFERENTIAL NO; POSITIVE MORPHOLOGY NO; Platelet Count 215 K/mm3 (150-450); RBC Distribution Width CV 12.4 % (11.6-14.6); RBC Distribution Width SD 40.8 fl (35.1-43.9); White Blood Count 6.5 K/mm3 (4.4-11.0)
[2018-08-18 06:52] LABS: Anion Gap 7 (5-15); BUN 14 mg/dL (7-18); BUN/Creat Ratio 20.3 RATIO (10-20); Calcium,Total 8.7 mg/dL (8.5-10.1); Chloride 110 mmol/L (98-107); Creatinine, Serum 0.69 mg/dL (0.55-1.02); EST Glomerular Filtration Rate 91 mL/min (>60); Est Glom Filt Rate - Afr Amer 110 mL/min (>60); Estimated Creatinine Clearance 65.15 ml/min; Glucose 84 mg/dL (74-106); Sodium Level 143 mmol/L (136-145)
[2018-08-18] MEDS: Ketorolac 15 MG/ML Vial IV ×2 (09:39→15:39)
[2018-08-18] MEDS: Docusate Sodium 100 MG Capsule 200 MG PO (09:39)
[2018-08-18] MEDS: Famotidine 20 MG Tablet PO (09:39)
[2018-08-18] MEDS: Enoxaparin 40 MG/0.4 ML Syringe SC (09:40)
[2018-08-18] MEDS: 0.9% NaCl Peripheral Flush Adult/Peds IV ×2 (09:43→15:39)
[2018-08-18 10:30] VITALS: BP 130/70; PULSE 60; RESP 16; TEMP 36.8; O2SAT 97
--- NOTE | 2018-08-18 10:44 | PCM.DC ---
You will use the following diet at home:: Cardiac Your food should be the consistency of: Regular Your liquids should be the consistency of: Regular/Thin Discharge Activity: Return to Normal Activity Weight Bearing Status: Weight bearing as tolerated Call your doctor if you observe: Uncontrolled pain Instructions: Relieving Back Pain Allergies/Adverse Reactions: Allergies tramadol Allergy (Verified 08/17/18 06:15) Other SEIZURE Medications to take at Discharge Hydrochlorothiazide [Hctz] 12.5 mg PO DAILY PRN 09/05/16 Simvastatin [Zocor] 20 mg PO QHS 09/05/16 Acetaminophen with Codeine [Acetaminophen-Cod #3 Tablet] 1 each PO TID 12/06/17 Cholecalciferol (VIT D3) [Vitamin D3] 2,000 unit PO DAILY 12/06/17 Cyclobenzaprine [Flexeril] 10 mg PO TID PRN PRN 12/06/17 Ondansetron [Zofran Odt] 4 mg PO Q8H PRN PRN #10 tab 12/06/17 Ascorbic Acid [Vitamin C] 250 mg PO MOWEFRSA PRN 03/09/18 B Infantis/B Ani/B Francois/B Bifid [Probiotic 4X Caplet] 1 each PO DAILY 03/09/18 Co Q10 200 [Co Q-10] 100 mg PO PRN PRN 03/09/18 Magnesium 250 mg PO MOWEFRSA PRN 03/09/18 Potassium Chloride [Klor-Con M20] 20 meq PO DAILY 03/09/18 Famotidine [Pepcid] 20 mg PO BID 08/16/18 Hyoscyamine Sulfate 0.125 mg PO TID PRN 08/16/18 Buspirone HCl 1 tab PO TID PRN 08/17/18 Primary Care Physician: Margarito Spain DO [Primary Care Provider] - Please follow up with your Primary Care Physician in: one week Test Results: Test results from this visit will be discussed in further detail at your follow-up appointment, if applicable. Please Follow Up With: Sadiq Everett MD - [phone] When: one week Proposed Discharge Date: 08/18/18
--- NOTE | 2018-08-18 10:51 | DCINST_ITS ---
You will use the following diet at home:: Cardiac Your food should be the consistency of: Regular Your liquids should be the consistency of: Regular/Thin Discharge Activity: Return to Normal Activity Weight Bearing Status: Weight bearing as tolerated Call your doctor if you observe: Uncontrolled pain Instructions: Relieving Back Pain Allergies/Adverse Reactions: Allergies tramadol Allergy (Verified 08/17/18 06:15) Other SEIZURE Medications to take at Discharge Hydrochlorothiazide [Hctz] 12.5 mg PO DAILY PRN 09/05/16 Simvastatin [Zocor] 20 mg PO QHS 09/05/16 Acetaminophen with Codeine [Acetaminophen-Cod #3 Tablet] 1 each PO TID 12/06/17 Cholecalciferol (VIT D3) [Vitamin D3] 2,000 unit PO DAILY 12/06/17 Cyclobenzaprine [Flexeril] 10 mg PO TID PRN PRN 12/06/17 Ondansetron [Zofran Odt] 4 mg PO Q8H PRN PRN #10 tab 12/06/17 Ascorbic Acid [Vitamin C] 250 mg PO MOWEFRSA PRN 03/09/18 B Infantis/B Ani/B Francois/B Bifid [Probiotic 4X Caplet] 1 each PO DAILY 03/09/18 Co Q10 200 [Co Q-10] 100 mg PO PRN PRN 03/09/18 Magnesium 250 mg PO MOWEFRSA PRN 03/09/18 Potassium Chloride [Klor-Con M20] 20 meq PO DAILY 03/09/18 Famotidine [Pepcid] 20 mg PO BID 08/16/18 Hyoscyamine Sulfate 0.125 mg PO TID PRN 08/16/18 Buspirone HCl 1 tab PO TID PRN 08/17/18 Primary Care Physician: Margarito Spain DO [Primary Care Provider] - Please follow up with your Primary Care Physician in: one week Test Results: Test results from this visit will be discussed in further detail at your follow- up appointment, if applicable. Please Follow Up With: aSdiq Everett MD - [phone] When: one week Proposed Discharge Date: 08/18/18
--- NOTE | 2018-08-18 10:53 | DS.PCM_ITS ---
Discharge Date and Diagnosis Date of Admission: 08/17/18 Date of Discharge: 08/18/18 - Primary Discharge Diagnosis intractable back pain - Secondary Discharge Diagnosis Chronic Problems Irritable colon (Chronic) Depression (Chronic) Arthritis (Chronic) Anxiety (Chronic) Hospital Course and Treatment Imaging Results: Diagnostic Data Lumbar Spine X-Ray 08/17/18 06:18 IMPRESSION: Degenerative changes of the spine, as detailed above. Mild wedge-shaped deformity of the L3 vertebral body is chronic and stable in appearance. No evidence for acute fracture. Electronically Signed: Holden Leal MD at 7:14 EDT , Service support , Operations: None Procedures: None Summary of Care Provided: The patient is a 63 year old F with past medical history of degenerative disc disease, arthritis, Meniere's disease and fibromyalgia. She was admitted through the ED on 08/17/2018 with a complaint of low back pain and spasm. Symptoms are started on the day of admission. She initially responded to pain meds in the ED and felt better but she could not get it right home interested in the ED overnight. However in the morning of day of admission, patient's back pain had recurred and she was unable to weight-bear. She denied any tingling or numbness or bowel or urinary incontinence. Vitals were unremarkable and a CBC was also unremarkable. BMP was only significant for potassium of 3.4. Lumbar spine x-ray showed degenerative changes of the spine with mild wedge-shaped deformity of the L3 vertebral body which is chronic and stable in appearance and no evidence of acute fracture. She had no associated fever or chills as well. She was admitted to be managed for intractable back pain due to arthritis. She was started on IV morphine for pain control. Pain control subsequently improved and patient was able to get up and ambulate with physical therapy without any assistance. IV morphine was discontinued and patient was continued on her Tylenol 3 which she had been taking at home. Patient remained stable and was di scharged home on 08/18/2018. She was referred to Dr Johnson for pain management, and is also so to follow-up with her primary care doctor in 1 week. Patient seen and examined prior to discharge. She has no complaints. Pain is well controlled. Review of systems is otherwise negative. Labs and vitals reviewed. Home medications reviewed and reconciled. o/e: Vital Signs Height 5 ft 2 in Weight: 128 lb 12.811 oz Weight in Pounds 128.8 lbs Pulse Ox 97 Temperature 98.2 F Pulse Rate 60 Respiratory Rate 16 Blood Pressure 130/70 Blood Pressure Position Semi-Fowlers General: Alert, Oriented x3, Cooperative, No apparent distress, Oral: Moist Mucosa Neck: Supple, No JVD, Negative Carotid Bruits Lungs: Clear to auscultation, Normal air movement, No rhonchi, No wheeze, No rales Cardiovascular: Regular rate, Regular Rhythm, Normal S1, Normal S2, No murmurs Abdomen: Bowel Sounds Present, Soft, Non Tender Extremities: No clubbing, No cyanosis, No edema, Capillary Refill Less than 3 Seconds Skin: No rashes, No breakdown Musculoskeletal: no tenderness on palpation of lower back and paraspinal muscles Lymphatic: No Cervical, Supraclavicular, or Inguinal Adenopathy Neurological: Cranial nerves II-XII grossly intact Psych/Mental Status: Normal Affect, Alert and oriented to time, place, person, mood and affect Plan as above. - Physical Exam Vital Signs Temp Pulse Resp BP Pulse Ox 97.9 F 73 16 133/65 H 96 08/18/18 04:00 08/18/18 04:00 08/18/18 04:00 08/18/18 04:00 08/18/18 04:00 Oxygen Delivery Method Room Air Weight: 128 lb 12.811 oz Body Mass Index (BMI) 23.6 Intake and Output for Last 24 Hours 08/16/18 08/17/18 08/18/18 23:59 23:59 23:59 Intake Total 3179 / 3179 120 / 120 Output Total 1500 / 1500 Balance 1679 / 1679 120 / 120 Laboratory Tests Past 24 Hrs 08/18/18 08/18/18 05:35 05:35 WBC 6.5 RBC 4.30 Hgb 13.1 Hct 39.5 MCV 91.9 MCH 30.5 MCHC 33.2 RDW 12.4 RDW Differential 40.8 Plt Count 215 MPV 10.2 Immature Gran % (Auto) 0.300 Neut % (Auto) 48.9 Lymph % (Auto) 40.4 [place] % (Auto) 8.6 Eos % (Auto) 1.2 Baso % (Auto) 0.6 Absolute Neuts (auto) 3.2 Absolute Lymphs (auto) 2.64 Total Counted Not Reportable Sodium 143 Potassium 4.0 Chloride 110 H Carbon Dioxide 26.0 Anion Gap 7 BUN 14 Creatinine 0.69 Estim Creat Clear Calc 65.15 Est GFR (MDRD) Af Amer 110 Est GFR (MDRD) Non-Af 91 BUN/Creatinine Ratio 20.3 H Glucose 84 Calcium 8.7 Discharge Diet: Low fat/ Low Cholesterol Discharge Activity: Return to Normal Activity Weight Bearing Status: Weight bearing as tolerated Call your doctor if you observe: Uncontrolled pain Home Medications: Medications to take at Discharge Hydrochlorothiazide [Hctz] 12.5 mg PO DAILY PRN 09/05/16 Simvastatin [Zocor] 20 mg PO QHS 09/05/16 Acetaminophen with Codeine [Acetaminophen-Cod #3 Tablet] 1 each PO TID 12/06/17 Cholecalciferol (VIT D3) [Vitamin D3] 2,000 unit PO DAILY 12/06/17 Cyclobenzaprine [Flexeril] 10 mg PO TID PRN PRN 12/06/17 Ondansetron [Zofran Odt] 4 mg PO Q8H PRN PRN #10 tab 12/06/17 Ascorbic Acid [Vitamin C] 250 mg PO MOWEFRSA PRN 03/09/18 B Infantis/B Ani/B Francois/B Bifid [Probiotic 4X Caplet] 1 each PO DAILY 03/09/18 Co Q10 200 [Co Q-10] 100 mg PO PRN PRN 03/09/18 Magnesium 250 mg PO MOWEFRSA PRN 03/09/18 Potassium Chloride [Klor-Con M20] 20 meq PO DAILY 03/09/18 Famotidine [Pepcid] 20 mg PO BID 08/16/18 Hyoscyamine Sulfate 0.125 mg PO TID PRN 08/16/18 Buspirone HCl 1 tab PO TID PRN 08/17/18 Primary Care Physician: Margarito Spain DO [Primary Care Provider] - Please follow up with your Primary Care Physician in: one week Please Follow Up With: Sadiq Everett MD - [phone] When: one week Patient Instructions: Relieving Back Pain Disposition: Home with Home Health Minutes spent on discharge:: 40 Patient Condition:: Stable Medical Necessity - Tobacco Use Smoking Status: Never smoker Tobacco Use: Cigarettes Meaningful Use Info Meaningful Use Diagnoses (Choose all that apply): None applicable Code Visit Inpatient E&M: 76778 Disch Hosp
--- NOTE | 2018-08-18 11:44 | CASEMGMT ---
SOPHIA CM in to discuss discharge needs with patient. Patient would like [facility] for therapy at discharge and would prefer [facility]. Referral made to [facility] and they are able to accept her. Patient denied further questions or concerns at this time.
[2018-08-18 15:27] VITALS: BP 131/70; PULSE 65; RESP 16; TEMP 36.5; O2SAT 97
== END 2018-08-18 16:24 | disposition home health service (06) ==
LOC: ED 06:32 → MS3 07:28
PROVIDERS: Admitting Provider Student in an Organized Health Care Education/Training Program; Emergency Provider Emergency Medicine; Family Provider Student in an Organized Health Care Education/Training Program; PCP Student in an Organized Health Care Education/Training Program; Visit Provider Student in an Organized Health Care Education/Training Program
DX: M54.5 Low back pain (principal); F32.9 Major depressive disorder, single episode, unspecified; F41.9 Anxiety disorder, unspecified; M19.90 Unspecified osteoarthritis, unspecified site; Z79.899 Other long term (current) drug therapy; M79.7 Fibromyalgia; E78.5 Hyperlipidemia, unspecified; K58.9 Irritable bowel syndrome, unspecified; E87.6 Hypokalemia; M51.36 Other intervertebral disc degeneration, lumbar region; H81.09 Meniere's disease, unspecified ear
CPT/HCPCS: 36415; 72100; 80048; 81001; 85025; 96361; 96372; 96374; 96375; 96376; 97162; 97165; 97802; 99218; 99285; J7030; A4216; G0378

== ENCOUNTER 2018-09-07 08:55 | Outpatient (RCR) | payer MEDICARE, SELFPAY ==
[2018-09-06 10:39] VITALS: BMI 23.6
== END 2018-09-07 19:00 | disposition home or self-care (01) ==
LOC: PT 08:55
PROVIDERS: Family Provider Student in an Organized Health Care Education/Training Program; PCP Student in an Organized Health Care Education/Training Program; Referring Provider Chiropractor; Visit Provider Chiropractor
DX: M43.10 Spondylolisthesis, site unspecified (principal); M51.36 Other intervertebral disc degeneration, lumbar region

== ENCOUNTER 2019-05-23 11:58 | Outpatient (RCR) | payer MEDICARE, SELFPAY ==
[2018-09-23 15:51] VITALS: BMI 23.6
[2019-05-23 12:34] LABS: Hematocrit 40.5 % (37-47); Hemoglobin 12.9 g/dL (12.0-15.0); Mean Corp Hgb Conc 31.9 g/dL (32-36); Mean Corpuscular Hgb 30.7 pg (27.0-32.0); Mean Corpuscular Volume 96.4 fL (81-99); Mean Platelet Vol. 10.5 fl (6.2-12.0); Platelet Count 270 K/mm3 (150-450); RBC Distribution Width CV 13.2 % (11.6-14.6); RBC Distribution Width SD 46.7 fl (35.1-43.9); White Blood Count 6.5 K/mm3 (4.4-11.0)
[2019-05-23 12:55] LABS: ALB/GLOB Ratio 0.9 RATIO (0.9-2.4); AST(SGOT) 27 U/L (15-37); Alanine Aminotransfer ALT/SGPT 96 U/L (13-56); Albumin, Serum 3.4 g/dL (3.2-5.0); Alkaline Phosphatase 141 U/L (45-117); Anion Gap 5 (5-15); BUN 21 mg/dL (7-18); BUN/Creat Ratio 36.6 RATIO (10-20); Calcium,Total 8.6 mg/dL (8.5-10.1); Chloride 108 mmol/L (98-107); Creatinine, Serum 0.57 mg/dL (0.55-1.02); EST Glomerular Filtration Rate 112 mL/min (>60); Est Glom Filt Rate - Afr Amer 136 mL/min (>60); Globulin 3.8 g/dL (2.2-4.2); Glucose 78 mg/dL (74-106); Magnesium 2.1 mg/dL (1.6-2.6); Phosphorus 3.3 mg/dL (2.5-4.9); Potassium 4.5 mmol/L (3.5-5.1); Protein, Total 7.2 g/dL (6.4-8.2); Sodium Level 139 mmol/L (136-145)
== END 2019-05-28 23:59 ==
LOC: HHLAB 11:58
PROVIDERS: PCP Student in an Organized Health Care Education/Training Program
DX: E78.5 Hyperlipidemia, unspecified (principal); E43 Unspecified severe protein-calorie malnutrition
CPT/HCPCS: 80053; 83735; 84100; 85027

== ENCOUNTER 2019-06-20 14:15 | Outpatient (RCR) | payer MEDICARE, SELFPAY ==
[2018-09-23 15:51] VITALS: BMI 23.6
[2019-05-30 12:38] LABS: Hematocrit 38.7 % (37-47); Hemoglobin 12.6 g/dL (12.0-15.0); Mean Corp Hgb Conc 32.6 g/dL (32-36); Mean Corpuscular Hgb 30.8 pg (27.0-32.0); Mean Corpuscular Volume 94.6 fL (81-99); Mean Platelet Vol. 11.1 fl (6.2-12.0); Platelet Count 307 K/mm3 (150-450); RBC Distribution Width CV 13.2 % (11.6-14.6); RBC Distribution Width SD 45.1 fl (35.1-43.9); Red Blood Count 4.09 M/mm3 (4.2-5.4); White Blood Count 10.1 K/mm3 (4.4-11.0)
[2019-05-30 12:46] LABS: ALB/GLOB Ratio 0.9 RATIO (0.9-2.4); AST(SGOT) 23 U/L (15-37); Alanine Aminotransfer ALT/SGPT 42 U/L (13-56); Albumin, Serum 3.7 g/dL (3.2-5.0); Alkaline Phosphatase 112 U/L (45-117); Anion Gap 6 (5-15); BUN 21 mg/dL (7-18); BUN/Creat Ratio 35.2 RATIO (10-20); Calcium,Total 9.2 mg/dL (8.5-10.1); Chloride 108 mmol/L (98-107); EST Glomerular Filtration Rate 107 mL/min (>60); Est Glom Filt Rate - Afr Amer 130 mL/min (>60); Globulin 3.9 g/dL (2.2-4.2); Glucose 100 mg/dL (74-106); Magnesium 2.2 mg/dL (1.6-2.6); Phosphorus 3.7 mg/dL (2.5-4.9); Potassium 3.8 mmol/L (3.5-5.1); Protein, Total 7.6 g/dL (6.4-8.2); Sodium Level 140 mmol/L (136-145)
[2019-06-06 14:55] LABS: Hematocrit 37.3 % (37-47); Hemoglobin 12.5 g/dL (12.0-15.0); Mean Corp Hgb Conc 33.5 g/dL (32-36); Mean Corpuscular Hgb 30.9 pg (27.0-32.0); Mean Corpuscular Volume 92.3 fL (81-99); Mean Platelet Vol. 10.8 fl (6.2-12.0); Platelet Count 266 K/mm3 (150-450); RBC Distribution Width CV 13.1 % (11.6-14.6); RBC Distribution Width SD 44.2 fl (35.1-43.9); Red Blood Count 4.04 M/mm3 (4.2-5.4); White Blood Count 7.2 K/mm3 (4.4-11.0)
[2019-06-06 15:13] LABS: AST(SGOT) 23 U/L (15-37); Alanine Aminotransfer ALT/SGPT 32 U/L (13-56); Albumin, Serum 3.8 g/dL (3.2-5.0); Alkaline Phosphatase 105 U/L (45-117); Anion Gap 7 (5-15); BUN 19 mg/dL (7-18); BUN/Creat Ratio 32.6 RATIO (10-20); Calcium,Total 8.7 mg/dL (8.5-10.1); Chloride 106 mmol/L (98-107); Creatinine, Serum 0.58 mg/dL (0.55-1.02); EST Glomerular Filtration Rate 110 mL/min (>60); Est Glom Filt Rate - Afr Amer 134 mL/min (>60); Globulin 3.9 g/dL (2.2-4.2); Glucose 94 mg/dL (74-106); Magnesium 2.3 mg/dL (1.6-2.6); Phosphorus 3.3 mg/dL (2.5-4.9); Potassium 3.7 mmol/L (3.5-5.1); Protein, Total 7.7 g/dL (6.4-8.2); Sodium Level 140 mmol/L (136-145)
[2019-06-20 14:33] LABS: Hematocrit 38.1 % (37-47); Hemoglobin 12.8 g/dL (12.0-15.0); Mean Corp Hgb Conc 33.6 g/dL (32-36); Mean Corpuscular Hgb 31.5 pg (27.0-32.0); Mean Corpuscular Volume 93.8 fL (81-99); Mean Platelet Vol. 10.4 fl (6.2-12.0); Platelet Count 248 K/mm3 (150-450); RBC Distribution Width CV 13.1 % (11.6-14.6); RBC Distribution Width SD 45.2 fl (35.1-43.9); Red Blood Count 4.06 M/mm3 (4.2-5.4); White Blood Count 7.7 K/mm3 (4.4-11.0)
[2019-06-20 15:01] LABS: ALB/GLOB Ratio 0.9 RATIO (0.9-2.4); AST(SGOT) 22 U/L (15-37); Alanine Aminotransfer ALT/SGPT 33 U/L (13-56); Albumin, Serum 3.7 g/dL (3.2-5.0); Alkaline Phosphatase 98 U/L (45-117); Anion Gap 9 (5-15); BUN 22 mg/dL (7-18); BUN/Creat Ratio 34.7 RATIO (10-20); Calcium,Total 8.7 mg/dL (8.5-10.1); Chloride 104 mmol/L (98-107); Creatinine, Serum 0.63 mg/dL (0.55-1.02); EST Glomerular Filtration Rate 100 mL/min (>60); Est Glom Filt Rate - Afr Amer 121 mL/min (>60); Glucose 88 mg/dL (74-106); Magnesium 2.2 mg/dL (1.6-2.6); Phosphorus 3.4 mg/dL (2.5-4.9); Potassium 3.6 mmol/L (3.5-5.1); Protein, Total 7.7 g/dL (6.4-8.2); Sodium Level 139 mmol/L (136-145)
== END 2019-06-20 18:00 | disposition home or self-care (01) ==
LOC: HHLAB 14:15
PROVIDERS: PCP Student in an Organized Health Care Education/Training Program
DX: E78.5 Hyperlipidemia, unspecified (principal); E46 Unspecified protein-calorie malnutrition
CPT/HCPCS: 80053; 83735; 84100; 85027

== ENCOUNTER → 2019-07-08 12:10 | Outpatient (CLI) | payer MEDICARE, SELFPAY ==
[2018-09-23 15:51] VITALS: BMI 23.6
[2019-07-08 12:51] VITALS: BP 131/73; PULSE 66; RESP 16; TEMP 36.7; BMI 22.1
[2019-07-08] MEDS: Alteplase 2 MG/2 ML Vial IV ×2 (13:56→16:10)
== END ==
PROVIDERS: PCP Student in an Organized Health Care Education/Training Program
DX: K58.2 Mixed irritable bowel syndrome (principal)
CPT/HCPCS: 96365 ×2; 36593; J2997; A4216

== ENCOUNTER 2019-07-11 11:00 | Outpatient (RCR) | payer MEDICARE, SELFPAY ==
[2018-09-23 15:51] VITALS: BMI 23.6
[2019-07-08 12:51] VITALS: BMI 22.1
[2019-07-11 11:14] LABS: Hematocrit 37.2 % (37-47); Hemoglobin 12.1 g/dL (12.0-15.0); Mean Corp Hgb Conc 32.5 g/dL (32-36); Mean Corpuscular Hgb 30.9 pg (27.0-32.0); Mean Corpuscular Volume 94.9 fL (81-99); Mean Platelet Vol. 10.5 fl (6.2-12.0); Platelet Count 252 K/mm3 (150-450); RBC Distribution Width CV 13.1 % (11.6-14.6); RBC Distribution Width SD 45.4 fl (35.1-43.9); Red Blood Count 3.92 M/mm3 (4.2-5.4); White Blood Count 7.6 K/mm3 (4.4-11.0)
[2019-07-11 11:25] LABS: ALB/GLOB Ratio 0.9 RATIO (0.9-2.4); AST(SGOT) 41 U/L (15-37); Alanine Aminotransfer ALT/SGPT 48 U/L (13-56); Albumin, Serum 3.5 g/dL (3.2-5.0); Alkaline Phosphatase 88 U/L (45-117); Anion Gap 5 (5-15); BUN 24 mg/dL (7-18); BUN/Creat Ratio 43.4 RATIO (10-20); Calcium,Total 8.6 mg/dL (8.5-10.1); Chloride 110 mmol/L (98-107); Creatinine, Serum 0.55 mg/dL (0.55-1.02); EST Glomerular Filtration Rate 117 mL/min (>60); Est Glom Filt Rate - Afr Amer 142 mL/min (>60); Globulin 3.8 g/dL (2.2-4.2); Glucose 83 mg/dL (74-106); Magnesium 2.3 mg/dL (1.6-2.6); Phosphorus 2.6 mg/dL (2.5-4.9); Potassium 3.9 mmol/L (3.5-5.1); Protein, Total 7.3 g/dL (6.4-8.2); Sodium Level 141 mmol/L (136-145)
== END 2019-07-28 18:00 | disposition home or self-care (01) ==
LOC: HHLAB 11:00
PROVIDERS: PCP Student in an Organized Health Care Education/Training Program
DX: K58.2 Mixed irritable bowel syndrome (principal); Z45.2 Encounter for adjustment and management of vascular access device; E44.0 Moderate protein-calorie malnutrition
CPT/HCPCS: 80053; 83735; 84100; 85027

== ENCOUNTER 2019-08-15 13:51 | Outpatient (RCR) | payer MEDICARE, SELFPAY ==
[2019-07-08 12:51] VITALS: BMI 22.1
[2019-08-01 11:31] LABS: Hematocrit 39.7 % (37-47); Hemoglobin 12.6 g/dL (12.0-15.0); Mean Corp Hgb Conc 31.7 g/dL (32-36); Mean Corpuscular Hgb 30.8 pg (27.0-32.0); Mean Corpuscular Volume 97.1 fL (81-99); Mean Platelet Vol. 10.2 fl (6.2-12.0); Platelet Count 272 K/mm3 (150-450); RBC Distribution Width CV 12.8 % (11.6-14.6); RBC Distribution Width SD 45.9 fl (35.1-43.9); Red Blood Count 4.09 M/mm3 (4.2-5.4)
[2019-08-01 11:57] LABS: ALB/GLOB Ratio 0.9 RATIO (0.9-2.4); AST(SGOT) 51 U/L (15-37); Alanine Aminotransfer ALT/SGPT 95 U/L (13-56); Albumin, Serum 3.6 g/dL (3.2-5.0); Alkaline Phosphatase 90 U/L (45-117); Anion Gap 3 (5-15); BUN 21 mg/dL (7-18); BUN/Creat Ratio 34.6 RATIO (10-20); Calcium,Total 8.7 mg/dL (8.5-10.1); Chloride 105 mmol/L (98-107); Creatinine, Serum 0.61 mg/dL (0.55-1.02); EST Glomerular Filtration Rate 105 mL/min (>60); Est Glom Filt Rate - Afr Amer 127 mL/min (>60); Glucose 83 mg/dL (74-106); Magnesium 2.4 mg/dL (1.6-2.6); Phosphorus 3.3 mg/dL (2.5-4.9); Potassium 4.1 mmol/L (3.5-5.1); Protein, Total 7.6 g/dL (6.4-8.2); Sodium Level 137 mmol/L (136-145)
[2019-08-15 15:01] LABS: CRP < 2.90 mg/L (0.0-3.0); Magnesium 2.4 mg/dL (1.6-2.6)
== END 2019-08-15 18:00 | disposition home or self-care (01) ==
LOC: HHLAB 13:51
PROVIDERS: PCP Student in an Organized Health Care Education/Training Program
DX: K58.2 Mixed irritable bowel syndrome (principal); Z45.2 Encounter for adjustment and management of vascular access device; E43 Unspecified severe protein-calorie malnutrition
CPT/HCPCS: 80053; 83735; 84100; 85027; 86140

== ENCOUNTER 2019-08-29 14:01 | Outpatient (RCR) | payer MEDICARE, SELFPAY ==
[2019-07-08 12:51] VITALS: BMI 22.1
[2019-08-29 14:33] LABS: Hematocrit 38.7 % (37-47); Hemoglobin 12.5 g/dL (12.0-15.0); Mean Corp Hgb Conc 32.3 g/dL (32-36); Mean Corpuscular Hgb 31.3 pg (27.0-32.0); Mean Platelet Vol. 10.7 fl (6.2-12.0); Platelet Count 260 K/mm3 (150-450); RBC Distribution Width SD 42.5 fl (35.1-43.9); Red Blood Count 3.99 M/mm3 (4.2-5.4)
[2019-08-29 14:47] LABS: ALB/GLOB Ratio 0.9 RATIO (0.9-2.4); AST(SGOT) 24 U/L (15-37); Alanine Aminotransfer ALT/SGPT 35 U/L (13-56); Albumin, Serum 3.7 g/dL (3.2-5.0); Alkaline Phosphatase 101 U/L (45-117); Anion Gap 7 (5-15); BUN 16 mg/dL (7-18); BUN/Creat Ratio 21.9 RATIO (10-20); Calcium,Total 8.7 mg/dL (8.5-10.1); Chloride 108 mmol/L (98-107); Creatinine, Serum 0.73 mg/dL (0.55-1.02); EST Glomerular Filtration Rate 85 mL/min (>60); Est Glom Filt Rate - Afr Amer 103 mL/min (>60); Glucose 80 mg/dL (74-106); Magnesium 2.2 mg/dL (1.6-2.6); Phosphorus 3.5 mg/dL (2.5-4.9); Potassium 4.1 mmol/L (3.5-5.1); Protein, Total 7.7 g/dL (6.4-8.2); Sodium Level 141 mmol/L (136-145)
== END 2019-08-29 18:00 | disposition home or self-care (01) ==
LOC: HHLAB 14:01
PROVIDERS: PCP Student in an Organized Health Care Education/Training Program
DX: K58.2 Mixed irritable bowel syndrome (principal); Z45.2 Encounter for adjustment and management of vascular access device; E44.0 Moderate protein-calorie malnutrition
CPT/HCPCS: 80053; 83735; 84100; 85027

== ENCOUNTER 2019-10-03 11:25 | Outpatient (RCR) | payer MEDICARE, SELFPAY ==
[2019-07-08 12:51] VITALS: BMI 22.1
[2019-10-03 11:40] LABS: Hematocrit 39.1 % (37-47); Mean Corp Hgb Conc 33.2 g/dL (32-36); Mean Corpuscular Hgb 31.7 pg (27.0-32.0); Mean Corpuscular Volume 95.4 fL (81-99); Mean Platelet Vol. 10.2 fl (6.2-12.0); Platelet Count 271 K/mm3 (150-450); RBC Distribution Width CV 12.3 % (11.6-14.6); RBC Distribution Width SD 43.1 fl (35.1-43.9); White Blood Count 6.4 K/mm3 (4.4-11.0)
[2019-10-03 11:50] LABS: ALB/GLOB Ratio 0.9 RATIO (0.9-2.4); AST(SGOT) 24 U/L (15-37); Alanine Aminotransfer ALT/SGPT 30 U/L (13-56); Albumin, Serum 3.6 g/dL (3.2-5.0); Alkaline Phosphatase 96 U/L (45-117); Anion Gap 5 (5-15); BUN 17 mg/dL (7-18); BUN/Creat Ratio 22.3 RATIO (10-20); Calcium,Total 8.4 mg/dL (8.5-10.1); Chloride 108 mmol/L (98-107); Creatinine, Serum 0.76 mg/dL (0.55-1.02); EST Glomerular Filtration Rate 81 mL/min (>60); Est Glom Filt Rate - Afr Amer 98 mL/min (>60); Globulin 3.8 g/dL (2.2-4.2); Glucose 85 mg/dL (74-106); Magnesium 2.2 mg/dL (1.6-2.6); Phosphorus 3.1 mg/dL (2.5-4.9); Potassium 4.3 mmol/L (3.5-5.1); Protein, Total 7.4 g/dL (6.4-8.2); Sodium Level 140 mmol/L (136-145)
== END 2019-10-03 18:00 | disposition home or self-care (01) ==
LOC: HHLAB 11:25
PROVIDERS: PCP Student in an Organized Health Care Education/Training Program
DX: E78.5 Hyperlipidemia, unspecified (principal); E43 Unspecified severe protein-calorie malnutrition
CPT/HCPCS: 80053; 83735; 84100; 85027

== ENCOUNTER 2019-11-05 11:13 | Emergency (ER) | payer MEDICARE, OTHER, SELFPAY ==
[2019-07-08 12:51] VITALS: BMI 22.1
[2019-11-05 11:15] VITALS: BP 148/85; PULSE 97; RESP 16; TEMP 37.1; O2SAT 96; BMI 24.8
--- NOTE | 2019-11-05 11:20 | ED.DCSUM_ITS ---
History of Present Illness Chief Complaint: Allergic Reaction Informant: Patient Narrative: 64-year-old female presenting with urticaria. She states this been going on for several days. It appears to be worsening. Initially it was thought that the reaction was caused by Percocet and Valium. These were discontinued 3 days ago. Her PCP did tell her to take Benadryl and stated that this would last about 2 weeks. Patient was also prescribed a fentanyl patch. Patient and her daughter do not know of any other new soaps, dyes, linens, detergents, etc. She has not had this problem in the past. Patient states she just cannot take the rash and the itching anymore. Past Medical History - Allergies and Home Meds Allergies/Adverse Reactions: Allergies oxycodone Allergy (Verified 11/05/19 11:14) Hives tramadol Allergy (Verified 11/05/19 11:14) Other SEIZURE Primary Care Physician: Margarito Spain DO [Primary Care Provider] - Prior records reviewed: Yes Surgical History: colectomy Lives: With Family Smoking Status: Never smoker Alcohol: None Drugs: None - Family History Maternal Family History: Family History (Last Reviewed 11/01/18 @ 13:41 by Ciara Cates) Other Asthma Colon cancer Heart disease Hypertension Myocardial infarction Family History: Reports: No pertinent history Paternal Family History: Family History (Last Reviewed 11/01/18 @ 13:41 by Ciara Cates) Other Asthma Colon cancer Heart disease Hypertension Myocardial infarction Family History: Reports: No pertinent history Review of Systems General: Denies: Chills, Fever, Sweats Eyes: Denies: Visual changes - bilaterally, Diplopia ENT: Denies: Rhinorrhea, Sore throat Cardiovascular: Denies: Chest pain, Palpitations Respiratory: Denies: Dyspnea, Cough, Dyspnea on exertion Gastrointestinal: Denies: Abdominal pain, Nausea, Vomiting, Diarrhea, Melena, Hematochezia Musculoskeletal: Denies: Myalgias, Arthralgias Skin: Reports: Rash - Diffuse urticarial rash, - Neurological: Denies: Headache Physical Exam Vital Signs/Narrative: Vital Signs Temp Pulse Resp BP Pulse Ox 11/05/19 11:15 98.8 F 97 16 148/85 H 96 General: No Acute Distress Head: Normocephalic, Atraumatic Eyes: Perrl, EOMI ENT: Moist mucous membranes Cardiovascular: Regular rate, Regular rhythm Respiratory: No distress, CTA bilaterally Back: Nontender Extremities: Nontender Skin: - - Urticarial rash on all 4 extremities, chest, abdomen, back Neurological: Alert, Oriented x3 Psychological: Normal affect Diagnostic/Tx/Re-eval - Medical Decision Making Patient has a diffuse urticarial rash. She is not having any shortness of breath or difficulty breathing. She does not have any new abdominal pain. She does not believe her throat is swelling. She mainly complains of itching diffuse rash. I think this is allergic in nature but I did not identify the source. Possible that it could be caused by the fentanyl patch given her previous reactions. We did discuss this. Patient states she has difficulty eating at baseline and is unsure if she be able to take prednisone. I did offer her a Kenalog shot here in the ED and she was amenable to this. I did prescribe her an EpiPen for her to use just in case. She is given return precautions. Patient will follow-up with her PCP otherwise Impression: 1. Allergic reaction ED Disposition - Plan for ED Patient: Disposition: Home or Assisted Living Instructions: ED General Allergic Reactions Prescriptions: Epi Pen (for allergic rxn) 0.3 mg IM X1 PRN #1 syringe PRN Reason: allergic reaction Transmission Status: Received by MARA DIAS-1955 [facility] Referrals: Margarito Spain DO [Primary Care Provider] -
[2019-11-05] MEDS: Triamcinolone Acetonide 40 MG/ML Vial IM (11:35)
[2019-11-05 12:16] VITALS: BP 126/67; PULSE 92; RESP 18; O2SAT 99
== END 2019-11-05 12:20 | disposition home or self-care (01) ==
LOC: ED 11:45
PROVIDERS: Emergency Provider Student in an Organized Health Care Education/Training Program; PCP Student in an Organized Health Care Education/Training Program
DX: T78.40XA Allergy, unspecified, initial encounter (principal); Z82.49 Family history of ischemic heart disease and other diseases of the circulatory system; Z88.5 Allergy status to narcotic agent; Z88.8 Allergy status to other drugs, medicaments and biological substances; Z90.49 Acquired absence of other specified parts of digestive tract
CPT/HCPCS: 96372; 99282

== ENCOUNTER → 2019-11-08 09:58 | Outpatient (CLI) | payer MEDICARE, OTHER, SELFPAY ==
[2019-11-05 11:15] VITALS: BMI 24.8
[2019-11-08 10:29] VITALS: BP 100/58; PULSE 62; RESP 16; TEMP 36.8; O2SAT 95; BMI 23.3
[2019-11-08] MEDS: Alteplase 2 MG/2 ML Vial IV (10:35)
[2019-11-08] MEDS: 0.9% Saline Lock 10 ML Syringe IV (11:20)
== END ==
PROVIDERS: PCP Student in an Organized Health Care Education/Training Program
DX: Z45.2 Encounter for adjustment and management of vascular access device (principal)
CPT/HCPCS: 96365; 36593; J2997

== ENCOUNTER 2019-11-21 15:32 | Outpatient (RCR) | payer MEDICARE, SELFPAY ==
[2019-07-08 12:51] VITALS: BMI 22.1
[2019-10-31 16:56] LABS: Hematocrit 36.8 % (37-47); Hemoglobin 11.8 g/dL (12.0-15.0); Mean Corp Hgb Conc 32.1 g/dL (32-36); Mean Corpuscular Hgb 31.1 pg (27.0-32.0); Mean Corpuscular Volume 97.1 fL (81-99); Mean Platelet Vol. 10.9 fl (6.2-12.0); Platelet Count 345 K/mm3 (150-450); RBC Distribution Width CV 13.2 % (11.6-14.6); RBC Distribution Width SD 46.8 fl (35.1-43.9); Red Blood Count 3.79 M/mm3 (4.2-5.4); White Blood Count 8.3 K/mm3 (4.4-11.0)
[2019-10-31 17:09] LABS: ALB/GLOB Ratio 0.8 RATIO (0.9-2.4); AST(SGOT) 19 U/L (15-37); Alanine Aminotransfer ALT/SGPT 65 U/L (13-56); Albumin, Serum 3.2 g/dL (3.2-5.0); Alkaline Phosphatase 134 U/L (45-117); Anion Gap 6 (5-15); BUN 18 mg/dL (7-18); BUN/Creat Ratio 25.5 RATIO (10-20); Calcium,Total 8.8 mg/dL (8.5-10.1); Chloride 110 mmol/L (98-107); EST Glomerular Filtration Rate 88 mL/min (>60); Est Glom Filt Rate - Afr Amer 107 mL/min (>60); Glucose 79 mg/dL (74-106); Magnesium 2.3 mg/dL (1.6-2.6); Phosphorus 3.2 mg/dL (2.5-4.9); Potassium 3.7 mmol/L (3.5-5.1); Protein, Total 7.2 g/dL (6.4-8.2); Sodium Level 142 mmol/L (136-145)
[2019-11-07 15:59] LABS: Hematocrit 35.2 % (37-47); Hemoglobin 11.1 g/dL (12.0-15.0); Mean Corp Hgb Conc 31.5 g/dL (32-36); Mean Corpuscular Hgb 30.9 pg (27.0-32.0); Mean Corpuscular Volume 98.1 fL (81-99); Mean Platelet Vol. 11.2 fl (6.2-12.0); Platelet Count 406 K/mm3 (150-450); RBC Distribution Width CV 12.9 % (11.6-14.6); RBC Distribution Width SD 46.3 fl (35.1-43.9); Red Blood Count 3.59 M/mm3 (4.2-5.4); White Blood Count 7.3 K/mm3 (4.4-11.0)
[2019-11-07 16:24] LABS: ALB/GLOB Ratio 0.7 RATIO (0.9-2.4); AST(SGOT) 19 U/L (15-37); Alanine Aminotransfer ALT/SGPT 31 U/L (13-56); Albumin, Serum 3.2 g/dL (3.2-5.0); Alkaline Phosphatase 106 U/L (45-117); Anion Gap 5 (5-15); BUN 23 mg/dL (7-18); Chloride 108 mmol/L (98-107); Creatinine, Serum 0.55 mg/dL (0.55-1.02); EST Glomerular Filtration Rate 118 mL/min (>60); Est Glom Filt Rate - Afr Amer 143 mL/min (>60); Globulin 4.4 g/dL (2.2-4.2); Glucose 79 mg/dL (74-106); Magnesium 2.4 mg/dL (1.6-2.6); Phosphorus 3.2 mg/dL (2.5-4.9); Protein, Total 7.6 g/dL (6.4-8.2); Sodium Level 140 mmol/L (136-145)
[2019-11-14 16:40] LABS: CRP < 2.90 mg/L (0.0-3.0)
[2019-11-17 11:34] LABS: Copper, Serum or Plasma 125 ug/dL (72-166); Zinc, Plasma or Serum 113 ug/dL (56-134)
[2019-11-21 16:43] LABS: AST(SGOT) 20 U/L (15-37); Alanine Aminotransfer ALT/SGPT 39 U/L (13-56); Albumin, Serum 3.8 g/dL (3.2-5.0); Alkaline Phosphatase 109 U/L (45-117); Anion Gap 6 (5-15); BUN 24 mg/dL (7-18); CRP < 2.90 mg/L (0.0-3.0); Calcium,Total 8.8 mg/dL (8.5-10.1); Chloride 106 mmol/L (98-107); Creatinine, Serum 0.77 mg/dL (0.55-1.02); EST Glomerular Filtration Rate 79 mL/min (>60); Est Glom Filt Rate - Afr Amer 96 mL/min (>60); Glucose 89 mg/dL (74-106); Magnesium 2.3 mg/dL (1.6-2.6); Phosphorus 3.6 mg/dL (2.5-4.9); Potassium 3.7 mmol/L (3.5-5.1); Protein, Total 7.8 g/dL (6.4-8.2); Sodium Level 139 mmol/L (136-145)
[2019-11-21 16:50] LABS: Hematocrit 40.1 % (37-47); Hemoglobin 12.9 g/dL (12.0-15.0); Mean Corp Hgb Conc 32.2 g/dL (32-36); Mean Corpuscular Volume 96.4 fL (81-99); Mean Platelet Vol. 11.2 fl (6.2-12.0); Platelet Count 287 K/mm3 (150-450); RBC Distribution Width CV 13.2 % (11.6-14.6); RBC Distribution Width SD 46.7 fl (35.1-43.9); Red Blood Count 4.16 M/mm3 (4.2-5.4)
[2019-11-25 13:15] LABS: Copper, Serum or Plasma 125 ug/dL (72-166); Zinc, Plasma or Serum 133 ug/dL (56-134)
== END 2019-11-28 18:00 | disposition home or self-care (01) ==
LOC: HHLAB 15:32
PROVIDERS: PCP Student in an Organized Health Care Education/Training Program
DX: E78.5 Hyperlipidemia, unspecified (principal); E44.0 Moderate protein-calorie malnutrition
CPT/HCPCS: 80053; 82525; 83735; 84100; 84630; 85027; 86140

== ENCOUNTER 2019-12-26 14:39 | Outpatient (RCR) | payer MEDICARE, OTHER, SELFPAY ==
[2019-11-08 10:29] VITALS: BMI 23.3
[2019-12-12 13:56] LABS: Hematocrit 40.2 % (37-47); Mean Corp Hgb Conc 32.3 g/dL (32-36); Mean Corpuscular Volume 95.9 fL (81-99); Mean Platelet Vol. 10.5 fl (6.2-12.0); Platelet Count 275 K/mm3 (150-450); RBC Distribution Width CV 12.9 % (11.6-14.6); RBC Distribution Width SD 45.5 fl (35.1-43.9); Red Blood Count 4.19 M/mm3 (4.2-5.4); White Blood Count 7.1 K/mm3 (4.4-11.0)
[2019-12-12 14:05] LABS: ALB/GLOB Ratio 0.9 RATIO (0.9-2.4); AST(SGOT) 20 U/L (15-37); Alanine Aminotransfer ALT/SGPT 49 U/L (13-56); Albumin, Serum 3.7 g/dL (3.2-5.0); Alkaline Phosphatase 96 U/L (45-117); Anion Gap 5 (5-15); BUN 24 mg/dL (7-18); BUN/Creat Ratio 31.2 RATIO (10-20); Calcium,Total 8.9 mg/dL (8.5-10.1); Chloride 108 mmol/L (98-107); Creatinine, Serum 0.77 mg/dL (0.55-1.02); EST Glomerular Filtration Rate 80 mL/min (>60); Est Glom Filt Rate - Afr Amer 97 mL/min (>60); Globulin 4.2 g/dL (2.2-4.2); Glucose 94 mg/dL (74-106); Magnesium 2.5 mg/dL (1.6-2.6); Phosphorus 4.3 mg/dL (2.5-4.9); Potassium 3.9 mmol/L (3.5-5.1); Protein, Total 7.9 g/dL (6.4-8.2); Sodium Level 140 mmol/L (136-145)
[2019-12-27 10:04] LABS: Hematocrit 37.6 % (37-47); Hemoglobin 12.1 g/dL (12.0-15.0); Mean Corp Hgb Conc 32.2 g/dL (32-36); Mean Corpuscular Volume 96.4 fL (81-99); Mean Platelet Vol. 10.9 fl (6.2-12.0); Platelet Count 225 K/mm3 (150-450); RBC Distribution Width CV 12.9 % (11.6-14.6); RBC Distribution Width SD 45.9 fl (35.1-43.9); White Blood Count 7.9 K/mm3 (4.4-11.0)
[2019-12-27 10:08] LABS: AST(SGOT) 40 U/L (15-37); Alanine Aminotransfer ALT/SGPT 41 U/L (13-56); Albumin, Serum 3.8 g/dL (3.2-5.0); Alkaline Phosphatase 90 U/L (45-117); Anion Gap 6 (5-15); BUN 19 mg/dL (7-18); Calcium,Total 8.9 mg/dL (8.5-10.1); Chloride 106 mmol/L (98-107); Creatinine, Serum 0.73 mg/dL (0.55-1.02); EST Glomerular Filtration Rate 85 mL/min (>60); Est Glom Filt Rate - Afr Amer 103 mL/min (>60); Globulin 3.9 g/dL (2.2-4.2); Glucose 66 mg/dL (74-106); Magnesium 2.5 mg/dL (1.6-2.6); Potassium 3.9 mmol/L (3.5-5.1); Protein, Total 7.7 g/dL (6.4-8.2); Sodium Level 139 mmol/L (136-145)
== END 2019-12-28 23:59 ==
LOC: HHLAB 14:39
PROVIDERS: PCP Student in an Organized Health Care Education/Training Program
DX: Z45.2 Encounter for adjustment and management of vascular access device (principal); K58.2 Mixed irritable bowel syndrome; E44.0 Moderate protein-calorie malnutrition
CPT/HCPCS: 80053; 82525; 83735; 84100; 84630; 85027; 86140

== ENCOUNTER 2020-01-23 17:36 | Outpatient (RCR) | payer MEDICARE, OTHER, SELFPAY ==
[2019-11-08 10:29] VITALS: BMI 23.3
[2020-01-04 09:49] LABS: Hematocrit 38.4 % (37-47); Hemoglobin 12.6 g/dL (12.0-15.0); Mean Corp Hgb Conc 32.8 g/dL (32-36); Mean Corpuscular Hgb 31.4 pg (27.0-32.0); Mean Corpuscular Volume 95.8 fL (81-99); Mean Platelet Vol. 10.7 fl (6.2-12.0); Platelet Count 242 K/mm3 (150-450); RBC Distribution Width CV 12.6 % (11.6-14.6); RBC Distribution Width SD 44.9 fl (35.1-43.9); Red Blood Count 4.01 M/mm3 (4.2-5.4)
[2020-01-04 09:56] LABS: ALB/GLOB Ratio 0.9 RATIO (0.9-2.4); AST(SGOT) 18 U/L (15-37); Alanine Aminotransfer ALT/SGPT 27 U/L (13-56); Albumin, Serum 3.6 g/dL (3.2-5.0); Alkaline Phosphatase 97 U/L (45-117); Anion Gap 4 (5-15); BUN 23 mg/dL (7-18); BUN/Creat Ratio 36.9 RATIO (10-20); Chloride 106 mmol/L (98-107); Creatinine, Serum 0.62 mg/dL (0.55-1.02); EST Glomerular Filtration Rate 102 mL/min (>60); Est Glom Filt Rate - Afr Amer 123 mL/min (>60); Globulin 3.9 g/dL (2.2-4.2); Glucose 97 mg/dL (74-106); Magnesium 2.5 mg/dL (1.6-2.6); Phosphorus 3.9 mg/dL (2.5-4.9); Potassium 4.2 mmol/L (3.5-5.1); Protein, Total 7.5 g/dL (6.4-8.2); Sodium Level 140 mmol/L (136-145)
[2020-01-09 10:32] LABS: Hematocrit 39.1 % (37-47); Hemoglobin 12.6 g/dL (12.0-15.0); Mean Corp Hgb Conc 32.2 g/dL (32-36); Mean Corpuscular Hgb 30.7 pg (27.0-32.0); Mean Corpuscular Volume 95.4 fL (81-99); Mean Platelet Vol. 10.8 fl (6.2-12.0); Platelet Count 251 K/mm3 (150-450); RBC Distribution Width CV 12.4 % (11.6-14.6); RBC Distribution Width SD 43.9 fl (35.1-43.9); White Blood Count 6.7 K/mm3 (4.4-11.0)
[2020-01-09 10:42] LABS: ALB/GLOB Ratio 0.8 RATIO (0.9-2.4); AST(SGOT) 20 U/L (15-37); Alanine Aminotransfer ALT/SGPT 28 U/L (13-56); Albumin, Serum 3.5 g/dL (3.2-5.0); Alkaline Phosphatase 100 U/L (45-117); Anion Gap 3 (5-15); BUN 22 mg/dL (7-18); BUN/Creat Ratio 35.7 RATIO (10-20); Calcium,Total 8.9 mg/dL (8.5-10.1); Chloride 110 mmol/L (98-107); Creatinine, Serum 0.62 mg/dL (0.55-1.02); EST Glomerular Filtration Rate 103 mL/min (>60); Est Glom Filt Rate - Afr Amer 125 mL/min (>60); Globulin 4.2 g/dL (2.2-4.2); Glucose 89 mg/dL (74-106); Magnesium 2.5 mg/dL (1.6-2.6); Phosphorus 3.5 mg/dL (2.5-4.9); Potassium 4.1 mmol/L (3.5-5.1); Protein, Total 7.7 g/dL (6.4-8.2); Sodium Level 142 mmol/L (136-145)
[2020-01-23 17:56] LABS: Hematocrit 38.4 % (37-47); Hemoglobin 12.5 g/dL (12.0-15.0); Mean Corp Hgb Conc 32.6 g/dL (32-36); Mean Corpuscular Volume 95.3 fL (81-99); Mean Platelet Vol. 11.1 fl (6.2-12.0); Platelet Count 258 K/mm3 (150-450); RBC Distribution Width CV 12.4 % (11.6-14.6); RBC Distribution Width SD 43.1 fl (35.1-43.9); Red Blood Count 4.03 M/mm3 (4.2-5.4); White Blood Count 9.1 K/mm3 (4.4-11.0)
[2020-01-23 18:31] LABS: AST(SGOT) 27 U/L (15-37); Alanine Aminotransfer ALT/SGPT 30 U/L (13-56); Albumin, Serum 3.9 g/dL (3.2-5.0); Alkaline Phosphatase 97 U/L (45-117); Anion Gap 9 (5-15); BUN 17 mg/dL (7-18); BUN/Creat Ratio 27.1 RATIO (10-20); Calcium,Total 8.9 mg/dL (8.5-10.1); Chloride 102 mmol/L (98-107); Creatinine, Serum 0.63 mg/dL (0.55-1.02); EST Glomerular Filtration Rate 101 mL/min (>60); Est Glom Filt Rate - Afr Amer 122 mL/min (>60); Globulin 3.9 g/dL (2.2-4.2); Glucose 82 mg/dL (74-106); Magnesium 2.3 mg/dL (1.6-2.6); Phosphorus 3.2 mg/dL (2.5-4.9); Potassium 3.4 mmol/L (3.5-5.1); Protein, Total 7.8 g/dL (6.4-8.2); Sodium Level 140 mmol/L (136-145)
[2020-01-23 18:32] LABS: Vitamin B12 820 pg/mL (211-911)
[2020-02-06 07:25] LABS: Vitamin A, Retinol 42.8 ug/dL (22.0-69.5)
== END 2020-01-23 18:00 | disposition home or self-care (01) ==
LOC: HHLAB 17:36
PROVIDERS: PCP Student in an Organized Health Care Education/Training Program
DX: E44.0 Moderate protein-calorie malnutrition (principal)
CPT/HCPCS: 80053; 82607; 83735; 84100; 84590; 85027

== ENCOUNTER → 2020-01-23 17:36 | Outpatient (CLI) | payer MEDICARE, OTHER, SELFPAY ==
[2019-11-08 10:29] VITALS: BMI 23.3
== END ==
PROVIDERS: PCP Student in an Organized Health Care Education/Training Program; Visit Provider Student in an Organized Health Care Education/Training Program
DX: Z00.00 Encounter for general adult medical examination without abnormal findings (principal)
CPT/HCPCS: 80053; 82607; 83735; 84100; 84590; 85027

== ENCOUNTER 2020-02-27 16:57 | Outpatient (RCR) | payer MEDICARE, OTHER, SELFPAY ==
[2019-11-08 10:29] VITALS: BMI 23.3
[2020-01-30 13:24] LABS: Hematocrit 38.3 % (37-47); Hemoglobin 12.4 g/dL (12.0-15.0); Mean Corp Hgb Conc 32.4 g/dL (32-36); Mean Corpuscular Hgb 30.9 pg (27.0-32.0); Mean Corpuscular Volume 95.5 fL (81-99); Platelet Count 233 K/mm3 (150-450); RBC Distribution Width CV 12.5 % (11.6-14.6); RBC Distribution Width SD 44.8 fl (35.1-43.9); Red Blood Count 4.01 M/mm3 (4.2-5.4); White Blood Count 6.6 K/mm3 (4.4-11.0)
[2020-01-30 13:36] LABS: ALB/GLOB Ratio 0.9 RATIO (0.9-2.4); AST(SGOT) 22 U/L (15-37); Alanine Aminotransfer ALT/SGPT 35 U/L (13-56); Albumin, Serum 3.6 g/dL (3.2-5.0); Alkaline Phosphatase 94 U/L (45-117); Anion Gap 7 (5-15); BUN 23 mg/dL (7-18); BUN/Creat Ratio 34.7 RATIO (10-20); Calcium,Total 8.7 mg/dL (8.5-10.1); Chloride 107 mmol/L (98-107); Creatinine, Serum 0.66 mg/dL (0.55-1.02); EST Glomerular Filtration Rate 95 mL/min (>60); Est Glom Filt Rate - Afr Amer 115 mL/min (>60); Globulin 4.1 g/dL (2.2-4.2); Glucose 85 mg/dL (74-106); Magnesium 2.5 mg/dL (1.6-2.6); Phosphorus 4.1 mg/dL (2.5-4.9); Potassium 3.8 mmol/L (3.5-5.1); Protein, Total 7.7 g/dL (6.4-8.2); Sodium Level 141 mmol/L (136-145)
[2020-02-27 17:37] LABS: Hematocrit 38.1 % (37-47); Hemoglobin 12.5 g/dL (12.0-15.0); Mean Corp Hgb Conc 32.8 g/dL (32-36); Mean Corpuscular Hgb 31.2 pg (27.0-32.0); Platelet Count 249 K/mm3 (150-450); RBC Distribution Width CV 12.6 % (11.6-14.6); RBC Distribution Width SD 43.7 fl (35.1-43.9); Red Blood Count 4.01 M/mm3 (4.2-5.4); White Blood Count 7.9 K/mm3 (4.4-11.0)
[2020-02-27 18:07] LABS: AST(SGOT) 25 U/L (15-37); Alanine Aminotransfer ALT/SGPT 34 U/L (13-56); Albumin, Serum 3.7 g/dL (3.2-5.0); Alkaline Phosphatase 90 U/L (45-117); Anion Gap 3 (5-15); BUN 27 mg/dL (7-18); BUN/Creat Ratio 25.2 RATIO (10-20); Calcium,Total 8.9 mg/dL (8.5-10.1); Chloride 106 mmol/L (98-107); Creatinine, Serum 1.07 mg/dL (0.55-1.02); EST Glomerular Filtration Rate 55 mL/min (>60); Est Glom Filt Rate - Afr Amer 66 mL/min (>60); Globulin 3.8 g/dL (2.2-4.2); Glucose 82 mg/dL (74-106); Magnesium 2.4 mg/dL (1.6-2.6); Phosphorus 3.7 mg/dL (2.5-4.9); Potassium 3.4 mmol/L (3.5-5.1); Protein, Total 7.5 g/dL (6.4-8.2); Sodium Level 139 mmol/L (136-145)
== END 2020-02-27 18:00 | disposition home or self-care (01) ==
LOC: HHLAB 16:57
PROVIDERS: PCP Student in an Organized Health Care Education/Training Program
DX: E44.0 Moderate protein-calorie malnutrition (principal)
CPT/HCPCS: 80053; 83735; 84100; 85027

== ENCOUNTER 2020-03-26 12:45 | Outpatient (RCR) | payer MEDICARE, OTHER, SELFPAY ==
[2019-11-08 10:29] VITALS: BMI 23.3
[2020-03-05 15:10] LABS: Hematocrit 38.1 % (37-47); Hemoglobin 12.3 g/dL (12.0-15.0); Mean Corp Hgb Conc 32.3 g/dL (32-36); Mean Corpuscular Hgb 30.8 pg (27.0-32.0); Mean Corpuscular Volume 95.5 fL (81-99); Mean Platelet Vol. 11.2 fl (6.2-12.0); Platelet Count 229 K/mm3 (150-450); RBC Distribution Width CV 12.5 % (11.6-14.6); Red Blood Count 3.99 M/mm3 (4.2-5.4); White Blood Count 7.7 K/mm3 (4.4-11.0)
[2020-03-05 15:21] LABS: ALB/GLOB Ratio 0.9 RATIO (0.9-2.4); AST(SGOT) 23 U/L (15-37); Alanine Aminotransfer ALT/SGPT 34 U/L (13-56); Albumin, Serum 3.6 g/dL (3.2-5.0); Alkaline Phosphatase 85 U/L (45-117); Anion Gap 4 (5-15); BUN 25 mg/dL (7-18); BUN/Creat Ratio 37.2 RATIO (10-20); Calcium,Total 8.7 mg/dL (8.5-10.1); Chloride 106 mmol/L (98-107); Creatinine, Serum 0.67 mg/dL (0.55-1.02); EST Glomerular Filtration Rate 93 mL/min (>60); Est Glom Filt Rate - Afr Amer 113 mL/min (>60); Globulin 3.8 g/dL (2.2-4.2); Glucose 82 mg/dL (74-106); Magnesium 2.3 mg/dL (1.6-2.6); Phosphorus 3.6 mg/dL (2.5-4.9); Protein, Total 7.4 g/dL (6.4-8.2); Sodium Level 139 mmol/L (136-145)
[2020-03-26 13:36] LABS: ALB/GLOB Ratio 0.9 RATIO (0.9-2.4); AST(SGOT) 22 U/L (15-37); Alanine Aminotransfer ALT/SGPT 34 U/L (13-56); Albumin, Serum 3.6 g/dL (3.2-5.0); Alkaline Phosphatase 86 U/L (45-117); Anion Gap 6 (5-15); BUN 21 mg/dL (7-18); Calcium,Total 8.8 mg/dL (8.5-10.1); Chloride 107 mmol/L (98-107); Creatinine, Serum 0.75 mg/dL (0.55-1.02); EST Glomerular Filtration Rate 82 mL/min (>60); Est Glom Filt Rate - Afr Amer 99 mL/min (>60); Globulin 3.9 g/dL (2.2-4.2); Glucose 84 mg/dL (74-106); Magnesium 2.2 mg/dL (1.6-2.6); Protein, Total 7.5 g/dL (6.4-8.2); Sodium Level 141 mmol/L (136-145)
[2020-03-26 13:37] LABS: Hematocrit 39.2 % (37-47); Hemoglobin 12.7 g/dL (12.0-15.0); Mean Corp Hgb Conc 32.4 g/dL (32-36); Mean Corpuscular Hgb 31.4 pg (27.0-32.0); Mean Platelet Vol. 10.9 fl (6.2-12.0); Platelet Count 232 K/mm3 (150-450); RBC Distribution Width CV 12.9 % (11.6-14.6); RBC Distribution Width SD 44.9 fl (35.1-43.9); Red Blood Count 4.04 M/mm3 (4.2-5.4); White Blood Count 6.5 K/mm3 (4.4-11.0)
== END 2020-03-26 18:00 | disposition home or self-care (01) ==
LOC: HHLAB 12:45
PROVIDERS: PCP Student in an Organized Health Care Education/Training Program
DX: E44.0 Moderate protein-calorie malnutrition (principal)
CPT/HCPCS: 80053; 83735; 83921; 84100; 85027

== ENCOUNTER 2020-04-09 15:35 | Outpatient (RCR) | payer MEDICARE, OTHER, SELFPAY ==
[2019-11-08 10:29] VITALS: BMI 23.3
[2020-04-16 11:04] LABS: VITAMIN B6 49.3 ug/L (2.0-32.8)
== END 2020-04-09 18:00 | disposition home or self-care (01) ==
LOC: HHLAB 15:35
PROVIDERS: PCP Student in an Organized Health Care Education/Training Program
DX: E44.0 Moderate protein-calorie malnutrition (principal)
CPT/HCPCS: 84207

== ENCOUNTER 2020-04-30 13:20 | Outpatient (RCR) | payer MEDICARE, OTHER, SELFPAY ==
[2019-11-08 10:29] VITALS: BMI 23.3
[2020-04-30 13:49] LABS: Hematocrit 37.5 % (37-47); Hemoglobin 12.3 g/dL (12.0-15.0); Mean Corp Hgb Conc 32.8 g/dL (32-36); Mean Corpuscular Hgb 30.8 pg (27.0-32.0); Mean Platelet Vol. 11.4 fl (6.2-12.0); Platelet Count 197 K/mm3 (150-450); RBC Distribution Width CV 12.2 % (11.6-14.6); RBC Distribution Width SD 42.3 fl (35.1-43.9); Red Blood Count 3.99 M/mm3 (4.2-5.4); White Blood Count 6.4 K/mm3 (4.4-11.0)
[2020-04-30 14:22] LABS: ALB/GLOB Ratio 0.9 RATIO (0.9-2.4); AST(SGOT) 27 U/L (15-37); Alanine Aminotransfer ALT/SGPT 28 U/L (13-56); Albumin, Serum 3.4 g/dL (3.2-5.0); Alkaline Phosphatase 80 U/L (45-117); Anion Gap 8 (5-15); BUN 26 mg/dL (7-18); BUN/Creat Ratio 29.1 RATIO (10-20); Calcium,Total 8.8 mg/dL (8.5-10.1); Chloride 104 mmol/L (98-107); Creatinine, Serum 0.89 mg/dL (0.55-1.02); EST Glomerular Filtration Rate 67 mL/min (>60); Est Glom Filt Rate - Afr Amer 81 mL/min (>60); Globulin 3.6 g/dL (2.2-4.2); Glucose 92 mg/dL (74-106); Magnesium 2.2 mg/dL (1.6-2.6); Phosphorus 4.4 mg/dL (2.5-4.9); Potassium 3.9 mmol/L (3.5-5.1); Sodium Level 139 mmol/L (136-145)
[2020-05-06 09:39] LABS: VITAMIN B6 19.6 ug/L (2.0-32.8)
== END 2020-04-30 18:00 | disposition home or self-care (01) ==
LOC: HHLAB 13:20
PROVIDERS: PCP Student in an Organized Health Care Education/Training Program
DX: E44.0 Moderate protein-calorie malnutrition (principal)
CPT/HCPCS: 80053; 83735; 84100; 84207; 85027

== ENCOUNTER → 2020-05-21 14:48 | Outpatient (CLI) | payer MEDICARE, OTHER, SELFPAY ==
[2020-05-18 12:20] VITALS: BMI 23.3
[2020-05-21 16:19] LABS: CRP < 2.90 mg/L (0.0-3.0)
[2020-05-25 10:07] LABS: Copper, Serum or Plasma 89 ug/dL (80-158); Zinc, Plasma or Serum 84 ug/dL (44-115)
== END ==
DX: Z45.2 Encounter for adjustment and management of vascular access device (principal); K58.2 Mixed irritable bowel syndrome; E44.0 Moderate protein-calorie malnutrition
CPT/HCPCS: 82525; 84630; 86140

== ENCOUNTER 2020-06-11 12:57 | Outpatient (RCR) | payer MEDICARE, OTHER, SELFPAY ==
[2020-05-18 12:20] VITALS: BMI 23.3
[2020-06-11 13:51] LABS: Hematocrit 41.2 % (37-47); Hemoglobin 13.5 g/dL (12.0-15.0); Mean Corp Hgb Conc 32.8 g/dL (32-36); Mean Corpuscular Hgb 31.4 pg (27.0-32.0); Mean Corpuscular Volume 95.8 fL (81-99); Mean Platelet Vol. 11.7 fl (6.2-12.0); Platelet Count 219 K/mm3 (150-450); RBC Distribution Width CV 12.7 % (11.6-14.6); RBC Distribution Width SD 43.9 fl (35.1-43.9); White Blood Count 9.7 K/mm3 (4.4-11.0)
[2020-06-11 14:07] LABS: ALB/GLOB Ratio 0.9 RATIO (0.9-2.4); AST(SGOT) 20 U/L (15-37); Alanine Aminotransfer ALT/SGPT 30 U/L (13-56); Albumin, Serum 3.6 g/dL (3.2-5.0); Alkaline Phosphatase 99 U/L (45-117); Anion Gap 7 (5-15); BUN 18 mg/dL (7-18); Chloride 105 mmol/L (98-107); Creatinine, Serum 0.72 mg/dL (0.55-1.02); EST Glomerular Filtration Rate 86 mL/min (>60); Est Glom Filt Rate - Afr Amer 104 mL/min (>60); Globulin 4.2 g/dL (2.2-4.2); Glucose 83 mg/dL (74-106); Magnesium 2.2 mg/dL (1.6-2.6); Phosphorus 3.7 mg/dL (2.5-4.9); Potassium 3.9 mmol/L (3.5-5.1); Protein, Total 7.8 g/dL (6.4-8.2); Sodium Level 139 mmol/L (136-145)
== END 2020-06-11 18:00 | disposition home or self-care (01) ==
LOC: HHLAB 12:57
PROVIDERS: PCP Student in an Organized Health Care Education/Training Program
DX: E44.0 Moderate protein-calorie malnutrition (principal)
CPT/HCPCS: 80053; 83735; 84100; 85027

== ENCOUNTER 2020-07-23 16:48 | Outpatient (RCR) | payer MEDICARE, OTHER, SELFPAY ==
[2020-05-18 12:20] VITALS: BMI 23.3
[2020-07-09 15:31] LABS: Hematocrit 38.3 % (37-47); Hemoglobin 12.7 g/dL (12.0-15.0); Mean Corp Hgb Conc 33.2 g/dL (32-36); Mean Corpuscular Hgb 31.4 pg (27.0-32.0); Mean Corpuscular Volume 94.6 fL (81-99); Platelet Count 217 K/mm3 (150-450); RBC Distribution Width CV 12.9 % (11.6-14.6); RBC Distribution Width SD 44.3 fl (35.1-43.9); Red Blood Count 4.05 M/mm3 (4.2-5.4); White Blood Count 7.1 K/mm3 (4.4-11.0)
[2020-07-09 15:57] LABS: ALB/GLOB Ratio 0.9 RATIO (0.9-2.4); AST(SGOT) 21 U/L (15-37); Alanine Aminotransfer ALT/SGPT 31 U/L (13-56); Albumin, Serum 3.6 g/dL (3.2-5.0); Alkaline Phosphatase 80 U/L (45-117); Anion Gap 7 (5-15); BUN 24 mg/dL (7-18); BUN/Creat Ratio 32.5 RATIO (10-20); Calcium,Total 8.8 mg/dL (8.5-10.1); Chloride 105 mmol/L (98-107); Creatinine, Serum 0.74 mg/dL (0.55-1.02); EST Glomerular Filtration Rate 84 mL/min (>60); Est Glom Filt Rate - Afr Amer 101 mL/min (>60); Globulin 3.8 g/dL (2.2-4.2); Glucose 83 mg/dL (74-106); Magnesium 2.4 mg/dL (1.6-2.6); Phosphorus 3.7 mg/dL (2.5-4.9); Potassium 3.8 mmol/L (3.5-5.1); Protein, Total 7.4 g/dL (6.4-8.2); Sodium Level 138 mmol/L (136-145)
[2020-07-23 17:36] LABS: Hematocrit 35.6 % (37-47); Hemoglobin 11.5 g/dL (12.0-15.0); Mean Corp Hgb Conc 32.3 g/dL (32-36); Mean Corpuscular Hgb 30.8 pg (27.0-32.0); Mean Corpuscular Volume 95.4 fL (81-99); Mean Platelet Vol. 10.9 fl (6.2-12.0); Platelet Count 183 K/mm3 (150-450); RBC Distribution Width CV 12.8 % (11.6-14.6); RBC Distribution Width SD 44.5 fl (35.1-43.9); Red Blood Count 3.73 M/mm3 (4.2-5.4); White Blood Count 6.9 K/mm3 (4.4-11.0)
[2020-07-23 17:51] LABS: AST(SGOT) 27 U/L (15-37); Alanine Aminotransfer ALT/SGPT 27 U/L (13-56); Albumin, Serum 3.3 g/dL (3.2-5.0); Alkaline Phosphatase 68 U/L (45-117); Anion Gap 8 (5-15); BUN 24 mg/dL (7-18); BUN/Creat Ratio 34.2 RATIO (10-20); Calcium,Total 8.5 mg/dL (8.5-10.1); Chloride 103 mmol/L (98-107); EST Glomerular Filtration Rate 89 mL/min (>60); Est Glom Filt Rate - Afr Amer 107 mL/min (>60); Globulin 3.4 g/dL (2.2-4.2); Glucose 93 mg/dL (74-106); Magnesium 2.2 mg/dL (1.6-2.6); Phosphorus 3.7 mg/dL (2.5-4.9); Potassium 3.5 mmol/L (3.5-5.1); Protein, Total 6.7 g/dL (6.4-8.2); Sodium Level 138 mmol/L (136-145)
== END 2020-07-23 18:00 | disposition home or self-care (01) ==
LOC: HHLAB 16:48
PROVIDERS: PCP Student in an Organized Health Care Education/Training Program
DX: E46 Unspecified protein-calorie malnutrition (principal)
CPT/HCPCS: 80053; 83735; 84100; 85027

== ENCOUNTER → 2020-07-26 16:11 | Outpatient (CLI) | payer MEDICARE, OTHER, MEDICAID, SELFPAY ==
[2020-07-26 15:36] VITALS: BMI 26.5
[2020-07-26 17:51] LABS: Vitamin D,25 Hydroxy 36.6 ng/mL
[2020-07-27 07:48] LABS: PTHIN 40.1 pg/mL (18.4-80.1)
== END ==
PROVIDERS: PCP Student in an Organized Health Care Education/Training Program; Referring Provider Internal Medicine Endocrinology, Diabetes & Metabolism; Visit Provider Internal Medicine Endocrinology, Diabetes & Metabolism
DX: M81.0 Age-related osteoporosis without current pathological fracture (principal); E55.9 Vitamin D deficiency, unspecified
CPT/HCPCS: 36415; 82306; 83970

== ENCOUNTER 2020-08-20 12:32 | Outpatient (RCR) | payer MEDICARE, OTHER, MEDICAID, SELFPAY ==
[2020-07-26 15:36] VITALS: BMI 26.5
[2020-07-30 13:09] LABS: Hemoglobin 12.9 g/dL (12.0-15.0); Mean Corp Hgb Conc 32.3 g/dL (32-36); Mean Corpuscular Hgb 31.2 pg (27.0-32.0); Mean Corpuscular Volume 96.9 fL (81-99); Mean Platelet Vol. 11.2 fl (6.2-12.0); Platelet Count 233 K/mm3 (150-450); RBC Distribution Width CV 12.9 % (11.6-14.6); RBC Distribution Width SD 46.4 fl (35.1-43.9); Red Blood Count 4.13 M/mm3 (4.2-5.4); White Blood Count 6.1 K/mm3 (4.4-11.0)
[2020-07-30 13:22] LABS: ALB/GLOB Ratio 0.9 RATIO (0.9-2.4); AST(SGOT) 23 U/L (15-37); Alanine Aminotransfer ALT/SGPT 32 U/L (13-56); Albumin, Serum 3.6 g/dL (3.2-5.0); Alkaline Phosphatase 79 U/L (45-117); Anion Gap 6 (5-15); BUN 25 mg/dL (7-18); BUN/Creat Ratio 38.7 RATIO (10-20); Calcium,Total 9.5 mg/dL (8.5-10.1); Chloride 106 mmol/L (98-107); Creatinine, Serum 0.65 mg/dL (0.55-1.02); EST Glomerular Filtration Rate 98 mL/min (>60); Est Glom Filt Rate - Afr Amer 118 mL/min (>60); Globulin 3.9 g/dL (2.2-4.2); Glucose 89 mg/dL (74-106); Magnesium 2.4 mg/dL (1.6-2.6); Potassium 3.9 mmol/L (3.5-5.1); Protein, Total 7.5 g/dL (6.4-8.2); Sodium Level 140 mmol/L (136-145)
[2020-08-06 13:54] LABS: Hematocrit 41.3 % (37-47); Hemoglobin 13.4 g/dL (12.0-15.0); Mean Corp Hgb Conc 32.4 g/dL (32-36); Mean Corpuscular Hgb 31.2 pg (27.0-32.0); Mean Corpuscular Volume 96.3 fL (81-99); Mean Platelet Vol. 11.3 fl (6.2-12.0); Platelet Count 257 K/mm3 (150-450); RBC Distribution Width CV 12.8 % (11.6-14.6); RBC Distribution Width SD 45.9 fl (35.1-43.9); Red Blood Count 4.29 M/mm3 (4.2-5.4); White Blood Count 7.5 K/mm3 (4.4-11.0)
[2020-08-06 14:05] LABS: AST(SGOT) 53 U/L (15-37); Alanine Aminotransfer ALT/SGPT 45 U/L (13-56); Albumin, Serum 3.7 g/dL (3.2-5.0); Alkaline Phosphatase 79 U/L (45-117); Anion Gap 6 (5-15); BUN 22 mg/dL (7-18); BUN/Creat Ratio 34.9 RATIO (10-20); Calcium,Total 8.9 mg/dL (8.5-10.1); Chloride 104 mmol/L (98-107); Creatinine, Serum 0.63 mg/dL (0.55-1.02); EST Glomerular Filtration Rate 100 mL/min (>60); Est Glom Filt Rate - Afr Amer 121 mL/min (>60); Globulin 3.6 g/dL (2.2-4.2); Glucose 81 mg/dL (74-106); Magnesium 2.2 mg/dL (1.6-2.6); Phosphorus 3.5 mg/dL (2.5-4.9); Potassium 4.1 mmol/L (3.5-5.1); Protein, Total 7.3 g/dL (6.4-8.2); Sodium Level 139 mmol/L (136-145)
[2020-08-06 14:09] LABS: Vitamin D,25 Hydroxy 50.6 ng/mL
[2020-08-13 15:50] LABS: Hematocrit 37.7 % (37-47); Hemoglobin 12.3 g/dL (12.0-15.0); Mean Corp Hgb Conc 32.6 g/dL (32-36); Mean Corpuscular Hgb 31.4 pg (27.0-32.0); Mean Corpuscular Volume 96.2 fL (81-99); Mean Platelet Vol. 11.7 fl (6.2-12.0); Platelet Count 204 K/mm3 (150-450); RBC Distribution Width CV 12.9 % (11.6-14.6); RBC Distribution Width SD 45.6 fl (35.1-43.9); Red Blood Count 3.92 M/mm3 (4.2-5.4); White Blood Count 7.9 K/mm3 (4.4-11.0)
[2020-08-13 16:01] LABS: AST(SGOT) 28 U/L (15-37); Alanine Aminotransfer ALT/SGPT 41 U/L (13-56); Albumin, Serum 3.7 g/dL (3.2-5.0); Alkaline Phosphatase 80 U/L (45-117); Anion Gap 3 (5-15); BUN 24 mg/dL (7-18); Chloride 106 mmol/L (98-107); Creatinine, Serum 0.75 mg/dL (0.55-1.02); EST Glomerular Filtration Rate 82 mL/min (>60); Est Glom Filt Rate - Afr Amer 99 mL/min (>60); Globulin 3.7 g/dL (2.2-4.2); Glucose 96 mg/dL (74-106); Magnesium 2.1 mg/dL (1.6-2.6); Potassium 3.6 mmol/L (3.5-5.1); Protein, Total 7.4 g/dL (6.4-8.2); Sodium Level 137 mmol/L (136-145)
[2020-08-20 15:18] LABS: Hematocrit 39.4 % (37-47); Hemoglobin 12.6 g/dL (12.0-15.0); Mean Corpuscular Hgb 31.2 pg (27.0-32.0); Mean Corpuscular Volume 97.5 fL (81-99); Mean Platelet Vol. 11.5 fl (6.2-12.0); Platelet Count 213 K/mm3 (150-450); RBC Distribution Width CV 12.7 % (11.6-14.6); RBC Distribution Width SD 45.7 fl (35.1-43.9); Red Blood Count 4.04 M/mm3 (4.2-5.4); White Blood Count 6.3 K/mm3 (4.4-11.0)
[2020-08-20 15:52] LABS: AST(SGOT) 25 U/L (15-37); Alanine Aminotransfer ALT/SGPT 31 U/L (13-56); Albumin, Serum 3.7 g/dL (3.2-5.0); Alkaline Phosphatase 78 U/L (45-117); Anion Gap 6 (5-15); BUN 19 mg/dL (7-18); BUN/Creat Ratio 24.5 RATIO (10-20); Chloride 108 mmol/L (98-107); Creatinine, Serum 0.77 mg/dL (0.55-1.02); EST Glomerular Filtration Rate 79 mL/min (>60); Est Glom Filt Rate - Afr Amer 96 mL/min (>60); Globulin 3.7 g/dL (2.2-4.2); Glucose 92 mg/dL (74-106); Magnesium 2.4 mg/dL (1.6-2.6); Phosphorus 3.4 mg/dL (2.5-4.9); Potassium 3.8 mmol/L (3.5-5.1); Protein, Total 7.4 g/dL (6.4-8.2); Sodium Level 139 mmol/L (136-145)
== END 2020-08-20 18:00 | disposition home or self-care (01) ==
LOC: HHLAB 12:32
PROVIDERS: PCP Student in an Organized Health Care Education/Training Program
DX: E44.0 Moderate protein-calorie malnutrition (principal); Z45.2 Encounter for adjustment and management of vascular access device; K58.8 Other irritable bowel syndrome
CPT/HCPCS: 80053; 82306; 83735; 84100; 85027

== ENCOUNTER 2020-09-17 13:35 | Outpatient (RCR) | payer MEDICARE, OTHER, MEDICAID, SELFPAY ==
[2020-07-26 15:36] VITALS: BMI 26.5
[2020-09-03 12:44] LABS: Hematocrit 38.2 % (37-47); Hemoglobin 12.7 g/dL (12.0-15.0); Mean Corp Hgb Conc 33.2 g/dL (32-36); Mean Corpuscular Hgb 31.7 pg (27.0-32.0); Mean Corpuscular Volume 95.3 fL (81-99); Mean Platelet Vol. 10.9 fl (6.2-12.0); Platelet Count 225 K/mm3 (150-450); RBC Distribution Width CV 12.8 % (11.6-14.6); RBC Distribution Width SD 45.2 fl (35.1-43.9); Red Blood Count 4.01 M/mm3 (4.2-5.4)
[2020-09-03 13:02] LABS: AST(SGOT) 19 U/L (15-37); Alanine Aminotransfer ALT/SGPT 27 U/L (13-56); Albumin, Serum 3.6 g/dL (3.2-5.0); Alkaline Phosphatase 82 U/L (45-117); Anion Gap 9 (5-15); BUN 22 mg/dL (7-18); BUN/Creat Ratio 35.1 RATIO (10-20); Calcium,Total 9.2 mg/dL (8.5-10.1); Chloride 105 mmol/L (98-107); Creatinine, Serum 0.63 mg/dL (0.55-1.02); EST Glomerular Filtration Rate 101 mL/min (>60); Est Glom Filt Rate - Afr Amer 122 mL/min (>60); Globulin 3.6 g/dL (2.2-4.2); Glucose 92 mg/dL (74-106); Magnesium 2.4 mg/dL (1.6-2.6); Phosphorus 3.7 mg/dL (2.5-4.9); Potassium 4.1 mmol/L (3.5-5.1); Protein, Total 7.2 g/dL (6.4-8.2); Sodium Level 141 mmol/L (136-145)
[2020-09-17 13:46] LABS: Hematocrit 38.6 % (37-47); Hemoglobin 12.7 g/dL (12.0-15.0); Mean Corp Hgb Conc 32.9 g/dL (32-36); Mean Corpuscular Hgb 31.7 pg (27.0-32.0); Mean Corpuscular Volume 96.3 fL (81-99); Mean Platelet Vol. 10.9 fl (6.2-12.0); Platelet Count 214 K/mm3 (150-450); RBC Distribution Width CV 12.9 % (11.6-14.6); RBC Distribution Width SD 45.6 fl (35.1-43.9); Red Blood Count 4.01 M/mm3 (4.2-5.4); White Blood Count 7.2 K/mm3 (4.4-11.0)
[2020-09-17 14:03] LABS: AST(SGOT) 24 U/L (15-37); Alanine Aminotransfer ALT/SGPT 28 U/L (13-56); Albumin, Serum 3.5 g/dL (3.2-5.0); Alkaline Phosphatase 85 U/L (45-117); Anion Gap 10 (5-15); BUN 10 mg/dL (7-18); BUN/Creat Ratio 13.3 RATIO (10-20); Calcium,Total 8.7 mg/dL (8.5-10.1); Chloride 104 mmol/L (98-107); Creatinine, Serum 0.75 mg/dL (0.55-1.02); EST Glomerular Filtration Rate 82 mL/min (>60); Est Glom Filt Rate - Afr Amer 99 mL/min (>60); Globulin 3.5 g/dL (2.2-4.2); Glucose 76 mg/dL (74-106); Magnesium 2.3 mg/dL (1.6-2.6); Phosphorus 3.4 mg/dL (2.5-4.9); Potassium 3.3 mmol/L (3.5-5.1); Sodium Level 141 mmol/L (136-145)
== END 2020-09-26 18:00 | disposition home or self-care (01) ==
LOC: HHLAB 13:35
PROVIDERS: PCP Student in an Organized Health Care Education/Training Program
DX: E44.0 Moderate protein-calorie malnutrition (principal); K58.2 Mixed irritable bowel syndrome
CPT/HCPCS: 80053; 83735; 84100; 85027

== ENCOUNTER → 2020-09-24 09:39 | Outpatient (CLI) | payer MEDICARE, OTHER, MEDICAID, SELFPAY ==
[2020-07-26 15:36] VITALS: BMI 26.5
[2020-09-24 09:45] VITALS: BP 129/85; PULSE 73; RESP 14; TEMP 37.3; O2SAT 97; BMI 23.3
[2020-09-24] MEDS: 0.9% NaCl Peripheral Flush Adult/Peds IV ×2 (10:07→10:35)
[2020-09-24] MEDS: Zoledronic Acid 5 MG 100 ML 300 MG IV (10:08)
[2020-09-24 10:34] VITALS: BP 132/70; PULSE 71; TEMP 36.7
== END ==
PROVIDERS: PCP Student in an Organized Health Care Education/Training Program; Referring Provider Internal Medicine Endocrinology, Diabetes & Metabolism; Visit Provider Internal Medicine Endocrinology, Diabetes & Metabolism
DX: M81.0 Age-related osteoporosis without current pathological fracture (principal)
CPT/HCPCS: 96365; A4216; J3489

== ENCOUNTER 2020-10-02 12:07 | Outpatient (RCR) | payer MEDICARE, OTHER, MEDICAID, SELFPAY ==
[2020-09-24 09:45] VITALS: BMI 23.3
[2020-10-02 12:24] LABS: Hematocrit 38.1 % (37-47); Hemoglobin 12.5 g/dL (12.0-15.0); Mean Corp Hgb Conc 32.8 g/dL (32-36); Mean Corpuscular Hgb 31.6 pg (27.0-32.0); Mean Corpuscular Volume 96.5 fL (81-99); Mean Platelet Vol. 10.5 fl (6.2-12.0); Platelet Count 256 K/mm3 (150-450); RBC Distribution Width CV 12.4 % (11.6-14.6); RBC Distribution Width SD 44.1 fl (35.1-43.9); Red Blood Count 3.95 M/mm3 (4.2-5.4); White Blood Count 7.3 K/mm3 (4.4-11.0)
[2020-10-02 12:36] LABS: ALB/GLOB Ratio 0.9 RATIO (0.9-2.4); AST(SGOT) 18 U/L (15-37); Alanine Aminotransfer ALT/SGPT 21 U/L (13-56); Albumin, Serum 3.4 g/dL (3.2-5.0); Alkaline Phosphatase 82 U/L (45-117); Anion Gap 6 (5-15); BUN 8 mg/dL (7-18); BUN/Creat Ratio 12.5 RATIO (10-20); Calcium,Total 8.5 mg/dL (8.5-10.1); Chloride 108 mmol/L (98-107); Creatinine, Serum 0.64 mg/dL (0.55-1.02); EST Glomerular Filtration Rate 98 mL/min (>60); Est Glom Filt Rate - Afr Amer 119 mL/min (>60); Globulin 3.8 g/dL (2.2-4.2); Glucose 104 mg/dL (74-106); Magnesium 2.4 mg/dL (1.6-2.6); Phosphorus 3.3 mg/dL (2.5-4.9); Potassium 3.6 mmol/L (3.5-5.1); Protein, Total 7.2 g/dL (6.4-8.2); Sodium Level 139 mmol/L (136-145)
== END 2020-10-02 18:00 | disposition home or self-care (01) ==
LOC: HHLAB 12:07
PROVIDERS: PCP Student in an Organized Health Care Education/Training Program
DX: Z45.2 Encounter for adjustment and management of vascular access device (principal); E44.0 Moderate protein-calorie malnutrition; K58.8 Other irritable bowel syndrome
CPT/HCPCS: 80053; 83735; 84100; 85027

== ENCOUNTER → 2021-09-27 | Outpatient (CLI) | payer MEDICARE, MEDICAID, SELFPAY ==
[2021-09-27] MEDS: 0.9% NaCl IVPB Med Flush (250 mL) 15 ML IV (12:25)
[2021-09-27] MEDS: 0.9% NaCl Peripheral Flush Adult/Peds IV (12:25)
[2021-09-27] MEDS: Zoledronic Acid 5 MG 100 ML 300 MG IV (12:32)
[2021-09-27 12:34] VITALS: BP 159/74; PULSE 91; RESP 12; TEMP 35.8; O2SAT 95; BMI 25.5
[2021-09-27 13:01] VITALS: BP 137/77; PULSE 58; RESP 14; TEMP 36; O2SAT 97
== END | disposition home or self-care (01) ==
LOC: MEDOUTP 12:15
PROVIDERS: PCP Student in an Organized Health Care Education/Training Program; Referring Provider Internal Medicine Endocrinology, Diabetes & Metabolism; Visit Provider Internal Medicine Endocrinology, Diabetes & Metabolism
DX: M81.0 Age-related osteoporosis without current pathological fracture (principal)
CPT/HCPCS: 96365; J7050; A4216; J3489

== ENCOUNTER 2022-05-02 17:15 | Emergency (ER) | payer MEDICARE, MEDICAID, SELFPAY ==
[2022-05-02 17:16] VITALS: TEMP 36.7; BMI 26.4
--- NOTE | 2022-05-02 17:57 | EDS_ITS ---
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 We obtained history from them. Evidently the people called the police because this patient was outside yelling and acting in a nonnormal fashion. Police arrived. She would not calm down and stop talking. She was not able to carry on a coherent conversation. She had been writing all over herself and writing over the ennis of her house. She seems to be quite manic. They report we have is that she has had episodes of this in the past although they are not frequent. Patient does not really tell us much what is going on. When I talk with her, she [place] is a sin the name of [place] the Lord our Savior. She has flight of ideas. I really cannot get useful history or review of systems from us. [facility] Medical History Anemia Back problem Bilateral headaches Bleeding hemorrhoid Bone fracture DDD (degenerative disc disease) Environmental allergies Fibromyalgia Gallbladder & bile duct stone with obstruction Gastrointestinal problem Heart valve problem History of open sigmoidectomy Hives Hypoglycemia Osteoarthritis Osteopenia Osteoporosis Osteoporosis Pancreatitis Rheumatoid arthritis Seasonal allergies Seizure Skin cancer TMJ (temporomandibular joint syndrome) UTI (urinary tract infection) Vitamin deficiency Home Medications buspirone 5 mg tablet 5 mg PO TID 05/02/22 [History Last Taken Unknown] celecoxib 100 mg capsule 100 mg PO DAILY 05/02/22 [History Last Taken Unknown] diazepam 2 mg tablet 2 mg PO DAILY 05/02/22 [History Last Taken Unknown] potassium chloride 10 mEq capsule,extended release 30 meq PO DAILY 05/02/22 [History Last Taken Unknown] simvastatin 20 mg tablet 20 mg PO QHS 05/02/22 [History Last Taken Unknown] Allergy/AdvReac Type Severity Reaction Status Date / Time oxycodone Allergy Hives Verified 05/02/22 17:16 tramadol Allergy Other Verified 05/02/22 17:16 Family History Other Anxiety Arthritis Asthma Autoimmune disease Blood clot in vein Bowel disease CVA (cerebral vascular accident) Colon cancer Heart disease High cholesterol Hypertension Melanoma Myocardial infarction Osteoporosis Parkinson disease Skin cancer Surgical History History of bilateral breast reduction surgery History of cholecystectomy History of hemorrhoidectomy History of hysterectomy History of rotator cuff surgery Hx of breast reduction, elective S/P complete hysterectomy Social History Smoking Status: Never smoker alcohol intake: never substance use type: does not use what type of physical activity do you participate in: walking frequency: 1-2 times per week ROS ROS ED ROS Narrative Unknown able to obtain useful review of systems. Although patient is awake and alert and conversive, she does not want to answer my questions. She states that such things as you are one of them. She pushes me away and will not allow evaluation. EXAM Physical Exam Narrative Exam Narrative: Exam is quite limited. Patient pushes me away and will not permit an evaluation. Evaluation as below is visual from next to the patient. Patient is having pressured speech and flight of ideas. Mildly combative. HEENT shows no sign of obvious trauma. Mucous membranes do look very dry. Eyes do have full range of motion. Difficult to assess pupillary function. Neck shows no pain with range of motion. I see no JVD. Lungs I hear no wheezing in the room. She does not appear to have any dyspnea. Heart: Unable to assess Abdomen: Flat unable to assess for tenderness. Unable to assess for bowel sounds unable to assess. Extremities: She has writing with magic markers all over extremities more on the left than the right likely for her being right-handed. No sign of swelling or bruising that I see. She moves all well. Neurologic: Although she has flight of ideas and pressured speech she does speak clearly. There is no obvious deficit of weakness or coordination. Skin shows no pallor diaphoresis or rash. She does have writing all over her. Const Vital Signs: 05/02/22 17:16 Temperature 98.1 F Temperature Source Temporal Oxygen Delivery Method Room Air MDM MDM MDM Narrative Medical decision making narrative: Patient's labs show minimal elevation of white count at 12.9. This is likely from agitation. There is no fever. Electrolytes show minimally low potassium. This should correct with diet. Alcohol is negative. We are pending tox at this time. Patient was very agitated and aggressive when she came in. Was given Geodon. She was then given a dose of Ativan. She has been resting quietly. Her lungs are clear. Her heart is regular. Abdomen is nondistended and nontender. She has writing over her torso and arms but not legs. But no sign of other trauma or injury. Although we do not have urine back when there is nothing on the urine toxicology screen that would prevent psychiatric evaluation or admission. Therefore, the patient is medically cleared for psychiatric evaluation and admission if needed. Lab Data Attestation: I reviewed the patient's lab results. Labs: Laboratory Results - last 24 hr 05/02/22 05/02/22 05/02/22 17:58 17:58 17:58 WBC 12.9 H RBC 4.64 Hgb 14.8 Hct 42.8 MCV 92.2 MCH 31.9 MCHC 34.6 RDW Std Deviation 42.6 RDW Coeff of Esthela 12.6 Plt Count 320 MPV 10.2 Immature Gran % (Auto) 0.700 Neut % (Auto) 85.9 H Lymph % (Auto) 6.3 L Zapata % (Auto) 6.7 Eos % (Auto) 0.0 Baso % (Auto) 0.4 Absolute Neuts (auto) 11.1 H Absolute Lymphs (auto) 0.82 L Nucleated RBC % 0 Sodium 137 Potassium 2.9 L Chloride 96 L Carbon Dioxide 21.0 Anion Gap 20 H BUN 24 H Creatinine 0.64 Estim Creat Clear Calc 40.63 Est GFR (MDRD) Af Amer 119 Est GFR (MDRD) Non-Af 98 BUN/Creatinine Ratio 37.6 H Glucose 133 H Calcium 9.5 TSH 0.98 Ethyl Alcohol < 3.0 Discharge Plan Triage Chief Complaint: Mental Status Change ED Provider: Jonathan Salazar Dx/Rx/DC Orders Clinical Impression: Josiane, Acute psychosis Prescriptions: No Action buspirone 5 mg tablet 5 mg PO TID Label Comments: take 1 tablet by mouth three times a day potassium chloride 10 mEq capsule, extended release 30 meq PO DAILY Label Comments: take 1 capsule by mouth once daily IN ADDITION TO 20 MEQ FOR TOTAL OF 30 MEQ DAILY diazepam 2 mg tablet 2 mg PO DAILY Label Comments: take 1 tablet by mouth once daily simvastatin 20 mg tablet 20 mg PO QHS Label Comments: take 1 tablet by mouth at bedtime celecoxib 100 mg capsule 100 mg PO DAILY Label Comments: take 1 capsule by mouth once daily with meals Primary Care Provider: Margarito Spain Referrals: Margarito Spain, DO [Primary Care Provider] - Disposition Disposition: Psychiatric Hospital or Unit
[2022-05-02] MEDS: LORazepam 2 MG/ML Syringe 1 MG IM (18:05)
[2022-05-02 18:26] LABS: Absolute Lymphocyte Count 0.82 X10^3/uL (0.83-4.51); Absolute Neutrophil Count 11.1 X10^3/uL (2.0-7.7); Basophil# 0.05 X10^3/uL; Basophil% 0.4 % (0-1); Hematocrit 42.8 % (37-47); Hemoglobin 14.8 g/dL (12.0-15.0); Lymphocyte # 0.82 X10^3/ul (0.83-4.51); Lymphocyte % 6.3 % (19-41); Mean Corp Hgb Conc 34.6 g/dL (32-36); Mean Corpuscular Hgb 31.9 pg (27.0-32.0); Mean Corpuscular Volume 92.2 fL (81-99); Mean Platelet Vol. 10.2 fl (6.2-12.0); Monocyte# 0.86 X10^3/uL; Monocyte% 6.7 % (0-10); NRBC Flagged by Analyzer 0 % (0-5); Neutrophil % 85.9 % (47-70); Platelet Count 320 K/mm3 (150-450); RBC Distribution Width CV 12.6 % (11.6-14.6); RBC Distribution Width SD 42.6 fl (35.1-43.9); Red Blood Count 4.64 M/mm3 (4.2-5.4); White Blood Count 12.9 K/mm3 (4.4-11.0)
[2022-05-02 18:35] LABS: Anion Gap 20 (5-15); BUN 24 mg/dL (7-18); BUN/Creat Ratio 37.6 RATIO (10-20); Calcium,Total 9.5 mg/dL (8.5-10.1); Chloride 96 mmol/L (98-107); Creatinine, Serum 0.64 mg/dL (0.55-1.02); EST Glomerular Filtration Rate 98 mL/min (>60); Est Glom Filt Rate - Afr Amer 119 mL/min (>60); Estimated Creatinine Clearance 40.63 ml/min; Glucose 133 mg/dL (74-106); Potassium 2.9 mmol/L (3.5-5.1); Sodium Level 137 mmol/L (136-145); Thyroid Stim Hormone (TSH) 0.98 uIU/mL (0.358-3.74)
[2022-05-02 18:58] LABS: Alcohol, Blood (Medical)-Serum < 3.0 mg/dL
--- NOTE | 2022-05-02 19:16 | ED.RN ---
DAUGHTER IN [place], PRIMARY CONTACT [phone] DAUGHTER LOCALLY WILLY EVELIN [phone]
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
[2022-05-03] VITALS (8 sets, daily range): BP systolic 117–124; BP diastolic 74–79; PULSE 68–84; RESP 14–18; TEMP 36.4; O2SAT 94–99
[2022-05-03 05:09] LABS: Amphetamine Urine VISTA NEGATIVE (<1000 ng/mL); Barbiturate Urine VISTA NEGATIVE (< 200 ng/mL); Benzodiazepine Urine VISTA NEGATIVE (< 200 ng/mL); Cocaine Urine VISTA NEGATIVE (< 300 ng/mL); Ecstacy Urine VISTA NEGATIVE (< 500 ng/mL); Methadone Urine VISTA NEGATIVE (< 300 ng/mL); PCP Urine VISTA NEGATIVE (< 25 ng/mL); THC Urine VISTA POSITIVE (< 50 ng/mL); Vista UDS pH Range 5
--- NOTE | 2022-05-03 08:33 | NURSING ---
CALLED CRISIS FOR AN UPDATE
--- NOTE | 2022-05-03 08:48 | NURSING ---
CALLED CRISIS. SHE WILL FOLLOWUP WITH [facility]
--- NOTE | 2022-05-03 10:45 | CM.ED ---
TOM Note SW contacted by admissions staff at [facility] inquiring if patient still needed placed. TOM informed staff patient was currently in ED awaiting placement. Admissions staff inquired about patient's covid results as well as drug screen. TOM provided [facility] staff with verbal results. [facility] to review with MD. Yanez, admissions staff from [facility], contacted TOM with accepting information and requested a copy of patient's pink slip be sent to their facility with the original sent with patient. TOM provided unit control clerk with accepting information to coordinate transportation. TOM faxed pink slip to [facility]. Plan: [facility] Psychiatry Rosemary DAVIS, VIJAY
--- NOTE | 2022-05-03 10:46 | NURSING ---
CALLED SQUAD, ETA IS 90 MIN
--- NOTE | 2022-05-03 11:36 | ED.RN ---
PATIENT ADAMANTLY REFUSES TO TAKE HER HOME PRESCRIPTION MEDICATIONS WHICH HAD BEEN ORDERED TO ADMINISTER PRIOR TO HER TRANSFER. AT TIME SHE CONTINUES TO BE MANIC AND UNABLE TO BE REDIRECTED. DR. MOCTEZUMA NOTIFIED OF PATIENT REFUSING HOME MEDS.
--- NOTE | 2022-05-03 14:15 | ED.RN ---
WAS CALLED TWICE, FIRST ATTEMPT WAS TO PRINCIPAL LIBRARIAN AND WAS SENT TO A VOICEMAIL, SECOND ATTEMPT CALLED SPOKE WITH GABRIELA WHO PLACED ME ON HOLD. FOR APPROX 5 MINUTES. UNABLE TO WAIT LONGER, WILL ATTEMPT REPORT AT LATER TIME.
== END 2022-05-03 13:47 ==
PROVIDERS: Emergency Provider Emergency Medicine; PCP Student in an Organized Health Care Education/Training Program; Visit Provider Emergency Medicine
DX: F23 Brief psychotic disorder (principal); R45.1 Restlessness and agitation; Z79.899 Other long term (current) drug therapy
CPT/HCPCS: 80048; 80307; 82077; 84443; 85025; 87811; 96372; 99285; A4216; J3486

== ENCOUNTER 2022-07-06 21:55 | Emergency (ER) | payer MEDICARE, MEDICAID, SELFPAY ==
[2022-07-06 21:56] VITALS: BP 180/93; PULSE 87; RESP 16; TEMP 36; O2SAT 98; BMI 18.9
[2022-07-06] MEDS: LORazepam 1 MG Tablet PO (22:41)
--- NOTE | 2022-07-06 22:58 | EX.ED.DYSGE1 ---
HPI History of Present Illness Chief Complaint: Anxiety Informant: patient and family Narrative Narrative: Patient presents secondary to anxiety and unable to sleep. She had been admitted to a psychiatric hospital in early April and placed on several different medications including Haldol. Patient's daughter states that she is now seeing a psychiatrist in [place] that is trying to taper her off this medication. She is currently down to 5 mg of Haldol daily. Over the past couple days patient has had increased anxiety and feels that she cannot sit still for more than 30 seconds or so at a time. She has not been sleeping. They have an appointment to see the psychiatrist tomorrow. [facility] Medical History Anemia Back problem Bilateral headaches Bleeding hemorrhoid Bone fracture DDD (degenerative disc disease) Environmental allergies Fibromyalgia Gallbladder & bile duct stone with obstruction Gastrointestinal problem Heart valve problem History of open sigmoidectomy Hives Hypoglycemia Osteoarthritis Osteopenia Osteoporosis Pancreatitis Rheumatoid arthritis Seasonal allergies Seizure Skin cancer TMJ (temporomandibular joint syndrome) UTI (urinary tract infection) Vitamin deficiency Home Medications buspirone 5 mg tablet 5 mg PO TID 05/02/22 [History Last Taken Unknown] celecoxib 100 mg capsule 100 mg PO DAILY 05/02/22 [History Last Taken Unknown] diazepam 2 mg tablet 2 mg PO DAILY 05/02/22 [History Last Taken Unknown] potassium chloride 10 mEq capsule,extended release 30 meq PO DAILY 05/02/22 [History Last Taken Unknown] simvastatin 20 mg tablet 20 mg PO QHS 05/02/22 [History Last Taken Unknown] Allergy/AdvReac Type Severity Reaction Status Date / Time oxycodone Allergy Hives Verified 05/02/22 17:16 tramadol Allergy Other Verified 05/02/22 17:16 Family History Other Anxiety Arthritis Asthma Autoimmune disease Blood clot in vein Bowel disease CVA (cerebral vascular accident) Colon cancer Heart disease High cholesterol Hypertension Melanoma Myocardial infarction Osteoporosis Parkinson disease Skin cancer Surgical History History of bilateral breast reduction surgery History of cholecystectomy History of hemorrhoidectomy History of hysterectomy History of rotator cuff surgery Hx of breast reduction, elective S/P complete hysterectomy Social History Smoking Status: Never smoker alcohol intake: never substance use type: does not use what type of physical activity do you participate in: walking frequency: 1-2 times per week ROS ROS ED Constitutional Constitutional ED: Denies chills or fever(s) Eyes Eyes: Denies change in vision or discharge from eye(s) ENT ENT ED: Denies discharge from eye(s), rhinorrhea or sore throat Cardiovascular Cardiovascular: Denies chest pain or palpitations Respiratory/Chest Respiratory/Chest: Denies cough or dyspnea Gastrointestinal Gastrointestinal: Denies abdominal pain, nausea or vomiting Genitourinary Genitourinary ED: Denies dysuria Musculoskeletal Musculoskeletal: Denies back pain or extremity pain Integumentary Denies Abrasions or rash Neurologic Neurologic: Denies headache(s) or weakness Psychiatric Psychiatric: Reports anxiety Allergic/Immunologic Allergic/Immunologic ED: Denies lip swelling or urticaria EXAM Physical Exam Const Vital Signs: 07/06/22 21:56 Temperature 96.8 F L Temperature Source Temporal Pulse Rate 87 Respiratory Rate 16 Blood Pressure 180/93 H Blood Pressure Mean 122 Pulse Ox 98 Oxygen Delivery Method Room Air Positive well nourished and well developed General Appearance ED: well developed HEENT Reports moist mucous membranes Eyes EOMs intact bilaterally Chest Wall inspection of chest normal and palpation of chest normal Resp normal respiratory effort and clear to auscultation bilaterally Cardio regular rate and regular rhythm GI normal to inspection, nondistended, normoactive bowel sounds Extremity normal to inspection Neuro oriented x3 and no sensory deficits noted Motor Exam: strength 5/5 throughout Psych Psych Narrative: Patient sits in bedside chair for about 30 seconds at a time and then will get up and pace around the room before returning to the chair. Daughter states she has been doing this for the past couple of days. Mood & Affect: anxious Skin no rashes or lesions noted MDM MDM MDM Narrative Medical decision making narrative: Patient did have recent lab work obtained at [facility] that I was able to review. This includes a CBC, CMP. Patient is given a dose of p.o. Ativan at this time and a urinalysis is ordered. Lab Data Labs: Laboratory Results - last 24 hr 07/06/22 23:01 Urine Color Yellow Urine Clarity Sl. Cloudy Urine pH 6.5 Ur Specific [place] 1.015 Urine Protein Negative Urine Glucose (UA) Normal Urine Ketones Negative Urine Occult Blood 50 H Urine Nitrite Negative Urine Bilirubin Negative Urine Urobilinogen Normal Ur Leukocyte Esterase 100 H Urine RBC 0-5 SEEN Urine WBC 5-10 SEEN Ur Squamous Epith Cells 0-5 SEEN Amorphous Sediment 1+ URATE Urine Bacteria 0 SEEN Urine Mucus 0 SEEN Treatment and Re-Evaluation :: On repeat evaluation patient is lying in the bed. She still reports some tension in her face and neck as well as her legs. She feels like she cannot fully relax. Urinalysis does reveal some white cells but no bacteria. This will be sent for culture but she will not be treated. Patient be given an additional 0.5 mg of p.o. Ativan. She will be observed for 20 to 30 minutes and then discharged home with daughter. She has an appointment at 9 AM in the morning with her psychiatrist. Discharge Plan Triage Chief Complaint: Anxiety ED Provider: Bernice Hayward Dx/Rx/DC Orders Clinical Impression: Anxiety Instructions: ED Anxiety Reaction Prescriptions: No Action buspirone 5 mg tablet 5 mg PO TID Label Comments: take 1 tablet by mouth three times a day potassium chloride 10 mEq capsule, extended release 30 meq PO DAILY Label Comments: take 1 capsule by mouth once daily IN ADDITION TO 20 MEQ FOR TOTAL OF 30 MEQ DAILY diazepam 2 mg tablet 2 mg PO DAILY Label Comments: take 1 tablet by mouth once daily simvastatin 20 mg tablet 20 mg PO QHS Label Comments: take 1 tablet by mouth at bedtime celecoxib 100 mg capsule 100 mg PO DAILY Label Comments: take 1 capsule by mouth once daily with meals Primary Care Provider: Margarito Spain Referrals: Margarito Spain DO [Primary Care Provider] - Activity Restrictions/Additional Instructions: Follow-up with your psychiatrist Thursday morning as scheduled. Disposition Disposition: Home, Self Care
[2022-07-06 23:13] LABS: Bacteria 0 SEEN /hpf (None Seen); Mucous, Urine 0 SEEN /hpf (<or=2+)
[2022-07-06 23:17] LABS: Color, Urine Yellow (Yellow); Glucose, Dipstick Normal (Normal); Ketone-Dipstick Negative (Negative); Leukocyte Esterase-Dipstick 100 /ul (Negative); Nitrite-Dipstick Negative (Negative); Occult Blood-Urine 50 /ul (Negative); Protein-Dipstick Negative (Negative); Specific Gravity, Urine 1.015 (1.002-1.030); Urine Bilirubin Dipstick Negative (Negative); Urine Clarity Sl. Cloudy (Clear); Urine Urobilinogen Normal (Normal); Urine pH 6.5 (5.0 - 8.0)
[2022-07-06 23:24] LABS: Amorphous Sediment 1+ URATE; Red Blood Cells-Urine 0-5 SEEN /hpf (0-5); Squamous Epithelial Cells - UA 0-5 SEEN /hpf (5-10); White Blood Cells 5-10 SEEN /hpf (0-5)
[2022-07-07] MEDS: LORazepam 0.5 MG Tablet PO (00:09)
[2022-07-07 00:13] VITALS: BP 123/76; PULSE 74; RESP 16; O2SAT 98
[2022-07-07 01:12] VITALS: BP 123/74; PULSE 74; RESP 16; O2SAT 98
== END 2022-07-07 01:14 | disposition home or self-care (01) ==
PROVIDERS: Emergency Provider Emergency Medicine; PCP Student in an Organized Health Care Education/Training Program; Visit Provider Emergency Medicine
DX: F41.9 Anxiety disorder, unspecified (principal); Z79.899 Other long term (current) drug therapy
CPT/HCPCS: 81001; 87086; 87088; 99283

== ENCOUNTER 2022-07-08 16:33 | Emergency (ER) | payer MEDICARE, MEDICAID, SELFPAY ==
[2022-07-08 16:34] VITALS: BP 140/90; PULSE 99; RESP 15; TEMP 36.4; O2SAT 96; BMI 18.3
--- NOTE | 2022-07-08 16:38 | EDS_ITS ---
HPI History of Present Illness Chief Complaint: Anxiety Narrative Narrative: 67-year-old female here for anxiety, agitation. Patient lives alone. Has no close family. Has been at home wandering around for days. Patient and daughter feel unsafe the patient being at home alone. They are here at the request of her psychiatrist for possible placement. Patient denied SI, HI, auditory visualizations. PFSH PFS Medical History Anemia Back problem Bilateral headaches Bleeding hemorrhoid Bone fracture DDD (degenerative disc disease) Environmental allergies Fibromyalgia Gallbladder & bile duct stone with obstruction Gastrointestinal problem Heart valve problem History of open sigmoidectomy Hives Hypoglycemia Osteoarthritis Osteopenia Osteoporosis Pancreatitis Rheumatoid arthritis Seasonal allergies Seizure Skin cancer TMJ (temporomandibular joint syndrome) UTI (urinary tract infection) Vitamin deficiency Home Medications buspirone 5 mg tablet 5 mg PO TID 05/02/22 [History Last Taken Unknown] celecoxib 100 mg capsule 100 mg PO DAILY 05/02/22 [History Last Taken Unknown] diazepam 2 mg tablet 2 mg PO DAILY 05/02/22 [History Last Taken Unknown] potassium chloride 10 mEq capsule,extended release 30 meq PO DAILY 05/02/22 [History Last Taken Unknown] simvastatin 20 mg tablet 20 mg PO QHS 05/02/22 [History Last Taken Unknown] Allergy/AdvReac Type Severity Reaction Status Date / Time oxycodone Allergy Hives Verified 05/02/22 17:16 tramadol Allergy Other Verified 05/02/22 17:16 Family History Other Anxiety Arthritis Asthma Autoimmune disease Blood clot in vein Bowel disease CVA (cerebral vascular accident) Colon cancer Heart disease High cholesterol Hypertension Melanoma Myocardial infarction Osteoporosis Parkinson disease Skin cancer Surgical History History of bilateral breast reduction surgery History of cholecystectomy History of hemorrhoidectomy History of hysterectomy History of rotator cuff surgery Hx of breast reduction, elective S/P complete hysterectomy Social History Smoking Status: Never smoker alcohol intake: never substance use type: does not use what type of physical activity do you participate in: walking frequency: 1-2 times per week ROS ROS ED ROS Narrative Constitutional: Denies fever HEENT: Denies sore throat Neck: Denies neck pain Cardiovascular: Denies chest pain, syncope Respiratory: Denies shortness of breath GI: Denies nausea vomiting or abdominal pain : Denies changes in urinary habits Musculoskeletal: Denies muscle or joint pain Neurologic: Denies numbness weakness or loss of sensation Skin denies rash Psych: Endorses anxiety, agitation, restlessness EXAM Physical Exam Narrative Exam Narrative: Nursing triage notes reviewed, Vital signs reviewed Constitutional: please see mdm HENT: MMM Eyes: Pupils equal round and reactive to light, Extraocular muscles intact Neck: No stridor, no JVD, full neck ROM Lungs: Clear to auscultation, No wheezing or rales. No increased work of br eathing, no conversational dyspnea, no accessory muscle use, no nasal flaring. No respiratory distress noted Heart: Regular rate and rhythm, No murmurs, No rubs and No gallops, 2+ distal pulses (radial, femoral, posterior tibial) in all extremities Abdomen: Soft, there is no tenderness, rigidity, rebound or guarding, no obvious peritoneal signs, no palpable pulsatile abdominal masses, no auscultated abdominal bruit : No CVAT Extremities: No edema Neuro: Alert and oriented x3, neuro exam at baseline, cranial nerves II through XII are intact. No pain with extraocular muscle movement. There is negative test of skew. Normal speech. 5 of 5 strength in upper and lower extremities in flexion extension. Intact sensation to light touch in upper and lower extremity dermatomes. No truncal or extremity ataxia. No dysdiadochokinesia. Normal gait. 2+ reflexes. No meningeal signs. Negative Babinski. NIH of 0 Skin: No rash or lesions noted Psych: Goal oriented thought process, not respond to internal stimuli, did not appear anxious. Had an urge to pace. Const Vital Signs: 07/08/22 16:34 Temperature 97.6 F L Temperature Source Temporal Pulse Rate 99 Respiratory Rate 15 Blood Pressure 140/90 H Blood Pressure Mean 106 Pulse Ox 96 Oxygen Delivery Method Room Air [facility] [place] [facility] [place] Narrative Medical decision making narrative: Chief Complaint: Anxiety External records reviewed: Seen 2 days ago for same discharge after an oral dose of Ativan and 30 minutes of observation I considered the following differential diagnosis: Intracranial abnormality, anxiety, arrhythmia, electrolyte abnormality, anemia, UTI Patient's urine from 2 days ago was negative for UTI and as such I do not think the patient suffering from UTI I obtained a CT scan of the head to rule out intracranial normalities such as mass or bleed to cause of patient's change in behavior. I obtained a chest x-ray to rule out pneumonia. Obtain labs rule out electrolyte abnormalities, signs of metabolic cephalopathy. Obtain EKG to rule out arrhythmia or evidence of myocardial ischemia. Patient's labs images were remarkable for evidence of metabolic derangement, occult ischemia, arrhythmia. No imaging evidence of pneumonia, intracranial normalities. Patient was offered Zydis however he refused a prefer to have Ativan which was given did not have any improvement in symptoms. I did discuss case with hospitalist (Dr. Bullard) however hospitalist refused admission stating there is no medical reason to be admitted. The patient did not meet criteria for inpatient psychiatric admission (no SI, HI, auditory visualizations, not manic, goal-oriented). I did consult our social work department for evaluation and resource allocation. Social work was unable to find placement from the emergency department. Did give patient and family local resources. I instructed the patient to follow-up with her psychiatrist for outpatient medication titration and further resources for placement. Factors affecting care: History of anxiety currently on diazepam and Haldol Social determinants of health: Elderly, poor health literacy History obtained from others: The patient's family Shared decision making: I will have a discussion with the patient and or visitors regarding risk/benefits of further testing or admission. They will be made aware of of the risk/benefits inherent in this decision they will be given the opportunity to voice understanding. Consults: none Lab Data Attestation: I reviewed the patient's lab results. Lab results narrative: CBC without leukocytosis, severe anemia, no thrombocytopenia. CMP without evidence of acute kidney injury, significant electrolyte abnormality, anion gap, no evidence hepatobiliary pathology. Lipase is wnl indicating no pancreatic inflammation. Serum alcohol negative COVID-negative Troponin is negative, no evidence of myocardial ischemia Labs: Laboratory Results - last 24 hr 07/08/22 07/08/22 07/08/22 17:05 17:05 17:05 WBC 8.0 RBC 4.26 Hgb 13.9 Hct 42.2 MCV 99.1 H MCH 32.6 H MCHC 32.9 RDW Std Deviation 49.4 H RDW Coeff of Esthela 13.5 Plt Count 253 MPV 10.0 Sodium 137 Potassium 3.8 Chloride 104 Carbon Dioxide 27.0 Anion Gap 6 BUN 13 Creatinine 0.67 Estim Creat Clear Calc 41.25 Est GFR (MDRD) Af Amer 113 Est GFR (MDRD) Non-Af 94 BUN/Creatinine Ratio 19.5 Glucose 125 H Calcium 9.2 Total Bilirubin 0.40 AST 26 ALT 28 Alkaline Phosphatase 58 Troponin I High Sens 6 Total Protein 7.3 Albumin 3.7 Globulin 3.6 Albumin/Globulin Ratio 1.0 Lipase 51 Ethyl Alcohol 5.0 Radiography Chest X-Ray - ED: Read by ED Physician Diagnostic Testing: Clinical Impression(s) from Imaging Studies Brain CT 07/08/22 16:53 IMPRESSION: There are no acute findings. Chronic involutional changes of the brain. Electronically Signed: Agustin Little MD at 17:43 EDT , Chest X-Ray 07/08/22 17:35 IMPRESSION: No radiographic evidence of acute cardiopulmonary disease. Electronically Signed: Agustin Little MD at 18:08 EDT , I have personally reviewed the patient's chest x-ray. Chest x-ray is unremarkable for pulmonary edema, pneumothorax, pneumonia or focal cardiopulmonary abnormality. EKG Initial EKG: Attestation: I personally reviewed and interpreted this EKG as follows: Comments: EKG with normal sinus rhythm, normal axis, normal intervals, no ST or T wave changes to suggest ischemia. No evidence of WPW, Brugada, ARVD. Discharge Plan Triage Chief Complaint: Anxiety ED Provider: Lobo Palomino Dx/Rx/DC Orders Clinical Impression: Anxiety, Akathisia Instructions: Anxiety Disorders Medicine Prescriptions: No Action buspirone 5 mg tablet 5 mg PO TID Label Comments: take 1 tablet by mouth three times a day potassium chloride 10 mEq capsule, extended release 30 meq PO DAILY Label Comments: take 1 capsule by mouth once daily IN ADDITION TO 20 MEQ FOR TOTAL OF 30 MEQ DAILY diazepam 2 mg tablet 2 mg PO DAILY Label Comments: take 1 tablet by mouth once daily simvastatin 20 mg tablet 20 mg PO QHS Label Comments: take 1 tablet by mouth at bedtime celecoxib 100 mg capsule 100 mg PO DAILY Label Comments: take 1 capsule by mouth once daily with meals Primary Care Provider: Margarito Spain Referrals: Margarito Spain DO [Primary Care Provider] - Activity Restrictions/Additional Instructions: Please return if symptoms change or worsen. Please follow with your psychiatrist as an outpatient for further evaluation, medication titration and recommendations regarding inpatient treatment. Please return if you develop suicidal thoughts, homicidal thoughts, if you begin seeing and hearing things. Disposition Disposition: Home, Self Care
--- NOTE | 2022-07-08 16:53 | CT_ITS ---
STUDY: CT BRAIN WITHOUT CONTRAST REASON FOR EXAM: Female, 67 years old. agitation, AMS Individualized dose optimization techniques were used for this CT. TECHNIQUE: Transaxial CT imaging of the brain was performed without administration of intravenous contrast material. COMPARISON: None FINDINGS: There are calcifications around the carotid artery. These are noted in the cavernous carotid arteries. Normal calvarium. Normal soft tissues. There is mild cerebral atrophy with widening of the extra-axial spaces and ventricular dilatation. There are areas of decreased attenuation within the white matter tracts of the supratentorial brain, consistent with microvascular disease changes. Normal basal ganglia and thalami. Normal brainstem. There is mild cerebellar atrophy. There is no intracranial hemorrhage. There are no findings of an acute ischemic infarction. Degenerative changes of the mandibular condyles. ASPECTS Score for Acute Strokes: 01/06 CT/Brain/Head without Contrast IMPRESSION: There are no acute findings. Chronic involutional changes of the brain. Electronically Signed: Agustin Little MD at 17:43 EDT ,
[2022-07-08 17:16] LABS: Hematocrit 42.2 % (37-47); Hemoglobin 13.9 g/dL (12.0-15.0); Mean Corp Hgb Conc 32.9 g/dL (32-36); Mean Corpuscular Hgb 32.6 pg (27.0-32.0); Mean Corpuscular Volume 99.1 fL (81-99); Platelet Count 253 K/mm3 (150-450); RBC Distribution Width CV 13.5 % (11.6-14.6); RBC Distribution Width SD 49.4 fl (35.1-43.9); Red Blood Count 4.26 M/mm3 (4.2-5.4)
--- NOTE | 2022-07-08 17:35 | RAD_ITS ---
EXAM: XR CHEST, 2 VIEWS CLINICAL INDICATION: agitation, AMS TECHNIQUE: Frontal and lateral views of the chest. This report was created using [employer] report generation technology. COMPARISON: Jun 13 2012 1:24pm FINDINGS: LUNGS AND PLEURAL SPACES: Unremarkable. No consolidation or edema. No pneumothorax. No effusion. HEART: Unremarkable. Cardiac silhouette not enlarged. MEDIASTINUM: Central airways and mediastinal contour are unremarkable. BONES/JOINTS: Unremarkable. SOFT TISSUES: Unremarkable. RAD/Chest PA and Lateral IMPRESSION: No radiographic evidence of acute cardiopulmonary disease. Electronically Signed: Agustin Little MD at 18:08 EDT ,
[2022-07-08 17:36] LABS: AST(SGOT) 26 U/L (15-37); Alanine Aminotransfer ALT/SGPT 28 U/L (13-56); Albumin, Serum 3.7 g/dL (3.2-5.0); Alkaline Phosphatase 58 U/L (45-117); Anion Gap 6 (5-15); BUN 13 mg/dL (7-18); BUN/Creat Ratio 19.5 RATIO (10-20); Calcium,Total 9.2 mg/dL (8.5-10.1); Chloride 104 mmol/L (98-107); Creatinine, Serum 0.67 mg/dL (0.55-1.02); EST Glomerular Filtration Rate 94 mL/min (>60); Est Glom Filt Rate - Afr Amer 113 mL/min (>60); Estimated Creatinine Clearance 41.25 ml/min; Globulin 3.6 g/dL (2.2-4.2); Glucose 125 mg/dL (74-106); Lipase 51 U/L (13-75); Potassium 3.8 mmol/L (3.5-5.1); Protein, Total 7.3 g/dL (6.4-8.2); Sodium Level 137 mmol/L (136-145); Troponin-I HS 6 pg/mL (3.0-54.0)
[2022-07-08] MEDS: LORazepam 1 MG Tablet PO ×2 (18:21→22:46)
[2022-07-08 20:57] LABS: Bacteria 0 SEEN /hpf (None Seen); Mucous, Urine 0 SEEN /hpf (<or=2+); Red Blood Cells-Urine 0 SEEN /hpf (0-5); Squamous Epithelial Cells - UA 0 SEEN /hpf (5-10)
[2022-07-08 20:58] LABS: Color, Urine Yellow (Yellow); Glucose, Dipstick Normal (Normal); Ketone-Dipstick 15 mg/dl (Negative); Leukocyte Esterase-Dipstick 100 /ul (Negative); Nitrite-Dipstick Negative (Negative); Occult Blood-Urine 50 /ul (Negative); Protein-Dipstick Negative (Negative); Specific Gravity, Urine 1.015 (1.002-1.030); Urine Bilirubin Dipstick Negative (Negative); Urine Clarity Clear (Clear); Urine Urobilinogen Normal (Normal)
[2022-07-08 21:05] LABS: White Blood Cells 0-5 SEEN /hpf (0-5)
[2022-07-08 21:10] LABS: Amphetamine Urine VISTA NEGATIVE (<1000 ng/mL); Barbiturate Urine VISTA NEGATIVE (< 200 ng/mL); Benzodiazepine Urine VISTA NEGATIVE (< 200 ng/mL); Cocaine Urine VISTA NEGATIVE (< 300 ng/mL); Ecstacy Urine VISTA NEGATIVE (< 500 ng/mL); Methadone Urine VISTA NEGATIVE (< 300 ng/mL); PCP Urine VISTA NEGATIVE (< 25 ng/mL); THC Urine VISTA NEGATIVE (< 50 ng/mL); Vista UDS pH Range 5
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
--- NOTE | 2022-07-08 21:28 | CM.ED ---
Addendum entered by Rosemary Hooks 07/08/22 23:07: TOM spoke with [facility] admissions staff with patient and patient's daughter to complete preadmissions screening. Admissions staff explained they will be contacting patient's daughter, Juliann, as she is patient's HCPOA for consent. SW to fax HCPOA docs. Admissions staff will contact ED staff with accepting information after they receive HCPOA docs and consent. Patient and patient's daughter report understanding and in agreement with plan. TOM faxed HCPOA documents to [facility]. TOM updated welder boilermaker Morgan of the plan, unit sectary to arrange transportation once [facility] provides accepting information. Plan: [facility]- [place] location VIJAY Milian Original Note: Social Work Note TOM contacted [facility] to inquire about bed availability, no female beds available. TOM contacted [facility] to inquire about bed availability, female beds available. SW provided brief demographic information for admissions staff. TOM faxing referral to [facility]. Plan: referral pending at [facility] VIJAY Milian
[2022-07-08 22:48] VITALS: BP 139/75; PULSE 80
[2022-07-09 01:34] VITALS: RESP 16
--- NOTE | 2022-07-09 02:25 | NURSING ---
CALLED PHYSICIANS TO SET UP TRANSPORT TO [facility] IN [place]-- ETA [id number]
[2022-07-09] MEDS: Temazepam 15 MG Capsule PO (02:31)
[2022-07-09 06:29] VITALS: BP 131/65; PULSE 70; RESP 18; TEMP 36.6; O2SAT 96
[2022-07-09 06:31] VITALS: RESP 15
== END 2022-07-09 06:39 | disposition home or self-care (01) ==
PROVIDERS: Emergency Provider Emergency Medicine; PCP Student in an Organized Health Care Education/Training Program; Visit Provider Emergency Medicine
DX: F41.9 Anxiety disorder, unspecified (principal); G25.71 Drug induced akathisia; Z79.899 Other long term (current) drug therapy
CPT/HCPCS: 70450; 71046; 80053; 80307; 81001; 82077; 83690; 84484; 85027; 87428; 93005; 99283; J7030; A4216